=== PATIENT | female | born 1980 | race Caucasian/White ===

== ENCOUNTER 2017-12-22 09:53 | Inpatient (IN) ==
[2017-12-22] MEDS ORDERED: *HR* OxyCODONE/APAP 10/325 TABLET PO ONE (10:20)
--- NOTE | 2017-12-22 10:21 | Emergency Department Note ---
Disposition Clinical Impression: Flexor tenosynovitis of finger Osteomyelitis Qualifiers: Osteomyelitis type: other acute Osteomyelitis location: foot Laterality: right Qualified Code(s): M86.171 - Other acute osteomyelitis, right ankle and foot Disposition: Admitted As Inpatient Condition: Fair Time of Disposition: 11:58 General Adult HPI - General Chief complaint: ED Wound/Laceration Stated complaint: toe infection Time Seen by Provider: 12/22/17 09:59 Source: patient Limitations: no limitations Nursing Notes Reviewed: Yes Vital Signs Reviewed: Yes - History of Present Illness HPI Narrative: Patient to ED with right great toe infection. She went to wound care and was sent here for admission. States it has been infected for a couple of months. No fever. No vomiting. History of the same on the other foot with an amputation. Patient's second complaint is right middle finger pain. Red swollen and painful. States she went to another ER and it was not broken. Pain Scale: 8 - Related Data Home Medications Medication Instructions Recorded Confirmed Insulin Regular U-500 [HumuLIN R 15 unit SQ TID 10/22/15 12/22/17 U-500] Ascorbate Calcium [Vitamin C] 500 mg PO DAILY 03/30/16 12/22/17 Multivitamin/Iron/Folic Acid 1 tab PO DAILY #0 03/30/16 12/22/17 [Cerovite Advanced Form Tab] Trazodone HCl [TraZODone] 100 mg PO HS 03/30/16 12/22/17 Albuterol Sulfate [Albuterol 2 puff IH Q4H PRN 01/15/17 12/22/17 Inhaler] DiphenhydraMINE [Benadryl] 25 mg PO Q12H 01/15/17 12/22/17 Sennosides/Docusate Sodium 1 tab PO DAILY PRN 01/15/17 12/22/17 [Senna-S Tablet] Ondansetron HCl [Zofran] 8 mg PO DAILY PRN 01/19/17 12/22/17 Cinacalcet [Sensipar] 1 tab PO DAILY 12/22/17 12/22/17 DULoxetine [Cymbalta] 30 mg PO DAILY 12/22/17 12/22/17 DULoxetine [Cymbalta] 60 mg PO QAM 12/22/17 12/22/17 Ergocalciferol (VITAMIN D2) 50,000 unit PO QWEEK 12/22/17 12/22/17 [Vitamin D2] Insulin Glargine [Lantus] 30 units SQ BID 12/22/17 12/22/17 Labetalol HCl [Labetalol HCl] 300 mg PO BID 12/22/17 12/22/17 Lanthanum Carbonate [Lanthanum 1 tab PO 5XD 12/22/17 12/22/17 Carbonate] Omeprazole [PriLOSEC] 40 mg PO DAILY 12/22/17 12/22/17 Previous Rx's Medication Instructions Recorded Pregabalin [Lyrica] 100 mg PO TID 30 Days capsule 04/08/16 Allergies Allergy/AdvReac Type Severity Reaction Status Date / Time gabapentin [From Neurontin] AdvReac Fainting Verified 01/15/17 07:08 hydrocodone [From [place]] AdvReac Hypertensio Verified 01/19/17 08:38 n All systems ED: reviewed and negative except as stated. Constitutional: Denies: fever, chills Past Medical History - Past Medical History Medical history: Reports: asthma, diabetes, hyperlipidemia, hypertension, renal disease, SVT Surgical history: Reports: appendectomy, , hysterectomy, other Psychiatric history: Reports: anxiety, depression, panic disorder - Social History Smoking Status: Never smoker Smokeless Tobacco Status: No Alcohol use: Reports: none Drug use: Reports: none Physical Exam Erythema and warmth and swelling to the proximal left middle finger. Unable to flex or extend. Ulceration over the plantar aspect of the right great toe. - General Limitations: no limitations General appearance: alert, in no apparent distress - Head Head exam: atraumatic, normocephalic - Eye Eye exam: Present: normal appearance - ENT ENT exam: normal exam, normal oropharynx - Neck Neck exam: Present: normal inspection Course - Consultations Consultation #1: Dr Hernandez aware of hand consult. Will see on the floor. Time: 11:56 Consultation #2: Dr Aggarwal aware of toe infection. Requesting IV abx which are already ordered. Time: 11:56 Vital Signs Temperature 98.5 F 12/22/17 09:54 Pulse Rate 89 12/22/17 09:54 Respiratory Rate 18 12/22/17 09:54 Blood Pressure 157/83 12/22/17 09:54 O2 Sat by Pulse Oximetry 93 12/22/17 09:54 Temperature 98.5 F 12/22/17 09:54 Pulse Rate 89 12/22/17 09:54 Respiratory Rate 18 12/22/17 09:54 Blood Pressure 157/83 12/22/17 09:54 O2 Sat by Pulse Oximetry 93 12/22/17 09:54 Oxygen Delivery Oxygen Delivery Room Air Medical Decision Making - Medical Records Medical records reviewed: Yes I reviewed the patient's medical records. - Lab Data Lab results reviewed: Yes I reviewed the patient's lab results. Result diagrams: 12/22/17 10:39 12/22/17 10:39 Lab Results 12/22/17 12/22/17 12/22/17 Range/Units 10:39 10:39 10:39 WBC 8.9 (4.3-11.1) K/mcL RBC 2.95 L (3.82-4.97) M/mcL Hgb 9.0 L (11.5-15.4) g/dL Hct 27.9 L (35.3-44.9) % MCV 94.6 (83.0-100.0) fL MCH 30.5 (28.0-33.3) pg MCHC 32.3 (31.6-35.5) g/dL RDW 17.2 H (11.5-14.5) % Plt Count 157 (140-400) K/mcL MPV 10.3 (9.4-12.4) fL Immature Gran % 0.8 (0-4) % Seg Neutrophils % 80.9 % Lymphocytes % 6.6 % Monocytes % 9.1 % Eosinophils % 2.2 % Basophils % 0.4 % Neutrophils # 7.2 (1.6-8.9) K/mcL Lymphocytes # 0.6 (0.6-4.6) K/mcL Monocytes # 0.8 (0.0-1.3) K/mcL Eosinophils # 0.2 (0.0-0.6) K/mcL Basophils # 0.0 (0.0-0.2) K/mcL Sodium 131 L (136-145) mEq/L Potassium 4.1 (3.5-5.1) mEq/L Chloride 90 L (98-107) mEq/L Carbon Dioxide 29 (23-29) mEq/L BUN 26 H (6-20) mg/dL Creatinine 5.18 H (0.60-1.20) mg/dL Est GFR ( Amer) 11 L (> 60) Est GFR (Non-Af Amer) 9 L (> 60) BUN/Creatinine Ratio 5 L (6-26) Glucose 338 H (70-105) mg/dL Calculated Osmolality 290 (280-300) Lactic Acid 2.0 (0.5-2.2) mmol/L Calcium 8.0 L (8.6-10.3) mg/dL - Radiology Data Radiology results reviewed: Yes I reviewed the patient's radiology results. Finger X-Ray 12/22/17 10:18 IMPRESSION: No acute osseous abnormality. D/ / Alexander Muniz MD / Alexander Muniz MD Interpreting Provider: Alexander Muniz MD Toe X-Ray 12/22/17 10:18 IMPRESSION: Great toe soft tissue swelling with features of underlying bony destruction suspicious for osteomyelitis involving the base of the great toe distal phalanx. D/ / Chente Clement / Chente Clement Interpreting Provider: Chente Clement - EKG Data EKG #1 EKG attestation: Yes I reviewed and interpreted this EKG. EKG results narrative: Normal sinus rhythm and 89. Normal QRS. Normal ST segments. Normal intervals. Normal axis. Critical Care Time Critical Care Time: No
[2017-12-22 11:04] LABS: Basophils % 0.4 %; Eosinophils # 0.2 K/mcL (0.0-0.6); Eosinophils % 2.2 %; Hematocrit 27.9 % (35.3-44.9); Immature Granulocytes % 0.8 % (0-4); Lymphocytes # 0.6 K/mcL (0.6-4.6); Lymphocytes % 6.6 %; Mean Corpuscular HGB Conc 32.3 g/dL (31.6-35.5); Mean Corpuscular Hemoglobin 30.5 pg (28.0-33.3); Mean Corpuscular Volume 94.6 fL (83.0-100.0); Mean Platelet Volume 10.3 fL (9.4-12.4); Monocytes # 0.8 K/mcL (0.0-1.3); Monocytes % 9.1 %; Neutrophils # 7.2 K/mcL (1.6-8.9); Platelet Count 157 K/mcL (140-400); Red Blood Count 2.95 M/mcL (3.82-4.97); Red Cell Distribution Width 17.2 % (11.5-14.5); Segmented Neutrophils % 80.9 %
[2017-12-22 11:09] LABS: Potassium 4.1 mEq/L (3.5-5.1)
[2017-12-22] MEDS ORDERED: Vancomycin 1,000 MG in D5% in Water 250 ML IVPB ONE (11:21)
[2017-12-22] MEDS ORDERED: Piperacillin/Tazobactam 3.375 GM in Water for inj. (sterile) 20 ML IVP ONE (11:21)
[2017-12-22] MEDS ORDERED: Acetaminophen 325 MG TABLET PO PRN (12:45)
[2017-12-22] MEDS ORDERED: Naloxone 0.4 MG/ML INJ IVP PRN (12:45)
[2017-12-22] MEDS ORDERED: traMADol 50 MG TABLET PO PRN (12:51)
[2017-12-22] MEDS ORDERED: Vancomycin 1,500 MG in D5% in Water 250 ML IVPB SCH (13:00)
[2017-12-22] MEDS ORDERED: Ondansetron ODT 4 MG TAB.RAPDIS PO PRN (13:08)
[2017-12-22] MEDS ORDERED: Sennosides/Docusate Sodium TABLET PO PRN (13:08)
--- NOTE | 2017-12-22 13:15 | Internal Med History&Physical ---
<Raymond Sr - Last Filed: 12/22/17 13:59> Date of Encounter: 12/22/17 Time of Encounter: 12:30 Assessment and Plan (1) Osteomyelitis Current visit: Yes Status: Acute Acute osteomyelitis of right great toe. Patient states wound present for the past 2 months and she was seen at another hospital approximately 1 month ago and placed on by mouth azithromycin which did not help. Patient seen at [facility] wound care for the first time today and sent to ED. Patient states she had left great toe amputated for lesser infection compared to this one. Blood cultures 2 ordered. Wound culture ordered. IVPB vancomycin and Zosyn started in ED for infection coverage. ID consult ordered and discussed with Melissa Guevara with recommendation to hold current antibiotics for wound culture and possible bone culture by podiatry and I appreciate the consoult. Will continue IVPB as vancomycin with pharmacy dosing and Zosyn with renal dosing following cultures. Podiatry consult ordered in ED and I appreciate consult. Wound Care consult and daily wound care ordered. NPO for now d/t possible surgical intervention. Pt. discussed w/Dr. Guerrier who is in agreement with plan of care. Patient is high risk for further infection and/or sepsis as well as further morbidity based on current symptoms, degree of infection and right great toe, infected-appearing third digit of right hand, history, and risk factors of diabetes, ESRD, and previous need for amputation. Inpatient. Qualifiers: Osteomyelitis type: other acute Osteomyelitis location: foot Laterality: right Qualified Code(s): M86.171 - Other acute osteomyelitis, right ankle and foot (2) Flexor tenosynovitis of finger Current visit: Yes Status: Acute Acute tenosynovitis third digit of right hand. On exam, finger is red, swollen , painful and patient is unable to flex. Orthopedic consult placed in ED and I appreciate the consult. Stair-step pain medications for pain management. (3) Hyponatremia Current visit: Yes Status: Acute Acute hyponatremia with sodium of 131 and hypochloremia with chloride of 90 on admission. Patient receiving general 0.9 and S IV fluid resuscitation @ 60 mL/ HR. Monitor follow-up labs per sodium chloride status. (4) Hypocalcemia Current visit: Yes Status: Acute Acute hypocalcemia with calcium of 8.0 on admission. Calcium carbonate 1000 mg by mouth 3 times a day. Monitor f/u labs. (5) HLD (hyperlipidemia) Current visit: Yes Status: Chronic Hx of chronic HLD. Lipid panel in a.m. labs. Pt. is not currently taking statin. Will consider adding Lipitor to medication list based on lipid panel results. Qualifiers: Hyperlipidemia type: pure hypercholesterolemia Qualified Code(s): E78.00 - Pure hypercholesterolemia, unspecified; E78.0 - Pure hypercholesterolemia (6) HTN (hypertension) Current visit: Yes Status: Chronic Hx of chronic HTN. Monitor pt. and VS. Continue pts. Norvasc and Lopressor. Qualifiers: Hypertension type: essential hypertension Qualified Code(s): I10 - Essential (primary) hypertension (7) Anemia in chronic kidney disease Current visit: Yes Status: Chronic Hx of chronic anemia. Hgb 9.0 and Hct 27.9 on admission, down from 10.8 and 34.1 on 02/09/17. Pt. denies any unusual bleeding. H/H in a.m. labs. Qualifiers: Chronic kidney disease stage: on chronic dialysis Qualified Code(s): N18.6 - End stage renal disease; D63.1 - Anemia in chronic kidney disease; D63.1 - Anemia in chronic kidney disease; Z99.2 - Dependence on renal dialysis; Z99.2 - Dependence on renal dialysis; Z99.2 - Dependence on renal dialysis; Z99.2 - Dependence on renal dialysis (8) DM (diabetes mellitus) type II controlled with renal manifestation Current visit: Yes Status: Chronic Hx of chronic DM controlled with insulin complicated by ESRD. BG checks Q6 d/t NPO status. A1c in a.m. labs. Continue pts. Humalin and Lantus. Pt. currently NPO for possible surgical intervention. Continue ADA diet when appropriate. Qualifiers: Diabetes mellitus complication detail: with chronic kidney disease Diabetes mellitus group home insulin use: with rn long term care use Chronic kidney disease stage: stage 4 (severe) Qualified Code(s): E11.22 - Type 2 diabetes mellitus with diabetic chronic kidney disease (9) ESRD on dialysis Current visit: Yes Status: Chronic Chronic ESRD o dialysis. Pt. states she was dialyzed yesterday and scheduled / /. Consult ordered with Carla Cheng and discussed w/Dr. Ventura for inpatient dialysis tomorrow and I appreciate the consult. Patient receiving gentle 0.9 NS IV fluids for infection and current hyponatremia and hypochloremia. Monitor I&O and daily weight. (10) DVT prophylaxis Current visit: Yes Status: Acute Bilateral SCDs on pts. LEs for DVT prophylaxis d/t possible need for surgical intervention. Internal Medicine - H&P: HPI Chief complaint: Wound on right great toe/Infection of right Admitted From: Emergency Dept Plans for Post Hospital Care: Home History of present illness: Ms. Cochran is a 37 year old female with medical hx of asthma, diabetes controlled with insulin, hyperlipidemia, hypertension, end-stage renal disease on dialysis and SVTs resents from the ED with chief complaint of painful wound to the right great toe for the past 2 months which is worsened as well as pain and swelling in the third digit of the right hand for the past several days. Patient states she was at wound care for the first time today for her right great toe and was sent directly to the ED. She reports she was seen at another hospital approximately month ago and placed on by mouth azithromycin for her great toe which did not help. Patient states she was wrestling with her niece when she injured her third digit of her right hand several days ago which is now red, swollen, and painful. Patient denies recent illness, fever, chills, nausea, vomiting, headache, changes in vision, chest pain, shortness of breath, cough, palpitations, abdominal pain, diarrhea, constipation, dizziness, lightheadedness, pre-syncope, or syncope. Past Med Surg Social Fam HX - Past Medical History Source: patient, old records reviewed Medical history: asthma, diabetes (Controlled w/insulin), hyperlipidemia, hypertension, renal disease (ESRD on dialysis), SVT Psychiatric history: anxiety, depression, panic disorder - Past Surgical History Surgical History: appendectomy, , hysterectomy (Partial), other - Social History Smoking Status: Former smoker Packs per day: 1/2 PPD - Reports quitting 2 years ago Smokeless Tobacco Status: No Alcohol use: none Drug use: none Current living situation: Home Activity Level: Independent ambulation Recent Out of Country Travel Within the Last 8 Weeks: No Exposure or Possible Exposure to Illness During Travel: No - Family History Father Race: Family Member Ethnicity: Non- Living Status: Still Living Hx Family Cardiac Disorders: Yes (CAD, LA, HTN, HLD) Hx Family Respiratory Disorders: Yes (Sleep apnea) Hx Family Endocrine Disorder: Yes (DM) Hx Family Neuromuscular Disorders: Yes (father (stroke), mother (neuropathy)) Mother Race: Family Member Ethnicity: Non- Living Status: Still Living Hx Family Cardiac Disorders: Yes (LA, HTN, HLD) Hx Family Genitourinary Disorders: Yes (ESRD on dialysis) Hx Family Endocrine Disorder: Yes (DM) Brother Race: Family Member Ethnicity: Non- Living Status: Still Living Hx Family Medical Disorders: No Sister Race: Family Member Ethnicity: Non- Living Status: Still Living Hx Family Respiratory Disorders: Yes (Respiratory infections) Hx Family Endocrine Disorder: Yes (DM) Internal Medicine - H&P: Meds Insulin Regular U-500 [HumuLIN R U-500] 15 unit SQ TID 10/22/15 [History] Ascorbate Calcium [Vitamin C] 500 mg PO DAILY 03/30/16 [History] Multivitamin/Iron/Folic Acid [Cerovite Advanced Form Tab] 1 tab PO DAILY #0 08/07 [History] Trazodone HCl [TraZODone] 100 mg PO HS 03/30/16 [History] Pregabalin [Lyrica] 100 mg PO TID 30 Days capsule 04/08/16 [Rx] Albuterol Sulfate [Albuterol Inhaler] 2 puff IH Q4H PRN 01/15/17 [History] DiphenhydraMINE [Benadryl] 25 mg PO Q12H 01/15/17 [History] Sennosides/Docusate Sodium [Senna-S Tablet] 1 tab PO DAILY PRN 01/15/17 [History ] Ondansetron HCl [Zofran] 8 mg PO DAILY PRN 01/19/17 [History] Cinacalcet [Sensipar] 1 tab PO DAILY 12/22/17 [History] DULoxetine [Cymbalta] 30 mg PO HS 12/22/17 [History] DULoxetine [Cymbalta] 60 mg PO QAM 12/22/17 [History] Ergocalciferol (VITAMIN D2) [Vitamin D2] 50,000 unit PO QWEEK 12/22/17 [History] Insulin Glargine [Lantus] 30 units SQ BID 12/22/17 [History] Labetalol HCl [Labetalol HCl] 300 mg PO BID 12/22/17 [History] Lanthanum Carbonate [Lanthanum Carbonate] 1 tab PO 5XD 12/22/17 [History] Omeprazole [PriLOSEC] 40 mg PO DAILY 12/22/17 [History] 3 Allergy/AdvReac Type Severity Reaction Status Date / Time gabapentin [From Neurontin] AdvReac Fainting Verified 01/15/17 07:08 hydrocodone [From [place]] AdvReac Hypertensio Verified 01/19/17 08:38 n All Systems PM: A 10-system review of systems was performed and is negative for pertinent findings except as documented above in the HPI. - Constitutional Constitutional: no chills, no fever(s), no night sweats - EENT Eyes: no change in vision, no discharge, no pain, no photophobia Ears: no ear discharge, no ear pain, no tinnitus Nose, mouth and throat: no dysphagia, no nasal discharge, no neck pain, no sore throat - Breasts Breasts: as per HPI - Cardiovascular Cardiovascular ROS IM: no chest pain, no diaphoresis, no dyspnea, no lightheadedness, no palpitations, no syncope - Respiratory Respiratory: no cough, no dyspnea, no wheezing, no excessive phlegm production - Gastrointestinal Gastrointestinal: no abdominal pain, no diarrhea, no hematemesis, no hematochezia, no melena, no nausea, no vomiting - Genitourinary Genitourinary: no change in urinary stream, no dysuria, no flank pain, no hematuria Menstruation: as per HPI, post hysterectomy (Partial) - Musculoskeletal Musculoskeletal ROS IM: no numbness, no tingling - Integumentary Integumentary IM: as per HPI, erythema (Right great toe and third digit of right hand), skin ulcer (Right great toe), no rash, no unusual bruising - Neurological Neurological ROS: no confusion, no convulsions, no focal weakness, no numbness, no tingling, no tremor(s) - Psychiatric Psychiatric: as per HPI, anxiety, depression, panic attacks - Endocrine Endocrine IM: as per HPI - Hematologic/Lymphatic Hematologic/Lymphatic: no easy bruising - Allergic/Immunologic Allergic/Immunologic: as per HPI - Constitutional Vitals: Temp Pulse Resp BP Pulse Ox 98.5 F 89 18 157/83 93 12/22/17 09:54 12/22/17 09:54 12/22/17 09:54 12/22/17 09:54 12/22/17 09:54 General appearance: Present: cooperative, mild distress (Pain in right great toe and third digit of right hand), A&O X 3, morbidly obese, pleasant, answers questions appropriately - Head Head exam: Present: atraumatic, normocephalic - Eye Eye exam: Present: PERRL, conjuntiva pink, sclera anicteric Pupils: Present: PERRL - ENT ENT exam: Present: normal exam - Neck Neck exam general surgery: Present: supple, trachea midline. Absent: lymphadenopathy - Respiratory Respiratory exam: Present: CTAB. Absent: accessory muscle use, rales, rhonchi, wheezes - Cardiovascular Cardiovascular exam: Present: RRR, +S1, +S2. Absent: diastolic murmur, gallop, rubs, systolic murmur - GI/Abdominal GI/Abdominal exam: Present: normal bowel sounds, soft, no peritoneal signs. Absent: distended, tenderness - Rectal Rectal exam: Present: deferred - Additional comments: Gu exam deferred. - Extremities Exam Extremities exam: Present: joint swelling (Third digit of right hand), tenderness (Third digit of right hand), warm, radial pulses palpable and symmetrical - Expanded Upper Extremities Exam Hand wrist exam: Present: erythema (Third digit of right hand), swelling (Third digit of right hand), tenderness (Third digit of right hand) - Expanded Lower Extremities Exam Foot/Toe exam: Present: amputation (Left great toe), erythema (Right great toe) , swelling (Right great toe), tenderness (Right great toe) - Back Exam Back exam: Present: normal inspection - Neurological Exam Neurological exam: Present: CN II-XII intact, oriented X3, no focal deficits. Absent: pronater drift, facial droop, speech deficit - Psychiatric Psychiatric exam: Present: normal affect, normal mood - Skin Skin exam: Present: dry, intact Internal Med - H&P Results - Labs CBC & Chem 7: 12/22/17 10:39 12/22/17 10:39 Labs: Short CBC 12/22/17 Range/Units 10:39 WBC 8.9 (4.3-11.1) K/mcL Hgb 9.0 L (11.5-15.4) g/dL Hct 27.9 L (35.3-44.9) % Plt Count 157 (140-400) K/mcL Neutrophils # 7.2 (1.6-8.9) K/mcL BMP 12/22/17 10:39 Sodium 131 L Potassium 4.1 Chloride 90 L Carbon Dioxide 29 BUN 26 H Creatinine 5.18 H Glucose 338 H Calcium 8.0 L - Impressions ITS Impressions Finger X-Ray 12/22/17 10:18 IMPRESSION: No acute osseous abnormality. D/ / Alexander Muniz MD / Alexander Muniz MD Interpreting Provider: Alexander Muniz MD Toe X-Ray 12/22/17 10:18 IMPRESSION: Great toe soft tissue swelling with features of underlying bony destruction suspicious for osteomyelitis involving the base of the great toe distal phalanx. D/ / Chente Clement / Chente Clement Interpreting Provider: Chente Clement - Diagnostic Studies Other Images Additional comments: Impressions Finger X-Ray 12/22/17 10:18 IMPRESSION: No acute osseous abnormality. D/ / Alexander Muniz MD / Alexander Muniz MD Interpreting Provider: Alexander Muniz MD Toe X-Ray 12/22/17 10:18 IMPRESSION: Great toe soft tissue swelling with features of underlying bony destruction suspicious for osteomyelitis involving the base of the great toe distal phalanx. D/ / Chente Clement / Chente Clement Interpreting Provider: Chente Clement <Lila Guerrier - Last Filed: 12/23/17 07:06> Date of Encounter: 12/23/17 Internal Medicine - H&P: HPI History of present illness: Ms. Mourer is a 37 year old female All Systems PM: A 10-system review of systems was performed and is negative for pertinent findings except as documented above in the HPI. - Constitutional Vitals: Temp Pulse Resp BP Pulse Ox 98.2 F 85 20 97/63 96 12/23/17 04:52 12/23/17 04:52 12/23/17 04:52 12/23/17 04:52 12/23/17 04:52 Internal Med - H&P Results - Labs CBC & Chem 7: 12/23/17 04:03 12/23/17 04:03 Labs: Short CBC 12/23/17 Range/Units 04:03 WBC 9.5 (4.3-11.1) K/mcL Hgb 8.1 L (11.5-15.4) g/dL Hct 26.2 L (35.3-44.9) % Plt Count 189 (140-400) K/mcL Neutrophils # 6.6 (1.6-8.9) K/mcL BMP 12/23/17 04:03 Sodium 136 Potassium 3.6 Chloride 97 L Carbon Dioxide 25 BUN 31 H Creatinine 6.25 H Glucose 177 H Calcium 7.1 L Liver Function 12/23/17 Range/Units 04:03 Total Bilirubin 0.7 (0.3-1.0) mg/dL AST 25 (13-39) Units/L ALT 23 (7-52) Units/L Alkaline Phosphatase 98 (34-104) Units/L Albumin 3.3 L (3.5-5.7) g/dL - Attending Attestation I examined this patient and my medical decision-making was reviewed with the Resident Physician. I agree with the documented findings, disposition and treatment plan as described except to the extent set forth below.
--- NOTE | 2017-12-22 14:22 | Infectious Disease Consult ---
Date of Encounter: 12/22/17 Time of Encounter: 14:16 Assessment and Plan (1) Osteomyelitis Status: Acute Assessment and plan: Location: Right foot, great toe. Causative organism unclear. Secondary to non-healing diabetic foot ulcer. X-ray of the right foot shows osteomyelitis of the base of the right great toe. Podiatry consulted and following. Await recommendations. Per the patient, Podiatry is planning to take the patient to surgery and possibly amputate the toe. Check ESR and CRP. Blood cultures drawn 12/22/17 are pending x 2 sets. Wound culture obtained in the ED is pending. Clinically, the patient does not appear toxic. Her vitals and WBC are normal. For now, hold off on antibiotics until Podiatry is able to obtain good intra- operative cultures. If the patient spikes a fever or takes a turn to the worse, start get repeat blood cultures x 2 sets and start broad spectrum antibiotics (Vancomycin and Zosyn). Wound care and activity restrictions per the primary team. Qualifiers: Osteomyelitis type: other acute Osteomyelitis location: foot Laterality: right Qualified Code(s): M86.171 - Other acute osteomyelitis, right ankle and foot (2) Diabetic foot ulcer Status: Acute Assessment and plan: Location: Plantar medial aspect of the right great toe. Etiology unclear. Podiatry consulted and following. Wound care and activity restrictions per the podiatry team. Qualifiers: Diabetic foot ulcer location: toe Diabetes mellitus type: type 1 Laterality: right Non-pressure ulcer stage: with necrosis of bone Qualified Code(s): E10.621 - Type 1 diabetes mellitus with foot ulcer; L97.514 - Non- pressure chronic ulcer of other part of right foot with necrosis of bone; L97.514 - Non-pressure chronic ulcer of other part of right foot with necrosis of bone; L97.514 - Non-pressure chronic ulcer of other part of right foot with necrosis of bone; L97.514 - Non-pressure chronic ulcer of other part of right foot with necrosis of bone (3) Diabetes mellitus Status: Chronic Assessment and plan: Uncontrolled per patient report. FSBS 338 on admission labs. Check HgbA1C. Recommend aggressive glucose monitoring and control to promote wound healing and prevent re-infection. Management per the primary team. Qualifiers: Diabetes mellitus type: type 1 Diabetes mellitus complication status: with skin complications Diabetes mellitus complication detail: with foot ulcer Qualified Code(s): E10.621 - Type 1 diabetes mellitus with foot ulcer; L97.509 - Non-pressure chronic ulcer of other part of unspecified foot with unspecified severity; L97.509 - Non-pressure chronic ulcer of other part of unspecified foot with unspecified severity; L97.509 - Non-pressure chronic ulcer of other part of unspecified foot with unspecified severity; L97.509 - Non-pressure chronic ulcer of other part of unspecified foot with unspecified severity (4) ESRD on dialysis Status: Chronic Assessment and plan: Secondary to diabetic nephropathy. Follows with [facility]. HD T//Wed. Nephrology consulted and following. (5) Peripheral neuropathy Status: Chronic Qualifiers: Peripheral neuropathy type: polyneuropathy, other Qualified Code(s): G62.89 - Other specified polyneuropathies (6) Hypertension Status: Chronic Qualifiers: Hypertension type: essential hypertension Qualified Code(s): I10 - Essential (primary) hypertension (7) Morbid obesity with BMI of 40.0-44.9, adult Status: Chronic (8) Left hand pain Status: Acute Assessment and plan: Likely secondary to traumatic injury 2 weeks ago. Xray negative for fracture. Ortho consulted. Await recommendations. Clinically, does not appear infected, but may need to consider additional imaging to evaluate further. Infectious Disease HPI - Data of Consult Patient: new to practice Consult date: 12/22/17 Requesting Physician: Cesar Bose Primary Care Provider: Jacy Mcdonnell - Consult Narrative Reason for consult: Right great toe OM History of present illness: Ms. Cochran is a 37 year old female with a past medical history of asthma, diabetes type 1 diagnosed when the patient was 11 years old currently on sliding scale and long-acting insulin, hyperlipidemia, hypertension, end-stage renal disease on hemodialysis Wednesday, , and Wednesday, anxiety, and depression. The patient was admitted to the hospital December 22 for osteomyelitis the right great toe. We are consulted December 22 for antibiotic recommendations for osteomyelitis of the right great toe. Briefly, the patient is a 37-year-old female with past medical history as stated above. The patient states she had a diabetic ulcer noted to the plantar aspect of her right great toe for the past 2 months. She states that over the past with a course week the wound has worsened and now has a foul-smelling drainage. She denies any known injury or cause of the ulcer. She states she was seen once at another hospital and placed on a short course of clindamycin, but denied any change in the wound. She states she was referred to the wound clinic by her PCP who then subsequently told her to come to the ER for admission. Upon arrival to the ER, the patient is afebrile and hemodynamically stable. Her white blood cell count is normal. Her serum creatinine is consistent with her end-stage renal disease.She is also complaining of left middle finger pain and swelling and bruising secondary to a traumatic injury about 2 weeks ago. She states she had a previous x-ray that was negative, but she continues to have worsening pain and swelling. She did undergo an x-ray of the finger in the ER that was negative. She also had a right foot x-ray that showed ostial myelitis of the base of the right great toe. Blood cultures were obtained 2 sets and a wound culture was obtained as well. ESR and CRP are pending. She did receive a dose of IV vancomycin and IV Zosyn in the emergency department. Orthopedics has been consulted for her finger and podiatry as been consulted for the foot ulcer. We have been asked to evaluate and make further recommendations. During my exam today, the patient endorses a history as stated above. She reports an intermittent fevers and chills and rigors at home with her last fever being about 4 days ago. She states the fevers have been intermittent for a couple of weeks now. She reports generalized fatigue and dizziness. She denies any headache or neck pain. She denies any congestion, earache, or sore throat. She denies any chest pain, shortness of breath, or cough. She reports some nausea, but no vomiting or diarrhea or constipation. She denies any abdominal pain. She does report that she does still void, sometimes not even once a day. She states she's not had a very good appetite and her blood sugars been running very high at home. She denies oral thrush or additional skin lesions. The patient lives at home with her sister and nieces. She does not work outside the home. She denies tobacco, alcohol, or illicit drug use. She denies any infectious history. She denies any recent travel. She does have a dog at home, but denies any bites, scratches, or licks to the affected extremity. 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 She tells me she has been told that she has poor circulation. CC: Cesar Bose Past Med Surg Social Fam HX - Past Medical History Attestation: Yes The following information was validated with the patient. Source: patient, old records reviewed, nursing notes reviewed Medical history: asthma, diabetes (Type I, dx'd at 11 y/o, SSI/ARGUELLES), hyperlipidemia, hypertension, renal disease (ESRD on dialysis T// secondary to DM.), SVT Psychiatric history: anxiety, depression, panic disorder - Past Surgical History Surgical History: appendectomy, , hysterectomy (Partial), other (Left great toe amputation) - Social History Smoking Status: Former smoker Packs per day: 1/2 PPD - Reports quitting 2 years ago Smokeless Tobacco Status: No Alcohol use: none Drug use: none - Family History Mother Race: Family Member Ethnicity: Non- Living Status: Still Living Hx Family Cardiac Disorders: Yes (NV, HTN, HLD) Hx Family Genitourinary Disorders: Yes (ESRD on dialysis) Hx Family Endocrine Disorder: Yes (DM) Brother Race: Family Member Ethnicity: Non- Living Status: Still Living Hx Family Medical Disorders: No Sister Race: Family Member Ethnicity: Non- Living Status: Still Living Hx Family Respiratory Disorders: Yes (Respiratory infections) Hx Family Endocrine Disorder: Yes (DM) Father Race: Family Member Ethnicity: Non- Living Status: Still Living Hx Family Cardiac Disorders: Yes (CAD, NV, HTN, HLD) Hx Family Respiratory Disorders: Yes (Sleep apnea) Hx Family Endocrine Disorder: Yes (DM) Hx Family Neuromuscular Disorders: Yes (father (stroke), mother (neuropathy)) Infectious Disease-CN:Meds Insulin Regular U-500 [HumuLIN R U-500] 15 unit SQ TID 10/22/15 [History] Ascorbate Calcium [Vitamin C] 500 mg PO DAILY 03/30/16 [History] Multivitamin/Iron/Folic Acid [Cerovite Advanced Form Tab] 1 tab PO DAILY #0 08/07 [History] Trazodone HCl [TraZODone] 100 mg PO HS 05/09/16 [History] Pregabalin [Lyrica] 100 mg PO TID 30 Days capsule 04/08/16 [Rx] Albuterol Sulfate [Albuterol Inhaler] 2 puff IH Q4H PRN 01/15/17 [History] DiphenhydraMINE [Benadryl] 25 mg PO Q12H 01/15/17 [History] Sennosides/Docusate Sodium [Senna-S Tablet] 1 tab PO DAILY PRN 01/15/17 [History ] Ondansetron HCl [Zofran] 8 mg PO DAILY PRN 01/19/17 [History] Cinacalcet [Sensipar] 1 tab PO DAILY 12/22/17 [History] DULoxetine [Cymbalta] 30 mg PO HS 12/22/17 [History] DULoxetine [Cymbalta] 60 mg PO QAM 12/22/17 [History] Ergocalciferol (VITAMIN D2) [Vitamin D2] 50,000 unit PO QWEEK 12/22/17 [History] Insulin Glargine [Lantus] 30 units SQ BID 12/22/17 [History] Labetalol HCl [Labetalol HCl] 300 mg PO BID 12/22/17 [History] Lanthanum Carbonate [Lanthanum Carbonate] 1 tab PO 5XD 12/22/17 [History] Omeprazole [PriLOSEC] 40 mg PO DAILY 12/22/17 [History] 3 Allergy/AdvReac Type Severity Reaction Status Date / Time gabapentin [From Neurontin] AdvReac Fainting Verified 01/15/17 07:08 hydrocodone [From Holloway] AdvReac Hypertensio Verified 01/19/17 08:38 n All systems: reviewed and no additional remarkable complaints except as stated Exam - Constitutional Vitals: Temp Pulse Resp BP Pulse Ox 98.5 F 89 16 156/88 93 12/22/17 09:54 12/22/17 09:54 12/22/17 13:53 12/22/17 13:53 12/22/17 09:54 General appearance: cooperative, morbidly obese, no acute distress - Head Head exam: Present: atraumatic, normal inspection, normocephalic - Eye Eye exam: Present: EOMI, normal appearance, PERRL Pupils: Present: normal accommodation - ENT ENT exam: Present: mucous membranes moist - Neck Neck exam: Present: normal inspection - Respiratory Respiratory exam: Present: CTAB. Absent: rales, respiratory distress, rhonchi, wheezes - Cardiovascular Cardiovascular exam: Present: RRR, +S1, +S2 - GI/Abdominal GI/Abdominal exam: Present: distended (obese), normal bowel sounds, soft. Absent: tenderness - Extremities Exam Extremities exam: Present: joint swelling (Left hand middle finger PIP and MCP joint), tenderness (Right great toe, left hand). Absent: pedal edema Additional comments: Right great toe erythematous and edematous with Stage III ulcer noted to the plantar medial aspect. Foul-smelling drainage noted. Wound bed 50% eschar, 50% granulation tissue. Erythema and edema and tenderness noted to the left hand middle finger and dorsal aspect of the left fourth metacarpal. ROM of the finger limited. Wrist ROM intact. - Neurological Exam Neurological exam: Present: alert, oriented X3, no focal deficits - Psychiatric Psychiatric exam: Present: normal affect, normal mood - Skin Skin exam: Present: dry, intact, normal color, warm - Additional findings Additional findings: Perma-cath noted to the right upper chest. No redness, warmth, or drainage noted. Non-functioning AV fistula noted to the RUE. Infectious Disease CN: Results - Labs CBC & Chem 7: 12/22/17 10:39 12/22/17 10:39 Consult Discharge Plan - Plan Referrals: Jacy Mcdonnell [Primary Care Provider] - - Attending Attestation I examined this patient and my medical decision-making was reviewed with the Resident Physician. I agree with the documented findings, disposition and treatment plan as described except to the extent set forth below. This is an addendum to original report dictated by Melissa Guevara CNP. Please refer to [facility] for full details. Patient is a 37-year-old unfortunate female who is has diabetes mellitus type 1 with multiple complications including end-stage renal disease on hemodialysis, peripheral neuropathy, hypertension, morbid obesity and a history of diabetic ulcer noted on the plantar aspect of the right great toe for the past 2 months. Patient apparently had some drainage took antibiotics but didnt help and now has worsening drainage and foul smelling. Patient was seen by her PCP and sent to the emergency department for evaluation. Patient has not had sepsis like pictureors criteria. Patient had x-ray of the foot which revealed osteomyelitis. Patient was given a dose of vancomycin and Zosyn. Patient to be taken to the OR tomorrow by podiatry for surgical intervention. Currently patient sitting in bed appears comfortable and nontoxic on her cell phone pleasant answers questions. Commands. I agree with stopping all antibiotics since she is nontoxic and wait to see what Intra-Op cultures grow and do directly therapy at that time if still needed. We will have to talk to Dr. Reyez to see if he amputated proximal to the infected toe or if he has any concern for residual osteomyelitis after the surgery. In the meantime she will probably need 6 weeks worth of IV antibiotics. Patient does live in [place]. She has had IV antibiotics administered in the past. She also has her hemodialysis in [place].
--- NOTE | 2017-12-22 16:06 | Nephrology Consult Note ---
<Russel Reed - Last Filed: 12/22/17 15:50> Date of Encounter: 12/22/17 Time of Encounter: 15:50 Assessment and Plan (1) ESRD on dialysis Current Visit: Yes Status: Chronic Patient with ESRD secondary to diabetic nephropathy, on HD every , , Sa Right upper chest tunnelled HD catheter in place for the past 2 years, blood cultures pending Continue HD as scheduled every , , Sa Avoid nephrotoxins Continue to monitor (2) Anemia in chronic kidney disease Current Visit: Yes Status: Chronic Continue to monitor Qualifiers: Chronic kidney disease stage: on chronic dialysis Qualified Code(s): N18.6 - End stage renal disease; D63.1 - Anemia in chronic kidney disease; D63.1 - Anemia in chronic kidney disease; Z99.2 - Dependence on renal dialysis; Z99.2 - Dependence on renal dialysis; Z99.2 - Dependence on renal dialysis; Z99.2 - Dependence on renal dialysis (3) Hyponatremia Current Visit: Yes Status: Acute Continue IVF Continue to monitor (4) HTN (hypertension) Current Visit: No Status: Chronic Continue home meds Management per primary team Qualifiers: Hypertension type: essential hypertension Qualified Code(s): I10 - Essential (primary) hypertension (5) Osteomyelitis Current Visit: Yes Status: Acute Avoid nephrotoxins Management per ID Qualifiers: Osteomyelitis type: other acute Osteomyelitis location: foot Laterality: right Qualified Code(s): M86.171 - Other acute osteomyelitis, right ankle and foot (7) Diabetes mellitus Current Visit: Yes Status: Chronic Management per primary team Qualifiers: Diabetes mellitus type: type 1 Diabetes mellitus complication status: with skin complications Diabetes mellitus complication detail: with foot ulcer Qualified Code(s): E10.621 - Type 1 diabetes mellitus with foot ulcer; L97.509 - Non-pressure chronic ulcer of other part of unspecified foot with unspecified severity; L97.509 - Non-pressure chronic ulcer of other part of unspecified foot with unspecified severity; L97.509 - Non-pressure chronic ulcer of other part of unspecified foot with unspecified severity; L97.509 - Non-pressure chronic ulcer of other part of unspecified foot with unspecified severity (8) Vitamin D deficiency Current Visit: Yes Status: Chronic Continue Vit D supplementation Outpatient monitoring (9) Morbid obesity with BMI of 40.0-44.9, adult Current Visit: Yes Status: Chronic Management per primary team History of Present Illness - Reason for Consult Consult date: 12/22/17 end stage renal disease Requesting physician: Raymond Sr - Chief Complaint Toe infection - History of Present Illness Ms. Cochran is a 37 yo female with a PMH of diabetic nephropathy, ESRD on HD every , and previous left great toe amputation who presented c/o fever , chills, right great toe infection, and left hand infection that has been worsening for the past 4 days. She reports recent travel to [place] four months ago and denies animal bites or scratches to the affected extremities. Of note, she was recently treated with Clindamycin without relief of current symptoms. Patient received IV Vancomycin and IV Zosyn in the emergency department for osteomyelitis of the right great toe. Nephrology was consulted for HD management. Patient has a right upper chest tunnelled HD catheter in place for the past 2 years and non-working fistulas in bilateral upper extremities. 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 Patient reports last HD was yesterday Past Med Surg Social Fam HX - Past Medical History Medical history: asthma, diabetes (Type I, dx'd at 11 y/o, SSI/ARGUELLES), hyperlipidemia, hypertension, renal disease (ESRD on dialysis // secondary to DM.), SVT, other (legally blind) Psychiatric history: anxiety, depression, panic disorder - Past Surgical History Surgical History: appendectomy, , hysterectomy (Partial), other (Left great toe amputation) - Social History Smoking Status: Former smoker Packs per day: 1/2 PPD - Reports quitting 2 years ago Smokeless Tobacco Status: No Alcohol use: none Drug use: none - Family History Mother Race: Family Member Ethnicity: Non- Living Status: Still Living Hx Family Cardiac Disorders: Yes (MS, HTN, HLD) Hx Family Genitourinary Disorders: Yes (ESRD on dialysis) Hx Family Endocrine Disorder: Yes (DM) Brother Race: Family Member Ethnicity: Non- Living Status: Still Living Hx Family Medical Disorders: No Sister Race: Family Member Ethnicity: Non- Living Status: Still Living Hx Family Cardiac Disorders: Yes Hx Family Respiratory Disorders: Yes (Respiratory infections) Hx Family Endocrine Disorder: Yes (DM) Father Race: Family Member Ethnicity: Non- Living Status: Still Living Hx Family Cardiac Disorders: Yes (CAD, MS, HTN, HLD) Hx Family Respiratory Disorders: Yes (Sleep apnea) Hx Family Endocrine Disorder: Yes (DM) Hx Family Neuromuscular Disorders: Yes (father (stroke), mother (neuropathy)) Medications and Allergies Insulin Regular U-500 [HumuLIN R U-500] 15 unit SQ TID 10/22/15 [History] Ascorbate Calcium [Vitamin C] 500 mg PO DAILY 03/30/16 [History] Multivitamin/Iron/Folic Acid [Cerovite Advanced Form Tab] 1 tab PO DAILY #0 08/07 [History] Trazodone HCl [TraZODone] 100 mg PO HS 03/30/16 [History] Pregabalin [Lyrica] 100 mg PO TID 30 Days capsule 04/08/16 [Rx] Albuterol Sulfate [Albuterol Inhaler] 2 puff IH Q4H PRN 01/15/17 [History] DiphenhydraMINE [Benadryl] 25 mg PO Q12H 01/15/17 [History] Sennosides/Docusate Sodium [Senna-S Tablet] 1 tab PO DAILY PRN 01/15/17 [History ] Ondansetron HCl [Zofran] 8 mg PO DAILY PRN 01/19/17 [History] Cinacalcet [Sensipar] 1 tab PO DAILY 12/22/17 [History] DULoxetine [Cymbalta] 30 mg PO HS 12/22/17 [History] DULoxetine [Cymbalta] 60 mg PO QAM 12/22/17 [History] Ergocalciferol (VITAMIN D2) [Vitamin D2] 50,000 unit PO QWEEK 12/22/17 [History] Insulin Glargine [Lantus] 30 units SQ BID 12/22/17 [History] Labetalol HCl [Labetalol HCl] 300 mg PO BID 12/22/17 [History] Lanthanum Carbonate [Lanthanum Carbonate] 1 tab PO 5XD 12/22/17 [History] Omeprazole [PriLOSEC] 40 mg PO DAILY 12/22/17 [History] 3 Allergy/AdvReac Type Severity Reaction Status Date / Time gabapentin [From Neurontin] AdvReac Fainting Verified 01/15/17 07:08 hydrocodone [From [place]] AdvReac Hypertensio Verified 01/19/17 08:38 n Review of Systems Constitutional: chills, fever(s) Eyes: bilateral: blurred vision (chronic) Nose, mouth and throat: no nasal congestion, no sore throat Cardiovascular: chest pain, pedal edema, no radiating pain Respiratory: no dyspnea, no chest congestion Gastrointestinal: no abdominal pain, no diarrhea, no nausea, no vomiting Genitourinary Female: no dysuria, no urinary frequency, no urinary urgency Musculoskeletal: abnormal gait (walks with walker), joint swelling, limited range of motion, numbness, radiating pain into limb, tingling, no back pain Musculoskeletal: right: foot swelling Integumentary: changing lesions, lesions, non-healing lesions, skin ulcer, swelling Neurological: abnormal gait, numbness, tingling Psychiatric: no anxiety, no depression Exam - Vital Signs Vital signs: Initial Vital Signs Temp Pulse Resp BP Pulse Ox 98.5 F 89 18 157/83 93 12/22/17 09:54 12/22/17 09:54 12/22/17 09:54 12/22/17 09:54 12/22/17 09:54 Vital Signs - Last 8 Hours Temp Pulse Resp BP Pulse Ox 12/22/17 14:30 99.1 F 88 16 123/71 93 12/22/17 13:53 16 156/88 Intake and Output 12/21/17 12/22/17 12/22/17 23:59 07:59 15:59 Intake Total 0 / 0 Balance 0 / 0 Intake: Oral 0 / 0 - General Appearance General appearance: well-developed, well-nourished, obese EENT: ATNC, PERRL, mucous membranes moist Neck: supple Cardiology: edema, regular rate, regular rhythm Additional Comments: 12/28 TRISTIN - Dialysis Access Dialysis Vascular Access: Venous Catheter (tunnelled HD cath right upper chest) Gastrointestinal: normoactive bowel sounds, no tenderness, no guarding, no organomegaly Integumentary: warm and dry, ulcer, erythema (Erythemaous right great toe with black escar on plantar aspect, left 3rd digit with erythema over MCP joint, edema) Neurologic: no focal deficit, alert and oriented x3 Musculoskeletal: deformities (Left great toe amputation), erythema (Erythemaous right great toe with black escar on plantar aspect, left 3rd digit with erythema over MCP joint, edema), decreased ROM Psychiatric: mood/affect appropriate, cooperative Results - Lab Results 12/22/17 10:39 12/22/17 10:39 Most recent lab results Calcium 8.0 mg/dL (8.6-10.3) L 12/22/17 10:39 Consult Discharge Plan - Plan Referrals: Jacy Mcdonnell [Primary Care Provider] - ( web request sent on 12/29/17 ) <Maria Luz Gaston - Last Filed: 12/29/17 13:48> Date of Encounter: 12/22/17 Exam - Vital Signs Vital signs: Initial Vital Signs Temp Pulse Resp BP Pulse Ox 98.5 F 89 18 157/83 93 12/22/17 09:54 12/22/17 09:54 12/22/17 09:54 12/22/17 09:54 12/22/17 09:54 Vital Signs - Last 8 Hours Temp Pulse Resp BP Pulse Ox 12/29/17 11:54 98.1 F 102 16 126/76 12/29/17 11:40 98.8 F 94 16 137/71 96 12/29/17 11:00 98.8 F 94 16 137/71 96 Intake and Output 12/28/17 12/29/17 12/29/17 23:59 07:59 15:59 Intake Total 120 / 120 0 / 0 Balance 120 / 120 0 / 0 Intake: Oral 120 / 120 0 / 0 Blood Product 0 / 0 Rbcs Leuko Poor As-1 Unit 0 / 0 [id number] Other: Meal npo # Voids 1 Weight 68.8 kg Blood Glucose* 241 298 269 Patient Weight 12/29/17 23:59 Weight 68.8 kg Results - Lab Results 12/29/17 04:52 12/29/17 04:52 Most recent lab results ABG pH 7.33 pH Units (7.32-7.45) 12/28/17 23:49 ABG pCO2 57 mmHg (35-45) H 12/28/17 23:49 ABG pO2 116 mmHg (85-104) H 12/28/17 23:49 ABG HCO3 30 mEq/L (21-27) H 12/28/17 23:49 ABG O2 Saturation 98 % (95-98) 12/28/17 23:49 Calcium 8.3 mg/dL (8.6-10.3) L 12/29/17 04:52 Phosphorus 4.8 mg/dL (2.7-4.5) H 12/23/17 04:03 Magnesium 2.4 mg/dL (1.6-2.6) 12/29/17 04:52 - Attending Attestation I examined this patient and my medical decision-making was reviewed with the Resident Physician/HANGERSMITH. I agree with the documented findings, disposition and treatment plan as described except to the extent set forth below. Pt seen and examined well known to me from outpatient management of her ESRD on HD TTS at [facility] HD unit and also with PMH of DM, HTN admitted for likely osteomyelitis in her toe requiring possible amputation. renal consulted for management of her ESRD while hospitalized. will continue her regimen of HD on T- T-S. Resume her home med including her phos binders. Will monitor hgb as well.
[2017-12-22] MEDS: Cholecalciferol (D-3) 1,000 UNIT TABLET PO SCH (16:17)
[2017-12-22] MEDS: Pregabalin 50 MG CAPSULE PO SCH ×2 (16:22→21:19)
[2017-12-22] MEDS: 0.9 % Sodium Chloride 1,000 ML IVC SCH (16:22)
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
[2017-12-22] MEDS: *HR* OxyCODONE Immed Rel 5 MG TABLET PO PRN (17:48)
[2017-12-22] MEDS ORDERED: D5% in Water 1,000 ML IVC PRN (17:51)
[2017-12-22] MEDS ORDERED: *HR* Dextrose 50 % in Water (Syg) 50 ML SYRINGE IVP PRN (17:51)
[2017-12-22] MEDS ORDERED: Dextrose Gel 15 GM/37.5 ML TUBE PO PRN ×2 (17:51)
[2017-12-22] MEDS: Insulin LISPRO 300 UNITS/3 ML VIAL SQ SCH ×2 (18:25→21:18)
[2017-12-22 18:38] LABS: Hepatitis B Surface Antigen Nonreactive (Nonreactive)
[2017-12-22 19:37] LABS: Hepatitis B Surface Antibody 39.07 mIU/mL
--- NOTE | 2017-12-22 21:14 | Anesthesia Evaluation PreOp ---
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, neurotin related) Other Medical History: Renal (ESRD - last dialysis 12/23/2017), Diabetes Type II, Other (Gastroporesis, diabetic retinopathy,) Anesthesia History: No Prior Anesthetic Complications, Past Anesthesia (AV fisula x 2, Appy, Left fot toe amp., Left arm orif, partial Hyst) : No (LAUREL) Alcohol Use: none Drug use: none Medications and Allergies Insulin Regular U-500 [HumuLIN R U-500] 15 unit SQ TID 10/22/15 [History] Ascorbate Calcium [Vitamin C] 500 mg PO DAILY 03/30/16 [History] Multivitamin/Iron/Folic Acid [Cerovite Advanced Form Tab] 1 tab PO DAILY #0 08/07 [History] Trazodone HCl [TraZODone] 100 mg PO HS 03/30/16 [History] Pregabalin [Lyrica] 100 mg PO TID 30 Days capsule 04/08/16 [Rx] Albuterol Sulfate [Albuterol Inhaler] 2 puff IH Q4H PRN 01/15/17 [History] DiphenhydraMINE [Benadryl] 25 mg PO Q12H 01/15/17 [History] Sennosides/Docusate Sodium [Senna-S Tablet] 1 tab PO DAILY PRN 01/15/17 [History ] Ondansetron HCl [Zofran] 8 mg PO DAILY PRN 01/19/17 [History] Cinacalcet [Sensipar] 1 tab PO DAILY 12/22/17 [History] DULoxetine [Cymbalta] 30 mg PO HS 12/22/17 [History] DULoxetine [Cymbalta] 60 mg PO QAM 12/22/17 [History] Ergocalciferol (VITAMIN D2) [Vitamin D2] 50,000 unit PO QWEEK 12/22/17 [History] Insulin Glargine [Lantus] 30 units SQ BID 12/22/17 [History] Labetalol HCl [Labetalol HCl] 300 mg PO BID 12/22/17 [History] Lanthanum Carbonate [Lanthanum Carbonate] 1 tab PO 5XD 12/22/17 [History] Omeprazole [PriLOSEC] 40 mg PO DAILY 12/22/17 [History] 3 Allergy/AdvReac Type Severity Reaction Status Date / Time gabapentin [From Neurontin] AdvReac Fainting Verified 01/15/17 07:08 hydrocodone [From [place]] AdvReac Hypertensio Verified 01/19/17 08:38 n - Meds/Allergy Pre-op Review Medications Reviewed: Yes Allergies Reviewed: Yes Beta Blockers on Current Med List: Yes If Beta Blockers taken, Date/Time (Last Dose taken): 21:19 12/22/2017 Anesthesia Results - Labs 12/23/17 04:03 12/23/17 04:03 - Imaging EKG: report reviewed (SINUS RHYTHM LEFT VENTRICULAR HYPERTROPHY AND ST-T CHANGE) Anesthesia Exam Vital Signs/O2 Sat, Most Current Temp Pulse Resp BP Pulse Ox 99.8 F H 93 20 107/62 98 12/22/17 18:58 12/22/17 18:58 12/22/17 18:58 12/22/17 18:58 12/22/17 18:58 - HEENT Pupil (Motor): Pupils equal, EOMI Mallampati: III Teeth: Normal Oral Opening: Less than or equal to 3 - SPRAY MACHINE OPERATOR LOC: Oriented SPRAY MACHINE OPERATOR Motor: Normal RUE, Normal LUE, Normal RLE, Normal LLE, Normal Face SPRAY MACHINE OPERATOR Sensory: Normal: RUE, LUE, RLE, LLE, Face - Cardiac Rhythm: Regular Murmur: None JVD: No Carotid Bruit: No - Pulmonary Breath Sounds: bilateral Clear Respiratory Effort: Symmetrical Anesthesia Assess/Plan ASA Score: 4 Modified Edvin Scale for Level of Consciousness: Cooperative, oriented, and tranquil Anesthetic Plan: General Autologous Blood: Yes Monitoring Plan: Standard Monitors Recovery Plan: PACU
[2017-12-22] MEDS: Insulin DETEMIR 100 UNIT/ML X5UNITS SQ SCH (21:19)
[2017-12-22] MEDS: traZODone 50 MG TABLET PO SCH (21:19)
[2017-12-23 04:46] LABS: Basophils # 0.1 K/mcL (0.0-0.2); Basophils % 0.7 %; Eosinophils # 0.3 K/mcL (0.0-0.6); Eosinophils % 3.1 %; Hematocrit 26.2 % (35.3-44.9); Hemoglobin 8.1 g/dL (11.5-15.4); Immature Granulocytes % 0.8 % (0-4); Lymphocytes # 1.4 K/mcL (0.6-4.6); Lymphocytes % 15.1 %; Mean Corpuscular HGB Conc 30.9 g/dL (31.6-35.5); Mean Platelet Volume 10.6 fL (9.4-12.4); Monocytes % 10.9 %; Neutrophils # 6.6 K/mcL (1.6-8.9); Platelet Count 189 K/mcL (140-400); Red Cell Distribution Width 17.5 % (11.5-14.5); Segmented Neutrophils % 69.4 %
[2017-12-23 04:53] LABS: Hemoglobin A1C 7.4 %
[2017-12-23 05:17] LABS: Albumin 3.3 g/dL (3.5-5.7); Bilirubin,Total 0.7 mg/dL (0.3-1.0); Calcium 7.1 mg/dL (8.6-10.3); Chol/HDL Ratio 7.5 (0-4.9); Globulin 3.4 g/dL (2.4-3.5); Magnesium 1.9 mg/dL (1.6-2.6); Phosphorous 4.8 mg/dL (2.7-4.5); Potassium 3.6 mEq/L (3.5-5.1); Total Protein 6.7 g/dL (6.4-8.9)
--- NOTE | 2017-12-23 07:22 | Nephrology Progress Note ---
<Russel Reed - Last Filed: 12/23/17 18:25> Date of Encounter: 12/23/17 Time of Encounter: 07:22 - Assessment and Plan (1) ESRD on dialysis Status: Chronic Patient with ESRD secondary to diabetic nephropathy, on HD every Right upper chest tunnelled HD catheter in place for the past 2 years, blood cultures pending Continue HD as scheduled every Avoid nephrotoxins Continue to monitor (2) Anemia in chronic kidney disease Status: Chronic Continue to monitor Qualifiers: Chronic kidney disease stage: on chronic dialysis Qualified Code(s): N18.6 - End stage renal disease; D63.1 - Anemia in chronic kidney disease; D63.1 - Anemia in chronic kidney disease; Z99.2 - Dependence on renal dialysis; Z99.2 - Dependence on renal dialysis; Z99.2 - Dependence on renal dialysis; Z99.2 - Dependence on renal dialysis (3) Hyponatremia Status: Acute Resolved Discontinue IVF Continue to monitor (4) HTN (hypertension) Status: Chronic Hold home meds due to hypotension Will consider decreasing Labetalol frequency from BID to daily dosing once BP has improved Management per primary team Qualifiers: Hypertension type: essential hypertension Qualified Code(s): I10 - Essential (primary) hypertension (5) Osteomyelitis Status: Acute Proteus mirabilis positive wound cultures Management per ID Avoid nephrotoxins Anticipate right great toe amputation tomorrow per podiatry Qualifiers: Osteomyelitis type: other acute Osteomyelitis location: foot Laterality: right Qualified Code(s): M86.171 - Other acute osteomyelitis, right ankle and foot (6) Contusion of finger of left hand Status: Acute Management per ortho and ID Qualifiers: Encounter type: initial encounter Finger: middle finger Damage to nail status: without damage Qualified Code(s): S60.032A - Contusion of left middle finger without damage to nail, initial encounter (7) Diabetes mellitus Status: Chronic Management per primary team Qualifiers: Diabetes mellitus type: type 1 Diabetes mellitus complication status: with skin complications Diabetes mellitus complication detail: with foot ulcer Qualified Code(s): E10.621 - Type 1 diabetes mellitus with foot ulcer; L97.509 - Non-pressure chronic ulcer of other part of unspecified foot with unspecified severity; L97.509 - Non-pressure chronic ulcer of other part of unspecified foot with unspecified severity; L97.509 - Non-pressure chronic ulcer of other part of unspecified foot with unspecified severity; L97.509 - Non-pressure chronic ulcer of other part of unspecified foot with unspecified severity (8) Vitamin D deficiency Status: Chronic Continue Vit D supplementation Outpatient monitoring (11) Morbid obesity with BMI of 40.0-44.9, adult Status: Chronic Management per primary team Subjective Principal diagnosis: Osteomyelitis Interval history: Patient seen and examined resting comfortably in bedside chair. Patient reports she does not usually take her blood pressure medication at night. She was given Labetalol 300mg PO last night and her BP was too low to proceed with HD this AM. 500cc IVF bolus administered this AM. Will anticipate HD later this afternoon once her BP improves. Objective - Vital Signs Vital signs: Vital Signs Temp Pulse Resp BP Pulse Ox 12/23/17 04:52 98.2 F 85 20 97/63 96 12/22/17 22:49 99.0 F 89 18 100/62 98 12/22/17 18:58 99.8 F H 93 20 107/62 98 12/22/17 14:30 99.1 F 88 16 123/71 93 12/22/17 13:53 16 156/88 Intake and Output 12/22/17 12/22/17 12/23/17 15:59 23:59 07:59 Intake Total 0 / 0 120 / 120 0 / 0 Output Total 0 / 0 0 / 0 Balance 0 / 0 120 / 120 0 / 0 Intake: Oral 0 / 0 120 / 120 0 / 0 Output: Urine 0 / 0 0 / 0 Other: Meal Dinner Percent of Meal Consumed 95% Blood Glucose* 316 198 - General Appearance General appearance: Present: well-developed, well-nourished, obese EENT: Present: ATNC, PERRL, mucous membranes moist Neck: Present: supple Cardiology: Present: no rub, no gallops, no edema, regular rate, regular rhythm , normal S1 (2/6 TRISTIN), normal S2 Dialysis Vascular Access: Venous Catheter (tunnelled HD cath right upper chest) Gastrointestinal: Present: normoactive bowel sounds, no tenderness, no guarding , no organomegaly Integumentary: Present: warm and dry, erythema (Erythemaous right great toe with black escar on plantar aspect, left 3rd digit with erythema over MCP joint , edema) Neurologic: Present: no focal deficit, alert and oriented x3 Musculoskeletal: Present: deformities (left great toe amputation), erythema ( Erythemaous right great toe with black escar on plantar aspect, left 3rd digit with erythema over MCP joint, edema) Psychiatric: Present: mood/affect appropriate, cooperative - Lab 12/23/17 04:03 12/23/17 04:03 Most recent lab results Calcium 7.1 mg/dL (8.6-10.3) L 12/23/17 04:03 Phosphorus 4.8 mg/dL (2.7-4.5) H 12/23/17 04:03 Magnesium 1.9 mg/dL (1.6-2.6) 12/23/17 04:03 - VTE Documentation of Mechanical Device: Intermittent pneumatic compression device Consult Discharge Plan - Plan Additional Instructions: F/up with PCP in 1-2 weeks F/up for HD 3 times/week- TTS F/up with ID in 2 weeks Referrals: Clinic,Wound care [Other] (Office will call [facility] will an appointment date and time. If you do not hear from them please call and schedule as appointment ) Jacy Mcdonnell [Primary Care Provider] - (Patient is going to F ) Melissa Guevara, TRANSIT WORKER [Advanced Practice Nurse] - 01/17/18 9:20 am Prescriptions: HYDROcodone/Acet 5/325 mg [[place] 5-325 mg] 1 tab PO Q6HR PRN 5 Days #15 tablet PRN Reason: pain 7-10 hydrOXYzine pamoate [HydrOXYzine Pamoate] 25 mg PO TID PRN #10 capsule PRN Reason: Anxiety Pregabalin [Lyrica] 75 mg PO DAILY@1900 10 Days #10 capsule Tramadol HCl [Ultram] 50 mg PO Q6H PRN 5 Days #15 tab PRN Reason: PAIN<6 <Maria Luz Gaston - Last Filed: 01/19/18 00:22> Date of Encounter: 12/23/17 Objective - Lab 01/03/18 10:55 01/03/18 10:55 Most recent lab results ABG pH 7.33 pH Units (7.32-7.45) 12/28/17 23:49 ABG pCO2 57 mmHg (35-45) H 12/28/17 23:49 ABG pO2 116 mmHg (85-104) H 12/28/17 23:49 ABG HCO3 30 mEq/L (21-27) H 12/28/17 23:49 ABG O2 Saturation 98 % (95-98) 12/28/17 23:49 Calcium 8.5 mg/dL (8.6-10.3) L 01/03/18 10:55 Phosphorus 5.0 mg/dL (2.7-4.5) H 12/30/17 04:15 Magnesium 2.6 mg/dL (1.6-2.6) 12/30/17 04:15 - Attending Attestation I examined this patient and my medical decision-making was reviewed with the Resident Physician. I agree with the documented findings, disposition and treatment plan as described except to the extent set forth below. Pt seen and examined, episode of hypotension overnight noted after labetalol given requiring NS bolus. HD held this am till BP improves. Will plan for HD later today for her regular schedule of . Hgb noted low at 8.1, will monitor. Osteomyelitis care per ID and podiatry.
--- NOTE | 2017-12-23 07:30 | Orthopedics Progress Note ---
Date of Encounter: 12/23/17 Time of Encounter: 07:28 - Assessment and Plan (1) Contusion of finger of left hand Current Visit: Yes Status: Acute Qualifiers: Qualified Code(s): S60.00XA - Contusion of unspecified finger without damage to nail, initial encounter Subjective Interval history: S: Expected pain to the left long finger O: Afebrile and vital signs are stable Ecchymosis dorsally and mild to moderate swelling to the left long finger I do not appreciate any cellulitis. I can gently passively range the digit through the mid range without significant pain. She could grossly flex and extend the digits through a small arc without significant pain. The fingertips are all grossly sensate and well-perfused, and the radial artery pulse is 2+. A: Contusion to the left long finger P: Motion exercises as tolerated and splinting when needed for comfort. Ice and elevation. We will provide an ulnar gutter splint to include the small, ring, and long fingers today. I will continue to observe all she is in the hospital. Objective Vital signs: Vital Signs Temp Pulse Resp BP Pulse Ox 12/23/17 07:20 97.7 F 85 18 84/48 97 12/23/17 04:52 98.2 F 85 20 97/63 96 12/22/17 22:49 99.0 F 89 18 100/62 98 12/22/17 18:58 99.8 F H 93 20 107/62 98 12/22/17 14:30 99.1 F 88 16 123/71 93 12/22/17 13:53 16 156/88 Intake and Output 12/22/17 12/22/17 12/23/17 15:59 23:59 07:59 Intake Total 0 / 0 120 / 120 0 / 0 Output Total 0 / 0 0 / 0 Balance 0 / 0 120 / 120 0 / 0 Intake: Oral 0 / 0 120 / 120 0 / 0 Output: Urine 0 / 0 0 / 0 Other: Meal Dinner NPO Percent of Meal Consumed 95% Blood Glucose* 316 198 - Labs CBC & BMP: 12/23/17 04:03 12/23/17 04:03 Labs: Abnormal lab results RBC 2.70 M/mcL (3.82-4.97) L 12/23/17 04:03 Hgb 8.1 g/dL (11.5-15.4) L 12/23/17 04:03 Hct 26.2 % (35.3-44.9) L 12/23/17 04:03 MCHC 30.9 g/dL (31.6-35.5) L 12/23/17 04:03 RDW 17.5 % (11.5-14.5) H 12/23/17 04:03 ESR 112 mm/hr (0-15) H 12/22/17 13:54 Chloride 97 mEq/L (98-107) L 12/23/17 04:03 BUN 31 mg/dL (6-20) H 12/23/17 04:03 Creatinine 6.25 mg/dL (0.60-1.20) H 12/23/17 04:03 Est GFR ( Amer) 9 (> 60) L 12/23/17 04:03 Est GFR (Non-Af Amer) 7 (> 60) L 12/23/17 04:03 BUN/Creatinine Ratio 5 (6-26) L 12/23/17 04:03 Glucose 177 mg/dL (70-105) H 12/23/17 04:03 POC Glucose 316 (58-89) H 12/22/17 20:45 Hemoglobin A1c 7.4 % (-5.6) H 12/23/17 04:03 Calcium 7.1 mg/dL (8.6-10.3) L 12/23/17 04:03 Phosphorus 4.8 mg/dL (2.7-4.5) H 12/23/17 04:03 C-Reactive Protein 208 mg/L (Less than 10) H 12/22/17 13:54 Albumin 3.3 g/dL (3.5-5.7) L 12/23/17 04:03 Albumin/Globulin Ratio 1.0 (1.1-2.2) L 12/23/17 04:03 Triglycerides 220 mg/dL (< 150) H 12/23/17 04:03 VLDL Cholesterol, Calc 44 mg/dL (< 31) H 12/23/17 04:03 HDL Cholesterol 17 mg/dL (40-59) L 12/23/17 04:03 Cholesterol/HDL Ratio 7.5 (0-4.9) H 12/23/17 04:03 - VTE Documentation of Mechanical Device: Intermittent pneumatic compression device Consult Discharge Plan - Plan Referrals: Jacy Mcdonnell [Primary Care Provider] -
[2017-12-23] MEDS ORDERED: 0.9 % Sodium Chloride 250 ML IVC PRN (07:47)
[2017-12-23] MEDS ORDERED: *HR* Heparin 10,000 UNIT/10 ML VIAL IV PRN (07:47)
[2017-12-23] MEDS: Pregabalin 50 MG CAPSULE PO SCH ×3 (07:52→20:33)
[2017-12-23] MEDS: Ascorbic Acid 500 MG TABLET PO SCH (07:52)
[2017-12-23] MEDS: Multivit/Ca/Min/Fe/FA 1 TAB TABLET PO SCH (07:52)
[2017-12-23] MEDS: Cholecalciferol (D-3) 1,000 UNIT TABLET PO SCH (07:53)
[2017-12-23] MEDS: Insulin LISPRO 300 UNITS/3 ML VIAL SQ SCH ×7 (07:54→23:07)
[2017-12-23] MEDS: 0.9 % Sodium Chloride 1,000 ML IVC SCH (07:54)
[2017-12-23] MEDS ORDERED: 0.9 % Sodium Chloride 1,000 ML PRIME SCH (08:00)
--- NOTE | 2017-12-23 08:22 | Podiatry Progress Note ---
Date of Encounter: 12/23/17 Time of Encounter: 07:30 - Assessment and Plan (1) Diabetic foot ulcer Current Visit: Yes Status: Acute I had a thorough review with patient regarding her conditions, my findings, and her treatment options. We discussed the x-ray and changes on x-ray concerning for bone infection and we discussed the diabetic foot infection. Discussed treatment options and patient wants to proceed with amputation of the right hallux. It was explained to her that this would be a staged procedure that she would require more surgery and would have an open wound that would need to heal. Patient is high risk for partial foot/limb loss and this was explained to her. Nature of procedure risks versus benefits of potential complications and consequences of surgery discussed with the patient at length. No guarantees made as to the outcome. All questions were answered and the informed consent was signed. NPO, certified addiction counselor to OR. antibiotics per infectious disease Qualifiers: Diabetic foot ulcer location: toe Diabetes mellitus type: type 1 Laterality: right Non-pressure ulcer stage: with necrosis of bone Qualified Code(s): E10.621 - Type 1 diabetes mellitus with foot ulcer; L97.514 - Non- pressure chronic ulcer of other part of right foot with necrosis of bone; L97.514 - Non-pressure chronic ulcer of other part of right foot with necrosis of bone; L97.514 - Non-pressure chronic ulcer of other part of right foot with necrosis of bone; L97.514 - Non-pressure chronic ulcer of other part of right foot with necrosis of bone Subjective Interval history: 37 year old female with diabetes and end stage renal disease on HD with probable osteomyelitis of the distal phalanx and diabetic foot infection. Previously on clindamycin at [facility] by [facility]. Says she does not feel well. She says she knows the right big toe is going to be amputated like the other side. Says she feels nauseous and like she has a fever. Objective - Vital Signs Vital Signs: Vital Signs Temp Pulse Resp BP Pulse Ox 12/23/17 08:10 85/45 12/23/17 08:03 97 12/23/17 07:20 97.7 F 85 18 84/48 97 12/23/17 04:52 98.2 F 85 20 97/63 96 12/22/17 22:49 99.0 F 89 18 100/62 98 12/22/17 18:58 99.8 F H 93 20 107/62 98 12/22/17 14:30 99.1 F 88 16 123/71 93 12/22/17 13:53 16 156/88 Intake and Output 12/22/17 12/23/17 12/23/17 23:59 07:59 15:59 Intake Total 120 / 120 1000 / 1000 Output Total 0 / 0 0 / 0 Balance 120 / 120 1000 / 1000 Intake: IV Fluids 1000 / 1000 0.9 % Sodium Chloride 1,000 ML 1000 / 1000 @ 60 mls/hr IVC .[id number] VAL Rx #:[id number] Oral 120 / 120 0 / 0 Output: Urine 0 / 0 0 / 0 Other: Meal Dinner NPO Percent of Meal Consumed 95% Blood Glucose* 316 198 - Exam Exam: right foot is warm to touch. moderate edema of the right hallux. ulceration plantar medial hallux encompassing the majority of the plantar surface of the hallux 3cmx2.5cm. the base has an eschar with serosanguinous drainage coming through the eschar. cellulitis extends almost to the MTP joint. ROM of the 1st MTP joint is non-painful. no calf pain with squeeze. absent sensation to touch. - Radiology X-Rays: image reviewed (concerning for osteomyelitis of the distal phalanx. ) - Lab Result Diagrams: 12/23/17 04:03 12/23/17 04:03 Labs: Abnormal lab results RBC 2.70 M/mcL (3.82-4.97) L 12/23/17 04:03 Hgb 8.1 g/dL (11.5-15.4) L 12/23/17 04:03 Hct 26.2 % (35.3-44.9) L 12/23/17 04:03 MCHC 30.9 g/dL (31.6-35.5) L 12/23/17 04:03 RDW 17.5 % (11.5-14.5) H 12/23/17 04:03 ESR 112 mm/hr (0-15) H 12/22/17 13:54 Chloride 97 mEq/L (98-107) L 12/23/17 04:03 BUN 31 mg/dL (6-20) H 12/23/17 04:03 Creatinine 6.25 mg/dL (0.60-1.20) H 12/23/17 04:03 Est GFR ( Amer) 9 (> 60) L 12/23/17 04:03 Est GFR (Non-Af Amer) 7 (> 60) L 12/23/17 04:03 BUN/Creatinine Ratio 5 (6-26) L 12/23/17 04:03 Glucose 177 mg/dL (70-105) H 12/23/17 04:03 POC Glucose 316 (58-89) H 12/22/17 20:45 Hemoglobin A1c 7.4 % (-5.6) H 12/23/17 04:03 Calcium 7.1 mg/dL (8.6-10.3) L 12/23/17 04:03 Phosphorus 4.8 mg/dL (2.7-4.5) H 12/23/17 04:03 C-Reactive Protein 208 mg/L (Less than 10) H 12/22/17 13:54 Albumin 3.3 g/dL (3.5-5.7) L 12/23/17 04:03 Albumin/Globulin Ratio 1.0 (1.1-2.2) L 12/23/17 04:03 Triglycerides 220 mg/dL (< 150) H 12/23/17 04:03 VLDL Cholesterol, Calc 44 mg/dL (< 31) H 12/23/17 04:03 HDL Cholesterol 17 mg/dL (40-59) L 12/23/17 04:03 Cholesterol/HDL Ratio 7.5 (0-4.9) H 12/23/17 04:03 - VTE Documentation of Mechanical Device: Intermittent pneumatic compression device Consult Discharge Plan - Plan Referrals: Jacy Mcdonnell [Primary Care Provider] -
[2017-12-23] MEDS ORDERED: 0.9 % Sodium Chloride 500 ML IVC PRN (08:25)
[2017-12-23] MEDS: Insulin DETEMIR 100 UNIT/ML X5UNITS SQ SCH ×2 (08:29→23:06)
--- NOTE | 2017-12-23 09:05 | Internal Med Progress Note ---
Date of Encounter: 12/23/17 Time of Encounter: 09:03 - Assessment and plan (1) Osteomyelitis Current Visit: Yes Status: Acute Assessment and plan: Right foot greater toe osteomyelitis X-ray of the right foot shows osteomyelitis of the base of the right great toe. Continue vancomycin, discontinue Zosyn and start cefepime Patient will go to the OR later today after dialysis Followed by podiatry X-ray showed: Great toe soft tissue swelling with features of underlying bony destruction suspicious for osteomyelitis involving the base of the great toe distal phalanx. Qualifiers: Osteomyelitis type: other acute Osteomyelitis location: foot Laterality: right Qualified Code(s): M86.171 - Other acute osteomyelitis, right ankle and foot (2) Hyponatremia Current Visit: Yes Status: Acute Assessment and plan: Resolved (3) Left hand pain Current Visit: Yes Status: Acute Assessment and plan: Left lung finger contusion No evidence of fracture Evaluated by orthopedic surgery (4) Diabetes mellitus Current Visit: Yes Status: Chronic Assessment and plan: Continue insulin sliding scale Qualifiers: Diabetes mellitus type: type 1 Diabetes mellitus complication status: with skin complications Diabetes mellitus complication detail: with foot ulcer Qualified Code(s): E10.621 - Type 1 diabetes mellitus with foot ulcer; L97.509 - Non-pressure chronic ulcer of other part of unspecified foot with unspecified severity; L97.509 - Non-pressure chronic ulcer of other part of unspecified foot with unspecified severity; L97.509 - Non-pressure chronic ulcer of other part of unspecified foot with unspecified severity; L97.509 - Non-pressure chronic ulcer of other part of unspecified foot with unspecified severity (5) ESRD on dialysis Current Visit: Yes Status: Chronic Assessment and plan: Continue dialysis (6) Obesity (BMI 30-39.9) Current Visit: No Status: Acute (7) HTN (hypertension) Current Visit: No Status: Chronic Assessment and plan: Hold labetalol due to hypotension Qualifiers: Hypertension type: essential hypertension Qualified Code(s): I10 - Essential (primary) hypertension (8) Diabetic foot ulcer Current Visit: Yes Status: Acute Qualifiers: Diabetic foot ulcer location: toe Diabetes mellitus type: type 1 Laterality: right Non-pressure ulcer stage: with necrosis of bone Qualified Code(s): E10.621 - Type 1 diabetes mellitus with foot ulcer; L97.514 - Non- pressure chronic ulcer of other part of right foot with necrosis of bone; L97.514 - Non-pressure chronic ulcer of other part of right foot with necrosis of bone; L97.514 - Non-pressure chronic ulcer of other part of right foot with necrosis of bone; L97.514 - Non-pressure chronic ulcer of other part of right foot with necrosis of bone - Subjective Interval history: Complains of pain over her left hand and right foot, denies any shortness of breath, no abdominal pain. Feels extremely tired. No fevers overnight, no chest pain - Constitutional Vitals: Temp Pulse Resp BP Pulse Ox 97.7 F 85 18 85/45 97 12/23/17 07:20 12/23/17 07:20 12/23/17 07:20 12/23/17 08:10 12/23/17 08:03 General appearance: Present: cooperative, mild distress (Pain in right great toe and third digit of right hand), A&O X 3, morbidly obese, pleasant, answers questions appropriately - Head Head exam: Present: atraumatic, normocephalic - Eye Eye exam: Present: PERRL, conjuntiva pink, sclera anicteric Pupils: Present: PERRL - Neck Neck exam general surgery: Present: supple, trachea midline. Absent: lymphadenopathy - Respiratory Respiratory exam: Present: CTAB. Absent: accessory muscle use, rales, rhonchi, wheezes - Cardiovascular Cardiovascular exam: Present: RRR, +S1, +S2. Absent: diastolic murmur, gallop, rubs, systolic murmur - GI/Abdominal GI/Abdominal exam: Present: normal bowel sounds, soft, no peritoneal signs. Absent: distended, tenderness - Extremities Exam Extremities exam: Present: warm, radial pulses palpable and symmetrical. Absent : calf tenderness, cyanotic, pedal edema - Neurological Exam Neurological exam: Present: CN II-XII intact, oriented X3, no focal deficits. Absent: pronater drift, facial droop, speech deficit - Skin Skin exam: Present: dry, intact Additional comments: Right upper extremity AV fistula without thrill Right greater toe covered by dressing left long finger swelling Internal Medicine: Result - Labs CBC & Chem 7: 12/23/17 04:03 12/23/17 04:03 Labs: Short CBC 12/23/17 Range/Units 04:03 WBC 9.5 (4.3-11.1) K/mcL Hgb 8.1 L (11.5-15.4) g/dL Hct 26.2 L (35.3-44.9) % Plt Count 189 (140-400) K/mcL Neutrophils # 6.6 (1.6-8.9) K/mcL BMP 12/23/17 04:03 Sodium 136 Potassium 3.6 Chloride 97 L Carbon Dioxide 25 BUN 31 H Creatinine 6.25 H Glucose 177 H Calcium 7.1 L Liver Function 12/23/17 Range/Units 04:03 Total Bilirubin 0.7 (0.3-1.0) mg/dL AST 25 (13-39) Units/L ALT 23 (7-52) Units/L Alkaline Phosphatase 98 (34-104) Units/L Albumin 3.3 L (3.5-5.7) g/dL - VTE Documentation of Mechanical Device: Intermittent pneumatic compression device Consult Discharge Plan - Plan Referrals: Jacy Mcdonnell [Primary Care Provider] -
[2017-12-23] MEDS ORDERED: Vancomycin 1,500 MG in D5% in Water 250 ML IVPB ONE (09:15)
[2017-12-23] MEDS ORDERED: Vancomycin 1,500 MG in D5% in Water 250 ML IVPB SCH (10:00)
[2017-12-23] MEDS: Cefepime HCl 1,000 MG in Water for inj. (sterile) 20 ML 10 ML IVP SCH (11:34)
[2017-12-23] MEDS: *HR* OxyCODONE Immed Rel 5 MG TABLET PO PRN ×2 (11:34→19:41)
--- NOTE | 2017-12-23 13:54 | Infectious Disease Progress No ---
Date of Encounter: 12/23/17 Time of Encounter: 13:49 - Assessment and Plan (1) Osteomyelitis Current Visit: Yes Status: Acute Location: Right foot, great toe. Causative organism unclear. Secondary to non-healing diabetic foot ulcer. X-ray of the right foot shows osteomyelitis of the base of the right great toe. Podiatry consulted and following. Await recommendations. Per the patient, Podiatry is planning to take the patient to surgery and possibly amputate the toe. ESR 112, CRP 208. Blood cultures drawn 12/22/17 are pending x 2 sets. Wound culture obtained in the ED is pending. Clinically, the patient does not appear toxic. Her vitals and WBC are normal. For now, hold off on antibiotics until Podiatry is able to obtain good intra- operative cultures. If the patient spikes a fever or takes a turn to the worse, start get repeat blood cultures x 2 sets and start broad spectrum antibiotics (Vancomycin and Zosyn). Wound care and activity restrictions per the primary team. Qualifiers: Osteomyelitis type: other acute Osteomyelitis location: foot Laterality: right Qualified Code(s): M86.171 - Other acute osteomyelitis, right ankle and foot (2) Diabetic foot ulcer Current Visit: Yes Status: Acute Location: Plantar medial aspect of the right great toe. Etiology unclear. Podiatry consulted and following. Wound care and activity restrictions per the podiatry team. Qualifiers: Diabetic foot ulcer location: toe Diabetes mellitus type: type 1 Laterality: right Non-pressure ulcer stage: with necrosis of bone Qualified Code(s): E10.621 - Type 1 diabetes mellitus with foot ulcer; L97.514 - Non- pressure chronic ulcer of other part of right foot with necrosis of bone; L97.514 - Non-pressure chronic ulcer of other part of right foot with necrosis of bone; L97.514 - Non-pressure chronic ulcer of other part of right foot with necrosis of bone; L97.514 - Non-pressure chronic ulcer of other part of right foot with necrosis of bone (3) Diabetes mellitus Current Visit: Yes Status: Chronic Uncontrolled recently per patient report. FSBS 338 on admission labs. HgbA1C 7.2%. Recommend aggressive glucose monitoring and control to promote wound healing and prevent re-infection. Management per the primary team. Qualifiers: Diabetes mellitus type: type 1 Diabetes mellitus complication status: with skin complications Diabetes mellitus complication detail: with foot ulcer Qualified Code(s): E10.621 - Type 1 diabetes mellitus with foot ulcer; L97.509 - Non-pressure chronic ulcer of other part of unspecified foot with unspecified severity; L97.509 - Non-pressure chronic ulcer of other part of unspecified foot with unspecified severity; L97.509 - Non-pressure chronic ulcer of other part of unspecified foot with unspecified severity; L97.509 - Non-pressure chronic ulcer of other part of unspecified foot with unspecified severity (4) ESRD on dialysis Current Visit: Yes Status: Chronic Secondary to diabetic nephropathy. Follows with [facility]. HD T/Th/Sat. Nephrology consulted and following. (5) Peripheral neuropathy Current Visit: No Status: Chronic Qualifiers: Peripheral neuropathy type: polyneuropathy, other Qualified Code(s): G62.89 - Other specified polyneuropathies (6) Hypertension Current Visit: No Status: Chronic Qualifiers: Hypertension type: essential hypertension Qualified Code(s): I10 - Essential (primary) hypertension (7) Morbid obesity with BMI of 40.0-44.9, adult Current Visit: Yes Status: Chronic (8) Left hand pain Current Visit: Yes Status: Acute Likely secondary to traumatic injury 2 weeks ago. Xray negative for fracture. Ortho consulted, feel this is likely a contusion. Clinically, does not appear infected, but may need to consider additional imaging to evaluate further. We will monitor closely. - Subjective Interval history: Patient seen and examined. No acute events noted overnight. Patient surgery for today has been canceled per the patient due to her dialysis schedule. Patient reports some chills overnight, but denies any fevers or rigors. Denies any chest pain or shortness of breath or cough. Reports chronic nausea, but no vomiting or diarrhea. States she is hungry and is hoping the feet are soon since her surgery was canceled. States she's not had any urine output since she' s been here. Denies any oral thrush or new skin lesions. Denies any increased pain in the right foot. States she was evaluated by orthopedics and told she has a contusion to her left hand. Infect Dis PN-Objective Data - Labs CBC & Chem 7: 12/23/17 04:03 12/23/17 04:03 Labs: Laboratory Results - last 24 hr 12/22/17 12/22/17 12/22/17 13:54 13:54 16:01 WBC RBC Hgb Hct MCV MCH MCHC RDW Plt Count MPV Immature Gran % Seg Neutrophils % Lymphocytes % Monocytes % Eosinophils % Basophils % Neutrophils # Lymphocytes # Monocytes # Eosinophils # Basophils # ESR 112 H Sodium Potassium Chloride Carbon Dioxide BUN Creatinine Est GFR ( Amer) Est GFR (Non-Af Amer) BUN/Creatinine Ratio Glucose POC Glucose Est Mean Plasma Glucose Hemoglobin A1c Calculated Osmolality Calcium Phosphorus Magnesium Total Bilirubin AST ALT Alkaline Phosphatase C-Reactive Protein 208 H Serum Total Protein Albumin Globulin Albumin/Globulin Ratio Triglycerides Cholesterol LDL Cholesterol, Calc VLDL Cholesterol, Calc HDL Cholesterol Cholesterol/HDL Ratio Hep Bs Antigen Nonreactive Hep Bs Antibody 39.07 12/22/17 12/22/17 12/23/17 16:37 20:45 04:03 WBC 9.5 RBC 2.70 L Hgb 8.1 L Hct 26.2 L MCV 97.0 MCH 30.0 MCHC 30.9 L RDW 17.5 H Plt Count 189 MPV 10.6 Immature Gran % 0.8 Seg Neutrophils % 69.4 Lymphocytes % 15.1 Monocytes % 10.9 Eosinophils % 3.1 Basophils % 0.7 Neutrophils # 6.6 Lymphocytes # 1.4 Monocytes # 1.0 Eosinophils # 0.3 Basophils # 0.1 ESR Sodium Potassium Chloride Carbon Dioxide BUN Creatinine Est GFR ( Amer) Est GFR (Non-Af Amer) BUN/Creatinine Ratio Glucose POC Glucose 265 H 316 H Est Mean Plasma Glucose Hemoglobin A1c Calculated Osmolality Calcium Phosphorus Magnesium Total Bilirubin AST ALT Alkaline Phosphatase C-Reactive Protein Serum Total Protein Albumin Globulin Albumin/Globulin Ratio Triglycerides Cholesterol LDL Cholesterol, Calc VLDL Cholesterol, Calc HDL Cholesterol Cholesterol/HDL Ratio Hep Bs Antigen Hep Bs Antibody 12/23/17 12/23/17 04:03 04:03 WBC RBC Hgb Hct MCV MCH MCHC RDW Plt Count MPV Immature Gran % Seg Neutrophils % Lymphocytes % Monocytes % Eosinophils % Basophils % Neutrophils # Lymphocytes # Monocytes # Eosinophils # Basophils # ESR Sodium 136 Potassium 3.6 Chloride 97 L Carbon Dioxide 25 BUN 31 H Creatinine 6.25 H Est GFR ( Amer) 9 L Est GFR (Non-Af Amer) 7 L BUN/Creatinine Ratio 5 L Glucose 177 H POC Glucose Est Mean Plasma Glucose 166 Hemoglobin A1c 7.4 H Calculated Osmolality 293 Calcium 7.1 L Phosphorus 4.8 H Magnesium 1.9 Total Bilirubin 0.7 AST 25 ALT 23 Alkaline Phosphatase 98 C-Reactive Protein Serum Total Protein 6.7 Albumin 3.3 L Globulin 3.4 Albumin/Globulin Ratio 1.0 L Triglycerides 220 H Cholesterol 127 LDL Cholesterol, Calc 66 VLDL Cholesterol, Calc 44 H HDL Cholesterol 17 L Cholesterol/HDL Ratio 7.5 H Hep Bs Antigen Hep Bs Antibody Cultures: Serology 12/22/17 Range/Units 16:01 Hep Bs Antigen Nonreactive (Nonreactive) Hep Bs Antibody 39.07 mIU/mL Exam - Constitutional Vitals: Temp Pulse Resp BP Pulse Ox 97.6 F 84 18 123/62 95 12/23/17 12:10 12/23/17 12:10 12/23/17 12:10 12/23/17 12:10 12/23/17 12:10 General appearance: cooperative, morbidly obese, no acute distress - Head Head exam: Present: atraumatic, normal inspection, normocephalic - Eye Eye exam: Present: EOMI, normal appearance, PERRL Pupils: Present: normal accommodation - ENT ENT exam: Present: mucous membranes moist - Neck Neck exam: Present: normal inspection - Respiratory Respiratory exam: Present: CTAB. Absent: rales, respiratory distress, rhonchi, wheezes - Cardiovascular Cardiovascular exam: Present: RRR, +S1, +S2 - GI/Abdominal GI/Abdominal exam: Present: distended (obese), normal bowel sounds, soft. Absent: tenderness - Extremities Exam Additional comments: Right foot dressing C/D/I. - Neurological Exam Neurological exam: Present: alert, oriented X3, no focal deficits - Psychiatric Psychiatric exam: Present: normal affect, normal mood - Skin Skin exam: Present: dry, intact, normal color, warm - Additional findings Additional findings: Permacath noted to the right upper chest with transparent dressing C/D/I. - VTE Documentation of Mechanical Device: Intermittent pneumatic compression device Consult Discharge Plan - Plan Referrals: Jacy Mcdonnell [Primary Care Provider] - - Attending Attestation I examined this patient and my medical decision-making was reviewed with the Resident Physician. I agree with the documented findings, disposition and treatment plan as described except to the extent set forth below.
[2017-12-23] MEDS ORDERED: 0.9 % Sodium Chloride 1,000 ML ONE (13:59)
--- NOTE | 2017-12-23 17:12 | Electrocardiograph Report ---
[place] [id number] Test Date: 2017-12-22 Pat Name: Maria De Jesus Cochran Department: 103 Room: 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
[2017-12-23] MEDS: traZODone 50 MG TABLET PO SCH (20:33)
--- NOTE | 2017-12-23 21:31 | Podiatry Progress Note ---
Date of Encounter: 12/23/17 Time of Encounter: 17:20 - Assessment and Plan (1) Diabetic foot ulcer Current Visit: Yes Status: Acute Cellulitis to the right hallux secondary to diabetic foot ulcer. WBC: 9.5, a febrile ESR: 112, CRP: 208 Right hallux wound cultures prelim-german vaughn Infectious Disease consulted and following patient, recommend broad spectrum antibiotics if patient spikes a fever or takes a turn for the worse. Dr. Aggarwal to plan for an open amputation of right hallux tomorrow (12/24/17). This is a staged procedure. NPO after midnight. Qualifiers: Diabetic foot ulcer location: toe Diabetes mellitus type: type 1 Laterality: right Non-pressure ulcer stage: with necrosis of bone Qualified Code(s): E10.621 - Type 1 diabetes mellitus with foot ulcer; L97.514 - Non- pressure chronic ulcer of other part of right foot with necrosis of bone; L97.514 - Non-pressure chronic ulcer of other part of right foot with necrosis of bone; L97.514 - Non-pressure chronic ulcer of other part of right foot with necrosis of bone; L97.514 - Non-pressure chronic ulcer of other part of right foot with necrosis of bone (2) Diabetes mellitus Current Visit: Yes Status: Chronic Glucose control will aid in wound healing. Qualifiers: Diabetes mellitus type: type 1 Diabetes mellitus complication status: with skin complications Diabetes mellitus complication detail: with foot ulcer Qualified Code(s): E10.621 - Type 1 diabetes mellitus with foot ulcer; L97.509 - Non-pressure chronic ulcer of other part of unspecified foot with unspecified severity; L97.509 - Non-pressure chronic ulcer of other part of unspecified foot with unspecified severity; L97.509 - Non-pressure chronic ulcer of other part of unspecified foot with unspecified severity; L97.509 - Non-pressure chronic ulcer of other part of unspecified foot with unspecified severity (3) ESRD on dialysis Current Visit: Yes Status: Chronic On Hemodialysis every [id number]-Gnm. Currently in dialysis. Subjective Principal diagnosis: Osteomyelitis Interval history: Patient is lying in bed currently being dialyzed with a dressing intact to the right foot. Patient states she has felt some chills and her right foot just started hurting. Patient will be taken to surgery tomorrow for an open amputation of the right great toe by Dr. Aggarwal and patient states she is aware. Patient states she think her right great toe looks better today. Objective - Vital Signs Vital Signs: Vital Signs Temp Pulse Resp BP Pulse Ox 12/23/17 19:23 97.7 F 94 15 123/67 97 12/23/17 18:25 97.9 F 18 132/81 12/23/17 18:10 123/83 12/23/17 17:55 137/62 12/23/17 17:40 158/85 12/23/17 17:25 155/54 12/23/17 17:10 121/66 12/23/17 16:55 123/74 12/23/17 16:40 153/96 12/23/17 16:25 138/65 12/23/17 16:10 123/82 12/23/17 15:55 116/75 12/23/17 15:40 120/63 12/23/17 15:25 117/65 12/23/17 15:10 131/99 12/23/17 14:55 133/89 12/23/17 14:40 97.4 F L 18 115/63 12/23/17 12:10 97.6 F 84 18 123/62 95 12/23/17 10:14 111/63 12/23/17 08:10 85/45 12/23/17 08:03 97 12/23/17 07:20 97.7 F 85 18 84/48 97 12/23/17 04:52 98.2 F 85 20 97/63 96 12/22/17 22:49 99.0 F 89 18 100/62 98 Intake and Output 12/23/17 12/23/17 12/23/17 07:59 15:59 23:59 Intake Total 1000 / 1000 600 / 600 Output Total 0 / 0 1600 / 1600 Balance 1000 / 1000 600 / 600 -1600 / -1600 Intake: IV Fluids 1000 / 1000 0.9 % Sodium Chloride 1,000 ML 1000 / 1000 @ 60 mls/hr IVC .[id number] [facility] Rx #:[id number] Oral 0 / 0 0 / 0 Intake, Rinseback and Flushes 600 / 600 Output: Urine 0 / 0 0 / 0 Total Dialysis (HD) Output 1600 / 1600 Other: Meal NPO Blood Glucose* 198 236 192 Hemodialysis Net Fluid Removed 566 1000 (mL) - Exam Exam: General: A&O x3, calm and cooperative, no acute distress. Vascular: Right foot: pedal pulses palpable, no pallor or cyanosis. CFT is immediate to digits #1 through #5 right. Skin temperature is warm. No calf pain with manual compression. Neurological: Sensation intact with light touch to right foot. Integument: Ulceration to the plantar aspect of the right hallux with eschar, small amount of serous drainage observed to dressing, malodorous, right hallux is globally edematous with erythema to the dorsum of the right toe ascending to the 1st MTPJ, no streaking, no pus. - Lab Result Diagrams: 12/23/17 04:03 12/23/17 04:03 Labs: Abnormal lab results RBC 2.70 M/mcL (3.82-4.97) L 12/23/17 04:03 Hgb 8.1 g/dL (11.5-15.4) L 12/23/17 04:03 Hct 26.2 % (35.3-44.9) L 12/23/17 04:03 MCHC 30.9 g/dL (31.6-35.5) L 12/23/17 04:03 RDW 17.5 % (11.5-14.5) H 12/23/17 04:03 ESR 112 mm/hr (0-15) H 12/22/17 13:54 Chloride 97 mEq/L (98-107) L 12/23/17 04:03 BUN 31 mg/dL (6-20) H 12/23/17 04:03 Creatinine 6.25 mg/dL (0.60-1.20) H 12/23/17 04:03 Est GFR ( Amer) 9 (> 60) L 12/23/17 04:03 Est GFR (Non-Af Amer) 7 (> 60) L 12/23/17 04:03 BUN/Creatinine Ratio 5 (6-26) L 12/23/17 04:03 Glucose 177 mg/dL (70-105) H 12/23/17 04:03 POC Glucose 192 (58-89) H 12/23/17 19:29 Hemoglobin A1c 7.4 % (-5.6) H 12/23/17 04:03 Calcium 7.1 mg/dL (8.6-10.3) L 12/23/17 04:03 Phosphorus 4.8 mg/dL (2.7-4.5) H 12/23/17 04:03 C-Reactive Protein 208 mg/L (Less than 10) H 12/22/17 13:54 Albumin 3.3 g/dL (3.5-5.7) L 12/23/17 04:03 Albumin/Globulin Ratio 1.0 (1.1-2.2) L 12/23/17 04:03 Triglycerides 220 mg/dL (< 150) H 12/23/17 04:03 VLDL Cholesterol, Calc 44 mg/dL (< 31) H 12/23/17 04:03 HDL Cholesterol 17 mg/dL (40-59) L 12/23/17 04:03 Cholesterol/HDL Ratio 7.5 (0-4.9) H 12/23/17 04:03 - VTE Documentation of Mechanical Device: Intermittent pneumatic compression device Consult Discharge Plan - Plan Referrals: Jacy Mcdonnell [Primary Care Provider] -
[2017-12-24 07:31] LABS: Albumin 3.5 g/dL (3.5-5.7); Bilirubin,Total 0.6 mg/dL (0.3-1.0); Calcium 7.7 mg/dL (8.6-10.3); Globulin 3.6 g/dL (2.4-3.5); Potassium 4.1 mEq/L (3.5-5.1); Total Protein 7.1 g/dL (6.4-8.9)
[2017-12-24 07:45] LABS: Basophils % 0.6 %; Eosinophils # 0.3 K/mcL (0.0-0.6); Eosinophils % 3.8 %; Hematocrit 27.2 % (35.3-44.9); Hemoglobin 8.5 g/dL (11.5-15.4); Lymphocytes # 1.2 K/mcL (0.6-4.6); Lymphocytes % 17.2 %; Mean Corpuscular HGB Conc 31.3 g/dL (31.6-35.5); Mean Corpuscular Hemoglobin 30.4 pg (28.0-33.3); Mean Corpuscular Volume 97.1 fL (83.0-100.0); Monocytes % 14.2 %; Neutrophils # 4.5 K/mcL (1.6-8.9); Platelet Count 169 K/mcL (140-400); Red Cell Distribution Width 17.8 % (11.5-14.5); Segmented Neutrophils % 63.2 %
[2017-12-24 07:46] LABS: INR 1.2; Prothrombin Time 12.7 Seconds (9.4-12.1)
[2017-12-24] MEDS: Cholecalciferol (D-3) 1,000 UNIT TABLET PO SCH (08:01)
[2017-12-24] MEDS: *HR* OxyCODONE Immed Rel 5 MG TABLET PO PRN ×3 (08:01→19:04)
[2017-12-24] MEDS: Ascorbic Acid 500 MG TABLET PO SCH (08:01)
[2017-12-24] MEDS: Pregabalin 50 MG CAPSULE PO SCH ×2 (08:02→15:46)
[2017-12-24] MEDS: Multivit/Ca/Min/Fe/FA 1 TAB TABLET PO SCH (08:02)
--- NOTE | 2017-12-24 08:02 | Nephrology Progress Note ---
Date of Encounter: 12/24/17 Time of Encounter: 08:01 - Assessment and Plan (1) ESRD on dialysis Current Visit: Yes Status: Chronic Patient with ESRD secondary to diabetic nephropathy, on HD every Right upper chest tunnelled HD catheter in place for the past 2 years, blood cultures show no growth to date Continue HD as scheduled every Avoid nephrotoxins Continue to monitor (2) Anemia in chronic kidney disease Current Visit: Yes Status: Chronic Continue to monitor Qualifiers: Chronic kidney disease stage: on chronic dialysis Qualified Code(s): N18.6 - End stage renal disease; D63.1 - Anemia in chronic kidney disease; D63.1 - Anemia in chronic kidney disease; Z99.2 - Dependence on renal dialysis; Z99.2 - Dependence on renal dialysis; Z99.2 - Dependence on renal dialysis; Z99.2 - Dependence on renal dialysis (3) Hyponatremia Current Visit: Yes Status: Acute Resolved Discontinue IVF Continue to monitor (4) HTN (hypertension) Current Visit: No Status: Chronic Hold home meds due to hypotension Will consider decreasing Labetalol frequency from BID to daily dosing once BP has improved Management per primary team Qualifiers: Hypertension type: essential hypertension Qualified Code(s): I10 - Essential (primary) hypertension (5) Osteomyelitis Current Visit: Yes Status: Acute Proteus mirabilis positive wound cultures Management per ID Avoid nephrotoxins Anticipate right great toe amputation tomorrow per podiatry Qualifiers: Osteomyelitis type: other acute Osteomyelitis location: foot Laterality: right Qualified Code(s): M86.171 - Other acute osteomyelitis, right ankle and foot (6) Contusion of finger of left hand Current Visit: Yes Status: Acute Management per ortho and ID Qualifiers: Encounter type: initial encounter Finger: middle finger Damage to nail status: without damage Qualified Code(s): S60.032A - Contusion of left middle finger without damage to nail, initial encounter (7) Diabetes mellitus Current Visit: Yes Status: Chronic Management per primary team Qualifiers: Diabetes mellitus type: type 1 Diabetes mellitus complication status: with skin complications Diabetes mellitus complication detail: with foot ulcer Qualified Code(s): E10.621 - Type 1 diabetes mellitus with foot ulcer; L97.509 - Non-pressure chronic ulcer of other part of unspecified foot with unspecified severity; L97.509 - Non-pressure chronic ulcer of other part of unspecified foot with unspecified severity; L97.509 - Non-pressure chronic ulcer of other part of unspecified foot with unspecified severity; L97.509 - Non-pressure chronic ulcer of other part of unspecified foot with unspecified severity (8) Vitamin D deficiency Current Visit: Yes Status: Chronic Continue Vit D supplementation Outpatient monitoring (9) Morbid obesity with BMI of 40.0-44.9, adult Current Visit: Yes Status: Chronic Management per primary team Subjective Principal diagnosis: Osteomyelitis Interval history: Patient seen and examined resting comfortably in bed. Patient reports worsening redness, pain, and continued swelling in her left 3rd finger. Patient is currently NPO, anticipate right great toe amputation later this afternoon. Objective - Vital Signs Vital signs: Vital Signs Temp Pulse Resp BP Pulse Ox 12/24/17 07:41 97.7 F 86 16 132/78 97 12/23/17 23:36 99.9 F H 54 16 146/74 100 12/23/17 19:23 97.7 F 94 15 123/67 97 12/23/17 18:25 97.9 F 18 132/81 12/23/17 18:10 123/83 12/23/17 17:55 137/62 12/23/17 17:40 158/85 12/23/17 17:25 155/54 12/23/17 17:10 121/66 12/23/17 16:55 123/74 12/23/17 16:40 153/96 12/23/17 16:25 138/65 12/23/17 16:10 123/82 12/23/17 15:55 116/75 12/23/17 15:40 120/63 12/23/17 15:25 117/65 12/23/17 15:10 131/99 12/23/17 14:55 133/89 12/23/17 14:40 97.4 F L 18 115/63 12/23/17 12:10 97.6 F 84 18 123/62 95 12/23/17 10:14 111/63 12/23/17 08:10 85/45 12/23/17 08:03 97 Intake and Output 12/23/17 12/24/17 12/24/17 23:59 07:59 15:59 Output Total 1600 / 1600 Balance -1600 / -1600 Output: Urine 0 / 0 Total Dialysis (HD) Output 1600 / 1600 Other: Blood Glucose* 192 330 Hemodialysis Net Fluid Removed 1000 (mL) - General Appearance General appearance: Present: well-developed, well-nourished, obese EENT: Present: ATNC, PERRL, mucous membranes moist Neck: Present: supple Respiratory: Present: clear Cardiology: Present: no murmurs, no rub, no gallops, no edema, regular rate, regular rhythm, normal S1, normal S2 Dialysis Vascular Access: Venous Catheter (tunnelled HD cath right upper chest) Gastrointestinal: Present: normoactive bowel sounds, no tenderness, no guarding , no organomegaly Integumentary: Present: erythema (Erythemaous right great toe with black escar on plantar aspect, left 3rd digit with erythema over MCP joint, proximal sreaking edema) Neurologic: Present: no focal deficit, alert and oriented x3 Musculoskeletal: Present: deformities (left great toe amputation), erythema ( Erythemaous right great toe with black escar on plantar aspect, left 3rd digit with erythema over MCP joint, proximal streaking, edema) Psychiatric: Present: mood/affect appropriate, cooperative - Lab 12/24/17 06:52 12/24/17 06:52 Most recent lab results Calcium 7.7 mg/dL (8.6-10.3) L 12/24/17 06:52 Phosphorus 4.8 mg/dL (2.7-4.5) H 12/23/17 04:03 Magnesium 1.9 mg/dL (1.6-2.6) 12/23/17 04:03 - VTE Documentation of Mechanical Device: Intermittent pneumatic compression device Consult Discharge Plan - Plan Referrals: Jacy Mcdonnell [Primary Care Provider] -
[2017-12-24] MEDS: Insulin LISPRO 300 UNITS/3 ML VIAL SQ SCH ×6 (08:07→17:44)
--- NOTE | 2017-12-24 10:33 | Infectious Disease Progress No ---
Date of Encounter: 12/24/17 Time of Encounter: 10:31 - Assessment and Plan (1) Osteomyelitis Current Visit: Yes Status: Acute Location: Right foot, great toe. Causative organism unclear. Secondary to non-healing diabetic foot ulcer. X-ray of the right foot shows osteomyelitis of the base of the right great toe. Podiatry consulted and following. Surgery scheduled for later today. ESR 112, CRP 208. Blood cultures drawn 12/22/17 are NGTD x 2 sets. Wound culture obtained in the ED grew P. mirabilis, sensitivities are pending. Clinically, the patient does not appear toxic. Her vitals and WBC are normal. She did have some hypotension yesterday morning, but this resolved with small fluid bolus. Antibiotics were started per the primary team yesterday morning. Recommend holding further antibiotics until after surgery, then re-start Zosyn and Vanc post-op. Qualifiers: Osteomyelitis type: other acute Osteomyelitis location: foot Laterality: right Qualified Code(s): M86.171 - Other acute osteomyelitis, right ankle and foot (2) Diabetic foot ulcer Current Visit: Yes Status: Acute Location: Plantar medial aspect of the right great toe. Etiology unclear. Podiatry consulted and following. Wound care and activity restrictions per the podiatry team. Qualifiers: Diabetic foot ulcer location: toe Diabetes mellitus type: type 1 Laterality: right Non-pressure ulcer stage: with necrosis of bone Qualified Code(s): E10.621 - Type 1 diabetes mellitus with foot ulcer; L97.514 - Non- pressure chronic ulcer of other part of right foot with necrosis of bone; L97.514 - Non-pressure chronic ulcer of other part of right foot with necrosis of bone; L97.514 - Non-pressure chronic ulcer of other part of right foot with necrosis of bone; L97.514 - Non-pressure chronic ulcer of other part of right foot with necrosis of bone (3) Diabetes mellitus Current Visit: Yes Status: Chronic Uncontrolled recently per patient report. FSBS 338 on admission labs. Her blood sugars continue to run high. HgbA1C 7.2%. Recommend aggressive glucose monitoring and control to promote wound healing and prevent re-infection. Management per the primary team. Qualifiers: Diabetes mellitus type: type 1 Diabetes mellitus complication status: with skin complications Diabetes mellitus complication detail: with foot ulcer Qualified Code(s): E10.621 - Type 1 diabetes mellitus with foot ulcer; L97.509 - Non-pressure chronic ulcer of other part of unspecified foot with unspecified severity; L97.509 - Non-pressure chronic ulcer of other part of unspecified foot with unspecified severity; L97.509 - Non-pressure chronic ulcer of other part of unspecified foot with unspecified severity; L97.509 - Non-pressure chronic ulcer of other part of unspecified foot with unspecified severity (4) ESRD on dialysis Current Visit: Yes Status: Chronic Secondary to diabetic nephropathy. Follows with [facility]. HD T//Sat. Nephrology consulted and following. (5) Peripheral neuropathy Current Visit: No Status: Chronic Qualifiers: Peripheral neuropathy type: polyneuropathy, other Qualified Code(s): G62.89 - Other specified polyneuropathies (6) Hypertension Current Visit: No Status: Chronic Qualifiers: Hypertension type: essential hypertension Qualified Code(s): I10 - Essential (primary) hypertension (7) Morbid obesity with BMI of 40.0-44.9, adult Current Visit: Yes Status: Chronic (8) Left hand pain Current Visit: Yes Status: Acute Likely secondary to traumatic injury 2 weeks ago. Xray negative for fracture. Ortho consulted, feel this is likely a contusion, but concern for worsening with new skin changes. Recommend requesting that ortho come re-evaluate. Clinically, does not appear infected, but may need to consider additional imaging to evaluate further. We will monitor closely. - Subjective Interval history: Patient seen and examined. No acute events noted overnight. Patient reports some chills overnight and reports a low-grade fever last night, but denies rigors. Denies any chest pain or shortness of breath or cough. Reports chronic nausea, but no vomiting or diarrhea. Sates she feels like she is getting constipated. States she is hungry, but she is NPO. States she's not had any urine output since she's been here. Denies any oral thrush or new skin lesions. Denies any increased pain in the right foot. Reports worsening pain and new tingling of the right middle finger. Infect Dis PN-Objective Data - Labs CBC & Chem 7: 12/24/17 06:52 12/24/17 06:52 Labs: Laboratory Results - last 24 hr 02/01/18 02/01/18 02/01/18 06:28 12:15 19:29 WBC RBC Hgb Hct MCV MCH MCHC RDW Plt Count MPV Immature Gran % Seg Neutrophils % Lymphocytes % Monocytes % Eosinophils % Basophils % Neutrophils # Lymphocytes # Monocytes # Eosinophils # Basophils # PT INR Sodium Potassium Chloride Carbon Dioxide BUN Creatinine Est GFR ( Amer) Est GFR (Non-Af Amer) BUN/Creatinine Ratio Glucose POC Glucose 198 H 236 H 192 H Calculated Osmolality Calcium Total Bilirubin AST ALT Alkaline Phosphatase Serum Total Protein Albumin Globulin Albumin/Globulin Ratio Random Vancomycin 12/24/17 12/24/17 12/24/17 06:05 06:52 06:52 WBC 7.2 RBC 2.80 L Hgb 8.5 L Hct 27.2 L MCV 97.1 MCH 30.4 MCHC 31.3 L RDW 17.8 H Plt Count 169 MPV 11.0 Immature Gran % 1.0 Seg Neutrophils % 63.2 Lymphocytes % 17.2 Monocytes % 14.2 Eosinophils % 3.8 Basophils % 0.6 Neutrophils # 4.5 Lymphocytes # 1.2 Monocytes # 1.0 Eosinophils # 0.3 Basophils # 0.0 PT INR Sodium 135 L Potassium 4.1 Chloride 96 L Carbon Dioxide 28 BUN 23 H Creatinine 4.52 H Est GFR ( Amer) 13 L Est GFR (Non-Af Amer) 11 L BUN/Creatinine Ratio 5 L Glucose 315 H POC Glucose 330 H Calculated Osmolality 296 Calcium 7.7 L Total Bilirubin 0.6 AST 35 ALT 29 Alkaline Phosphatase 119 H Serum Total Protein 7.1 Albumin 3.5 Globulin 3.6 H Albumin/Globulin Ratio 1.0 L Random Vancomycin 12/24/17 12/24/17 06:52 06:52 WBC RBC Hgb Hct MCV MCH MCHC RDW Plt Count MPV Immature Gran % Seg Neutrophils % Lymphocytes % Monocytes % Eosinophils % Basophils % Neutrophils # Lymphocytes # Monocytes # Eosinophils # Basophils # PT 12.7 H INR 1.2 Sodium Potassium Chloride Carbon Dioxide BUN Creatinine Est GFR ( Amer) Est GFR (Non-Af Amer) BUN/Creatinine Ratio Glucose POC Glucose Calculated Osmolality Calcium Total Bilirubin AST ALT Alkaline Phosphatase Serum Total Protein Albumin Globulin Albumin/Globulin Ratio Random Vancomycin 18.5 Cultures: Serology 12/22/17 Range/Units 16:01 Hep Bs Antigen Nonreactive (Nonreactive) Hep Bs Antibody 39.07 mIU/mL Exam - Constitutional Vitals: Temp Pulse Resp BP Pulse Ox 97.7 F 86 16 132/78 97 12/24/17 07:41 12/24/17 07:41 12/24/17 07:41 12/24/17 07:41 12/24/17 07:41 General appearance: cooperative, morbidly obese, no acute distress - Head Head exam: Present: atraumatic, normal inspection, normocephalic - Eye Eye exam: Present: EOMI, normal appearance, PERRL Pupils: Present: normal accommodation - ENT ENT exam: Present: mucous membranes moist - Neck Neck exam: Present: normal inspection - Respiratory Respiratory exam: Present: CTAB. Absent: rales, respiratory distress, rhonchi, wheezes - Cardiovascular Cardiovascular exam: Present: RRR, +S1, +S2 - GI/Abdominal GI/Abdominal exam: Present: distended (obese), normal bowel sounds, soft. Absent: tenderness - Extremities Exam Extremities exam: Absent: joint swelling, pedal edema, tenderness Additional comments: Right foot dressing C/D/I. Left hand middle finger with new color changes of the skin over lying the DIP. ROM severely limited due to pain and swelling. No obvious cellulitis, warmth, or fluctuance. - Neurological Exam Neurological exam: Present: alert, oriented X3, no focal deficits - Psychiatric Psychiatric exam: Present: normal affect, normal mood - Skin Skin exam: Present: dry, intact, normal color, warm - VTE Documentation of Mechanical Device: Intermittent pneumatic compression device Consult Discharge Plan - Plan Referrals: Jacy Mcdonnell [Primary Care Provider] - - Attending Attestation I examined this patient and my medical decision-making was reviewed with the Resident Physician. I agree with the documented findings, disposition and treatment plan as described except to the extent set forth below. unable to get MRI due to pain stimulator going for surgery for I&D of her hand. discussed with hand surgeon
[2017-12-24] MEDS ORDERED: Lidocaine/EPI 1:100k 1% 50 ML VIAL INFILT ONE ×2 (13:53→18:21)
[2017-12-24] MEDS ORDERED: Lidocaine/EPI 1:100k 1% 20 ML VIAL INFILT ONE ×2 (14:30→18:21)
--- NOTE | 2017-12-24 15:06 | Internal Med Progress Note ---
Date of Encounter: 12/24/17 Time of Encounter: 15:00 - Assessment and plan (1) Osteomyelitis Current Visit: Yes Status: Acute Assessment and plan: Right foot greater toe osteomyelitis X-ray of the right foot shows osteomyelitis of the base of the right great toe. Continue vancomycin day 3, discontinued Zosyn Continue cefepime day #2 Proteus growing on the culture Patient will go to the OR later today for an open amputation of the right hallux Followed by podiatry X-ray showed: Great toe soft tissue swelling with features of underlying bony destruction suspicious for osteomyelitis involving the base of the great toe distal phalanx. Qualifiers: Osteomyelitis type: other acute Osteomyelitis location: foot Laterality: right Qualified Code(s): M86.171 - Other acute osteomyelitis, right ankle and foot (2) Hyponatremia Current Visit: Yes Status: Acute Assessment and plan: Resolved (3) Left hand pain Current Visit: Yes Status: Acute Assessment and plan: Left long finger contusion, worrisome for infection Incision and drainage Cultures sent No evidence of fracture Followed by orthopedic surgery (4) Diabetes mellitus Current Visit: Yes Status: Chronic Assessment and plan: Continue insulin sliding scale We will adjust insulin after coming back from surgical procedure Qualifiers: Diabetes mellitus type: type 1 Diabetes mellitus complication status: with skin complications Diabetes mellitus complication detail: with foot ulcer Qualified Code(s): E10.621 - Type 1 diabetes mellitus with foot ulcer; L97.509 - Non-pressure chronic ulcer of other part of unspecified foot with unspecified severity; L97.509 - Non-pressure chronic ulcer of other part of unspecified foot with unspecified severity; L97.509 - Non-pressure chronic ulcer of other part of unspecified foot with unspecified severity; L97.509 - Non-pressure chronic ulcer of other part of unspecified foot with unspecified severity (5) ESRD on dialysis Current Visit: Yes Status: Chronic Assessment and plan: Continue dialysis (6) Obesity (BMI 30-39.9) Current Visit: No Status: Acute (7) HTN (hypertension) Current Visit: No Status: Chronic Assessment and plan: Hold labetalol due to hypotension Qualifiers: Hypertension type: essential hypertension Qualified Code(s): I10 - Essential (primary) hypertension (8) Diabetic foot ulcer Current Visit: Yes Status: Acute Qualifiers: Diabetic foot ulcer location: toe Diabetes mellitus type: type 1 Laterality: right Non-pressure ulcer stage: with necrosis of bone Qualified Code(s): E10.621 - Type 1 diabetes mellitus with foot ulcer; L97.514 - Non- pressure chronic ulcer of other part of right foot with necrosis of bone; L97.514 - Non-pressure chronic ulcer of other part of right foot with necrosis of bone; L97.514 - Non-pressure chronic ulcer of other part of right foot with necrosis of bone; L97.514 - Non-pressure chronic ulcer of other part of right foot with necrosis of bone - Subjective Interval history: Complaining of persistent pain over her left hand and right foot, denies any shortness of breath, no abdominal pain. Feels extremely tired. No fevers overnight, no chest pain - Constitutional Vitals: Temp Pulse Resp BP Pulse Ox 98.4 F 91 16 148/78 99 12/24/17 12:58 12/24/17 12:58 12/24/17 12:58 12/24/17 12:58 12/24/17 12:58 General appearance: Present: cooperative, mild distress (Pain in right great toe and third digit of right hand), A&O X 3, morbidly obese, pleasant, answers questions appropriately Exam: - Head Head exam: Present: atraumatic, normocephalic - Eye Eye exam: Present: PERRL, conjuntiva pink, sclera anicteric Pupils: Present: PERRL - Neck Neck exam general surgery: Present: supple, trachea midline. Absent: lymphadenopathy - Respiratory Respiratory exam: Present: CTAB. Absent: accessory muscle use, rales, rhonchi, wheezes - Cardiovascular Cardiovascular exam: Present: RRR, +S1, +S2. Absent: diastolic murmur, gallop, rubs, systolic murmur - GI/Abdominal GI/Abdominal exam: Present: normal bowel sounds, soft, no peritoneal signs. Absent: distended, tenderness - Extremities Exam Extremities exam: Present: warm, radial pulses palpable and symmetrical. Absent : calf tenderness, cyanotic, pedal edema - Neurological Exam Neurological exam: Present: CN II-XII intact, oriented X3, no focal deficits. Absent: pronater drift, facial droop, speech deficit - Skin Skin exam: Present: dry, intact Additional comments: Right upper extremity AV fistula without thrill Right greater toe covered by dressing left long finger swollen and erythematous, currently undergoing incision and drainage Internal Medicine: Result - Labs CBC & Chem 7: 12/24/17 06:52 12/24/17 06:52 Labs: Short CBC 12/24/17 Range/Units 06:52 WBC 7.2 (4.3-11.1) K/mcL Hgb 8.5 L (11.5-15.4) g/dL Hct 27.2 L (35.3-44.9) % Plt Count 169 (140-400) K/mcL Neutrophils # 4.5 (1.6-8.9) K/mcL BMP 12/24/17 06:52 Sodium 135 L Potassium 4.1 Chloride 96 L Carbon Dioxide 28 BUN 23 H Creatinine 4.52 H Glucose 315 H Calcium 7.7 L Liver Function 12/24/17 Range/Units 06:52 Total Bilirubin 0.6 (0.3-1.0) mg/dL AST 35 (13-39) Units/L ALT 29 (7-52) Units/L Alkaline Phosphatase 119 H (34-104) Units/L Albumin 3.5 (3.5-5.7) g/dL - ABG Interpretation ABG results: PT/INR, D-dimer PT 12.7 Seconds (9.4-12.1) H 12/24/17 06:52 - VTE Documentation of Mechanical Device: Intermittent pneumatic compression device Consult Discharge Plan - Plan Referrals: Jacy Mcdonnell [Primary Care Provider] -
--- NOTE | 2017-12-24 15:09 | Orthopedics Progress Note ---
Date of Encounter: 12/24/17 Time of Encounter: 15:06 - Assessment and Plan (1) Contusion of finger of left hand Current Visit: Yes Status: Acute Qualifiers: Qualified Code(s): S60.032A - Contusion of left middle finger without damage to nail, initial encounter Subjective Principal diagnosis: Finger infection Interval history: S: Worsening pain to the left long finger. O: Afebrile and vital signs are stable Ecchymosis dorsally and mild to moderate swelling to the left long finger Worsening swelling and now with erythema I can gently passively range the digit through the mid range without significant pain. She could grossly flex and extend the digits through a small arc without significant pain. The fingertips are all grossly sensate and well-perfused, and the radial artery pulse is 2+. A: Contusion to the left long finger with likely superinfection/abscess P: Given that her symptoms are worsening my recommendation is for incision, drainage, irrigation, debridement of the left long finger. After informed consent was obtained to identify the correct patient, correct procedure, the correct side I did anesthetize the finger under sterile technique with 10 mL of 1% lidocaine with epinephrine. I then made two 1-1/2 cm dorsal incisions one over the proximal phalanx and one over the middle phalanx. After spreading the subcutaneous tissue I did encounter grossly purulent material which was swabbed for culture. The wound was copiously irrigated. It was packed open. I made a small Clark incision over the proximal phalanx volarly and dissected down to the flexor tendon sheath taking care to protect the neurovascular bundles on either side. I then identified the flexor tendon sheath which was intact and without the appearance of any fluid. I opened a small window and there is no fluid in the sheath. After copious irrigation the wound was packed open. At this point my recommendation is broad-spectrum antibiotics, follow up on the cultures, and motion exercises to reduce the risk of stiffness. Objective Vital signs: Vital Signs Temp Pulse Resp BP Pulse Ox 12/24/17 12:58 98.4 F 91 16 148/78 99 12/24/17 07:41 97.7 F 86 16 132/78 97 12/23/17 23:36 99.9 F H 54 16 146/74 100 12/23/17 19:23 97.7 F 94 15 123/67 97 12/23/17 18:25 97.9 F 18 132/81 12/23/17 18:10 123/83 12/23/17 17:55 137/62 12/23/17 17:40 158/85 12/23/17 17:25 155/54 12/23/17 17:10 121/66 12/23/17 16:55 123/74 12/23/17 16:40 153/96 12/23/17 16:25 138/65 12/23/17 16:10 123/82 12/23/17 15:55 116/75 12/23/17 15:40 120/63 12/23/17 15:25 117/65 12/23/17 15:10 131/99 Intake and Output 12/23/17 12/24/17 12/24/17 23:59 07:59 15:59 Output Total 1600 / 1600 Balance -1600 / -1600 Output: Urine 0 / 0 Total Dialysis (HD) Output 1600 / 1600 Other: Blood Glucose* 192 330 229 Hemodialysis Net Fluid Removed 1000 (mL) - Labs CBC & BMP: 12/24/17 06:52 12/24/17 06:52 Labs: Abnormal lab results RBC 2.80 M/mcL (3.82-4.97) L 12/24/17 06:52 Hgb 8.5 g/dL (11.5-15.4) L 12/24/17 06:52 Hct 27.2 % (35.3-44.9) L 12/24/17 06:52 MCHC 31.3 g/dL (31.6-35.5) L 12/24/17 06:52 RDW 17.8 % (11.5-14.5) H 12/24/17 06:52 ESR 112 mm/hr (0-15) H 12/22/17 13:54 PT 12.7 Seconds (9.4-12.1) H 12/24/17 06:52 Sodium 135 mEq/L (136-145) L 12/24/17 06:52 Chloride 96 mEq/L (98-107) L 12/24/17 06:52 BUN 23 mg/dL (6-20) H 12/24/17 06:52 Creatinine 4.52 mg/dL (0.60-1.20) H 12/24/17 06:52 Est GFR ( Amer) 13 (> 60) L 12/24/17 06:52 Est GFR (Non-Af Amer) 11 (> 60) L 12/24/17 06:52 BUN/Creatinine Ratio 5 (6-26) L 12/24/17 06:52 Glucose 315 mg/dL (70-105) H 12/24/17 06:52 POC Glucose 330 (58-89) H 12/24/17 06:05 Hemoglobin A1c 7.4 % (-5.6) H 12/23/17 04:03 Calcium 7.7 mg/dL (8.6-10.3) L 12/24/17 06:52 Phosphorus 4.8 mg/dL (2.7-4.5) H 12/23/17 04:03 Alkaline Phosphatase 119 Units/L (34-104) H 12/24/17 06:52 C-Reactive Protein 208 mg/L (Less than 10) H 12/22/17 13:54 Globulin 3.6 g/dL (2.4-3.5) H 12/24/17 06:52 Albumin/Globulin Ratio 1.0 (1.1-2.2) L 12/24/17 06:52 Triglycerides 220 mg/dL (< 150) H 12/23/17 04:03 VLDL Cholesterol, Calc 44 mg/dL (< 31) H 12/23/17 04:03 HDL Cholesterol 17 mg/dL (40-59) L 12/23/17 04:03 Cholesterol/HDL Ratio 7.5 (0-4.9) H 12/23/17 04:03 - VTE Documentation of Mechanical Device: Intermittent pneumatic compression device Consult Discharge Plan - Plan Referrals: Jacy Mcdonnell [Primary Care Provider] -
[2017-12-24] MEDS: Insulin DETEMIR 100 UNIT/ML X5UNITS SQ SCH (15:35)
[2017-12-24] MEDS: Cefepime HCl 1,000 MG in Water for inj. (sterile) 20 ML 10 ML IVP SCH (15:49)
--- NOTE | 2017-12-24 16:14 | History & Physical Report ---
Date of Encounter: 12/24/17 Time of Encounter: 04:10 24 Hour HP Update - Instructions Instructions: If the History and Physical is less than 30 days old and was completed prior to A.M. admission and or procedure and has NOT been updated on calendar day of procedure please complete this update prior to performing procedure. - Update Patient reports changes in Medical Condition: No Changes in examination, assessment, or condition: No Changes in Medication: No Preop tests/diagnostics Reviewed: Yes Surgery Remains Indicated: Yes Consent for Planned Operative Procedure(s) Verified: Yes - Attending Attestation proceed as planned
[2017-12-24] MEDS ORDERED: Lidocaine -MPF 2% 2 ML VIAL ONE (16:15)
[2017-12-24] MEDS ORDERED: Dexamethasone 4 MG/ML VIAL ONE (16:16)
[2017-12-24] MEDS ORDERED: Ketorolac 30 MG/ML VIAL ONE (16:16)
[2017-12-24] MEDS ORDERED: Ondansetron 4 MG/2 ML VIAL ONE (16:17)
[2017-12-24] MEDS ORDERED: *HR* Propofol 200 MG/20 ML VIAL IVP ONE (16:18)
[2017-12-24] MEDS ORDERED: Lidocaine 1% 20 ML MDV ONE (16:38)
[2017-12-24] MEDS ORDERED: Propofol 500 MG/50 ML INFUS..BTL ONE (17:04)
[2017-12-24] MEDS ORDERED: Bacitracin 50,000 UNIT, Sodium Chloride IRRigation 1,000 ML IR ONE (17:30)
--- NOTE | 2017-12-24 18:03 | Anesthesia Evaluation Post Op ---
Date of Encounter: 12/24/17 Time of Encounter: 18:05 - Vital Signs Vital Signs: Vital Signs - Last 8 Hours Temp Pulse Resp BP Pulse Ox 12/24/17 12:58 98.4 F 91 16 148/78 99 Intake and Output 12/24/17 12/24/17 12/24/17 07:59 15:59 23:59 Intake Total Output Total Balance - Intake: IV Fluids Maxipime 1,000 MG In Water for inj. (sterile) 10 ML @ 200 mls/ hr IVP Q24H [facility] Rx#:[id number] Output: Estimated Blood Loss Other: Blood Glucose* 330 229 - Lungs Lungs: Clear Ascult./Percussion - Airway Airway: Non-obstructed - Cardiovascular Regular Rate, Baseline Rhythm - Mental Status Mental Status: Alert & Oriented, Answers Appropriately - Pain Pain Scale: 0 Pain Scale used: Numeric (1 - 10) - Nausea Vomiting Nausea Vomiting: Not Present - Hydration Hydration: Tolerates oral liquids - Discharge PostOp Status: Transfer Patient to floor
[2017-12-24 18:12] LABS: Amphetamines NEGATIVE ng/mL (Cutoff 30); Barbiturates NEGATIVE ng/mL (Cutoff 75); Benzodiazepines NEGATIVE ng/mL (Cutoff 75); Cocaine NEGATIVE ng/mL (Cutoff 30); Methadone NEGATIVE ng/mL (Cutoff 40); Methamphetamines NEGATIVE ng/mL (Cutoff 30); Opiates NEGATIVE ng/mL (Cutoff 30); Phencyclidine NEGATIVE ng/mL (Cutoff 15)
--- NOTE | 2017-12-24 18:12 | Operative Note ---
Date of procedure: 12/24/17 Pre-op diagnosis: right hallux osteomyelitis, diabetic foot infection Post-op diagnosis: same Procedure: Amputation of right great toe Implants: none Complications: none Anesthesia: MAC Local Anesthetics: 1% Lidocaine HCL SubQ (cc) Surgeon: Evan Aggarwal Was there an food and beverage assistant manager present: No Estimated blood loss (cc): 15 Specimen: micro-right great toe ulcer pathology-right hallux Condition: stable Disposition: PACU Procedure in Detail: Indications: 37-year-old female who is diabetic and has end-stage renal disease on hemodialysis has evidence of osteomyelitis on -xray and a chronic ulceration with malodor and drainage on the plantar aspect of the hallux. Cellulitis extended to the level of the MTP joint. Patient had CHAPARRO/PVR done prior to procedure and did not show significant disease.Treatment options discussed with patient. Patient electing to move forward with amputation of the right great toe after having the nature of the procedure risks versus benefits potential complications and consequences of the procedure discussed at length. She understood the due to the infection the wound would be left open and she would require future surgery and that she is high risk for partial foot/limb los s. All questions were answered. No guarantees made as to the outcome.Informed consent had been signed and the patient and was brought into the OR and placed on the operating 1% lidocaine plain was injected into the right foot. Amputation right hallux. Attention was directed to the medial aspect of the patient's right foot where the infected great toe and ulceration on the plantar medial surface extending to the sulcus of the right foot. An incision was made over the distal phalanx full thickness down to bone in the area of osteomyelitis and the bone in this area was felt to be soft. The ulceration excised and sent to microbiology. Devitalized tissue and purulent drainage was present and extending proximally. Next an incision was made at the level of the MTP joint and at that mouth type incision was made surrounding the hallux. Purulent drainage was present in the hallux and devitalzed tissue was present to the base of and the proximal phalanx. No purulence or devitalized tissue extended past the MTP joint. The hallux amputation was performed disarticulating the hallux at the MTP joint. The extensor and flexor tendons were traced proximal and excised. The site was flushed with a pulse lavage with 50,000 units of bacitracin. Upon reinspection no further purulence was present and remaining tissue appeared healthy and bleeding. Adequate hemostasis was present. Retention sutures put in dorsally and the wound was packed open with iodoform packing. Post-operative bandaging included 4x4 gauze, abd pad, kerlix and a loosley applied NAT wrap. The patient tolerated the anesthesia and the procedure well and was escorted to the recovery room with vascular status intact to the remaining digits of the right foot noted by instant capillary refill time. She will return to the floor where she will receive IV antibiotics.
[2017-12-24] MEDS ORDERED: Naloxone 0.4 MG/ML INJ IVP PRN (18:21)
[2017-12-24] MEDS ORDERED: *HR* Heparin 10,000 UNIT/10 ML VIAL IV PRN (18:21)
[2017-12-24] MEDS ORDERED: 0.9 % Sodium Chloride 1,000 ML PRIME SCH (18:21)
[2017-12-24] MEDS ORDERED: Dextrose Gel 15 GM/37.5 ML TUBE PO PRN ×2 (18:21)
[2017-12-24] MEDS ORDERED: *HR* Dextrose 50 % in Water (Syg) 50 ML SYRINGE IVP PRN (18:21)
[2017-12-24] MEDS ORDERED: 0.9 % Sodium Chloride 500 ML IVC PRN (18:21)
[2017-12-24] MEDS ORDERED: D5% in Water 1,000 ML IVC PRN (18:21)
[2017-12-25] MEDS: Insulin LISPRO 300 UNITS/3 ML VIAL SQ SCH ×8 (00:13→20:35)
[2017-12-25] MEDS: traZODone 50 MG TABLET PO SCH ×2 (00:14→20:27)
[2017-12-25] MEDS: Pregabalin 50 MG CAPSULE PO SCH ×4 (00:15→20:28)
[2017-12-25] MEDS: Acetaminophen 325 MG TABLET PO PRN (00:31)
[2017-12-25] MEDS: Ondansetron ODT 4 MG TAB.RAPDIS PO PRN (00:42)
[2017-12-25] MEDS: Insulin DETEMIR 100 UNIT/ML X5UNITS SQ SCH ×3 (01:01→20:28)
[2017-12-25 06:16] LABS: Hematocrit 24.5 % (35.3-44.9); Hemoglobin 7.8 g/dL (11.5-15.4); Immature Granulocytes % 0.6 % (0-4); Mean Corpuscular HGB Conc 31.8 g/dL (31.6-35.5); Mean Corpuscular Hemoglobin 30.6 pg (28.0-33.3); Mean Corpuscular Volume 96.1 fL (83.0-100.0); Mean Platelet Volume 10.4 fL (9.4-12.4); Platelet Count 195 K/mcL (140-400); Red Blood Count 2.55 M/mcL (3.82-4.97); Red Cell Distribution Width 17.5 % (11.5-14.5); Segmented Neutrophils % 70.1 %
[2017-12-25 06:17] LABS: Basophils # 0.1 K/mcL (0.0-0.2); Basophils % 0.5 %; Eosinophils # 0.3 K/mcL (0.0-0.6); Eosinophils % 2.8 %; Lymphocytes # 1.4 K/mcL (0.6-4.6); Monocytes # 1.2 K/mcL (0.0-1.3); Neutrophils # 6.8 K/mcL (1.6-8.9)
[2017-12-25 06:32] LABS: Albumin 3.3 g/dL (3.5-5.7); Albumin/Globulin Ratio 0.9 (1.1-2.2); Bilirubin,Total 0.7 mg/dL (0.3-1.0); Calcium 7.6 mg/dL (8.6-10.3); Globulin 3.5 g/dL (2.4-3.5); Potassium 4.3 mEq/L (3.5-5.1); Total Protein 6.8 g/dL (6.4-8.9)
[2017-12-25] MEDS ORDERED: Cefepime HCl 500 MG in Water for inj. (sterile) 10 ML IVP STA ×2 (07:06→08:08)
[2017-12-25] MEDS ORDERED: Water for inj. (sterile) 10 ML IV ONE (07:54)
[2017-12-25] MEDS ORDERED: *HR* Heparin 10,000 UNIT/10 ML VIAL IV PRN (07:56)
[2017-12-25] MEDS ORDERED: 0.9 % Sodium Chloride 250 ML IVC PRN (07:56)
[2017-12-25] MEDS ORDERED: 0.9 % Sodium Chloride 1,000 ML PRIME SCH (08:00)
[2017-12-25] MEDS: Ascorbic Acid 500 MG TABLET PO SCH (08:19)
[2017-12-25] MEDS: Multivit/Ca/Min/Fe/FA 1 TAB TABLET PO SCH (08:19)
[2017-12-25] MEDS: Cholecalciferol (D-3) 1,000 UNIT TABLET PO SCH (08:20)
[2017-12-25] MEDS ORDERED: 0.9 % Sodium Chloride 1,000 ML ONE (09:57)
[2017-12-25] MEDS ORDERED: Cefepime HCl 1,000 MG in Water for inj. (sterile) 20 ML 10 ML IVP SCH (10:00)
--- NOTE | 2017-12-25 10:15 | Nephrology Progress Note ---
Date of Encounter: 12/25/17 Time of Encounter: 10:14 - Assessment and Plan (1) Contusion of finger of left hand Current Visit: Yes Status: Acute Qualifiers: Encounter type: initial encounter Finger: middle finger Damage to nail status: without damage Qualified Code(s): S60.032A - Contusion of left middle finger without damage to nail, initial encounter (2) Diabetic foot ulcer Current Visit: Yes Status: Acute Per podiatry. Qualifiers: Diabetic foot ulcer location: toe Diabetes mellitus type: type 1 Laterality: right Non-pressure ulcer stage: with necrosis of bone Qualified Code(s): E10.621 - Type 1 diabetes mellitus with foot ulcer; L97.514 - Non- pressure chronic ulcer of other part of right foot with necrosis of bone; L97.514 - Non-pressure chronic ulcer of other part of right foot with necrosis of bone; L97.514 - Non-pressure chronic ulcer of other part of right foot with necrosis of bone; L97.514 - Non-pressure chronic ulcer of other part of right foot with necrosis of bone (3) ESRD on dialysis Current Visit: Yes Status: Chronic HD TRS Renal dose medications Renal diet. Additional dialysis as needed. Patient seen on dialysis today. (4) Morbid obesity with BMI of 40.0-44.9, adult Current Visit: Yes Status: Chronic Outpatient management. Patient needs weight loss. (5) Vitamin D deficiency Current Visit: Yes Status: Chronic Replace vitamin D with ergocalciferol. (6) DM (diabetes mellitus) type II controlled with renal manifestation Current Visit: No Status: Chronic per primary team. Qualifiers: Diabetes mellitus complication detail: with chronic kidney disease Diabetes mellitus snf insulin use: with termite renewal inspector use Chronic kidney disease stage: stage 4 (severe) Qualified Code(s): E11.22 - Type 2 diabetes mellitus with diabetic chronic kidney disease; N18.4 - Chronic kidney disease, stage 4 (severe); N18.4 - Chronic kidney disease, stage 4 (severe); N18.4 - Chronic kidney disease, stage 4 (severe); N18.4 - Chronic kidney disease, stage 4 (severe); Z79.4 - penitentiary (current) use of insulin; Z79.4 - penitentiary ( current) use of insulin; Z79.4 - penitentiary (current) use of insulin; Z79.4 - penitentiary (current) use of insulin (7) HTN (hypertension) Current Visit: No Status: Chronic Blood pressure controlled. Qualifiers: Hypertension type: essential hypertension Qualified Code(s): I10 - Essential (primary) hypertension Subjective Principal diagnosis: Finger infection Interval history: Patient is resting and seen on dialysis. Objective - Vital Signs Vital signs: Vital Signs Temp Pulse Resp BP Pulse Ox 12/25/17 09:55 105/62 12/25/17 09:40 104/59 12/25/17 09:25 107/60 12/25/17 09:10 98.3 F 18 116/74 12/25/17 07:17 98.5 F 98 16 124/60 96 12/25/17 05:08 123/77 12/25/17 04:03 100.9 F H 103 19 77/41 97 12/25/17 00:21 102.5 F H 111 18 141/78 100 12/24/17 19:43 97.9 F 99 17 136/69 100 12/24/17 19:12 97.5 F L 12/24/17 12:58 98.4 F 91 16 148/78 99 Intake and Output 12/24/17 12/25/17 12/25/17 23:59 07:59 15:59 Intake Total 600 / 600 Output Total 15 15 Balance -15 / -15 600 / 600 Intake: Oral 0 / 0 Intake, Rinseback and Flushes 600 / 600 Output: Estimated Blood Loss 15 Other: # Voids 1 Weight 102.512 kg Blood Glucose* 254 267 Hemodialysis Net Fluid Removed 769 (mL) Patient Weight 12/25/17 23:59 Weight 102.512 kg - General Appearance General appearance: Present: well-developed, well-nourished, obese EENT: Present: ATNC Neck: Present: supple Respiratory: Present: clear Cardiology: Present: edema, regular rate Integumentary: Present: warm and dry Neurologic: Present: alert and oriented x3 Psychiatric: Present: mood/affect appropriate - Lab 12/25/17 06:04 12/25/17 06:04 Most recent lab results Calcium 7.6 mg/dL (8.6-10.3) L 12/25/17 06:04 Phosphorus 4.8 mg/dL (2.7-4.5) H 12/23/17 04:03 Magnesium 1.9 mg/dL (1.6-2.6) 12/23/17 04:03 - VTE Documentation of Mechanical Device: Intermittent pneumatic compression device Consult Discharge Plan - Plan Referrals: Jacy Mcdonnell [Primary Care Provider] -
--- NOTE | 2017-12-25 11:11 | Podiatry Progress Note ---
Date of Encounter: 12/25/17 Time of Encounter: 10:40 - Assessment and Plan (1) Diabetic foot ulcer Current Visit: Yes Status: Acute no active bleeding from amputation site. bandage changed today-flushed and iodoform packing inserted. antibiotics per ID. f/u culture of soft tissue ulcer and bone path. discussed with patient staying off the foot this and wednesday may allow to heel weight bear in a diabetic boot with a walker. pending resolution of cellulitis and if the wound continues to look healthy may plan for closure next week. all questions answered. nursing to change bandage tomorrow. Qualifiers: Diabetic foot ulcer location: toe Diabetes mellitus type: type 1 Laterality: right Non-pressure ulcer stage: with necrosis of bone Qualified Code(s): E10.621 - Type 1 diabetes mellitus with foot ulcer; L97.514 - Non- pressure chronic ulcer of other part of right foot with necrosis of bone; L97.514 - Non-pressure chronic ulcer of other part of right foot with necrosis of bone; L97.514 - Non-pressure chronic ulcer of other part of right foot with necrosis of bone; L97.514 - Non-pressure chronic ulcer of other part of right foot with necrosis of bone Subjective Principal diagnosis: Finger infection Interval history: patient seen in dialysis. says she feels okay. denies any problems overnight. says her foot does not hurt. denies feeling like she had a f/c/n/v/sob/cp. Objective - Vital Signs Vital Signs: Vital Signs Temp Pulse Resp BP Pulse Ox 12/25/17 10:10 116/62 12/25/17 09:55 105/62 12/25/17 09:40 104/59 12/25/17 09:25 107/60 12/25/17 09:10 98.3 F 18 116/74 12/25/17 07:17 98.5 F 98 16 124/60 96 12/25/17 05:08 123/77 12/25/17 04:03 100.9 F H 103 19 77/41 97 12/25/17 00:21 102.5 F H 111 18 141/78 100 12/24/17 19:43 97.9 F 99 17 136/69 100 12/24/17 19:12 97.5 F L 12/24/17 12:58 98.4 F 91 16 148/78 99 Intake and Output 12/24/17 12/25/17 12/25/17 23:59 07:59 15:59 Intake Total 600 / 600 Output Total Balance -15 15 600 / 600 Intake: Oral 0 / 0 Intake, Rinseback and Flushes 600 / 600 Output: Estimated Blood Loss Other: # Voids 1 Weight 102.512 kg Blood Glucose* 254 267 Hemodialysis Net Fluid Removed 1332 (mL) Patient Weight 12/25/17 23:59 Weight 102.512 kg - Exam Exam: AO x 3, no acute distress some bloody strikethrough on bandage. there is no active bleeding upon removal of the bandage. mild edema of the foot. open amputation site of the hallux. some cellulitis remains of the surround skin. no purulence able to be expressed. tissue at the amputation stump has no necrosis and appears viable. no active bleeding from the open amputation site. - Lab Result Diagrams: 12/25/17 06:04 12/25/17 06:04 Labs: Abnormal lab results RBC 2.55 M/mcL (3.82-4.97) L 12/25/17 06:04 Hgb 7.8 g/dL (11.5-15.4) L 12/25/17 06:04 Hct 24.5 % (35.3-44.9) L 12/25/17 06:04 RDW 17.5 % (11.5-14.5) H 12/25/17 06:04 ESR 112 mm/hr (0-15) H 12/22/17 13:54 PT 12.7 Seconds (9.4-12.1) H 12/24/17 06:52 Sodium 133 mEq/L (136-145) L 12/25/17 06:04 Chloride 95 mEq/L (98-107) L 12/25/17 06:04 BUN 34 mg/dL (6-20) H 12/25/17 06:04 Creatinine 6.05 mg/dL (0.60-1.20) H 12/25/17 06:04 Est GFR ( Amer) 9 (> 60) L 12/25/17 06:04 Est GFR (Non-Af Amer) 8 (> 60) L 12/25/17 06:04 Glucose 268 mg/dL (70-105) H 12/25/17 06:04 POC Glucose 254 (58-89) H 12/24/17 21:25 Hemoglobin A1c 7.4 % (-5.6) H 12/23/17 04:03 Calcium 7.6 mg/dL (8.6-10.3) L 12/25/17 06:04 Phosphorus 4.8 mg/dL (2.7-4.5) H 12/23/17 04:03 Alkaline Phosphatase 109 Units/L (34-104) H 12/25/17 06:04 C-Reactive Protein 208 mg/L (Less than 10) H 12/22/17 13:54 Albumin 3.3 g/dL (3.5-5.7) L 12/25/17 06:04 Albumin/Globulin Ratio 0.9 (1.1-2.2) L 12/25/17 06:04 Triglycerides 220 mg/dL (< 150) H 12/23/17 04:03 VLDL Cholesterol, Calc 44 mg/dL (< 31) H 12/23/17 04:03 HDL Cholesterol 17 mg/dL (40-59) L 12/23/17 04:03 Cholesterol/HDL Ratio 7.5 (0-4.9) H 12/23/17 04:03 Microbiology, Last 48 Hours 12/24/17 18:07 Gram Stain - Preliminary Left Middle Finger - VTE Documentation of Mechanical Device: Intermittent pneumatic compression device Consult Discharge Plan - Plan Referrals: Jacy Mcdonnell [Primary Care Provider] -
--- NOTE | 2017-12-25 12:22 | Internal Med Progress Note ---
Date of Encounter: 12/25/17 Time of Encounter: 12:20 - Assessment and plan (1) Osteomyelitis Current Visit: Yes Status: Acute Assessment and plan: Right foot greater toe osteomyelitis X-ray of the right foot shows osteomyelitis of the base of the right great toe. Continue vancomycin day 4, discontinued Zosyn Continue cefepime day #3 Prieto owen the culture Underwent open amputation of the right hallux on December 24 2017 Followed by podiatry X-ray showed: Great toe soft tissue swelling with features of underlying bony destruction suspicious for osteomyelitis involving the base of the great toe distal phalanx. Qualifiers: Osteomyelitis type: other acute Osteomyelitis location: foot Laterality: right Qualified Code(s): M86.171 - Other acute osteomyelitis, right ankle and foot (2) Hyponatremia Current Visit: Yes Status: Acute Assessment and plan: Resolved (3) Left hand pain Current Visit: Yes Status: Acute Assessment and plan: Left long finger contusion, worrisome for infection status post Incision and drainage Cultures sent No evidence of fracture Followed by orthopedic surgery (4) Diabetes mellitus Current Visit: Yes Status: Chronic Assessment and plan: Continue insulin sliding scale We will adjust insulin after coming back from surgical procedure Qualifiers: Diabetes mellitus type: type 1 Diabetes mellitus complication status: with skin complications Diabetes mellitus complication detail: with foot ulcer Qualified Code(s): E10.621 - Type 1 diabetes mellitus with foot ulcer; L97.509 - Non-pressure chronic ulcer of other part of unspecified foot with unspecified severity; L97.509 - Non-pressure chronic ulcer of other part of unspecified foot with unspecified severity; L97.509 - Non-pressure chronic ulcer of other part of unspecified foot with unspecified severity; L97.509 - Non-pressure chronic ulcer of other part of unspecified foot with unspecified severity (5) ESRD on dialysis Current Visit: Yes Status: Chronic Assessment and plan: Continue dialysis (6) Obesity (BMI 30-39.9) Current Visit: No Status: Acute (7) HTN (hypertension) Current Visit: No Status: Chronic Assessment and plan: Hold labetalol due to hypotension earlier this morning Qualifiers: Hypertension type: essential hypertension Qualified Code(s): I10 - Essential (primary) hypertension (8) Diabetic foot ulcer Current Visit: Yes Status: Acute Qualifiers: Diabetic foot ulcer location: toe Diabetes mellitus type: type 1 Laterality: right Non-pressure ulcer stage: with necrosis of bone Qualified Code(s): E10.621 - Type 1 diabetes mellitus with foot ulcer; L97.514 - Non- pressure chronic ulcer of other part of right foot with necrosis of bone; L97.514 - Non-pressure chronic ulcer of other part of right foot with necrosis of bone; L97.514 - Non-pressure chronic ulcer of other part of right foot with necrosis of bone; L97.514 - Non-pressure chronic ulcer of other part of right foot with necrosis of bone - Subjective Interval history: Complaining of severe/persistent pain over her left hand and right foot, denies any shortness of breath, no abdominal pain. Feels extremely tired. No fevers overnight, no chest pain - Constitutional Vitals: Temp Pulse Resp BP Pulse Ox 98.3 F 98 18 105/81 96 12/25/17 09:10 12/25/17 07:17 12/25/17 09:10 12/25/17 11:40 12/25/17 07:17 General appearance: Present: cooperative, mild distress (Pain in right great toe and third digit of right hand), A&O X 3, morbidly obese, pleasant, answers questions appropriately Exam: - Head Head exam: Present: atraumatic, normocephalic - Eye Eye exam: Present: PERRL, conjuntiva pink, sclera anicteric Pupils: Present: PERRL - Neck Neck exam general surgery: Present: supple, trachea midline. Absent: lymphadenopathy - Respiratory Respiratory exam: Present: CTAB. Absent: accessory muscle use, rales, rhonchi, wheezes - Cardiovascular Cardiovascular exam: Present: RRR, +S1, +S2. Absent: diastolic murmur, gallop, rubs, systolic murmur - GI/Abdominal GI/Abdominal exam: Present: normal bowel sounds, soft, no peritoneal signs. Absent: distended, tenderness - Extremities Exam Extremities exam: Present: warm, radial pulses palpable and symmetrical. Absent : calf tenderness, cyanotic, pedal edema - Neurological Exam Neurological exam: Present: CN II-XII intact, oriented X3, no focal deficits. Absent: pronater drift, facial droop, speech deficit - Skin Skin exam: Present: dry, intact Additional comments: Right upper extremity AV fistula without thrill Right greater toe covered by dressing left long finger less swollen and erythematous covered by dressing Internal Medicine: Result - Labs CBC & Chem 7: 12/25/17 06:04 12/25/17 06:04 Labs: Short CBC 12/25/17 Range/Units 06:04 WBC 9.7 (4.3-11.1) K/mcL Hgb 7.8 L (11.5-15.4) g/dL Hct 24.5 L (35.3-44.9) % Plt Count 195 (140-400) K/mcL Neutrophils # 6.8 (1.6-8.9) K/mcL BMP 12/25/17 06:04 Sodium 133 L Potassium 4.3 Chloride 95 L Carbon Dioxide 29 BUN 34 H Creatinine 6.05 H Glucose 268 H Calcium 7.6 L Liver Function 12/25/17 Range/Units 06:04 Total Bilirubin 0.7 (0.3-1.0) mg/dL AST 25 (13-39) Units/L ALT 26 (7-52) Units/L Alkaline Phosphatase 109 H (34-104) Units/L Albumin 3.3 L (3.5-5.7) g/dL - ABG Interpretation ABG results: PT/INR, D-dimer PT 12.7 Seconds (9.4-12.1) H 12/24/17 06:52 - VTE Documentation of Mechanical Device: Intermittent pneumatic compression device Consult Discharge Plan - Plan Referrals: Jacy Mcdonnell [Primary Care Provider] -
[2017-12-25] MEDS: *HR* OxyCODONE Immed Rel 5 MG TABLET PO PRN ×2 (14:49→22:02)
[2017-12-25] MEDS: Cefepime HCl 1,000 MG in Water for inj. (sterile) 20 ML 10 ML IVP SCH (17:56)
[2017-12-25] MEDS ORDERED: Vancomycin 500 MG in 0.9 % Sodium Chloride Mini Bag 100 ML IVPB ONE (18:00)
[2017-12-25] MEDS: Sennosides/Docusate Sodium TABLET PO PRN (18:03)
[2017-12-26 04:30] LABS: Basophils # 0.1 K/mcL (0.0-0.2); Basophils % 0.6 %; Eosinophils # 0.3 K/mcL (0.0-0.6); Eosinophils % 3.9 %; Hematocrit 25.2 % (35.3-44.9); Hemoglobin 7.7 g/dL (11.5-15.4); Immature Granulocytes % 1.8 % (0-4); Lymphocytes # 1.4 K/mcL (0.6-4.6); Lymphocytes % 18.7 %; Mean Corpuscular HGB Conc 30.6 g/dL (31.6-35.5); Mean Corpuscular Hemoglobin 29.8 pg (28.0-33.3); Mean Corpuscular Volume 97.7 fL (83.0-100.0); Mean Platelet Volume 10.8 fL (9.4-12.4); Monocytes % 12.6 %; Neutrophils # 4.8 K/mcL (1.6-8.9); Platelet Count 188 K/mcL (140-400); Red Blood Count 2.58 M/mcL (3.82-4.97); Red Cell Distribution Width 17.2 % (11.5-14.5); Segmented Neutrophils % 62.4 %
[2017-12-26 04:42] LABS: Albumin 3.3 g/dL (3.5-5.7); Albumin/Globulin Ratio 0.9 (1.1-2.2); Bilirubin,Total 0.7 mg/dL (0.3-1.0); Calcium 7.9 mg/dL (8.6-10.3); Globulin 3.6 g/dL (2.4-3.5); Potassium 4.1 mEq/L (3.5-5.1); Total Protein 6.9 g/dL (6.4-8.9)
[2017-12-26] MEDS: Cholecalciferol (D-3) 1,000 UNIT TABLET PO SCH (08:02)
[2017-12-26] MEDS: Pregabalin 50 MG CAPSULE PO SCH ×3 (08:03→20:20)
[2017-12-26] MEDS: Insulin DETEMIR 100 UNIT/ML X5UNITS SQ SCH ×2 (08:03→20:27)
[2017-12-26] MEDS: Multivit/Ca/Min/Fe/FA 1 TAB TABLET PO SCH (08:03)
[2017-12-26] MEDS: Ascorbic Acid 500 MG TABLET PO SCH (08:03)
[2017-12-26] MEDS: Insulin LISPRO 300 UNITS/3 ML VIAL SQ SCH ×7 (08:04→20:27)
[2017-12-26] MEDS: *HR* OxyCODONE Immed Rel 5 MG TABLET PO PRN ×3 (08:10→20:55)
--- NOTE | 2017-12-26 11:10 | Nephrology Progress Note ---
Date of Encounter: 12/26/17 Time of Encounter: 11:09 - Assessment and Plan (1) ESRD on dialysis Current Visit: Yes Status: Chronic HD TRS Renal dose medications Renal diet. Additional dialysis as needed. (2) Vitamin D deficiency Current Visit: Yes Status: Chronic Replace vitamin D with ergocalciferol. (3) Diabetic foot ulcer Current Visit: Yes Status: Acute Per podiatry. Qualifiers: Diabetic foot ulcer location: toe Diabetes mellitus type: type 1 Laterality: right Non-pressure ulcer stage: with necrosis of bone Qualified Code(s): E10.621 - Type 1 diabetes mellitus with foot ulcer; L97.514 - Non- pressure chronic ulcer of other part of right foot with necrosis of bone; L97.514 - Non-pressure chronic ulcer of other part of right foot with necrosis of bone; L97.514 - Non-pressure chronic ulcer of other part of right foot with necrosis of bone; L97.514 - Non-pressure chronic ulcer of other part of right foot with necrosis of bone (4) Morbid obesity with BMI of 40.0-44.9, adult Current Visit: Yes Status: Chronic Outpatient management. Patient needs weight loss. (5) DM (diabetes mellitus) type II controlled with renal manifestation Current Visit: No Status: Chronic per primary team. Qualifiers: Diabetes mellitus complication detail: with chronic kidney disease Diabetes mellitus custodial insulin use: with termite control service representative use Chronic kidney disease stage: stage 4 (severe) Qualified Code(s): E11.22 - Type 2 diabetes mellitus with diabetic chronic kidney disease; N18.4 - Chronic kidney disease, stage 4 (severe); N18.4 - Chronic kidney disease, stage 4 (severe); N18.4 - Chronic kidney disease, stage 4 (severe); N18.4 - Chronic kidney disease, stage 4 (severe); Z79.4 - custodial (current) use of insulin; Z79.4 - tank terminal gauger ( current) use of insulin; Z79.4 - custodial (current) use of insulin; Z79.4 - custodial (current) use of insulin (6) HTN (hypertension) Current Visit: No Status: Chronic Blood pressure controlled. Qualifiers: Hypertension type: essential hypertension Qualified Code(s): I10 - Essential (primary) hypertension (7) Contusion of finger of left hand Current Visit: Yes Status: Acute Qualifiers: Encounter type: initial encounter Finger: middle finger Damage to nail status: without damage Qualified Code(s): S60.032A - Contusion of left middle finger without damage to nail, initial encounter Subjective Principal diagnosis: Finger infection Interval history: Patient without complaint. No new complaint. Objective - Vital Signs Vital signs: Vital Signs Temp Pulse Resp BP Pulse Ox 12/26/17 06:58 97.6 F 93 17 133/79 97 12/26/17 05:42 97.9 F 91 16 144/78 97 12/26/17 00:19 98.1 F 103 16 148/66 99 12/25/17 20:13 98.7 F 102 17 138/89 96 12/25/17 16:09 98.8 F 106 16 137/76 95 12/25/17 14:26 97.7 F 100 18 146/88 93 12/25/17 13:09 98.3 F 18 161/90 12/25/17 12:40 133/89 12/25/17 12:25 150/90 12/25/17 12:10 155/86 12/25/17 11:55 133/79 12/25/17 11:40 129/67 12/25/17 11:25 118/68 12/25/17 11:10 103/56 Intake and Output 12/25/17 12/26/17 12/26/17 23:59 07:59 15:59 Intake Total 110 / 110 Output Total 300 / 300 Balance 110 / 110 -300 / -300 Intake: IV Fluids 110 / 110 Maxipime 1,000 MG In Water for 10 10 inj. (sterile) 10 ML @ 200 mls/ hr IVP Q[facility] Rx#:[id number] Vancocin 500 MG In 0.9 % Sodium 100 / 100 Chloride (Mini-Bag +) 100 ML @ 100 mls/hr IVPB ONCE ONE Rx#: [id number] Output: Urine 300 / 300 Other: Meal Dinner Breakfast Percent of Meal Consumed 95% 100% Weight 111.8 kg Blood Glucose* 120 276 Patient Weight 12/26/17 23:59 Weight 111.8 kg - General Appearance General appearance: Present: well-developed, well-nourished, obese EENT: Present: ATNC Cardiology: Present: regular rate Neurologic: Present: alert and oriented x3 Psychiatric: Present: mood/affect appropriate - Lab 12/26/17 04:00 12/26/17 04:00 Most recent lab results Calcium 7.9 mg/dL (8.6-10.3) L 12/26/17 04:00 Phosphorus 4.8 mg/dL (2.7-4.5) H 12/23/17 04:03 Magnesium 1.9 mg/dL (1.6-2.6) 12/23/17 04:03 - VTE Documentation of Mechanical Device: Intermittent pneumatic compression device Consult Discharge Plan - Plan Referrals: Jacy Mcdonnell [Primary Care Provider] -
--- NOTE | 2017-12-26 11:58 | Internal Med Progress Note ---
Date of Encounter: 12/26/17 Time of Encounter: 11:56 - Assessment and plan (1) Osteomyelitis Current Visit: Yes Status: Acute Assessment and plan: Right foot greater toe osteomyelitis X-ray of the right foot shows osteomyelitis of the base of the right great toe. Continue vancomycin day 5, discontinued Zosyn Continue cefepime day #4 Proteus grew on the culture Underwent open amputation of the right hallux on December 24 2017 Followed by podiatry X-ray showed: Great toe soft tissue swelling with features of underlying bony destruction suspicious for osteomyelitis involving the base of the great toe distal phalanx. Qualifiers: Osteomyelitis type: other acute Osteomyelitis location: foot Laterality: right Qualified Code(s): M86.171 - Other acute osteomyelitis, right ankle and foot (2) Hyponatremia Current Visit: Yes Status: Acute Assessment and plan: Resolved (3) Left hand pain Current Visit: Yes Status: Acute Assessment and plan: Left long finger contusion, worrisome for infection status post Incision and drainage Cultures sent No evidence of fracture Followed by orthopedic surgery (4) Diabetes mellitus Current Visit: Yes Status: Chronic Assessment and plan: Lispro 15 units 3 times a day plus insulin sliding scale Levemir 30 units twice a day Qualifiers: Diabetes mellitus type: type 1 Diabetes mellitus complication status: with skin complications Diabetes mellitus complication detail: with foot ulcer Qualified Code(s): E10.621 - Type 1 diabetes mellitus with foot ulcer; L97.509 - Non-pressure chronic ulcer of other part of unspecified foot with unspecified severity; L97.509 - Non-pressure chronic ulcer of other part of unspecified foot with unspecified severity; L97.509 - Non-pressure chronic ulcer of other part of unspecified foot with unspecified severity; L97.509 - Non-pressure chronic ulcer of other part of unspecified foot with unspecified severity (5) ESRD on dialysis Current Visit: Yes Status: Chronic Assessment and plan: Continue dialysis (6) Obesity (BMI 30-39.9) Current Visit: No Status: Acute (7) HTN (hypertension) Current Visit: No Status: Chronic Assessment and plan: Hold labetalol due to hypotension earlier this morning Qualifiers: Hypertension type: essential hypertension Qualified Code(s): I10 - Essential (primary) hypertension (8) Diabetic foot ulcer Current Visit: Yes Status: Acute Qualifiers: Diabetic foot ulcer location: toe Diabetes mellitus type: type 1 Laterality: right Non-pressure ulcer stage: with necrosis of bone Qualified Code(s): E10.621 - Type 1 diabetes mellitus with foot ulcer; L97.514 - Non- pressure chronic ulcer of other part of right foot with necrosis of bone; L97.514 - Non-pressure chronic ulcer of other part of right foot with necrosis of bone; L97.514 - Non-pressure chronic ulcer of other part of right foot with necrosis of bone; L97.514 - Non-pressure chronic ulcer of other part of right foot with necrosis of bone (9) Anemia in chronic kidney disease Current Visit: Yes Status: Chronic Qualifiers: Chronic kidney disease stage: on chronic dialysis Qualified Code(s): N18.6 - End stage renal disease; D63.1 - Anemia in chronic kidney disease; D63.1 - Anemia in chronic kidney disease; Z99.2 - Dependence on renal dialysis; Z99.2 - Dependence on renal dialysis; Z99.2 - Dependence on renal dialysis; Z99.2 - Dependence on renal dialysis - Subjective Interval history: 2 complaints of severe/persistent pain over her left hand , and less pain on the right foot, denies any shortness of breath, no abdominal pain. Feels extremely tired. No fevers overnight, no chest pain - Constitutional Vitals: Temp Pulse Resp BP Pulse Ox 98.6 F 99 17 106/54 98 12/26/17 11:50 12/26/17 11:50 12/26/17 11:50 12/26/17 11:50 12/26/17 11:50 General appearance: Present: cooperative, mild distress (Pain in right great toe and third digit of right hand), A&O X 3, morbidly obese, pleasant, answers questions appropriately Exam: - Head Head exam: Present: atraumatic, normocephalic - Eye Eye exam: Present: PERRL, conjuntiva pink, sclera anicteric Pupils: Present: PERRL - Neck Neck exam general surgery: Present: supple, trachea midline. Absent: lymphadenopathy - Respiratory Respiratory exam: Present: CTAB. Absent: accessory muscle use, rales, rhonchi, wheezes - Cardiovascular Cardiovascular exam: Present: RRR, +S1, +S2. Absent: diastolic murmur, gallop, rubs, systolic murmur - GI/Abdominal GI/Abdominal exam: Present: normal bowel sounds, soft, no peritoneal signs. Absent: distended, tenderness - Extremities Exam Extremities exam: Present: warm, radial pulses palpable and symmetrical. Absent : calf tenderness, cyanotic, pedal edema - Neurological Exam Neurological exam: Present: CN II-XII intact, oriented X3, no focal deficits. Absent: pronater drift, facial droop, speech deficit - Skin Skin exam: Present: dry, intact Additional comments: Right upper extremity AV fistula without thrill Right greater toe covered by dressing left long finger less swollen and erythematous covered by dressing Internal Medicine: Result - Labs CBC & Chem 7: 12/26/17 04:00 12/26/17 04:00 Labs: Short CBC 12/26/17 Range/Units 04:00 WBC 7.7 (4.3-11.1) K/mcL Hgb 7.7 L (11.5-15.4) g/dL Hct 25.2 L (35.3-44.9) % Plt Count 188 (140-400) K/mcL Neutrophils # 4.8 (1.6-8.9) K/mcL BMP 12/26/17 04:00 Sodium 135 L Potassium 4.1 Chloride 95 L Carbon Dioxide 30 H BUN 25 H Creatinine 4.69 H Glucose 241 H Calcium 7.9 L Liver Function 12/26/17 Range/Units 04:00 Total Bilirubin 0.7 (0.3-1.0) mg/dL AST 24 (13-39) Units/L ALT 24 (7-52) Units/L Alkaline Phosphatase 109 H (34-104) Units/L Albumin 3.3 L (3.5-5.7) g/dL - ABG Interpretation ABG results: PT/INR, D-dimer PT 12.7 Seconds (9.4-12.1) H 12/24/17 06:52 - VTE Documentation of Mechanical Device: Intermittent pneumatic compression device Consult Discharge Plan - Plan Referrals: Jacy Mcdonnell [Primary Care Provider] -
[2017-12-26] MEDS: Acetaminophen 325 MG TABLET PO PRN (12:01)
--- NOTE | 2017-12-26 12:28 | Orthopedics Progress Note ---
Date of Encounter: 12/26/17 Time of Encounter: 12:25 Subjective Principal diagnosis: Finger infection Interval history: The patient was not seen yesterday and she is on dialysis, I discussed with the notices a dressing change and fingers were swollen. Patient states she is comfortable today all of the finger is having more than her foot with interpretation Dressings were taken down, left long finger is moderately swollen with erythema Packing was pulled from dorsal and full wounds No purulent drainage The finger is very stiff and painful to move The wounds were cleansed with Hibiclens and irrigated with normal saline A light dry dressing was applied Assessment: postoperative day #2, finger is still swollen but no purulent drainage Plan: Encouraged patient to start motion exercises to the digit Continue IV antibiotics Continue elevation Continue local wound care, 3 times a day Objective Vital signs: Vital Signs Temp Pulse Resp BP Pulse Ox 12/26/17 11:50 98.6 F 99 17 106/54 98 12/26/17 06:58 97.6 F 93 17 133/79 97 12/26/17 05:42 97.9 F 91 16 144/78 97 12/26/17 00:19 98.1 F 103 16 148/66 99 12/25/17 20:13 98.7 F 102 17 138/89 96 12/25/17 16:09 98.8 F 106 16 137/76 95 12/25/17 14:26 97.7 F 100 18 146/88 93 12/25/17 13:09 98.3 F 18 161/90 12/25/17 12:40 133/89 Intake and Output 12/25/17 12/26/17 12/26/17 23:59 07:59 15:59 Intake Total 110 / 110 Output Total 300 / 300 Balance 110 / 110 -300 / -300 Intake: IV Fluids 110 / 110 Maxipime 1,000 MG In Water for inj. (sterile) 10 ML @ 200 mls/ hr IVP Q24H [facility] Rx#:[id number] Vancocin 500 MG In 0.9 % Sodium 100 / 100 Chloride (Mini-Bag +) 100 ML @ 100 mls/hr IVPB ONCE ONE Rx#: [id number] Output: Urine 300 / 300 Other: Meal Dinner Breakfast Percent of Meal Consumed 95% 100% Weight 111.8 kg Blood Glucose* 120 276 269 Patient Weight 12/26/17 23:59 Weight 111.8 kg - Labs CBC & BMP: 12/26/17 04:00 12/26/17 04:00 Labs: Abnormal lab results RBC 2.58 M/mcL (3.82-4.97) L 12/26/17 04:00 Hgb 7.7 g/dL (11.5-15.4) L 12/26/17 04:00 Hct 25.2 % (35.3-44.9) L 12/26/17 04:00 MCHC 30.6 g/dL (31.6-35.5) L 12/26/17 04:00 RDW 17.2 % (11.5-14.5) H 12/26/17 04:00 ESR 112 mm/hr (0-15) H 12/22/17 13:54 PT 12.7 Seconds (9.4-12.1) H 12/24/17 06:52 Sodium 135 mEq/L (136-145) L 12/26/17 04:00 Chloride 95 mEq/L (98-107) L 12/26/17 04:00 Carbon Dioxide 30 mEq/L (23-29) H 12/26/17 04:00 BUN 25 mg/dL (6-20) H 12/26/17 04:00 Creatinine 4.69 mg/dL (0.60-1.20) H 12/26/17 04:00 Est GFR ( Amer) 13 (> 60) L 12/26/17 04:00 Est GFR (Non-Af Amer) 10 (> 60) L 12/26/17 04:00 BUN/Creatinine Ratio 5 (6-26) L 12/26/17 04:00 Glucose 241 mg/dL (70-105) H 12/26/17 04:00 POC Glucose 120 (58-89) H 12/25/17 19:46 Hemoglobin A1c 7.4 % (-5.6) H 12/23/17 04:03 Calcium 7.9 mg/dL (8.6-10.3) L 12/26/17 04:00 Phosphorus 4.8 mg/dL (2.7-4.5) H 12/23/17 04:03 Alkaline Phosphatase 109 Units/L (34-104) H 12/26/17 04:00 C-Reactive Protein 208 mg/L (Less than 10) H 12/22/17 13:54 Albumin 3.3 g/dL (3.5-5.7) L 12/26/17 04:00 Globulin 3.6 g/dL (2.4-3.5) H 12/26/17 04:00 Albumin/Globulin Ratio 0.9 (1.1-2.2) L 12/26/17 04:00 Triglycerides 220 mg/dL (< 150) H 12/23/17 04:03 VLDL Cholesterol, Calc 44 mg/dL (< 31) H 12/23/17 04:03 HDL Cholesterol 17 mg/dL (40-59) L 12/23/17 04:03 Cholesterol/HDL Ratio 7.5 (0-4.9) H 12/23/17 04:03 - VTE Documentation of Mechanical Device: Intermittent pneumatic compression device Consult Discharge Plan - Plan Referrals: Jacy Mcdonnell [Primary Care Provider] -
[2017-12-26] MEDS: Sennosides/Docusate Sodium TABLET PO PRN (16:58)
[2017-12-26] MEDS: Cefepime HCl 1,000 MG in Water for inj. (sterile) 20 ML 10 ML IVP SCH (18:06)
[2017-12-26] MEDS: traZODone 50 MG TABLET PO SCH (20:20)
[2017-12-26] MEDS: traMADol 50 MG TABLET PO PRN (22:53)
[2017-12-27 05:23] LABS: Basophils # 0.1 K/mcL (0.0-0.2); Basophils % 0.7 %; Eosinophils # 0.4 K/mcL (0.0-0.6); Eosinophils % 4.7 %; Hematocrit 25.7 % (35.3-44.9); Hemoglobin 7.9 g/dL (11.5-15.4); Immature Granulocytes % 2.1 % (0-4); Lymphocytes # 1.3 K/mcL (0.6-4.6); Lymphocytes % 15.5 %; Mean Corpuscular HGB Conc 30.7 g/dL (31.6-35.5); Mean Corpuscular Volume 97.7 fL (83.0-100.0); Mean Platelet Volume 10.8 fL (9.4-12.4); Monocytes # 0.9 K/mcL (0.0-1.3); Monocytes % 11.2 %; Neutrophils # 5.4 K/mcL (1.6-8.9); Nucleated Red Blood Cells 0.4 /100 WBC (0); Platelet Count 210 K/mcL (140-400); Red Blood Count 2.63 M/mcL (3.82-4.97); Red Cell Distribution Width 17.3 % (11.5-14.5); Segmented Neutrophils % 65.8 %
[2017-12-27 06:25] LABS: Albumin 3.5 g/dL (3.5-5.7); Albumin/Globulin Ratio 0.9 (1.1-2.2); Bilirubin,Total 0.6 mg/dL (0.3-1.0); Calcium 7.9 mg/dL (8.6-10.3); Globulin 3.8 g/dL (2.4-3.5); Total Protein 7.3 g/dL (6.4-8.9)
--- NOTE | 2017-12-27 07:49 | Orthopedics Progress Note ---
Date of Encounter: 12/27/17 Time of Encounter: 07:46 - Assessment and Plan (1) Contusion of finger of left hand Current Visit: Yes Status: Acute Qualifiers: Encounter type: initial encounter Finger: middle finger Damage to nail status: without damage Qualified Code(s): S60.032A - Contusion of left middle finger without damage to nail, initial encounter Subjective Principal diagnosis: Finger infection Interval history: S: Patient says pain in the left long finger has improved since the I&D, but only slightly. O: Afebrile and vital signs are stable Persistent cellulitis and moderate swelling of the long finger I and D sites are clean without significant drainage. I can gently passively range the digit through the mid range without significant pain. She could grossly flex and extend the digits through a small arc without significant pain. The fingertips are all grossly sensate and well-perfused, and the radial artery pulse is 2+. Cultures are showing staphylococcus A: Left long finger infection with persistent swelling and erythema after I&D at the bedside P: At this point my recommendation is observation for another 24 hours with the IV antibiotics. If no significant improvement then I will plan on formal operative I&D of the left long finger tomorrow. In the meantime continue daily dressing changes, peroxide soaks, and motion exercises. Objective Vital signs: Vital Signs Temp Pulse Resp BP Pulse Ox 12/27/17 00:10 97.3 F L 100 20 124/78 93 12/26/17 20:30 98.4 F 100 16 108/52 97 12/26/17 11:50 98.6 F 99 17 106/54 98 Intake and Output 12/26/17 12/26/17 12/27/17 15:59 23:59 07:59 Intake Total Balance Intake: IV Fluids Maxipime 1,000 MG In Water for inj. (sterile) 10 ML @ 200 mls/ hr IVP Q24H [facility] Rx#:[id number] Other: Meal Breakfast Percent of Meal Consumed 100% Blood Glucose* 269 286 - Labs CBC & BMP: 12/27/17 04:25 12/27/17 04:25 Labs: Abnormal lab results RBC 2.63 M/mcL (3.82-4.97) L 12/27/17 04:25 Hgb 7.9 g/dL (11.5-15.4) L 12/27/17 04:25 Hct 25.7 % (35.3-44.9) L 12/27/17 04:25 MCHC 30.7 g/dL (31.6-35.5) L 12/27/17 04:25 RDW 17.3 % (11.5-14.5) H 12/27/17 04:25 Nucleated RBCs/100 WBC 0.4 /100 WBC (0) H 12/27/17 04:25 ESR 112 mm/hr (0-15) H 12/22/17 13:54 PT 12.7 Seconds (9.4-12.1) H 12/24/17 06:52 Sodium 133 mEq/L (136-145) L 12/27/17 04:25 Chloride 95 mEq/L (98-107) L 12/27/17 04:25 BUN 44 mg/dL (6-20) H 12/27/17 04:25 Creatinine 6.59 mg/dL (0.60-1.20) H 12/27/17 04:25 Est GFR ( Amer) 8 (> 60) L 12/27/17 04:25 Est GFR (Non-Af Amer) 7 (> 60) L 12/27/17 04:25 Glucose 343 mg/dL (70-105) H 12/27/17 04:25 POC Glucose 247 (58-89) H 12/26/17 20:26 Hemoglobin A1c 7.4 % (-5.6) H 12/23/17 04:03 Calculated Osmolality 301 (280-300) H 12/27/17 04:25 Calcium 7.9 mg/dL (8.6-10.3) L 12/27/17 04:25 Phosphorus 4.8 mg/dL (2.7-4.5) H 12/23/17 04:03 Alkaline Phosphatase 128 Units/L (34-104) H 12/27/17 04:25 C-Reactive Protein 208 mg/L (Less than 10) H 12/22/17 13:54 Globulin 3.8 g/dL (2.4-3.5) H 12/27/17 04:25 Albumin/Globulin Ratio 0.9 (1.1-2.2) L 12/27/17 04:25 Triglycerides 220 mg/dL (< 150) H 12/23/17 04:03 VLDL Cholesterol, Calc 44 mg/dL (< 31) H 12/23/17 04:03 HDL Cholesterol 17 mg/dL (40-59) L 12/23/17 04:03 Cholesterol/HDL Ratio 7.5 (0-4.9) H 12/23/17 04:03 - VTE Documentation of Mechanical Device: Intermittent pneumatic compression device Consult Discharge Plan - Plan Referrals: Jacy Mcdonnell [Primary Care Provider] -
[2017-12-27] MEDS: Insulin LISPRO 300 UNITS/3 ML VIAL SQ SCH ×7 (08:08→20:26)
[2017-12-27] MEDS: Insulin DETEMIR 100 UNIT/ML X5UNITS SQ SCH ×2 (08:08→20:04)
[2017-12-27] MEDS: Ascorbic Acid 500 MG TABLET PO SCH (08:11)
[2017-12-27] MEDS: Multivit/Ca/Min/Fe/FA 1 TAB TABLET PO SCH (08:11)
[2017-12-27] MEDS: Cholecalciferol (D-3) 1,000 UNIT TABLET PO SCH (08:12)
[2017-12-27] MEDS: *HR* OxyCODONE Immed Rel 5 MG TABLET PO PRN (08:16)
--- NOTE | 2017-12-27 08:18 | Nephrology Progress Note ---
Date of Encounter: 12/27/17 Time of Encounter: 08:17 - Assessment and Plan (1) ESRD on dialysis Current Visit: Yes Status: Chronic Patient with ESRD secondary to diabetic nephropathy, on HD every Right upper chest tunnelled HD catheter in place for the past 2 years, blood cultures show no growth to date Continue HD as scheduled every Avoid nephrotoxins Continue to monitor (2) Anemia in chronic kidney disease Current Visit: Yes Status: Chronic Anemia work-up: Iron studies, Vit B12, Folate Continue to monitor Qualifiers: Chronic kidney disease stage: on chronic dialysis Qualified Code(s): N18.6 - End stage renal disease; D63.1 - Anemia in chronic kidney disease; D63.1 - Anemia in chronic kidney disease; Z99.2 - Dependence on renal dialysis; Z99.2 - Dependence on renal dialysis; Z99.2 - Dependence on renal dialysis; Z99.2 - Dependence on renal dialysis (3) Hyponatremia Current Visit: Yes Status: Acute Continue to monitor (4) HTN (hypertension) Current Visit: No Status: Chronic BP controlled off meds Management per primary team Qualifiers: Hypertension type: essential hypertension Qualified Code(s): I10 - Essential (primary) hypertension (5) Osteomyelitis Current Visit: Yes Status: Acute Proteus mirabilis positive wound cultures Management per ID Avoid nephrotoxins Qualifiers: Osteomyelitis type: other acute Osteomyelitis location: foot Laterality: right Qualified Code(s): M86.171 - Other acute osteomyelitis, right ankle and foot (6) Contusion of finger of left hand Current Visit: Yes Status: Acute Management per ortho and ID Qualifiers: Encounter type: initial encounter Finger: middle finger Damage to nail status: without damage Qualified Code(s): S60.032A - Contusion of left middle finger without damage to nail, initial encounter (7) Diabetes mellitus Current Visit: Yes Status: Chronic Management per primary team Qualifiers: Diabetes mellitus type: type 1 Diabetes mellitus complication status: with skin complications Diabetes mellitus complication detail: with foot ulcer Qualified Code(s): E10.621 - Type 1 diabetes mellitus with foot ulcer; L97.509 - Non-pressure chronic ulcer of other part of unspecified foot with unspecified severity; L97.509 - Non-pressure chronic ulcer of other part of unspecified foot with unspecified severity; L97.509 - Non-pressure chronic ulcer of other part of unspecified foot with unspecified severity; L97.509 - Non-pressure chronic ulcer of other part of unspecified foot with unspecified severity (8) Vitamin D deficiency Current Visit: Yes Status: Chronic Vit D level pending Continue Vit D supplementation Outpatient monitoring (9) Morbid obesity with BMI of 40.0-44.9, adult Current Visit: Yes Status: Chronic Management per primary team Subjective Principal diagnosis: Finger infection Interval history: Patient seen and examined resting comfortably in bed. Patient reports pain and continued swelling in her left 3rd finger. Patient denies any other c/o. Anticipate HD tomorrow. Objective - Vital Signs Vital signs: Vital Signs Temp Pulse Resp BP Pulse Ox 12/27/17 00:10 97.3 F L 100 20 124/78 93 12/26/17 20:30 98.4 F 100 16 108/52 97 12/26/17 11:50 98.6 F 99 17 106/54 98 Intake and Output 12/26/17 12/27/17 12/27/17 23:59 07:59 15:59 Intake Total Balance Intake: IV Fluids Maxipime 1,000 MG In Water for inj. (sterile) 10 ML @ 200 mls/ hr IVP Q24H [facility] Rx#:[id number] Other: Blood Glucose* 286 335 - General Appearance General appearance: Present: well-developed, well-nourished, obese EENT: Present: ATNC, PERRL, mucous membranes moist Neck: Present: supple Respiratory: Present: clear Cardiology: Present: no murmurs, no rub, no gallops, no edema, regular rate, regular rhythm Dialysis Vascular Access: Venous Catheter (tunnelled HD cath right upper chest) Integumentary: Present: erythema (dressings in place SILVIA SUAREZ) Neurologic: Present: no focal deficit, alert and oriented x3 Musculoskeletal: Present: deformities (bilateral great toe amputations), erythema Psychiatric: Present: mood/affect appropriate, cooperative - Lab 12/27/17 04:25 12/27/17 04:25 Most recent lab results Calcium 7.9 mg/dL (8.6-10.3) L 12/27/17 04:25 Phosphorus 4.8 mg/dL (2.7-4.5) H 12/23/17 04:03 Magnesium 1.9 mg/dL (1.6-2.6) 12/23/17 04:03 - VTE Documentation of Mechanical Device: Intermittent pneumatic compression device Consult Discharge Plan - Plan Referrals: Jacy Mcdonnell [Primary Care Provider] -
--- NOTE | 2017-12-27 09:35 | Internal Med Progress Note ---
Date of Encounter: 12/27/17 Time of Encounter: 09:32 - Assessment and plan (1) Osteomyelitis Current Visit: Yes Status: Acute Assessment and plan: Right foot greater toe osteomyelitis X-ray of the right foot shows osteomyelitis of the base of the right great toe. Continue vancomycin day 6, discontinued Zosyn Diiscontinue cefepime day #5 Start Ancef IV ( Staph aureus growing on left long finger culture, sensitivity pending) Ancef will cover Proteus growing on the right toe culture and MSSA, may discontinue vancomycin if not positive for MRSA Underwent open amputation of the right hallux on December 24 2017 Followed by podiatry X-ray showed: Great toe soft tissue swelling with features of underlying bony destruction suspicious for osteomyelitis involving the base of the great toe distal phalanx. Qualifiers: Osteomyelitis type: other acute Osteomyelitis location: foot Laterality: right Qualified Code(s): M86.171 - Other acute osteomyelitis, right ankle and foot (2) Hyponatremia Current Visit: Yes Status: Acute Assessment and plan: stable (3) Left hand pain Current Visit: Yes Status: Acute Assessment and plan: Left long finger contusion, worrisome for infection status post Incision and drainage Culture growing Staph No evidence of fracture Followed by orthopedic surgery (4) Diabetes mellitus Current Visit: Yes Status: Chronic Assessment and plan: Increase Lispro to 20 units 3 times a day plus insulin sliding scale increase Levemir to 35 units twice a day Qualifiers: Diabetes mellitus type: type 1 Diabetes mellitus complication status: with skin complications Diabetes mellitus complication detail: with foot ulcer Qualified Code(s): E10.621 - Type 1 diabetes mellitus with foot ulcer; L97.509 - Non-pressure chronic ulcer of other part of unspecified foot with unspecified severity; L97.509 - Non-pressure chronic ulcer of other part of unspecified foot with unspecified severity; L97.509 - Non-pressure chronic ulcer of other part of unspecified foot with unspecified severity; L97.509 - Non-pressure chronic ulcer of other part of unspecified foot with unspecified severity (5) ESRD on dialysis Current Visit: Yes Status: Chronic Assessment and plan: Continue dialysis (6) Obesity (BMI 30-39.9) Current Visit: No Status: Acute (7) HTN (hypertension) Current Visit: No Status: Chronic Assessment and plan: Hold labetalol for now Qualifiers: Hypertension type: essential hypertension Qualified Code(s): I10 - Essential (primary) hypertension (8) Diabetic foot ulcer Current Visit: Yes Status: Acute Qualifiers: Diabetic foot ulcer location: toe Diabetes mellitus type: type 1 Laterality: right Non-pressure ulcer stage: with necrosis of bone Qualified Code(s): E10.621 - Type 1 diabetes mellitus with foot ulcer; L97.514 - Non- pressure chronic ulcer of other part of right foot with necrosis of bone; L97.514 - Non-pressure chronic ulcer of other part of right foot with necrosis of bone; L97.514 - Non-pressure chronic ulcer of other part of right foot with necrosis of bone; L97.514 - Non-pressure chronic ulcer of other part of right foot with necrosis of bone (9) Anemia in chronic kidney disease Current Visit: Yes Status: Chronic Qualifiers: Chronic kidney disease stage: on chronic dialysis Qualified Code(s): N18.6 - End stage renal disease; D63.1 - Anemia in chronic kidney disease; D63.1 - Anemia in chronic kidney disease; Z99.2 - Dependence on renal dialysis; Z99.2 - Dependence on renal dialysis; Z99.2 - Dependence on renal dialysis; Z99.2 - Dependence on renal dialysis (10) Skin nodule Current Visit: Yes Status: Acute Assessment and plan: Left facial nodule needs to be followed as an outpatient - Subjective Interval history: Complaining of less pain over her left hand , and less pain on the right foot, denies any shortness of breath, no abdominal pain. Feels extremely tired. No fevers overnight, no chest pain - Constitutional Vitals: Temp Pulse Resp BP Pulse Ox 97.3 F L 100 20 124/78 93 12/27/17 00:10 12/27/17 00:10 12/27/17 00:10 12/27/17 00:10 12/27/17 00:10 General appearance: Present: cooperative, mild distress (Pain in right great toe and third digit of right hand), A&O X 3, morbidly obese, pleasant, answers questions appropriately Exam: - Head Head exam: Present: atraumatic, normocephalic - Eye Eye exam: Present: PERRL, conjuntiva pink, sclera anicteric Pupils: Present: PERRL - Neck Neck exam general surgery: Present: supple, trachea midline. Absent: lymphadenopathy - Respiratory Respiratory exam: Present: CTAB. Absent: accessory muscle use, rales, rhonchi, wheezes - Cardiovascular Cardiovascular exam: Present: RRR, +S1, +S2. Absent: diastolic murmur, gallop, rubs, systolic murmur - GI/Abdominal GI/Abdominal exam: Present: normal bowel sounds, soft, no peritoneal signs. Absent: distended, tenderness - Extremities Exam Extremities exam: Present: warm, radial pulses palpable and symmetrical. Absent : calf tenderness, cyanotic, pedal edema - Neurological Exam Neurological exam: Present: CN II-XII intact, oriented X3, no focal deficits. Absent: pronater drift, facial droop, speech deficit - Skin Skin exam: Present: dry, intact Additional comments: Right upper extremity AV fistula without thrill Right greater toe covered by dressing left long finger less swollen and erythematous covered by dressing Internal Medicine: Result - Labs CBC & Chem 7: 12/27/17 04:25 12/27/17 04:25 Labs: Short CBC 12/27/17 Range/Units 04:25 WBC 8.1 (4.3-11.1) K/mcL Hgb 7.9 L (11.5-15.4) g/dL Hct 25.7 L (35.3-44.9) % Plt Count 210 (140-400) K/mcL Neutrophils # 5.4 (1.6-8.9) K/mcL BMP 12/27/17 04:25 Sodium 133 L Potassium 5.0 Chloride 95 L Carbon Dioxide 26 BUN 44 H Creatinine 6.59 H Glucose 343 H Calcium 7.9 L Liver Function 12/27/17 Range/Units 04:25 Total Bilirubin 0.6 (0.3-1.0) mg/dL AST 32 (13-39) Units/L ALT 30 (7-52) Units/L Alkaline Phosphatase 128 H (34-104) Units/L Albumin 3.5 (3.5-5.7) g/dL - ABG Interpretation ABG results: PT/INR, D-dimer PT 12.7 Seconds (9.4-12.1) H 12/24/17 06:52 - Impressions Impressions Foot X-Ray 12/26/17 14:37 IMPRESSION: Status post right 1st toe amputation without complication identified. D/ / Terrence Kemp MD / Terrence Kemp MD Interpreting Provider: Terrence Kemp MD - VTE Documentation of Mechanical Device: Intermittent pneumatic compression device Consult Discharge Plan - Plan Referrals: Jacy Mcdonnell [Primary Care Provider] -
[2017-12-27] MEDS ORDERED: ceFAZolin 500 MG in Water for inj. (sterile) 20 ML 10 ML IVPB SCH (10:00)
[2017-12-27] MEDS: Pregabalin 50 MG CAPSULE PO SCH ×3 (10:59→20:27)
--- NOTE | 2017-12-27 11:38 | Infectious Disease Progress No ---
Date of Encounter: 12/27/17 Time of Encounter: 11:35 - Assessment and Plan (1) Fever Current Visit: Yes Status: Acute Post-op fever with Tmax 102.5. Afebrile x 48 hours. Qualifiers: Fever type: unspecified Qualified Code(s): R50.9 - Fever, unspecified (2) Osteomyelitis Current Visit: Yes Status: Acute Location: Right foot, great toe. Causative organism unclear. Secondary to non-healing diabetic foot ulcer. X-ray of the right foot shows osteomyelitis of the base of the right great toe. ESR 112, CRP 208. Blood cultures drawn 12/22/17 are NGTD x 2 sets. Wound culture obtained in the ED grew P. mirabilis, sensitivities are pending. Podiatry consulted and following. Status post amputation of the right great toe. Operative note reviewed. Intra-op cultures pending. I called and spoke with micro who states culture was not set up until this morning because specimen was sent to histology rather than pathology, but we should have preliminary in the morning. Wound care and activity restrictions per the podiatry team. Continue Vancomycin IV. Pharmacy to dose. Goal trough ~15. Continue Cefepime 1 gram IV Q24H until cultures finalize. Duration of treatment depends on the clinical picture, but likely 6 weeks. Monitor for drug toxicity and dose-adjust antibiotics. Qualifiers: Osteomyelitis type: other acute Osteomyelitis location: foot Laterality: right Qualified Code(s): M86.171 - Other acute osteomyelitis, right ankle and foot (3) Infection of left hand Current Visit: Yes Status: Acute Causative organism MSSA. Likely secondary to traumatic injury. X-ray negative for bony abnormality. Ortho consulted. Status post bedside I & D by Dr. Hernandez. Procedure note revealed. Gross purulence noted. Wound care and activity restrictions per the ortho team. Continue antibiotics as above. (4) Diabetic foot ulcer Current Visit: Yes Status: Acute Location: Plantar medial aspect of the right great toe. Etiology unclear. Podiatry consulted and following. Status post amputation of the right great toe. Surgical wound care and activity restrictions per the podiatry team. Qualifiers: Diabetic foot ulcer location: toe Diabetes mellitus type: type 1 Laterality: right Non-pressure ulcer stage: with necrosis of bone Qualified Code(s): E10.621 - Type 1 diabetes mellitus with foot ulcer; L97.514 - Non- pressure chronic ulcer of other part of right foot with necrosis of bone; L97.514 - Non-pressure chronic ulcer of other part of right foot with necrosis of bone; L97.514 - Non-pressure chronic ulcer of other part of right foot with necrosis of bone; L97.514 - Non-pressure chronic ulcer of other part of right foot with necrosis of bone (5) Diabetes mellitus Current Visit: Yes Status: Chronic Uncontrolled recently per patient report. FSBS 338 on admission labs. Her blood sugars continue to run high. HgbA1C 7.2%. Recommend aggressive glucose monitoring and control to promote wound healing and prevent re-infection. Management per the primary team. Qualifiers: Diabetes mellitus type: type 1 Diabetes mellitus complication status: with skin complications Diabetes mellitus complication detail: with foot ulcer Qualified Code(s): E10.621 - Type 1 diabetes mellitus with foot ulcer; L97.509 - Non-pressure chronic ulcer of other part of unspecified foot with unspecified severity; L97.509 - Non-pressure chronic ulcer of other part of unspecified foot with unspecified severity; L97.509 - Non-pressure chronic ulcer of other part of unspecified foot with unspecified severity; L97.509 - Non-pressure chronic ulcer of other part of unspecified foot with unspecified severity (6) ESRD on dialysis Current Visit: Yes Status: Chronic Secondary to diabetic nephropathy. Follows with [facility]. HD //Wed. Nephrology consulted and following. (7) Peripheral neuropathy Current Visit: No Status: Chronic Qualifiers: Peripheral neuropathy type: polyneuropathy, other Qualified Code(s): G62.89 - Other specified polyneuropathies (8) Hypertension Current Visit: No Status: Chronic Qualifiers: Hypertension type: essential hypertension Qualified Code(s): I10 - Essential (primary) hypertension (9) Morbid obesity with BMI of 40.0-44.9, adult Current Visit: Yes Status: Chronic (10) Left hand pain Current Visit: Yes Status: Acute Likely secondary to traumatic injury with superimposed infection. Xray negative for fracture. Ortho consulted and following. Pain management per the primary and ortho teams. - Subjective Interval history: Patient seen and examined. No acute events noted overnight. Status post bedside I & D of the left middle finger on Wednesday. Cultures grew MSSA. Status post right great toe amputation on Wednesday as well. Cultures not available at this time due to them not being run as they were sent to Histology rather than Micro. Patient reports some chills, but denies fevers. Denies any chest pain or shortness of breath or cough. Denies nausea, vomiting, or diarrhea. Sates she feels like she is constipated, but she states she feels like she might have a BM later today. States her appetite is good. She is anuric. Denies any oral thrush or new skin lesions. Denies pain in the right foot, but states she is having a significant amount of pain in the left hand at this time due to her dressing being changed and the wound packed a little earlier this morning. Infect Dis PN-Objective Data - Labs CBC & Chem 7: 12/27/17 04:25 12/27/17 04:25 Labs: Laboratory Results - last 24 hr 12/22/17 12/26/17 12/26/17 16:01 07:03 11:54 WBC RBC Hgb Hct MCV MCH MCHC RDW Plt Count MPV Immature Gran % Seg Neutrophils % Lymphocytes % Monocytes % Eosinophils % Basophils % Neutrophils # Lymphocytes # Monocytes # Eosinophils # Basophils # Nucleated RBCs/100 WBC Sodium Potassium Chloride Carbon Dioxide BUN Creatinine Est GFR ( Amer) Est GFR (Non-Af Amer) BUN/Creatinine Ratio Glucose POC Glucose 276 H 269 H Calculated Osmolality Calcium Total Bilirubin AST ALT Alkaline Phosphatase Serum Total Protein Albumin Globulin Albumin/Globulin Ratio Blood Opiate Screen NEGATIVE Buprenorphine & Metab NEGATIVE Blood Oxycodone Screen POSITIVE Blood Methadone Screen NEGATIVE Bld Barbiturates Scrn NEGATIVE Bld Phencyclidine Scrn NEGATIVE Bld Amphetamines Scrn NEGATIVE Bl Methamphetamines Sn NEGATIVE Bl Benzodiazepine Scrn NEGATIVE Bld Cocaine/Metab Scrn NEGATIVE Bld Cannabinoid Screen NEGATIVE Bld Drug Screen Commnt SEE NOTE 12/26/17 12/26/17 12/27/17 16:43 20:26 04:25 WBC 8.1 RBC 2.63 L Hgb 7.9 L Hct 25.7 L MCV 97.7 MCH 30.0 MCHC 30.7 L RDW 17.3 H Plt Count 210 MPV 10.8 Immature Gran % 2.1 Seg Neutrophils % 65.8 Lymphocytes % 15.5 Monocytes % 11.2 Eosinophils % 4.7 Basophils % 0.7 Neutrophils # 5.4 Lymphocytes # 1.3 Monocytes # 0.9 Eosinophils # 0.4 Basophils # 0.1 Nucleated RBCs/100 WBC 0.4 H Sodium Potassium Chloride Carbon Dioxide BUN Creatinine Est GFR ( Amer) Est GFR (Non-Af Amer) BUN/Creatinine Ratio Glucose POC Glucose 286 H 247 H Calculated Osmolality Calcium Total Bilirubin AST ALT Alkaline Phosphatase Serum Total Protein Albumin Globulin Albumin/Globulin Ratio Blood Opiate Screen Buprenorphine & Metab Blood Oxycodone Screen Blood Methadone Screen Bld Barbiturates Scrn Bld Phencyclidine Scrn Bld Amphetamines Scrn Bl Methamphetamines Sn Bl Benzodiazepine Scrn Bld Cocaine/Metab Scrn Bld Cannabinoid Screen Bld Drug Screen Commnt 12/27/17 12/27/17 04:25 08:07 WBC RBC Hgb Hct MCV MCH MCHC RDW Plt Count MPV Immature Gran % Seg Neutrophils % Lymphocytes % Monocytes % Eosinophils % Basophils % Neutrophils # Lymphocytes # Monocytes # Eosinophils # Basophils # Nucleated RBCs/100 WBC Sodium 133 L Potassium 5.0 Chloride 95 L Carbon Dioxide 26 BUN 44 H Creatinine 6.59 H Est GFR ( Amer) 8 L Est GFR (Non-Af Amer) 7 L BUN/Creatinine Ratio 7 Glucose 343 H POC Glucose 335 H Calculated Osmolality 301 H Calcium 7.9 L Total Bilirubin 0.6 AST 32 ALT 30 Alkaline Phosphatase 128 H Serum Total Protein 7.3 Albumin 3.5 Globulin 3.8 H Albumin/Globulin Ratio 0.9 L Blood Opiate Screen Buprenorphine & Metab Blood Oxycodone Screen Blood Methadone Screen Bld Barbiturates Scrn Bld Phencyclidine Scrn Bld Amphetamines Scrn Bl Methamphetamines Sn Bl Benzodiazepine Scrn Bld Cocaine/Metab Scrn Bld Cannabinoid Screen Bld Drug Screen Commnt Cultures: Cultures 12/24/17 14:50 Anaerobic Culture - Preliminary Left Middle Finger At this time, no anaerobic growth is present. The culture will be finalized after 5 days of incubation. 12/24/17 14:50 Wound Culture - Preliminary Left Middle Finger Staphylococcus aureus 12/24/17 18:07 Gram Stain - Final Left Middle Finger Serology 12/24/17 12/22/17 Range/Units 16:43 16:01 Urine Test Negative (Negative) Hep Bs Antigen Nonreactive (Nonreactive) Hep Bs Antibody 39.07 mIU/mL - Impressions Impressions Foot X-Ray 12/26/17 14:37 IMPRESSION: Status post right 1st toe amputation without complication identified. D/ / Terrence Kemp MD / Terrence Kemp MD Interpreting Provider: Terrence Kemp MD Exam - Constitutional Vitals: Temp Pulse Resp BP Pulse Ox 97.3 F L 100 20 124/78 93 12/27/17 00:10 12/27/17 00:10 12/27/17 00:10 12/27/17 00:10 12/27/17 00:10 General appearance: cooperative, morbidly obese, no acute distress - Head Head exam: Present: atraumatic, normal inspection, normocephalic - Eye Eye exam: Present: EOMI, normal appearance, PERRL Pupils: Present: normal accommodation - ENT ENT exam: Present: mucous membranes moist - Neck Neck exam: Present: normal inspection - Respiratory Respiratory exam: Present: CTAB. Absent: rales, respiratory distress, rhonchi, wheezes - Cardiovascular Cardiovascular exam: Present: RRR, +S1, +S2 - GI/Abdominal GI/Abdominal exam: Present: normal bowel sounds, soft. Absent: distended, tenderness - Extremities Exam Extremities exam: Present: tenderness (Left hand). Absent: pedal edema Additional comments: Right foot dressing C/D/I. No erythema, warmth, or tenderness noted to the lower portion of the RLE. Left hand dressing C/D/I. +M/S to the distal fingers. - Neurological Exam Neurological exam: Present: alert, oriented X3, no focal deficits - Psychiatric Psychiatric exam: Present: normal affect, normal mood - Skin Skin exam: Present: dry, intact, normal color, warm - VTE Documentation of Mechanical Device: Intermittent pneumatic compression device Consult Discharge Plan - Plan Referrals: Jacy Mcdonnell [Primary Care Provider] - - Attending Attestation I examined this patient and my medical decision-making was reviewed with the Resident Physician. I agree with the documented findings, disposition and treatment plan as described except to the extent set forth below.
[2017-12-27] MEDS: Cefepime HCl 2,000 MG in Water for inj. (sterile) 20 ML 20 ML IVP SCH (13:00)
--- NOTE | 2017-12-27 15:28 | Podiatry Progress Note ---
Date of Encounter: 12/28/17 Time of Encounter: 12:35 - Assessment and Plan (1) Diabetic foot ulcer Current Visit: Yes Status: Acute S/p right hallux open amputation by Dr. Aggarwal on 12/24/17. WBC: 8.1, a febrile ESR: 112, CRP: 208 Right hallux wound cultures isolated proteus mirabalis. Intra op cultures pending. Receiving IV Vancomcin and Cefepime. Infectious Disease following. Will continue to monitor incision site and plan for closure once erythema has decreased. Weight bearing status: heel touch only on right foot with post op shoe. Qualifiers: Diabetic foot ulcer location: toe Diabetes mellitus type: type 1 Laterality: right Non-pressure ulcer stage: with necrosis of bone Qualified Code(s): E10.621 - Type 1 diabetes mellitus with foot ulcer; L97.514 - Non- pressure chronic ulcer of other part of right foot with necrosis of bone; L97.514 - Non-pressure chronic ulcer of other part of right foot with necrosis of bone; L97.514 - Non-pressure chronic ulcer of other part of right foot with necrosis of bone; L97.514 - Non-pressure chronic ulcer of other part of right foot with necrosis of bone (2) Diabetes mellitus Current Visit: Yes Status: Chronic Glucose control will aid in wound healing. Qualifiers: Diabetes mellitus type: type 1 Diabetes mellitus complication status: with skin complications Diabetes mellitus complication detail: with foot ulcer Qualified Code(s): E10.621 - Type 1 diabetes mellitus with foot ulcer; L97.509 - Non-pressure chronic ulcer of other part of unspecified foot with unspecified severity; L97.509 - Non-pressure chronic ulcer of other part of unspecified foot with unspecified severity; L97.509 - Non-pressure chronic ulcer of other part of unspecified foot with unspecified severity; L97.509 - Non-pressure chronic ulcer of other part of unspecified foot with unspecified severity (3) ESRD on dialysis Current Visit: Yes Status: Chronic On Hemodialysis every [facility]. Currently in dialysis. Subjective Principal diagnosis: Finger infection Interval history: Patient is sitting up in bed with dressing dry and intact to the right foot. Patient is s/p right hallux open amputation for osteomyelitis by Dr. Aggarwal on . Patient denies any pain to the right foot, states her left hand hurts. Patient recently had an I&D of the third finger, left hand by Dr. Callahan. Patient denies any fever, chills, or calf pain. Objective - Vital Signs Vital Signs: Vital Signs Temp Pulse Resp BP Pulse Ox 12/27/17 12:10 98.2 F 101 16 132/51 97 12/27/17 00:10 97.3 F L 100 20 124/78 93 12/26/17 20:30 98.4 F 100 16 108/52 97 Intake and Output 12/26/17 12/27/17 12/27/17 23:59 07:59 15:59 Intake Total Balance Intake: IV Fluids Maxipime 1,000 MG In Water for inj. (sterile) 10 ML @ 200 mls/ hr IVP Q24H VAL Rx#:[id number] Maxipime 2,000 MG In Water for inj. (sterile) 20 ML @ 300 mls/ hr IVP TuThSa@1800 VAL Rx#: [id number] Other: Blood Glucose* 286 205 - Exam Exam: General appearance: alert awake oriented X 3. Calm and pleasant, no acute distress.. Vascular: Right: Pedal pulses +1/4 DP/PT , No evidence of cyanosis, pallor or rubor, Edema graded at 1+/4, Skin Tempature warm, No calf pain with manual compression. capillary refill time is immediate to digits. Neurologic: Sensation intact with light touch to foot. . Postop Exam: S/P Sutures intact to incision line, Open amputation of right hallux, light perwound erythema, moderate amount of serous drainage observed dressing. No streaking, no pus, no odor, base of wound with red granulation tissue. Minimal edema. - Lab Result Diagrams: 12/28/17 05:58 12/28/17 05:58 Labs: Abnormal lab results RBC 2.63 M/mcL (3.82-4.97) L 12/27/17 04:25 Hgb 7.9 g/dL (11.5-15.4) L 12/27/17 04:25 Hct 25.7 % (35.3-44.9) L 12/27/17 04:25 MCHC 30.7 g/dL (31.6-35.5) L 12/27/17 04:25 RDW 17.3 % (11.5-14.5) H 12/27/17 04:25 Nucleated RBCs/100 WBC 0.4 /100 WBC (0) H 12/27/17 04:25 ESR 112 mm/hr (0-15) H 12/22/17 13:54 PT 12.7 Seconds (9.4-12.1) H 12/24/17 06:52 Sodium 133 mEq/L (136-145) L 12/27/17 04:25 Chloride 95 mEq/L (98-107) L 12/27/17 04:25 BUN 44 mg/dL (6-20) H 12/27/17 04:25 Creatinine 6.59 mg/dL (0.60-1.20) H 12/27/17 04:25 Est GFR ( Amer) 8 (> 60) L 12/27/17 04:25 Est GFR (Non-Af Amer) 7 (> 60) L 12/27/17 04:25 Glucose 343 mg/dL (70-105) H 12/27/17 04:25 POC Glucose 205 (58-89) H 12/27/17 12:12 Hemoglobin A1c 7.4 % (-5.6) H 12/23/17 04:03 Calculated Osmolality 301 (280-300) H 12/27/17 04:25 Calcium 7.9 mg/dL (8.6-10.3) L 12/27/17 04:25 Phosphorus 4.8 mg/dL (2.7-4.5) H 12/23/17 04:03 Alkaline Phosphatase 128 Units/L (34-104) H 12/27/17 04:25 C-Reactive Protein 208 mg/L (Less than 10) H 12/22/17 13:54 Globulin 3.8 g/dL (2.4-3.5) H 12/27/17 04:25 Albumin/Globulin Ratio 0.9 (1.1-2.2) L 12/27/17 04:25 Triglycerides 220 mg/dL (< 150) H 12/23/17 04:03 VLDL Cholesterol, Calc 44 mg/dL (< 31) H 12/23/17 04:03 HDL Cholesterol 17 mg/dL (40-59) L 12/23/17 04:03 Cholesterol/HDL Ratio 7.5 (0-4.9) H 12/23/17 04:03 Microbiology, Last 48 Hours 12/24/17 14:50 Anaerobic Culture - Preliminary Left Middle Finger At this time, no anaerobic growth is present. The culture will be finalized after 5 days of incubation. 12/24/17 14:50 Wound Culture - Preliminary Left Middle Finger Staphylococcus aureus 12/24/17 18:07 Gram Stain - Final Left Middle Finger - VTE Documentation of Mechanical Device: Intermittent pneumatic compression device Consult Discharge Plan - Plan Referrals: Jacy Mcdonnell [Primary Care Provider] -
[2017-12-27] MEDS: Ondansetron ODT 4 MG TAB.RAPDIS PO PRN (20:02)
[2017-12-27] MEDS: traZODone 50 MG TABLET PO SCH (20:29)
[2017-12-28 01:41] LABS: Hydrocodone Confirmation <2 ng/mL
[2017-12-28 06:21] LABS: Hemoglobin 7.5 g/dL (11.5-15.4); Mean Corpuscular HGB Conc 31.3 g/dL (31.6-35.5); Mean Corpuscular Hemoglobin 30.1 pg (28.0-33.3); Mean Corpuscular Volume 96.4 fL (83.0-100.0); Mean Platelet Volume 10.5 fL (9.4-12.4); Platelet Count 224 K/mcL (140-400); Red Blood Count 2.49 M/mcL (3.82-4.97); Red Cell Distribution Width 17.7 % (11.5-14.5)
[2017-12-28 06:50] LABS: Calcium 8.1 mg/dL (8.6-10.3); Potassium 5.4 mEq/L (3.5-5.1)
--- NOTE | 2017-12-28 07:15 | Orthopedics Progress Note ---
Date of Encounter: 12/28/17 Time of Encounter: 07:13 - Assessment and Plan (1) Contusion of finger of left hand Current Visit: Yes Status: Acute Qualifiers: Encounter type: initial encounter Finger: middle finger Damage to nail status: without damage Qualified Code(s): S60.032A - Contusion of left middle finger without damage to nail, initial encounter Subjective Principal diagnosis: Finger infection Interval history: S: Pain developed left long finger diffusely, similar to yesterday. No improvement overnight. O: Afebrile and vital signs are stable Persistent cellulitis and moderate swelling of the long finger I and D sites are clean with minimal drainage I can gently passively range the digit through the mid range without significant pain. She could grossly flex and extend the digits through a small arc without significant pain. The fingertips are all grossly sensate and well-perfused, and the radial artery pulse is 2+. Cultures are showing staphylococcus A: Left long finger infection with persistent swelling and erythema after I&D at the bedside P: No significant improvement since the bedside I&D. Persistent cellulitis. My recommendation is to proceed with operative I&D of the left long finger. We will plan on this for today. I will obtain a repeat x-ray of the left hand prior to surgery. Objective Vital signs: Vital Signs Temp Pulse Resp BP Pulse Ox 12/28/17 03:55 98.3 F 106 19 131/81 98 12/27/17 23:55 98.5 F 104 18 135/85 98 12/27/17 20:03 98.7 F 101 18 139/84 98 12/27/17 16:23 98.2 F 100 17 115/81 97 12/27/17 12:10 98.2 F 101 16 132/51 97 Intake and Output 12/27/17 12/27/17 12/28/17 15:59 23:59 07:59 Intake Total 20 1000 / 1000 Output Total 600 / 600 Balance 400 / 400 Intake: IV Fluids 20 / 20 Maxipime 2,000 MG In Water for 20 20 inj. (sterile) 20 ML @ 300 mls/ hr IVP TuThSa@1800 VAL Rx#: [id number] Oral 1000 / 1000 Output: Urine 600 / 600 Other: Blood Glucose* 205 205 - Labs CBC & BMP: 12/28/17 05:58 12/28/17 05:58 Labs: Abnormal lab results RBC 2.49 M/mcL (3.82-4.97) L 12/28/17 05:58 Hgb 7.5 g/dL (11.5-15.4) L 12/28/17 05:58 Hct 24.0 % (35.3-44.9) L 12/28/17 05:58 MCHC 31.3 g/dL (31.6-35.5) L 12/28/17 05:58 RDW 17.7 % (11.5-14.5) H 12/28/17 05:58 Nucleated RBCs/100 WBC 0.4 /100 WBC (0) H 12/27/17 04:25 ESR 112 mm/hr (0-15) H 12/22/17 13:54 PT 12.7 Seconds (9.4-12.1) H 12/24/17 06:52 Sodium 133 mEq/L (136-145) L 12/28/17 05:58 Potassium 5.4 mEq/L (3.5-5.1) H 12/28/17 05:58 Chloride 96 mEq/L (98-107) L 12/28/17 05:58 BUN 59 mg/dL (6-20) H 12/28/17 05:58 Creatinine 7.90 mg/dL (0.60-1.20) H 12/28/17 05:58 Est GFR ( Amer) 7 (> 60) L 12/28/17 05:58 Est GFR (Non-Af Amer) 6 (> 60) L 12/28/17 05:58 Glucose 235 mg/dL (70-105) H 12/28/17 05:58 POC Glucose 205 (58-89) H 12/27/17 20:11 Hemoglobin A1c 7.4 % (-5.6) H 12/23/17 04:03 Calcium 8.1 mg/dL (8.6-10.3) L 12/28/17 05:58 Phosphorus 4.8 mg/dL (2.7-4.5) H 12/23/17 04:03 Transferrin 138 mg/dL (203-362) L 12/28/17 05:58 Alkaline Phosphatase 128 Units/L (34-104) H 12/27/17 04:25 C-Reactive Protein 208 mg/L (Less than 10) H 12/22/17 13:54 Globulin 3.8 g/dL (2.4-3.5) H 12/27/17 04:25 Albumin/Globulin Ratio 0.9 (1.1-2.2) L 12/27/17 04:25 Triglycerides 220 mg/dL (< 150) H 12/23/17 04:03 VLDL Cholesterol, Calc 44 mg/dL (< 31) H 12/23/17 04:03 HDL Cholesterol 17 mg/dL (40-59) L 12/23/17 04:03 Cholesterol/HDL Ratio 7.5 (0-4.9) H 12/23/17 04:03 - VTE Documentation of Mechanical Device: Intermittent pneumatic compression device Consult Discharge Plan - Plan Referrals: Jacy Mcdonnell [Primary Care Provider] -
--- NOTE | 2017-12-28 07:23 | Nephrology Progress Note ---
Date of Encounter: 12/28/17 Time of Encounter: 07:23 - Assessment and Plan (1) ESRD on dialysis Current Visit: Yes Status: Chronic Patient with ESRD secondary to diabetic nephropathy, on HD every Right upper chest tunnelled HD catheter in place for the past 2 years, blood cultures show no growth to date Continue HD as scheduled every Avoid nephrotoxins Continue to monitor (2) Anemia in chronic kidney disease Current Visit: Yes Status: Chronic Anemia work-up: Iron 50, % iron 26%, transferrin 138, Vit B12 level 1047 Continue to monitor Qualifiers: Chronic kidney disease stage: on chronic dialysis Qualified Code(s): N18.6 - End stage renal disease; D63.1 - Anemia in chronic kidney disease; D63.1 - Anemia in chronic kidney disease; Z99.2 - Dependence on renal dialysis; Z99.2 - Dependence on renal dialysis; Z99.2 - Dependence on renal dialysis; Z99.2 - Dependence on renal dialysis (3) Hyponatremia Current Visit: Yes Status: Acute Continue to monitor (4) HTN (hypertension) Current Visit: No Status: Chronic BP controlled off meds Management per primary team Qualifiers: Hypertension type: essential hypertension Qualified Code(s): I10 - Essential (primary) hypertension (5) Osteomyelitis Current Visit: Yes Status: Acute Proteus mirabilis positive wound cultures Management per ID Avoid nephrotoxins Qualifiers: Osteomyelitis type: other acute Osteomyelitis location: foot Laterality: right Qualified Code(s): M86.171 - Other acute osteomyelitis, right ankle and foot (6) Contusion of finger of left hand Current Visit: Yes Status: Acute Management per ortho and ID Qualifiers: Encounter type: initial encounter Finger: middle finger Damage to nail status: without damage Qualified Code(s): S60.032A - Contusion of left middle finger without damage to nail, initial encounter (7) Diabetes mellitus Current Visit: Yes Status: Chronic Management per primary team Qualifiers: Diabetes mellitus type: type 1 Diabetes mellitus complication status: with skin complications Diabetes mellitus complication detail: with foot ulcer Qualified Code(s): E10.621 - Type 1 diabetes mellitus with foot ulcer; L97.509 - Non-pressure chronic ulcer of other part of unspecified foot with unspecified severity; L97.509 - Non-pressure chronic ulcer of other part of unspecified foot with unspecified severity; L97.509 - Non-pressure chronic ulcer of other part of unspecified foot with unspecified severity; L97.509 - Non-pressure chronic ulcer of other part of unspecified foot with unspecified severity (8) Vitamin D deficiency Current Visit: Yes Status: Chronic Vit D level pending Continue Vit D supplementation Outpatient monitoring (9) Tremor of both hands Current Visit: Yes Status: Acute Patient complaining of tremors. Review of medications reveals high dose of Lyrica. Will adjust for renal function. (10) Morbid obesity with BMI of 40.0-44.9, adult Current Visit: Yes Status: Chronic Management per primary team Subjective Principal diagnosis: Finger infection Interval history: Patient seen and examined during dialysis. Patient reports worsening tremors and pain / swelling in her left 3rd finger. Anticipate surgery this afternoon. Patient denies any other c/o. Objective - Vital Signs Vital signs: Vital Signs Temp Pulse Resp BP Pulse Ox 12/28/17 03:55 98.3 F 106 19 131/81 98 12/27/17 23:55 98.5 F 104 18 135/85 98 12/27/17 20:03 98.7 F 101 18 139/84 98 12/27/17 16:23 98.2 F 100 17 115/81 97 12/27/17 12:10 98.2 F 101 16 132/51 97 Intake and Output 12/27/17 12/27/17 12/28/17 15:59 23:59 07:59 Intake Total 1000 / 1000 Output Total 600 / 600 Balance 400 / 400 Intake: IV Fluids / 20 Maxipime 2,000 MG In Water for inj. (sterile) 20 ML @ 300 mls/ hr IVP TuThSa@1800 [facility] Rx#: [id number] Oral 1000 / 1000 Output: Urine 600 / 600 Other: Blood Glucose* 205 205 - General Appearance General appearance: Present: well-developed, well-nourished, obese EENT: Present: ATNC, PERRL, mucous membranes dry Neck: Present: supple Respiratory: Present: clear Cardiology: Present: no murmurs, no rub, no gallops, edema (1+ pitting edema), regular rate, regular rhythm Dialysis Vascular Access: Venous Catheter (tunnelled HD cath right upper chest) Gastrointestinal: Present: normoactive bowel sounds, no tenderness, no guarding Integumentary: Present: erythema (dressings in place LUE, RLE) Neurologic: Present: alert and oriented x3 Additional Comments: resting tremors of bilateral hands Musculoskeletal: Present: deformities (bilateral great toe amputations), erythema Psychiatric: Present: mood/affect appropriate, cooperative - Lab 12/28/17 05:58 12/28/17 05:58 Most recent lab results Calcium 8.1 mg/dL (8.6-10.3) L 12/28/17 05:58 Phosphorus 4.8 mg/dL (2.7-4.5) H 12/23/17 04:03 Magnesium 1.9 mg/dL (1.6-2.6) 12/23/17 04:03 - VTE Documentation of Mechanical Device: Intermittent pneumatic compression device Consult Discharge Plan - Plan Referrals: Jacy Mcdonnell [Primary Care Provider] -
[2017-12-28] MEDS ORDERED: 0.9 % Sodium Chloride 2,000 ML ONE (07:25)
[2017-12-28 07:32] LABS: 6_Acetylmorphine Confirmation <2 ng/mL
[2017-12-28 07:33] LABS: Oxymorphone Confirmation <2 ng/mL
[2017-12-28] MEDS ORDERED: 0.9 % Sodium Chloride 250 ML IVC PRN (07:36)
[2017-12-28] MEDS ORDERED: *HR* Heparin 10,000 UNIT/10 ML VIAL IV PRN (07:36)
[2017-12-28] MEDS: Insulin LISPRO 300 UNITS/3 ML VIAL SQ SCH ×7 (08:04→22:27)
[2017-12-28] MEDS: Pregabalin 75 MG CAPSULE PO SCH (08:04)
[2017-12-28] MEDS: Ascorbic Acid 500 MG TABLET PO SCH (08:13)
[2017-12-28] MEDS: Multivit/Ca/Min/Fe/FA 1 TAB TABLET PO SCH (08:13)
[2017-12-28] MEDS: Cholecalciferol (D-3) 1,000 UNIT TABLET PO SCH (08:13)
[2017-12-28] MEDS ORDERED: *HR* LORazepam Oral Conc 2 MG/ML PO ONE (10:34)
[2017-12-28] MEDS: Insulin DETEMIR 100 UNIT/ML X5UNITS SQ SCH ×2 (11:16→23:30)
--- NOTE | 2017-12-28 11:48 | Infectious Disease Progress No ---
Date of Encounter: 12/28/17 Time of Encounter: 11:45 - Assessment and Plan (1) Fever Current Visit: Yes Status: Acute Post-op fever with Tmax 102.5. Afebrile x 72 hours. Qualifiers: Fever type: unspecified Qualified Code(s): R50.9 - Fever, unspecified (2) Osteomyelitis Current Visit: Yes Status: Acute Location: Right foot, great toe. Causative organism unclear. Secondary to non-healing diabetic foot ulcer. X-ray of the right foot shows osteomyelitis of the base of the right great toe. ESR 112, CRP 208. Blood cultures drawn 12/22/17 are NGTD x 2 sets. Wound culture obtained in the ED grew P. mirabilis, resistant to fluoroquinolones, Bactrim, and gentamicin. Podiatry consulted and following. Status post amputation of the right great toe. Operative note reviewed. Intra-op cultures pending. Wound care and activity restrictions per the podiatry team. Continue Vancomycin IV. Pharmacy to dose. Goal trough ~15. Continue Cefepime 1 gram IV Q24H until cultures finalize. Duration of treatment depends on the clinical picture, but likely 6 weeks. Monitor for drug toxicity and dose-adjust antibiotics. Qualifiers: Osteomyelitis type: other acute Osteomyelitis location: foot Laterality: right Qualified Code(s): M86.171 - Other acute osteomyelitis, right ankle and foot (3) Infection of left hand Current Visit: Yes Status: Acute Causative organism MRSA. Likely secondary to traumatic injury. X-ray negative for bony abnormality. Ortho consulted. Status post bedside I & D by Dr. Hernandez. Procedure note revealed. Gross purulence noted. Minimal improvement per the ortho team. Planning for operative I & D later today. Wound care and activity restrictions per the ortho team. Continue antibiotics as above. Continue contact precautions. (4) Diabetic foot ulcer Current Visit: Yes Status: Acute Location: Plantar medial aspect of the right great toe. Etiology unclear. Podiatry consulted and following. Status post amputation of the right great toe. Surgical wound care and activity restrictions per the podiatry team. Qualifiers: Diabetic foot ulcer location: toe Diabetes mellitus type: type 1 Laterality: right Non-pressure ulcer stage: with necrosis of bone Qualified Code(s): E10.621 - Type 1 diabetes mellitus with foot ulcer; L97.514 - Non- pressure chronic ulcer of other part of right foot with necrosis of bone; L97.514 - Non-pressure chronic ulcer of other part of right foot with necrosis of bone; L97.514 - Non-pressure chronic ulcer of other part of right foot with necrosis of bone; L97.514 - Non-pressure chronic ulcer of other part of right foot with necrosis of bone (5) Diabetes mellitus Current Visit: Yes Status: Chronic Uncontrolled recently per patient report. FSBS 338 on admission labs. Her blood sugars continue to run high. HgbA1C 7.2%. Recommend aggressive glucose monitoring and control to promote wound healing and prevent re-infection. Management per the primary team. Qualifiers: Diabetes mellitus type: type 1 Diabetes mellitus complication status: with skin complications Diabetes mellitus complication detail: with foot ulcer Qualified Code(s): E10.621 - Type 1 diabetes mellitus with foot ulcer; L97.509 - Non-pressure chronic ulcer of other part of unspecified foot with unspecified severity; L97.509 - Non-pressure chronic ulcer of other part of unspecified foot with unspecified severity; L97.509 - Non-pressure chronic ulcer of other part of unspecified foot with unspecified severity; L97.509 - Non-pressure chronic ulcer of other part of unspecified foot with unspecified severity (6) ESRD on dialysis Current Visit: Yes Status: Chronic Secondary to diabetic nephropathy. Follows with [facility]. HD //Wed. Nephrology consulted and following. (7) Peripheral neuropathy Current Visit: Yes Status: Chronic Qualifiers: Peripheral neuropathy type: polyneuropathy, other Qualified Code(s): G62.89 - Other specified polyneuropathies (8) Hypertension Current Visit: No Status: Chronic Qualifiers: Hypertension type: essential hypertension Qualified Code(s): I10 - Essential (primary) hypertension (9) Morbid obesity with BMI of 40.0-44.9, adult Current Visit: Yes Status: Chronic (10) Left hand pain Current Visit: Yes Status: Acute Likely secondary to traumatic injury with superimposed infection. Xray negative for fracture. Ortho consulted and following. Pain management per the primary and ortho teams. - Subjective Interval history: Patient seen and examined in the HD unit. No acute events noted overnight. Status post bedside I & D of the left middle finger on Wednesday. Cultures grew MSSA. Minimally improved per ortho, so planning to take the patient to the OR today. Status post right great toe amputation on Wednesday as well. Cultures not available at this time due to them not being run as they were sent to Histology rather than Micro. Patient denies fevers, chills, or rigors. Denies any chest pain or shortness of breath or cough. Reports nausea last night after dinner, but none this morning. Denies vomiting or diarrhea, but states she did have a BM yesterday. States her appetite is good, but she is NPO this morning. She is anuric. Denies any oral thrush or new skin lesions. Denies pain in the right foot, but states she is having a significant amount of pain in the left hand at this time. Infect Dis PN-Objective Data - Labs CBC & Chem 7: 12/29/17 04:52 12/29/17 04:52 Labs: Laboratory Results - last 24 hr 12/22/17 12/27/17 12/27/17 16:01 12:12 16:22 WBC RBC Hgb Hct MCV MCH MCHC RDW Plt Count MPV Sodium Potassium Chloride Carbon Dioxide BUN Creatinine Est GFR ( Amer) Est GFR (Non-Af Amer) BUN/Creatinine Ratio Glucose POC Glucose 205 H 172 H Calculated Osmolality Calcium Iron % Saturation Transferrin Vitamin B12 25-OH Vitamin D Total PTH Intact Random Vancomycin Codeine Confirmation <2 Morphine Confirm <2 6-Acetylmorphine Conf <2 Hydrocodone Confirm <2 Oxycodone Confirm 17 Oxymorphone Confirm <2 Hydromorphone Confirm <2 12/27/17 12/28/17 12/28/17 20:11 05:58 05:58 WBC RBC Hgb Hct MCV MCH MCHC RDW Plt Count MPV Sodium Potassium Chloride Carbon Dioxide BUN Creatinine Est GFR ( Amer) Est GFR (Non-Af Amer) BUN/Creatinine Ratio Glucose POC Glucose 205 H Calculated Osmolality Calcium Iron % Saturation Transferrin Vitamin B12 25-OH Vitamin D Total 24 L PTH Intact 51.2 Random Vancomycin Codeine Confirmation Morphine Confirm 6-Acetylmorphine Conf Hydrocodone Confirm Oxycodone Confirm Oxymorphone Confirm Hydromorphone Confirm 12/28/17 12/28/17 12/28/17 05:58 05:58 05:58 WBC 10.2 RBC 2.49 L Hgb 7.5 L Hct 24.0 L MCV 96.4 MCH 30.1 MCHC 31.3 L RDW 17.7 H Plt Count 224 MPV 10.5 Sodium 133 L Potassium 5.4 H Chloride 96 L Carbon Dioxide 26 BUN 59 H Creatinine 7.90 H Est GFR ( Amer) 7 L Est GFR (Non-Af Amer) 6 L BUN/Creatinine Ratio 7 Glucose 235 H POC Glucose Calculated Osmolality 300 Calcium 8.1 L Iron 50 % Saturation 26 Transferrin 138 L Vitamin B12 1047 25-OH Vitamin D Total PTH Intact Random Vancomycin Codeine Confirmation Morphine Confirm 6-Acetylmorphine Conf Hydrocodone Confirm Oxycodone Confirm Oxymorphone Confirm Hydromorphone Confirm 12/28/17 12/28/17 05:58 07:54 WBC RBC Hgb Hct MCV MCH MCHC RDW Plt Count MPV Sodium Potassium Chloride Carbon Dioxide BUN Creatinine Est GFR ( Amer) Est GFR (Non-Af Amer) BUN/Creatinine Ratio Glucose POC Glucose 244 H Calculated Osmolality Calcium Iron % Saturation Transferrin Vitamin B12 25-OH Vitamin D Total PTH Intact Random Vancomycin 14.1 Codeine Confirmation Morphine Confirm 6-Acetylmorphine Conf Hydrocodone Confirm Oxycodone Confirm Oxymorphone Confirm Hydromorphone Confirm Cultures: Cultures 12/24/17 14:50 Wound Culture - Final Left Middle Finger Methicillin Resistant S.aureus 12/24/17 09:01 Surgical Biopsy Culture - Preliminary Right Great Toe 12/24/17 14:50 Anaerobic Culture - Preliminary Left Middle Finger At this time, no anaerobic growth is present. The culture will be finalized after 5 days of incubation. 12/24/17 18:07 Gram Stain - Final Left Middle Finger Serology 12/24/17 12/22/17 Range/Units 16:43 16:01 Urine Test Negative (Negative) Hep Bs Antigen Nonreactive (Nonreactive) Hep Bs Antibody 39.07 mIU/mL - Impressions Impressions Hand X-Ray 12/28/17 07:15 IMPRESSION: Soft tissue swelling of the 3rd digit. No underlying osseous abnormality. D/ / Rachel Haider MD / Rachel Haider MD Interpreting Provider: Rachel Haider MD Exam - Constitutional Vitals: Temp Pulse Resp BP Pulse Ox 97.3 F L 103 15 108/88 99 12/28/17 08:25 12/28/17 08:21 12/28/17 08:25 12/28/17 09:10 12/28/17 08:21 General appearance: cooperative, morbidly obese, no acute distress - Head Head exam: Present: atraumatic, normal inspection, normocephalic - Eye Eye exam: Present: EOMI, normal appearance, PERRL Pupils: Present: normal accommodation - ENT ENT exam: Present: mucous membranes moist - Neck Neck exam: Present: normal inspection - Respiratory Respiratory exam: Present: CTAB. Absent: rales, respiratory distress, rhonchi, wheezes - Cardiovascular Cardiovascular exam: Present: RRR, +S1, +S2 - GI/Abdominal GI/Abdominal exam: Present: distended (obese), normal bowel sounds, soft. Absent: tenderness - Extremities Exam Extremities exam: Present: tenderness (left hand). Absent: joint swelling, pedal edema Additional comments: Left hand dressing C/D/I. Right foot dressing C/D/I. - Neurological Exam Neurological exam: Present: alert, oriented X3, no focal deficits - Psychiatric Psychiatric exam: Present: normal affect, normal mood - Skin Skin exam: Present: dry, intact, normal color, warm - Additional findings Additional findings: Permacath noted to the right upper chest, currently accessed for HD. Transparent dressing C/D/I. - VTE Documentation of Mechanical Device: Intermittent pneumatic compression device Consult Discharge Plan - Plan Referrals: Jacy Mcdonnell [Primary Care Provider] - ( web request sent on 12/29/17 ) - Attending Attestation I examined this patient and my medical decision-making was reviewed with the Resident Physician. I agree with the documented findings, disposition and treatment plan as described except to the extent set forth below.
--- NOTE | 2017-12-28 13:15 | Podiatry Progress Note ---
Date of Encounter: 12/28/17 Time of Encounter: 12:40 - Assessment and Plan (1) Diabetic foot ulcer Current Visit: Yes Status: Acute S/p right hallux open amputation by Dr. Aggarwal on 12/24/17. WBC: 10.2, a febrile ESR: 112, CRP: 208 Right hallux wound cultures isolated proteus mirabalis. Intra op cultures pending. Receiving IV Vancomycin and Cefepime. Infectious Disease following. Decreased erythema noted today, Dr. Aggarwal to plan for an excisional debridement and primary closure of the right hallux tomorrow (12/29/17) NPO after midnight. Weight bearing status: heel touch only on right foot with post op shoe. Qualifiers: Diabetic foot ulcer location: toe Diabetes mellitus type: type 1 Laterality: right Non-pressure ulcer stage: with necrosis of bone Qualified Code(s): E10.621 - Type 1 diabetes mellitus with foot ulcer; L97.514 - Non- pressure chronic ulcer of other part of right foot with necrosis of bone; L97.514 - Non-pressure chronic ulcer of other part of right foot with necrosis of bone; L97.514 - Non-pressure chronic ulcer of other part of right foot with necrosis of bone; L97.514 - Non-pressure chronic ulcer of other part of right foot with necrosis of bone (2) Diabetes mellitus Current Visit: Yes Status: Chronic Glucose control will aid in wound healing. Qualifiers: Diabetes mellitus type: type 1 Diabetes mellitus complication status: with skin complications Diabetes mellitus complication detail: with foot ulcer Qualified Code(s): E10.621 - Type 1 diabetes mellitus with foot ulcer; L97.509 - Non-pressure chronic ulcer of other part of unspecified foot with unspecified severity; L97.509 - Non-pressure chronic ulcer of other part of unspecified foot with unspecified severity; L97.509 - Non-pressure chronic ulcer of other part of unspecified foot with unspecified severity; L97.509 - Non-pressure chronic ulcer of other part of unspecified foot with unspecified severity (3) ESRD on dialysis Current Visit: Yes Status: Chronic On Hemodialysis every [id number]. Currently in dialysis. Subjective Principal diagnosis: Finger infection Interval history: Patient is sitting up in bed with dressing dry and intact to the right foot. Patient is s/p right hallux open amputation for osteomyelitis by Dr. Aggarwal on . Patient denies any pain to the right foot. Patient just completed dialysis. Patient recently had an I&D of the third finger, left hand by Dr. Callahan and is scheduled to go back for an I&D of the third finger today. Patient denies any fever, chills, or calf pain. Objective - Vital Signs Vital Signs: Vital Signs Temp Pulse Resp BP Pulse Ox 12/28/17 12:50 97.9 F 14 125/100 12/28/17 12:25 114/99 12/28/17 12:10 139/101 12/28/17 11:55 122/91 12/28/17 11:40 113/77 12/28/17 11:25 134/70 12/28/17 11:10 122/85 12/28/17 10:55 113/82 12/28/17 10:40 105/64 12/28/17 10:25 142/93 12/28/17 10:10 139/100 12/28/17 09:55 117/84 12/28/17 09:40 113/91 12/28/17 09:25 129/90 12/28/17 09:10 108/88 12/28/17 08:55 133/108 12/28/17 08:40 133/84 12/28/17 08:25 97.3 F L 15 121/99 12/28/17 08:21 98.7 F 103 15 99 12/28/17 08:15 98 12/28/17 07:51 98.7 F 103 15 136/74 98 12/28/17 03:55 98.3 F 106 19 131/81 98 12/27/17 23:55 98.5 F 104 18 135/85 98 12/27/17 20:03 98.7 F 101 18 139/84 98 12/27/17 16:23 98.2 F 100 17 115/81 97 Intake and Output 12/27/17 12/28/17 12/28/17 23:59 07:59 15:59 Intake Total 1000 / 1000 600 / 600 Output Total 600 / 600 3600 / 3600 Balance 400 / 400 -3000 / -3000 Intake: Oral 1000 / 1000 0 / 0 Intake, Rinseback and Flushes 600 / 600 Output: Urine 600 / 600 0 / 0 Total Dialysis (HD) Output 3600 / 3600 Other: Blood Glucose* 205 244 163 Hemodialysis Net Fluid Removed 3000 (mL) - Exam Exam: General appearance: alert awake oriented X 3. Calm and pleasant, no acute distress.. Vascular: Right: Pedal pulses +1/4 DP/PT , No evidence of cyanosis, pallor or rubor, Edema graded at 1+/4, Skin Tempature warm, No calf pain with manual compression. capillary refill time is immediate to digits. Neurologic: Sensation intact with light touch to foot. . Postop Exam: S/P Sutures intact to incision line, Open amputation of right hallux, light perwound erythema, moderate amount of serous drainage observed dressing. No streaking, no pus, no odor, base of wound with red granulation tissue. Minimal edema. - Lab Result Diagrams: 12/28/17 05:58 12/28/17 05:58 Labs: Abnormal lab results RBC 2.49 M/mcL (3.82-4.97) L 12/28/17 05:58 Hgb 7.5 g/dL (11.5-15.4) L 12/28/17 05:58 Hct 24.0 % (35.3-44.9) L 12/28/17 05:58 MCHC 31.3 g/dL (31.6-35.5) L 12/28/17 05:58 RDW 17.7 % (11.5-14.5) H 12/28/17 05:58 Nucleated RBCs/100 WBC 0.4 /100 WBC (0) H 12/27/17 04:25 ESR 112 mm/hr (0-15) H 12/22/17 13:54 PT 12.7 Seconds (9.4-12.1) H 12/24/17 06:52 Sodium 133 mEq/L (136-145) L 12/28/17 05:58 Potassium 5.4 mEq/L (3.5-5.1) H 12/28/17 05:58 Chloride 96 mEq/L (98-107) L 12/28/17 05:58 BUN 59 mg/dL (6-20) H 12/28/17 05:58 Creatinine 7.90 mg/dL (0.60-1.20) H 12/28/17 05:58 Est GFR ( Amer) 7 (> 60) L 12/28/17 05:58 Est GFR (Non-Af Amer) 6 (> 60) L 12/28/17 05:58 Glucose 235 mg/dL (70-105) H 12/28/17 05:58 POC Glucose 244 (58-89) H 12/28/17 07:54 Hemoglobin A1c 7.4 % (-5.6) H 12/23/17 04:03 Calcium 8.1 mg/dL (8.6-10.3) L 12/28/17 05:58 Phosphorus 4.8 mg/dL (2.7-4.5) H 12/23/17 04:03 Transferrin 138 mg/dL (203-362) L 12/28/17 05:58 Alkaline Phosphatase 128 Units/L (34-104) H 12/27/17 04:25 C-Reactive Protein 208 mg/L (Less than 10) H 12/22/17 13:54 Globulin 3.8 g/dL (2.4-3.5) H 12/27/17 04:25 Albumin/Globulin Ratio 0.9 (1.1-2.2) L 12/27/17 04:25 Triglycerides 220 mg/dL (< 150) H 12/23/17 04:03 VLDL Cholesterol, Calc 44 mg/dL (< 31) H 12/23/17 04:03 HDL Cholesterol 17 mg/dL (40-59) L 12/23/17 04:03 Cholesterol/HDL Ratio 7.5 (0-4.9) H 12/23/17 04:03 25-OH Vitamin D Total 24 ng/mL (30-80) L 12/28/17 05:58 Microbiology, Last 48 Hours 12/24/17 14:50 Wound Culture - Final Left Middle Finger Methicillin Resistant S.aureus 12/24/17 09:01 Surgical Biopsy Culture - Preliminary Right Great Toe 12/24/17 14:50 Anaerobic Culture - Preliminary Left Middle Finger At this time, no anaerobic growth is present. The culture will be finalized after 5 days of incubation. 12/24/17 18:07 Gram Stain - Final Left Middle Finger - VTE Documentation of Mechanical Device: Intermittent pneumatic compression device Consult Discharge Plan - Plan Referrals: Jacy Mcdonnell [Primary Care Provider] -
[2017-12-28] MEDS ORDERED: Lidocaine 1% 20 ML MDV ONE (14:18)
[2017-12-28] MEDS ORDERED: Bupivacaine/EPI 1:200k 0.5%PF 30 ML VIAL ONE (14:20)
[2017-12-28] MEDS ORDERED: *HR* Midazolam HCl 2 MG/2 ML VIAL ONE (14:37)
[2017-12-28] MEDS ORDERED: *HR* Propofol 200 MG/20 ML VIAL IVP ONE (14:37)
[2017-12-28] MEDS ORDERED: *HR* FentaNYL (PF) 100 MCG/2 ML VIAL ONE (14:37)
--- NOTE | 2017-12-28 14:53 | Anesthesia Evaluation PreOp ---
Date of Encounter: 12/28/17 Time of Encounter: 14:51 - Past History Planned Operation: I&D left long finger Cardiac History: HTN, Hyperlipidemia Pulmonary History: Former smoker [employer]PER[employer] History: Seizures Other Medical History: Renal (ESRD - dialysis today) Anesthesia History: No Prior Anesthetic Complications : No ([facility]) Alcohol Use: none Drug use: none Medications and Allergies Insulin Regular U-500 [HumuLIN R U-500] 15 unit SQ TID 10/22/15 [History] Ascorbate Calcium [Vitamin C] 500 mg PO DAILY 03/30/16 [History] Multivitamin/Iron/Folic Acid [Cerovite Advanced Form Tab] 1 tab PO DAILY #0 08/07 [History] Trazodone HCl [TraZODone] 100 mg PO HS 03/30/16 [History] Pregabalin [Lyrica] 100 mg PO TID 30 Days capsule 04/08/16 [Rx] Albuterol Sulfate [Albuterol Inhaler] 2 puff IH Q4H PRN 01/15/17 [History] DiphenhydraMINE [Benadryl] 25 mg PO Q12H 01/15/17 [History] Sennosides/Docusate Sodium [Senna-S Tablet] 1 tab PO DAILY PRN 01/15/17 [History ] Ondansetron HCl [Zofran] 8 mg PO DAILY PRN 01/19/17 [History] Cinacalcet [Sensipar] 1 tab PO DAILY 12/22/17 [History] DULoxetine [Cymbalta] 30 mg PO HS 12/22/17 [History] DULoxetine [Cymbalta] 60 mg PO QAM 12/22/17 [History] Ergocalciferol (VITAMIN D2) [Vitamin D2] 50,000 unit PO QWEEK 12/22/17 [History] Insulin Glargine [Lantus] 30 units SQ BID 12/22/17 [History] Labetalol HCl [Labetalol HCl] 300 mg PO BID 12/22/17 [History] Lanthanum Carbonate [Lanthanum Carbonate] 1 tab PO 5XD 12/22/17 [History] Omeprazole [PriLOSEC] 40 mg PO DAILY 12/22/17 [History] 3 Allergy/AdvReac Type Severity Reaction Status Date / Time gabapentin [From Neurontin] AdvReac Fainting Verified 01/15/17 07:08 hydrocodone [From [place]] AdvReac Hypertensio Verified 01/19/17 08:38 n - Meds/Allergy Pre-op Review Medications Reviewed: Yes Allergies Reviewed: Yes Beta Blockers on Current Med List: No Anesthesia Results - Labs 12/28/17 05:58 12/28/17 05:58 - Imaging EKG: report reviewed, image reviewed (SR) Anesthesia Exam Last Vital Signs Temp 99.4 F 12/28/17 13:49 Pulse 121 12/28/17 14:01 Resp 14 12/28/17 12:50 BP 127/83 12/28/17 13:49 Pulse Ox 96 12/28/17 13:49 Weight: 112 kg NPO (# of Hours): > 8 hrs - HEENT Pupil (Motor): Pupils equal, EOMI Mallampati: III Teeth: Poor dentition Oral Opening: Greater than 3 - [employer]GGER [employer] 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 LOC: Disoriented (Patient was given ativan around 11 am prior to dialysis due to twitching; due to emergent nature of surgery, will not delay for this change in mental status - however, patient is not consentable at this time and this is considered to possibly be sepsis-related due to the nature of her infection) - Cardiac Rhythm: Regular - Pulmonary Breath Sounds: bilateral Clear Anesthesia Assess/Plan ASA Score: 4, E Modified Dellrose Scale for Level of Consciousness: Cooperative, oriented, and tranquil Anesthetic Plan: General, Precautions (Patient with mental status changes after ativan administration around 11 am; still with twitching which started to prior to ativan and dialysis; due to emergent nature of surgery (patient may be becoming septic) - will proceed with caution; however, patient is not consentable.) Monitoring Plan: Standard Monitors Recovery Plan: PACU
--- NOTE | 2017-12-28 15:20 | Anesthesia Evaluation PreOp ---
Date of Encounter: 12/28/17 - Past History Alcohol Use: none Drug use: none Medications and Allergies Insulin Regular U-500 [HumuLIN R U-500] 15 unit SQ TID 10/22/15 [History] Ascorbate Calcium [Vitamin C] 500 mg PO DAILY 03/30/16 [History] Multivitamin/Iron/Folic Acid [Cerovite Advanced Form Tab] 1 tab PO DAILY #0 08/07 [History] Trazodone HCl [TraZODone] 100 mg PO HS 03/30/16 [History] Pregabalin [Lyrica] 100 mg PO TID 30 Days capsule 04/08/16 [Rx] Albuterol Sulfate [Albuterol Inhaler] 2 puff IH Q4H PRN 01/15/17 [History] DiphenhydraMINE [Benadryl] 25 mg PO Q12H 01/15/17 [History] Sennosides/Docusate Sodium [Senna-S Tablet] 1 tab PO DAILY PRN 01/15/17 [History ] Ondansetron HCl [Zofran] 8 mg PO DAILY PRN 01/19/17 [History] Cinacalcet [Sensipar] 1 tab PO DAILY 12/22/17 [History] DULoxetine [Cymbalta] 30 mg PO HS 12/22/17 [History] DULoxetine [Cymbalta] 60 mg PO QAM 12/22/17 [History] Ergocalciferol (VITAMIN D2) [Vitamin D2] 50,000 unit PO QWEEK 12/22/17 [History] Insulin Glargine [Lantus] 30 units SQ BID 12/22/17 [History] Labetalol HCl [Labetalol HCl] 300 mg PO BID 12/22/17 [History] Lanthanum Carbonate [Lanthanum Carbonate] 1 tab PO 5XD 12/22/17 [History] Omeprazole [PriLOSEC] 40 mg PO DAILY 12/22/17 [History] 3 Allergy/AdvReac Type Severity Reaction Status Date / Time gabapentin [From Neurontin] AdvReac Fainting Verified 01/15/17 07:08 hydrocodone [From [place]] AdvReac Hypertensio Verified 01/19/17 08:38 n Anesthesia Results - Labs 12/28/17 05:58 12/28/17 05:58
[2017-12-28] MEDS ORDERED: *HR* EPINEPHrine 1 MG/ML AMPUL ONE (15:49)
[2017-12-28] MEDS ORDERED: Ondansetron 4 MG/2 ML VIAL ONE (16:03)
[2017-12-28] MEDS ORDERED: Dexamethasone 4 MG/ML VIAL ONE (16:03)
[2017-12-28] MEDS ORDERED: *HR* Etomidate 40 MG/20 ML VIAL IVP ONE (16:06)
[2017-12-28] MEDS ORDERED: *HR* Succinylcholine 200 MG/10 ML VIAL IVP ONE (16:07)
--- NOTE | 2017-12-28 16:24 | Orthopedic Operative Note ---
Date of procedure: 12/28/17 Procedure: OPERATIVE REPORT DATE OF PROCEDURE: 12/28/2017 SURGEON: Saleem Hernandez MD SUPERVISOR GENERAL(S): There were no assistants PREOPERATIVE DIAGNOSIS: Left long finger infection POSTOPERATIVE DIAGNOSIS: Same PROCEDURE: Left long finger incision, drainage, irrigation, and debridement ANESTHESIA: General anesthesia PREOPERATIVE ANTIBIOTICS: Patient had already been receiving cefepime and vancomycin on the floor ESTIMATED BLOOD LOSS: 1 milliliters LOCAL INJECTION: 0.5% bupivacaine with 1:200,000 epinephrine; 10 mL used in total PREOPERATIVE NOTE AND INDICATIONS: This patient is a 37-year-old female who is admitted for a left long finger infection as well as a right great toe ulcer. She has end-stage renal disease from diabetes and is on dialysis. Podiatry is managing the right great toe. Patient had a bedside I&D of the left long finger however she had only minimal improvement and persistent erythema and swelling. Therefore my recommendation was for formal operative incision, drainage, irrigation, and debridement. The surgical plan was discussed with the patient. The risks, benefits, alternatives, and potential complications of this procedure were discussed with the patient including injury to veins, arteries, nerves, tendons, ligaments, and bone. Also discussed were the risks of infection, bleeding, pain, blood clots, the possible need for a blood transfusion, the possible need for further procedures, heart attack, stroke, and . Additional risks include persistence of infection with any tape to tape the finger in the future. All of this was explained in simple terms, and the patient verbalized understanding and wished to proceed. Consent was given to proceed with surgery. PROCEDURE: The patient was seen in the preoperative holding area where the identify and the consent were confirmed. The left long finger was marked. Final questions were answered. The patient was brought back to the operating room and placed supine on the operating room table. A huddle was performed with the patient and all vital surgical team members confirming patient identity, the correct procedure, and the correct operative site. General anesthesia was administered. The left upper extremity was prepped and draped in the usual sterile fashion. A surgical time out was performed immediately preceding the incision with all personnel in the operating room to confirm patient identity, the correct operative site and extremity, correct radiographic studies, availability of appropriate surgical equipment, and agreement on the planned procedure. The procedure began dorsally. The 2 bedside I&D sites were connected with a longitudinal incision through the skin and subcutaneous tissue. The area was spread open down to the extensor mechanism which was intact. There is no significant purulent material. The wound was copiously irrigated and 2 simple stitches were placed in the center to loosely approximate the wound and this was closed over a Juan Carlos drain. Attention was then directed volarly and the small Clark incision over the proximal phalangeal region was extended distally across the proximal interphalangeal joint crease and Clark fashion and dissection proceeded through the subcutaneous tissue taking care to protect the neurovascular bundles. A full-thickness flap was elevated and the flexor tendon sheath was identified. There is no purulence in the sheath and no flexor tenosynovitis. The wound was copiously irrigated and 2 simple stitches were placed and the flap in the center to loosely approximate it and this was closed over a Juan Carlos drain. A sterile dressing was applied. No tourniquet was used. The instrument, sponge, and needle counts were correct after wound closure. POST OPERATIVE PLAN: Weight Bearing: Nonweightbearing to the left upper extremity. DVT Prophylaxis: Per the hospitalist Activity: Avoid aggressive activities with the left upper extremity. Wound Care: Daily dressing changes and peroxide soaks Pain Control: Per the hospitalist Perioperative antibiotic prophylaxis: Continue cefepime and vancomycin for now Was there an family and divorce legal assistant present: No Estimated blood loss (cc): 1
--- NOTE | 2017-12-28 17:06 | Anesthesia Evaluation Post Op ---
Date of Encounter: 12/28/17 Time of Encounter: 17:04 - Vital Signs Vital Signs: Vital Signs - Last 8 Hours Temp Pulse Resp BP Pulse Ox 12/28/17 16:51 98.8 F 106 19 113/39 93 12/28/17 16:41 98.8 F 108 18 96/47 94 12/28/17 16:31 106 17 89/50 94 12/28/17 16:21 108 17 116/100 94 12/28/17 16:20 21 97 12/28/17 16:11 97.0 F L 114 14 118/99 94 12/28/17 14:01 121 12/28/17 13:49 99.4 F 112 127/83 96 12/28/17 12:50 97.9 F 14 125/100 12/28/17 12:25 114/99 12/28/17 12:10 139/101 12/28/17 11:55 122/91 12/28/17 11:40 113/77 12/28/17 11:25 134/70 12/28/17 11:10 122/85 12/28/17 10:55 113/82 12/28/17 10:40 105/64 12/28/17 10:25 142/93 12/28/17 10:10 139/100 12/28/17 09:55 117/84 12/28/17 09:40 113/91 12/28/17 09:25 129/90 12/28/17 09:10 108/88 Intake and Output 12/28/17 12/28/17 12/28/17 07:59 15:59 23:59 Intake Total 600 / 600 Output Total 3603 / 3603 Balance -3003 / -3003 Intake: Oral 0 / 0 Intake, Rinseback and Flushes 600 / 600 Output: Urine 0 / 0 Total Dialysis (HD) Output 3600 / 3600 Estimated Blood Loss 3 / 3 Other: Blood Glucose* 244 163 216 Hemodialysis Net Fluid Removed 3000 (mL) - Lungs Lungs: Clear Ascult./Percussion - Airway Airway: Non-obstructed - Cardiovascular Regular Rate, Baseline Rhythm - Mental Status Mental Status: Asleep with brisk response to light stimulation, Baseline Status , Sedated - Pain Pain Scale: 0 Pain Scale used: Numeric (1 - 10) - Nausea Vomiting Nausea Vomiting: Unable to assess - Hydration Hydration: NPO - Discharge PostOp Status: Transfer Patient to floor (patient is wearing bipap, vss, patient is twitching but it is her baseline prior to surgery.)
--- NOTE | 2017-12-28 17:39 | Internal Med Progress Note ---
Date of Encounter: 12/28/17 Time of Encounter: 17:39 - Assessment and plan (1) Myoclonia Current Visit: Yes Status: Acute Assessment and plan: could be related to ESRD and use of Benadryl? Will hold Benadryl for now; patient is noted to be delirious and lethargic throughout the day after receiving a small dose of PO Ativan 0.5mg; hence will hold sedatives/hypnotics at this time; will consult Neurology in am; continue to monitor closely; supportive care; (2) Acute respiratory failure with hypoxia Current Visit: Yes Status: Acute Assessment and plan: likely secondary to anesthesia; patient came back from OR on BiPAP; will transfer to for closer monitoring; continue supplemental o2 and NIPPV as needed; will check chest XRay and ABG; Telemetry monitoring; hold sedatives; (3) Acute encephalopathy Current Visit: Yes Status: Acute Assessment and plan: likely due to use of Benadryl, Lyrica, Ativan in the setting of ESRD; she did receive her HD this am; hold sedatives and monitor closely; supportive care; (4) Osteomyelitis Current Visit: Yes Status: Acute Assessment and plan: right great toe diabetic foot ulcer and osteomyelitis; Podiatry on board, s/p amputation of great toe on 12/24/17; external wound culture grows Proteus mirabilis, intraoperative cultures pending; ID om board- continue IV Cefepime and Vancomycin until final cultures; local wound care per Podiatry; Qualifiers: Osteomyelitis type: other acute Osteomyelitis location: foot Laterality: right Qualified Code(s): M86.171 - Other acute osteomyelitis, right ankle and foot (5) Diabetic foot ulcer Current Visit: Yes Status: Acute Qualifiers: Diabetic foot ulcer location: toe Diabetes mellitus type: type 1 Laterality: right Non-pressure ulcer stage: with necrosis of bone Qualified Code(s): E10.621 - Type 1 diabetes mellitus with foot ulcer; L97.514 - Non- pressure chronic ulcer of other part of right foot with necrosis of bone; L97.514 - Non-pressure chronic ulcer of other part of right foot with necrosis of bone; L97.514 - Non-pressure chronic ulcer of other part of right foot with necrosis of bone; L97.514 - Non-pressure chronic ulcer of other part of right foot with necrosis of bone (6) Infection of left hand Current Visit: Yes Status: Acute Assessment and plan: Orthopedic surgery on board; underwent bedside I&D, wound culture growing MRSA; continue IV Vancomycin for now; underwent repeat operative I&D today, pending cultures; (7) Anemia in chronic kidney disease Current Visit: Yes Status: Chronic Assessment and plan: acute on chronic anemia, likely from surgical procedures; will transfuse 1unit PRBC and continue to monitor; d/w Nephrology; Qualifiers: Chronic kidney disease stage: on chronic dialysis Qualified Code(s): N18.6 - End stage renal disease; D63.1 - Anemia in chronic kidney disease; D63.1 - Anemia in chronic kidney disease; Z99.2 - Dependence on renal dialysis; Z99.2 - Dependence on renal dialysis; Z99.2 - Dependence on renal dialysis; Z99.2 - Dependence on renal dialysis (8) Diabetes mellitus Current Visit: Yes Status: Chronic Assessment and plan: continue Accucheck blood glucose monitoring with basal bolus insulin regimen; blood sugars slightly elevated, will continue to monitor in light of encephalopathy, will not increase insulin; diabetic diet as tolerated; Qualifiers: Diabetes mellitus type: type 1 Diabetes mellitus complication status: with skin complications Diabetes mellitus complication detail: with foot ulcer Qualified Code(s): E10.621 - Type 1 diabetes mellitus with foot ulcer; L97.509 - Non-pressure chronic ulcer of other part of unspecified foot with unspecified severity; L97.509 - Non-pressure chronic ulcer of other part of unspecified foot with unspecified severity; L97.509 - Non-pressure chronic ulcer of other part of unspecified foot with unspecified severity; L97.509 - Non-pressure chronic ulcer of other part of unspecified foot with unspecified severity (9) ESRD on dialysis Current Visit: Yes Status: Chronic Assessment and plan: Nephrology on board, patient is receiving regular HD sessions; (10) Morbid obesity with BMI of 40.0-44.9, adult Current Visit: Yes Status: Chronic (11) HLD (hyperlipidemia) Current Visit: Yes Status: Chronic Qualifiers: Hyperlipidemia type: unspecified Qualified Code(s): E78.5 - Hyperlipidemia , unspecified (12) HTN (hypertension) Current Visit: Yes Status: Chronic Assessment and plan: BP well-controlled; continue current regimen; Qualifiers: Hypertension type: essential hypertension Qualified Code(s): I10 - Essential (primary) hypertension (13) Peripheral neuropathy Current Visit: Yes Status: Chronic Assessment and plan: on Lyrica; Qualifiers: Peripheral neuropathy type: polyneuropathy, other Qualified Code(s): G62.89 - Other specified polyneuropathies - Subjective Interval history: Patient seen this morning- was delirious, able to answer few simple questions; had jerks in both her hands, came back from dialysis; Seen now, came back from OR after having I&D done on left hand; noted to be lethargic, unable to provide history, continues to have jerking movements in both upper extremities and body; on BiPAP at this time; to be transferred to ; - Constitutional Vitals: Temp Pulse Resp BP Pulse Ox 99.9 F H 101 16 145/69 95 12/28/17 17:28 12/28/17 17:28 12/28/17 17:28 12/28/17 17:28 12/28/17 17:01 General appearance: Present: A&O X 0, morbidly obese. Absent: answers questions appropriately - Respiratory Respiratory exam: Present: CTAB. Absent: accessory muscle use, rales, rhonchi, wheezes - Cardiovascular Cardiovascular exam: Present: RRR, +S1, +S2, tachycardia. Absent: diastolic murmur, gallop, rubs, systolic murmur - GI/Abdominal GI/Abdominal exam: Present: normal bowel sounds, soft (obese), no peritoneal signs. Absent: distended, tenderness - Extremities Exam Extremities exam: Present: pedal edema (right foot in surgical dressing), warm, radial pulses palpable and symmetrical. Absent: calf tenderness, cyanotic Additional comments: left hand in surgical dressing - Neurological Exam Neurological exam: Present: altered, no focal deficits (further exam cannot be completed). Absent: pronater drift, facial droop, speech deficit Additional comments: myoclonic jerks B/L UE Internal Medicine: Result - Labs CBC & Chem 7: 12/28/17 05:58 12/28/17 05:58 Labs: Short CBC 12/28/17 Range/Units 05:58 WBC 10.2 (4.3-11.1) K/mcL Hgb 7.5 L (11.5-15.4) g/dL Hct 24.0 L (35.3-44.9) % Plt Count 224 (140-400) K/mcL [facility] 12/28/17 05:58 Sodium 133 L Potassium 5.4 H Chloride 96 L Carbon Dioxide 26 BUN 59 H Creatinine 7.90 H Glucose 235 H Calcium 8.1 L - ABG Interpretation ABG results: PT/INR, D-dimer PT 12.7 Seconds (9.4-12.1) H 12/24/17 06:52 - Impressions Impressions Hand X-Ray 12/28/17 07:15 IMPRESSION: Soft tissue swelling of the 3rd digit. No underlying osseous abnormality. D/ / Rachel Haider MD / Rachel Haider MD Interpreting Provider: Rachel Haider MD - VTE Documentation of Mechanical Device: Intermittent pneumatic compression device Consult Discharge Plan - Plan Referrals: Jacy Mcdonnell [Primary Care Provider] -
[2017-12-28] MEDS ORDERED: Vancomycin 750 MG in D5% in Water 250 ML IVPB ONE (18:00)
[2017-12-28] MEDS: Cefepime HCl 2,000 MG in Water for inj. (sterile) 20 ML 20 ML IVP SCH (18:12)
[2017-12-28] MEDS: traZODone 50 MG TABLET PO SCH (22:23)
[2017-12-28 23:53] LABS: ABG Base Excess 4 mEq/L (-2 to 3); ABG HCO3 30 mEq/L (21-27); ABG Oxygen Saturation 98 % (95-98); ABG PCO2 57 mmHg (35-45); ABG PH 7.33 pH Units (7.32-7.45); ABG PO2 116 mmHg (85-104); ABG TCO2 32 mEq/L (20-26); Blood Gas Modality BiPAP
[2017-12-29 05:14] LABS: Basophils % 0.3 %; Eosinophils % 0.1 %; Hematocrit 24.7 % (35.3-44.9); Hemoglobin 7.6 g/dL (11.5-15.4); Immature Granulocytes % 3.2 % (0-4); Lymphocytes # 0.7 K/mcL (0.6-4.6); Lymphocytes % 6.7 %; Mean Corpuscular HGB Conc 30.8 g/dL (31.6-35.5); Mean Corpuscular Hemoglobin 29.7 pg (28.0-33.3); Mean Corpuscular Volume 96.5 fL (83.0-100.0); Mean Platelet Volume 10.6 fL (9.4-12.4); Monocytes # 0.3 K/mcL (0.0-1.3); Monocytes % 2.7 %; Neutrophils # 9.1 K/mcL (1.6-8.9); Platelet Count 211 K/mcL (140-400); Red Blood Count 2.56 M/mcL (3.82-4.97); Red Cell Distribution Width 17.1 % (11.5-14.5)
[2017-12-29 05:41] LABS: Calcium 8.3 mg/dL (8.6-10.3); Magnesium 2.4 mg/dL (1.6-2.6); Potassium 5.4 mEq/L (3.5-5.1)
[2017-12-29] MEDS ORDERED: Vancomycin 1,000 MG, Sodium Chloride IRRigation 1,000 ML IR ONE (06:00)
--- NOTE | 2017-12-29 08:00 | Nephrology Progress Note ---
Date of Encounter: 12/29/17 Time of Encounter: 08:00 - Assessment and Plan (1) ESRD on dialysis Current Visit: Yes Status: Chronic Patient with ESRD secondary to diabetic nephropathy, on HD every Right upper chest tunnelled HD catheter in place for the past 2 years, blood cultures show no growth to date Repeat blood cultures pending Continue HD as scheduled every Avoid nephrotoxins Continue to monitor (2) Anemia in chronic kidney disease Current Visit: Yes Status: Chronic Anemia work-up: Iron 50, % iron 26%, transferrin 138, Vit B12 level 1047 Continue Aranesp weekly Continue to monitor Qualifiers: Chronic kidney disease stage: on chronic dialysis Qualified Code(s): N18.6 - End stage renal disease; D63.1 - Anemia in chronic kidney disease; D63.1 - Anemia in chronic kidney disease; Z99.2 - Dependence on renal dialysis; Z99.2 - Dependence on renal dialysis; Z99.2 - Dependence on renal dialysis; Z99.2 - Dependence on renal dialysis (3) Hyponatremia Current Visit: Yes Status: Acute Variable SrNa Continue to monitor (4) HTN (hypertension) Current Visit: Yes Status: Chronic BP controlled off meds Management per primary team Qualifiers: Hypertension type: essential hypertension Qualified Code(s): I10 - Essential (primary) hypertension (5) Osteomyelitis Current Visit: Yes Status: Acute Proteus mirabilis positive wound cultures Management per ID Avoid nephrotoxins Qualifiers: Osteomyelitis type: other acute Osteomyelitis location: foot Laterality: right Qualified Code(s): M86.171 - Other acute osteomyelitis, right ankle and foot (6) Contusion of finger of left hand Current Visit: Yes Status: Acute MRSA positive wound cultures Management per ortho and ID Qualifiers: Encounter type: initial encounter Finger: middle finger Damage to nail status: without damage Qualified Code(s): S60.032A - Contusion of left middle finger without damage to nail, initial encounter (7) Diabetes mellitus Current Visit: Yes Status: Chronic Management per primary team Qualifiers: Diabetes mellitus type: type 1 Diabetes mellitus complication status: with skin complications Diabetes mellitus complication detail: with foot ulcer Qualified Code(s): E10.621 - Type 1 diabetes mellitus with foot ulcer; L97.509 - Non-pressure chronic ulcer of other part of unspecified foot with unspecified severity; L97.509 - Non-pressure chronic ulcer of other part of unspecified foot with unspecified severity; L97.509 - Non-pressure chronic ulcer of other part of unspecified foot with unspecified severity; L97.509 - Non-pressure chronic ulcer of other part of unspecified foot with unspecified severity (8) Vitamin D deficiency Current Visit: Yes Status: Chronic Vit D level 24 Continue Vit D supplementation Outpatient monitoring (9) Acute encephalopathy Current Visit: Yes Status: Acute Patient with acute encephalopathy, likely drug induced/ metabolic Management per primary team (10) Myoclonia Current Visit: Yes Status: Acute Patient with bilateral hand clonus. Review of medications reveals high dose of Lyrica and Cymbalta use. Will discontinue and await further neurology recommendations. (11) Morbid obesity with BMI of 40.0-44.9, adult Current Visit: Yes Status: Chronic Management per primary team Subjective Principal diagnosis: Finger infection Interval history: Patient seen and examined resting in bed. Patient is A&Ox1 today and has tremors in bilateral hands. Patient does not report any new c/o other than "it' s different today". Her wound debridement was postponed today due to acute change in her mental status Objective - Vital Signs Vital signs: Vital Signs Temp Pulse Resp BP Pulse Ox 12/29/17 05:00 98.6 F 86 17 145/82 98 12/29/17 00:00 98.4 F 87 16 147/82 100 12/28/17 21:08 99 12/28/17 20:36 98 F 100 14 117/64 99 12/28/17 19:10 99.2 F 95 15 138/82 98 12/28/17 17:45 99.5 F 92 15 135/74 97 12/28/17 17:28 99.9 F H 101 16 145/69 12/28/17 17:01 98.8 F 104 18 101/33 95 12/28/17 16:51 98.8 F 106 19 113/39 93 12/28/17 16:41 98.8 F 108 18 96/47 94 12/28/17 16:31 106 17 89/50 94 12/28/17 16:21 108 17 116/100 94 12/28/17 16:20 21 97 12/28/17 16:11 97.0 F L 114 14 118/99 94 12/28/17 14:01 121 12/28/17 13:49 99.4 F 112 127/83 96 12/28/17 12:50 97.9 F 14 125/100 12/28/17 12:25 114/99 12/28/17 12:10 139/101 12/28/17 11:55 122/91 12/28/17 11:40 113/77 12/28/17 11:25 134/70 12/28/17 11:10 122/85 12/28/17 10:55 113/82 12/28/17 10:40 105/64 12/28/17 10:25 142/93 12/28/17 10:10 139/100 12/28/17 09:55 117/84 12/28/17 09:40 113/91 12/28/17 09:25 129/90 12/28/17 09:10 108/88 12/28/17 08:55 133/108 12/28/17 08:40 133/84 12/28/17 08:25 97.3 F L 15 121/99 12/28/17 08:21 98.7 F 103 15 99 12/28/17 08:15 98 Intake and Output 12/28/17 12/29/17 12/29/17 23:59 07:59 15:59 Intake Total 120 / 120 Balance 120 / 120 Intake: Oral 120 / 120 Other: # Voids 1 Weight 68.8 kg Blood Glucose* 241 298 Patient Weight 12/29/17 23:59 Weight 68.8 kg - General Appearance General appearance: Present: well-developed, well-nourished, obese EENT: Present: ATNC, mucous membranes dry Neck: Present: supple Additional Comments: no nuchal rigidity Respiratory: Present: clear Cardiology: Present: no murmurs, no rub, no gallops, edema (1+ pitting edema), regular rate, regular rhythm Dialysis Vascular Access: Venous Catheter (tunnelled HD cath right upper chest) Gastrointestinal: Present: normoactive bowel sounds, no tenderness, no guarding , obese Integumentary: Present: erythema (dressing in place LUE, RLE) Neurologic: Present: confused (A&Ox1) Additional Comments: bilateral hand clonus Musculoskeletal: Present: erythema Additional Comments: bilateral hand clonus Additional Comments: change in mental status - Lab 12/29/17 04:52 12/29/17 04:52 Most recent lab results ABG pH 7.33 pH Units (7.32-7.45) 12/28/17 23:49 ABG pCO2 57 mmHg (35-45) H 12/28/17 23:49 ABG pO2 116 mmHg (85-104) H 12/28/17 23:49 ABG HCO3 30 mEq/L (21-27) H 12/28/17 23:49 ABG O2 Saturation 98 % (95-98) 12/28/17 23:49 Calcium 8.3 mg/dL (8.6-10.3) L 12/29/17 04:52 Phosphorus 4.8 mg/dL (2.7-4.5) H 12/23/17 04:03 Magnesium 2.4 mg/dL (1.6-2.6) 12/29/17 04:52 - VTE Documentation of Mechanical Device: Intermittent pneumatic compression device Consult Discharge Plan - Plan Referrals: Jacy Mcdonnell [Primary Care Provider] - ( web request sent on 12/29/17 )
--- NOTE | 2017-12-29 09:18 | Orthopedics Progress Note ---
Date of Encounter: 12/29/17 Time of Encounter: 09:16 - Assessment and Plan (1) Contusion of finger of left hand Current Visit: Yes Status: Acute Qualifiers: Encounter type: initial encounter Finger: middle finger Damage to nail status: without damage Qualified Code(s): S60.032A - Contusion of left middle finger without damage to nail, initial encounter Subjective Principal diagnosis: Finger infection Interval history: S: The patient does demonstrate confusion but does answer questions appropriately O: Afebrile and vital signs are stable Persistent cellulitis and moderate swelling of the long finger I and D sites are clean with minimal drainage Juan Carlos drains are in place I can gently passively range the digit through the mid range without significant pain. She could grossly flex and extend the digits through a small arc without significant pain. The fingertips are all grossly sensate and well-perfused, and the radial artery pulse is 2+. Cultures are showing MRSA A: Left long finger infection postoperative I&D P: I will keep the Juan Carlos drains in place for now. I will do local wound care daily with dressing changes and peroxide soaks. Elevation and motion exercises to reduce the risk of stiffness. Continue vancomycin for now due to MRSA. Objective Vital signs: Vital Signs Temp Pulse Resp BP Pulse Ox 12/29/17 05:00 98.6 F 86 17 145/82 98 12/29/17 00:00 98.4 F 87 16 147/82 100 12/28/17 21:08 99 12/28/17 20:36 98 F 100 14 117/64 99 12/28/17 19:10 99.2 F 95 15 138/82 98 12/28/17 17:45 99.5 F 92 15 135/74 97 12/28/17 17:28 99.9 F H 101 16 145/69 12/28/17 17:01 98.8 F 104 18 101/33 95 12/28/17 16:51 98.8 F 106 19 113/39 93 12/28/17 16:41 98.8 F 108 18 96/47 94 12/28/17 16:31 106 17 89/50 94 12/28/17 16:21 108 17 116/100 94 12/28/17 16:20 21 97 12/28/17 16:11 97.0 F L 114 14 118/99 94 12/28/17 14:01 121 12/28/17 13:49 99.4 F 112 127/83 96 12/28/17 12:50 97.9 F 14 125/100 12/28/17 12:25 114/99 12/28/17 12:10 139/101 12/28/17 11:55 122/91 12/28/17 11:40 113/77 12/28/17 11:25 134/70 12/28/17 11:10 122/85 12/28/17 10:55 113/82 12/28/17 10:40 105/64 12/28/17 10:25 142/93 12/28/17 10:10 139/100 12/28/17 09:55 117/84 12/28/17 09:40 113/91 12/28/17 09:25 129/90 Intake and Output 12/28/17 12/29/17 12/29/17 23:59 07:59 15:59 Intake Total 120 / 120 Balance 120 / 120 Intake: Oral 120 / 120 Other: # Voids 1 Weight 68.8 kg Blood Glucose* 241 298 Patient Weight 12/29/17 23:59 Weight 68.8 kg - Labs CBC & BMP: 12/29/17 04:52 12/29/17 04:52 Labs: Abnormal lab results RBC 2.56 M/mcL (3.82-4.97) L 12/29/17 04:52 Hgb 7.6 g/dL (11.5-15.4) L 12/29/17 04:52 Hct 24.7 % (35.3-44.9) L 12/29/17 04:52 MCHC 30.8 g/dL (31.6-35.5) L 12/29/17 04:52 RDW 17.1 % (11.5-14.5) H 12/29/17 04:52 Neutrophils # 9.1 K/mcL (1.6-8.9) H 12/29/17 04:52 Nucleated RBCs/100 WBC 0.4 /100 WBC (0) H 12/27/17 04:25 ESR 112 mm/hr (0-15) H 12/22/17 13:54 PT 12.7 Seconds (9.4-12.1) H 12/24/17 06:52 ABG pCO2 57 mmHg (35-45) H 12/28/17 23:49 ABG pO2 116 mmHg (85-104) H 12/28/17 23:49 ABG HCO3 30 mEq/L (21-27) H 12/28/17 23:49 ABG Total CO2 32 mEq/L (20-26) H 12/28/17 23:49 ABG Base Excess 4 mEq/L (-2 to 3) H 12/28/17 23:49 Sodium 130 mEq/L (136-145) L 12/29/17 04:52 Potassium 5.4 mEq/L (3.5-5.1) H 12/29/17 04:52 Chloride 92 mEq/L (98-107) L 12/29/17 04:52 BUN 35 mg/dL (6-20) H 12/29/17 04:52 Creatinine 4.49 mg/dL (0.60-1.20) H 12/29/17 04:52 Est GFR ( Amer) 13 (> 60) L 12/29/17 04:52 Est GFR (Non-Af Amer) 11 (> 60) L 12/29/17 04:52 Glucose 329 mg/dL (70-105) H 12/29/17 04:52 POC Glucose 241 (58-89) H 12/28/17 20:51 Hemoglobin A1c 7.4 % (-5.6) H 12/23/17 04:03 Calcium 8.3 mg/dL (8.6-10.3) L 12/29/17 04:52 Phosphorus 4.8 mg/dL (2.7-4.5) H 12/23/17 04:03 Transferrin 138 mg/dL (203-362) L 12/28/17 05:58 Alkaline Phosphatase 128 Units/L (34-104) H 12/27/17 04:25 C-Reactive Protein 208 mg/L (Less than 10) H 12/22/17 13:54 Globulin 3.8 g/dL (2.4-3.5) H 12/27/17 04:25 Albumin/Globulin Ratio 0.9 (1.1-2.2) L 12/27/17 04:25 Triglycerides 220 mg/dL (< 150) H 12/23/17 04:03 VLDL Cholesterol, Calc 44 mg/dL (< 31) H 12/23/17 04:03 HDL Cholesterol 17 mg/dL (40-59) L 12/23/17 04:03 Cholesterol/HDL Ratio 7.5 (0-4.9) H 12/23/17 04:03 25-OH Vitamin D Total 24 ng/mL (30-80) L 12/28/17 05:58 - VTE Documentation of Mechanical Device: Intermittent pneumatic compression device Consult Discharge Plan - Plan Referrals: Jacy Mcdonnell [Primary Care Provider] -
[2017-12-29] MEDS: Insulin LISPRO 300 UNITS/3 ML VIAL SQ SCH ×7 (09:31→22:47)
--- NOTE | 2017-12-29 09:54 | Podiatry Progress Note ---
Date of Encounter: 12/29/17 Time of Encounter: 09:40 - Assessment and Plan (1) Diabetic foot ulcer Current Visit: Yes Status: Acute reviewed condition, no purulence present. discussed surgical procedure and patient consented for excisional debridement of open amputation site wound, possible delayed primary closure with flap. nature of procedure discussed, risks vs benefits, potential complications and consequences of the procedure. understood she could need further surgery in the future. no guarantees made. Qualifiers: Diabetic foot ulcer location: toe Diabetes mellitus type: type 1 Laterality: right Non-pressure ulcer stage: with necrosis of bone Qualified Code(s): E10.621 - Type 1 diabetes mellitus with foot ulcer; L97.514 - Non- pressure chronic ulcer of other part of right foot with necrosis of bone; L97.514 - Non-pressure chronic ulcer of other part of right foot with necrosis of bone; L97.514 - Non-pressure chronic ulcer of other part of right foot with necrosis of bone; L97.514 - Non-pressure chronic ulcer of other part of right foot with necrosis of bone Subjective Principal diagnosis: Finger infection Interval history: says she feels okay. denies any problems overnight. denies feeling like she had a f/c/n/v/sob/cp. Objective - Vital Signs Vital Signs: Vital Signs Temp Pulse Resp BP Pulse Ox 12/29/17 05:00 98.6 F 86 17 145/82 98 12/29/17 00:00 98.4 F 87 16 147/82 100 12/28/17 21:08 99 12/28/17 20:36 98 F 100 14 117/64 99 12/28/17 19:10 99.2 F 95 15 138/82 98 12/28/17 17:45 99.5 F 92 15 135/74 97 12/28/17 17:28 99.9 F H 101 16 145/69 12/28/17 17:01 98.8 F 104 18 101/33 95 12/28/17 16:51 98.8 F 106 19 113/39 93 12/28/17 16:41 98.8 F 108 18 96/47 94 12/28/17 16:31 106 17 89/50 94 12/28/17 16:21 108 17 116/100 94 12/28/17 16:20 21 97 12/28/17 16:11 97.0 F L 114 14 118/99 94 12/28/17 14:01 121 12/28/17 13:49 99.4 F 112 127/83 96 12/28/17 12:50 97.9 F 14 125/100 12/28/17 12:25 114/99 12/28/17 12:10 139/101 12/28/17 11:55 122/91 12/28/17 11:40 113/77 12/28/17 11:25 134/70 12/28/17 11:10 122/85 12/28/17 10:55 113/82 12/28/17 10:40 105/64 12/28/17 10:25 142/93 12/28/17 10:10 139/100 12/28/17 09:55 117/84 Intake and Output 12/28/17 12/29/17 12/29/17 23:59 07:59 15:59 Intake Total 120 / 120 Balance 120 / 120 Intake: Oral 120 / 120 Other: # Voids 1 Weight 68.8 kg Blood Glucose* 241 298 Patient Weight 12/29/17 23:59 Weight 68.8 kg - Exam Exam: open amp site right hallux. no purulence. resolved erythema. no fluctuance. foot is warm to touch. - Lab Result Diagrams: 12/29/17 04:52 12/29/17 04:52 Labs: Abnormal lab results RBC 2.56 M/mcL (3.82-4.97) L 12/29/17 04:52 Hgb 7.6 g/dL (11.5-15.4) L 12/29/17 04:52 Hct 24.7 % (35.3-44.9) L 12/29/17 04:52 MCHC 30.8 g/dL (31.6-35.5) L 12/29/17 04:52 RDW 17.1 % (11.5-14.5) H 12/29/17 04:52 Neutrophils # 9.1 K/mcL (1.6-8.9) H 12/29/17 04:52 Nucleated RBCs/100 WBC 0.4 /100 WBC (0) H 12/27/17 04:25 ESR 112 mm/hr (0-15) H 12/22/17 13:54 PT 12.7 Seconds (9.4-12.1) H 12/24/17 06:52 ABG pCO2 57 mmHg (35-45) H 12/28/17 23:49 ABG pO2 116 mmHg (85-104) H 12/28/17 23:49 ABG HCO3 30 mEq/L (21-27) H 12/28/17 23:49 ABG Total CO2 32 mEq/L (20-26) H 12/28/17 23:49 ABG Base Excess 4 mEq/L (-2 to 3) H 12/28/17 23:49 Sodium 130 mEq/L (136-145) L 12/29/17 04:52 Potassium 5.4 mEq/L (3.5-5.1) H 12/29/17 04:52 Chloride 92 mEq/L (98-107) L 12/29/17 04:52 BUN 35 mg/dL (6-20) H 12/29/17 04:52 Creatinine 4.49 mg/dL (0.60-1.20) H 12/29/17 04:52 Est GFR ( Amer) 13 (> 60) L 12/29/17 04:52 Est GFR (Non-Af Amer) 11 (> 60) L 12/29/17 04:52 Glucose 329 mg/dL (70-105) H 12/29/17 04:52 POC Glucose 241 (58-89) H 12/28/17 20:51 Hemoglobin A1c 7.4 % (-5.6) H 12/23/17 04:03 Calcium 8.3 mg/dL (8.6-10.3) L 12/29/17 04:52 Phosphorus 4.8 mg/dL (2.7-4.5) H 12/23/17 04:03 Transferrin 138 mg/dL (203-362) L 12/28/17 05:58 Alkaline Phosphatase 128 Units/L (34-104) H 12/27/17 04:25 C-Reactive Protein 208 mg/L (Less than 10) H 12/22/17 13:54 Globulin 3.8 g/dL (2.4-3.5) H 12/27/17 04:25 Albumin/Globulin Ratio 0.9 (1.1-2.2) L 12/27/17 04:25 Triglycerides 220 mg/dL (< 150) H 12/23/17 04:03 VLDL Cholesterol, Calc 44 mg/dL (< 31) H 12/23/17 04:03 HDL Cholesterol 17 mg/dL (40-59) L 12/23/17 04:03 Cholesterol/HDL Ratio 7.5 (0-4.9) H 12/23/17 04:03 25-OH Vitamin D Total 24 ng/mL (30-80) L 12/28/17 05:58 Microbiology, Last 48 Hours 12/24/17 09:01 Surgical Biopsy Culture - Preliminary Right Great Toe Proteus mirabilis Enterococcus species 12/24/17 14:50 Wound Culture - Final Left Middle Finger Methicillin Resistant S.aureus 12/24/17 14:50 Anaerobic Culture - Preliminary Left Middle Finger At this time, no anaerobic growth is present. The culture will be finalized after 5 days of incubation. - VTE Documentation of Mechanical Device: Intermittent pneumatic compression device Consult Discharge Plan - Plan Referrals: Jacy Mcdonnell [Primary Care Provider] - ( web request sent on 12/29/17 )
[2017-12-29] MEDS ORDERED: Lidocaine 1% 20 ML MDV ONE (09:56)
--- NOTE | 2017-12-29 10:16 | Event Note ---
Date of Encounter: 12/29/17 Time of Encounter: 10:00 Spoke with hospitalist about patient current condition. Does seem to have altered mental status. Will post-pone surgery on the foot for now until optimized for surgery.
[2017-12-29] MEDS ORDERED: 0.9 % Sodium Chloride 250 ML ONE (11:04)
[2017-12-29] MEDS: Ascorbic Acid 500 MG TABLET PO SCH (11:44)
[2017-12-29] MEDS: Multivit/Ca/Min/Fe/FA 1 TAB TABLET PO SCH (11:44)
[2017-12-29] MEDS: Cholecalciferol (D-3) 1,000 UNIT TABLET PO SCH (11:45)
[2017-12-29] MEDS: Insulin DETEMIR 100 UNIT/ML X5UNITS SQ SCH ×2 (11:45→22:47)
--- NOTE | 2017-12-29 11:45 | Infectious Disease Progress No ---
Date of Encounter: 12/29/17 Time of Encounter: 11:43 - Assessment and Plan (1) Fever Current Visit: Yes Status: Acute Post-op fever with Tmax 102.5. Resolved. Qualifiers: Fever type: unspecified Qualified Code(s): R50.9 - Fever, unspecified (2) Osteomyelitis Current Visit: Yes Status: Acute Location: Right foot, great toe. Causative organism P. mirabilis, resistant to fluoroquinolones, and Enterococcus species. Secondary to non-healing diabetic foot ulcer. X-ray of the right foot shows osteomyelitis of the base of the right great toe. ESR 112, CRP 208. Blood cultures drawn 12/22/17 are NGTD x 2 sets. Wound culture obtained in the ED grew P. mirabilis, resistant to fluoroquinolones, Bactrim, and gentamicin. Podiatry consulted and following. Status post amputation of the right great toe. Operative note reviewed. Intra-op cultures as above. Planning for wound closure when the patient's status improves. Wound care and activity restrictions per the podiatry team. Continue Vancomycin IV. Pharmacy to dose. Goal trough ~15. Continue Cefepime 1 gram IV Q24H until cultures finalize. Duration of treatment depends on the clinical picture, but likely 6 weeks. Monitor for drug toxicity and dose-adjust antibiotics. Qualifiers: Osteomyelitis type: other acute Osteomyelitis location: foot Laterality: right Qualified Code(s): M86.171 - Other acute osteomyelitis, right ankle and foot (3) Infection of left hand Current Visit: Yes Status: Acute Causative organism MRSA. Likely secondary to traumatic injury. X-ray negative for bony abnormality. Ortho consulted. Status post bedside I & D by Dr. Hernandez. Procedure note revealed. Gross purulence noted. Minimal improvement per the ortho team. Status post operative I & D 12/28/[address] Hernandez. Will discuss findings with Dr. Hernandez. Wound care and activity restrictions per the ortho team. Continue antibiotics as above. Continue contact precautions. (4) Diabetic foot ulcer Current Visit: Yes Status: Acute Location: Plantar medial aspect of the right great toe. Etiology unclear. Podiatry consulted and following. Status post amputation of the right great toe. Surgical wound care and activity restrictions per the podiatry team. Qualifiers: Diabetic foot ulcer location: toe Diabetes mellitus type: type 1 Laterality: right Non-pressure ulcer stage: with necrosis of bone Qualified Code(s): E10.621 - Type 1 diabetes mellitus with foot ulcer; L97.514 - Non- pressure chronic ulcer of other part of right foot with necrosis of bone; L97.514 - Non-pressure chronic ulcer of other part of right foot with necrosis of bone; L97.514 - Non-pressure chronic ulcer of other part of right foot with necrosis of bone; L97.514 - Non-pressure chronic ulcer of other part of right foot with necrosis of bone (5) Diabetes mellitus Current Visit: Yes Status: Chronic Uncontrolled recently per patient report. FSBS 338 on admission labs. Her blood sugars continue to run high. HgbA1C 7.2%. Recommend aggressive glucose monitoring and control to promote wound healing and prevent re-infection. Management per the primary team. Qualifiers: Diabetes mellitus type: type 1 Diabetes mellitus complication status: with skin complications Diabetes mellitus complication detail: with foot ulcer Qualified Code(s): E10.621 - Type 1 diabetes mellitus with foot ulcer; L97.509 - Non-pressure chronic ulcer of other part of unspecified foot with unspecified severity; L97.509 - Non-pressure chronic ulcer of other part of unspecified foot with unspecified severity; L97.509 - Non-pressure chronic ulcer of other part of unspecified foot with unspecified severity; L97.509 - Non-pressure chronic ulcer of other part of unspecified foot with unspecified severity (6) ESRD on dialysis Current Visit: Yes Status: Chronic Secondary to diabetic nephropathy. Follows with [facility]. HD T//Sat. Nephrology consulted and following. (7) Peripheral neuropathy Current Visit: Yes Status: Chronic Qualifiers: Peripheral neuropathy type: polyneuropathy, other Qualified Code(s): G62.89 - Other specified polyneuropathies (8) Hypertension Current Visit: No Status: Chronic Qualifiers: Hypertension type: essential hypertension Qualified Code(s): I10 - Essential (primary) hypertension (9) Morbid obesity with BMI of 40.0-44.9, adult Current Visit: Yes Status: Chronic (10) Left hand pain Current Visit: Yes Status: Acute Likely secondary to traumatic injury with superimposed infection. Xray negative for fracture. Ortho consulted and following. Pain management per the primary and ortho teams. (11) Myoclonia Current Visit: Yes Status: Acute Etiology unclear: medications vs. other. Consider neurology consult. (12) Acute encephalopathy Current Visit: Yes Status: Acute Etiology unclear: anesthesia vs. medications vs. hypercarbia vs. other. No SIRS criteria. Patient does have a new myoclonic jerking. Consider checking ABG as the patient could be retaining CO2. Consider neurology consult. (13) Acute respiratory failure with hypoxia Current Visit: Yes Status: Acute Likely secondary to pulmonary edema. Required BIPAP post-op. On O2 via NC at this time. CXR showed pulmonary edema. Improved. (14) Anemia in chronic kidney disease Current Visit: Yes Status: Chronic Hemoglobin 7.5 today. Management per the primary and nephrology teams. Qualifiers: Chronic kidney disease stage: on chronic dialysis Qualified Code(s): N18.6 - End stage renal disease; D63.1 - Anemia in chronic kidney disease; D63.1 - Anemia in chronic kidney disease; Z99.2 - Dependence on renal dialysis; Z99.2 - Dependence on renal dialysis; Z99.2 - Dependence on renal dialysis; Z99.2 - Dependence on renal dialysis - Subjective Interval history: Patient seen and examined. No acute events noted overnight. Status post operative I & D of the left middle finger 12/28/17. Post-op, the patient was noted to myoclonic jerking and hypoxia and AMS. She was on BIPAP post-op, but is currently on NC O2. This morning, the patient's mental status appears altered. She awakens easily, but is slow to respond to questions and does not answer most questions. She tells me she is having pain, but cannot localize. Does not answer any additional questions. Infect Dis PN-Objective Data - Labs CBC & Chem 7: 12/30/17 04:15 12/30/17 04:15 Labs: Laboratory Results - last 24 hr 12/28/17 12/28/17 12/29/17 20:51 23:49 04:52 WBC 10.5 RBC 2.56 L Hgb 7.6 L Hct 24.7 L MCV 96.5 MCH 29.7 MCHC 30.8 L RDW 17.1 H Plt Count 211 MPV 10.6 Immature Gran % 3.2 Seg Neutrophils % 87.0 Lymphocytes % 6.7 Monocytes % 2.7 Eosinophils % 0.1 Basophils % 0.3 Neutrophils # 9.1 H Lymphocytes # 0.7 Monocytes # 0.3 Eosinophils # 0.0 Basophils # 0.0 ABG pH 7.33 ABG pCO2 57 H ABG pO2 116 H ABG HCO3 30 H ABG Total CO2 32 H ABG O2 Saturation 98 ABG Base Excess 4 H Blood Gas Modality BiPAP Inspired O2 35.0 Sodium Potassium Chloride Carbon Dioxide BUN Creatinine Est GFR ( Amer) Est GFR (Non-Af Amer) BUN/Creatinine Ratio Glucose POC Glucose 241 H Calculated Osmolality Calcium Magnesium Blood Type Antibody Screen Crossmatch 12/29/17 12/29/17 04:52 06:30 WBC RBC Hgb Hct MCV MCH MCHC RDW Plt Count MPV Immature Gran % Seg Neutrophils % Lymphocytes % Monocytes % Eosinophils % Basophils % Neutrophils # Lymphocytes # Monocytes # Eosinophils # Basophils # ABG pH ABG pCO2 ABG pO2 ABG HCO3 ABG Total CO2 ABG O2 Saturation ABG Base Excess Blood Gas Modality Inspired O2 Sodium 130 L Potassium 5.4 H Chloride 92 L Carbon Dioxide 27 BUN 35 H Creatinine 4.49 H Est GFR ( Amer) 13 L Est GFR (Non-Af Amer) 11 L BUN/Creatinine Ratio 8 Glucose 329 H POC Glucose Calculated Osmolality 291 Calcium 8.3 L Magnesium 2.4 Blood Type A POSITIVE Antibody Screen NEGATIVE Crossmatch See Detail Cultures: Cultures 12/24/17 09:01 Surgical Biopsy Culture - Preliminary Right Great Toe Proteus mirabilis Enterococcus species 12/24/17 14:50 Wound Culture - Final Left Middle Finger Methicillin Resistant S.aureus 12/24/17 14:50 Anaerobic Culture - Preliminary Left Middle Finger At this time, no anaerobic growth is present. The culture will be finalized after 5 days of incubation. 12/24/17 18:07 Gram Stain - Final Left Middle Finger Serology 12/24/17 12/22/17 Range/Units 16:43 16:01 Urine Test Negative (Negative) Hep Bs Antigen Nonreactive (Nonreactive) Hep Bs Antibody 39.07 mIU/mL - Impressions Impressions Chest X-Ray 12/28/17 18:09 IMPRESSION: Findings are suggestive of pulmonary edema. Correlation with volume status is recommended D/ / Arcadio Lopez MD / Arcadio Lopez MD Interpreting Provider: Arcadio Lopez MD Head CT 12/29/17 10:15 IMPRESSION: No acute intracranial abnormality. D/ / Jeremy Hernandez MD / Jeremy Hernandez MD Interpreting Provider: Jeremy Hernandez MD Exam - Constitutional Vitals: Temp Pulse Resp BP Pulse Ox 98.8 F 94 16 137/71 96 12/29/17 11:40 12/29/17 11:40 12/29/17 11:40 12/29/17 11:40 12/29/17 11:40 General appearance: cooperative, morbidly obese, no acute distress - Head Head exam: Present: atraumatic, normal inspection, normocephalic - Eye Eye exam: Present: EOMI, normal appearance, PERRL Pupils: Present: normal accommodation - ENT ENT exam: Present: mucous membranes moist - Neck Neck exam: Present: normal inspection. Absent: meningismus - Respiratory Respiratory exam: Present: CTAB. Absent: rales, respiratory distress, rhonchi, wheezes - Cardiovascular Cardiovascular exam: Present: RRR, +S1, +S2 - GI/Abdominal GI/Abdominal exam: Present: distended (obese), normal bowel sounds, soft. Absent: tenderness - Extremities Exam Extremities exam: Present: tenderness (Left hand) Additional comments: Left hand dressing C/D/I. Right foot C/D/I. - Neurological Exam Neurological exam: Present: altered, no focal deficits. Absent: oriented X3 ( Oriented to person only.), facial droop Additional comments: Myoclonic jerking of the BUE noted when the patient is awake. - Skin Skin exam: Present: dry, intact, normal color, warm - VTE Documentation of Mechanical Device: Intermittent pneumatic compression device Consult Discharge Plan - Plan Referrals: Jacy Mcdonnell [Primary Care Provider] - ( web request sent on 12/29/17 ) - Attending Attestation I examined this patient and my medical decision-making was reviewed with the Resident Physician. I agree with the documented findings, disposition and treatment plan as described except to the extent set forth below. Patient is still lethargic with altered mental status. Could be likely due to the Cymbalta and Lyrica versus anesthesia. Discussed with pharmacy staff they will call nephrology to see if they decrease or stop the medications.
[2017-12-29] MEDS: Pregabalin 75 MG CAPSULE PO SCH (12:21)
--- NOTE | 2017-12-29 16:28 | Neurology Progress Note ---
Date of Encounter: 12/29/17 Time of Encounter: 16:21 Assessment and Plan (1) Acute encephalopathy Current Visit: Yes Status: Acute Symptoms are signs are consistent with significant diffuse encephalopathy secondary to her ESRD and/or medication side effects. She has intermittent jerking movements that can be commonly seen in patients with worsening renal function with baseline ESRD on hemodialysis. These can certainly be aggravated by superimposed infections, and medication side effects. i saw no evidence of primary [employer] pathology at this time. Discussed with medical team and would recommend continuing medical and supportive care. Subjective Principal diagnosis: jerking movement, encephalopathy Interval history: 32 year old woman with PMH significant for Dm, decuitus ulcer, finger infection , blind left eye, ESRD, HTN, BALTAZAR who is consulted regarding altered mental status and jerking movements. Patient was admitted to the hospital due to osteomyelitis involving the left finger and right toe She had surgery done. She was initially admitted one week ago. Today she was observed to have jerking movements involving her limbs, both upper and lower extremities on both sides. The jerking movements occur intermittently and resembles those amplified asterixis. Patient denies headaches, and no fever and no nuchal rigidity. She is alert and awake and answers questions somewhat slow but she is not in any acute distress. CT of head was reported no acute intracranial abnormality. Objective - Constitutional Vitals: Temp Pulse Resp BP Pulse Ox 98 F 97 18 131/76 100 12/29/17 15:34 12/29/17 15:34 12/29/17 15:34 12/29/17 15:34 12/29/17 15:34 - Neurological Exam Sensorimotor examination: Present: other (Grossly intact. Patient has left hand and right foot wrapped. ) Motor Examination: Present: grossly full strength in all extremities (Grossly intact, moves all extremities. Asterixis noted on both arms when stretched. jerking movement occasioanlly involve the legs as well. ) Motor examination - right side: 4/5: deltoids, biceps, triceps, wrist flexion, wrist extension, k 12 principal, hip flexors, tibialis Anterior, quadriceps, toe extension (EHL), plantarflexion Motor examination - left side: 4/5: deltoids, biceps, triceps, wrist flexion, wrist extension, hip flexors, k 12 principal, quadriceps, tibialis Anterior, toe extension (EHL), plantarflexion Posture: Present: other (Asterixis seen bilaterally) Reflexes: Biceps: 2+, Triceps: 2+, Brachioradialis: 0, Patella: 0, Achilles: 0 Mental Status Examination: Present: awake, alert, oriented to person, oriented to place, follows commands appropriately, opens eyes to voice, makes eye contact , follows simple commands Cranial nerve examination: Present: PERRL, EOMI, visual casas intact, corneal reflexes brisk symmetrically, sensory to face intact, mastication intact, no facial asymmetry is present, no dysarthria, hearing is intact symmetrically, soft palate elevates bilaterally upon phonation, gag reflex intact, flexes SCM and trapezius muscles symmetrically with full power, tongue protrudes midline ( Patient speech is intact, she repeats same answers at times to different questions. ) - VTE Documentation of Mechanical Device: Intermittent pneumatic compression device Results - Laboratory Findings CBC and BMP: 12/29/17 04:52 12/29/17 04:52 Abnormal lab findings: Abnormal lab results RBC 2.56 M/mcL (3.82-4.97) L 12/29/17 04:52 Hgb 7.6 g/dL (11.5-15.4) L 12/29/17 04:52 Hct 24.7 % (35.3-44.9) L 12/29/17 04:52 MCHC 30.8 g/dL (31.6-35.5) L 12/29/17 04:52 RDW 17.1 % (11.5-14.5) H 12/29/17 04:52 Neutrophils # 9.1 K/mcL (1.6-8.9) H 12/29/17 04:52 Nucleated RBCs/100 WBC 0.4 /100 WBC (0) H 12/27/17 04:25 ESR 112 mm/hr (0-15) H 12/22/17 13:54 PT 12.7 Seconds (9.4-12.1) H 12/24/17 06:52 ABG pCO2 57 mmHg (35-45) H 12/28/17 23:49 ABG pO2 116 mmHg (85-104) H 12/28/17 23:49 ABG HCO3 30 mEq/L (21-27) H 12/28/17 23:49 ABG Total CO2 32 mEq/L (20-26) H 12/28/17 23:49 ABG Base Excess 4 mEq/L (-2 to 3) H 12/28/17 23:49 Sodium 130 mEq/L (136-145) L 12/29/17 04:52 Potassium 5.4 mEq/L (3.5-5.1) H 12/29/17 04:52 Chloride 92 mEq/L (98-107) L 12/29/17 04:52 BUN 35 mg/dL (6-20) H 12/29/17 04:52 Creatinine 4.49 mg/dL (0.60-1.20) H 12/29/17 04:52 Est GFR ( Amer) 13 (> 60) L 12/29/17 04:52 Est GFR (Non-Af Amer) 11 (> 60) L 12/29/17 04:52 Glucose 329 mg/dL (70-105) H 12/29/17 04:52 POC Glucose 298 (58-89) H 12/29/17 07:11 Hemoglobin A1c 7.4 % (-5.6) H 12/23/17 04:03 Calcium 8.3 mg/dL (8.6-10.3) L 12/29/17 04:52 Phosphorus 4.8 mg/dL (2.7-4.5) H 12/23/17 04:03 Transferrin 138 mg/dL (203-362) L 12/28/17 05:58 Alkaline Phosphatase 128 Units/L (34-104) H 12/27/17 04:25 C-Reactive Protein 208 mg/L (Less than 10) H 12/22/17 13:54 Globulin 3.8 g/dL (2.4-3.5) H 12/27/17 04:25 Albumin/Globulin Ratio 0.9 (1.1-2.2) L 12/27/17 04:25 Triglycerides 220 mg/dL (< 150) H 12/23/17 04:03 VLDL Cholesterol, Calc 44 mg/dL (< 31) H 12/23/17 04:03 HDL Cholesterol 17 mg/dL (40-59) L 12/23/17 04:03 Cholesterol/HDL Ratio 7.5 (0-4.9) H 12/23/17 04:03 25-OH Vitamin D Total 24 ng/mL (30-80) L 12/28/17 05:58 Consult Discharge Plan - Plan Referrals: Jacy Mcdonnell [Primary Care Provider] - ( web request sent on 12/29/17 )
[2017-12-29] MEDS ORDERED: *HR* Metoprolol 5 MG/5 ML VIAL IVP ONE (17:03)
--- NOTE | 2017-12-29 17:38 | Internal Med Progress Note ---
Date of Encounter: 12/29/17 Time of Encounter: 09:45 - Assessment and plan (1) Myoclonia Current Visit: Yes Status: Acute Assessment and plan: could be related to ESRD and use of Benadryl, narcotic pain medications, Lyrica , Cymbalta. Held all his medications for now. Case discussed with neurology, encephalopathy and myoclonia appear to be related to ongoing medical issues with underlying ESRD and hemodialysis. CT head shows no acute bleed or infarct. Continue supportive care. (2) Acute respiratory failure with hypoxia Current Visit: Yes Status: Acute Assessment and plan: likely secondary to anesthesia; improved today. Not BiPAP dependent. Continue supplemental oxygen via nasal cannula, wean down FiO2 as tolerated. (3) Acute encephalopathy Current Visit: Yes Status: Acute Assessment and plan: likely due to use of Benadryl, Lyrica, Ativan in the setting of ESRD and multiple infections; case discussed with neurology, plan on supportive care and treatment of underlying conditions. No evidence of acute stroke on CT head. Check EEG. (4) Osteomyelitis Current Visit: Yes Status: Acute Assessment and plan: right great toe diabetic foot ulcer and osteomyelitis; Podiatry on board, s/p amputation of great toe on 12/24/17; external wound culture grows Proteus mirabilis, intraoperative preliminary cultures grow Proteus and enterococcus, pending sensitivities. ID on board- continue IV Cefepime and Vancomycin until final cultures; requires long-term IV antibiotics. local wound care per Podiatry; Qualifiers: Osteomyelitis type: other acute Osteomyelitis location: foot Laterality: right Qualified Code(s): M86.171 - Other acute osteomyelitis, right ankle and foot (5) Diabetic foot ulcer Current Visit: Yes Status: Acute Qualifiers: Diabetic foot ulcer location: toe Diabetes mellitus type: type 1 Laterality: right Non-pressure ulcer stage: with necrosis of bone Qualified Code(s): E10.621 - Type 1 diabetes mellitus with foot ulcer; L97.514 - Non- pressure chronic ulcer of other part of right foot with necrosis of bone; L97.514 - Non-pressure chronic ulcer of other part of right foot with necrosis of bone; L97.514 - Non-pressure chronic ulcer of other part of right foot with necrosis of bone; L97.514 - Non-pressure chronic ulcer of other part of right foot with necrosis of bone (6) Infection of left hand Current Visit: Yes Status: Acute Assessment and plan: Orthopedic surgery on board; underwent bedside I&D, wound culture growing MRSA; continue IV Vancomycin for now; underwent repeat operative I&D on 12/28; local wound care per Orthopedics; (7) Anemia in chronic kidney disease Current Visit: Yes Status: Chronic Assessment and plan: acute on chronic anemia, likely from surgical procedures; did not receive blood transfusion yesterday, will transfuse 1unit PRBC and continue to monitor; d/w Nephrology; Qualifiers: Chronic kidney disease stage: on chronic dialysis Qualified Code(s): N18.6 - End stage renal disease; D63.1 - Anemia in chronic kidney disease; D63.1 - Anemia in chronic kidney disease; Z99.2 - Dependence on renal dialysis; Z99.2 - Dependence on renal dialysis; Z99.2 - Dependence on renal dialysis; Z99.2 - Dependence on renal dialysis (8) Diabetes mellitus Current Visit: Yes Status: Chronic Assessment and plan: continue Accucheck blood glucose monitoring with basal bolus insulin regimen; blood sugars slightly elevated, will continue to monitor in light of encephalopathy, will not increase insulin; diabetic diet as tolerated; Qualifiers: Diabetes mellitus type: type 1 Diabetes mellitus complication status: with skin complications Diabetes mellitus complication detail: with foot ulcer Qualified Code(s): E10.621 - Type 1 diabetes mellitus with foot ulcer; L97.509 - Non-pressure chronic ulcer of other part of unspecified foot with unspecified severity; L97.509 - Non-pressure chronic ulcer of other part of unspecified foot with unspecified severity; L97.509 - Non-pressure chronic ulcer of other part of unspecified foot with unspecified severity; L97.509 - Non-pressure chronic ulcer of other part of unspecified foot with unspecified severity (9) ESRD on dialysis Current Visit: Yes Status: Chronic Assessment and plan: Nephrology on board, patient is receiving regular HD sessions; (10) Morbid obesity with BMI of 40.0-44.9, adult Current Visit: Yes Status: Chronic (11) HLD (hyperlipidemia) Current Visit: Yes Status: Chronic Qualifiers: Hyperlipidemia type: unspecified Qualified Code(s): E78.5 - Hyperlipidemia , unspecified (12) HTN (hypertension) Current Visit: Yes Status: Chronic Assessment and plan: BP well-controlled; continue current regimen; Qualifiers: Hypertension type: essential hypertension Qualified Code(s): I10 - Essential (primary) hypertension (13) Peripheral neuropathy Current Visit: Yes Status: Chronic Qualifiers: Peripheral neuropathy type: polyneuropathy, other Qualified Code(s): G62.89 - Other specified polyneuropathies - Subjective Interval history: Patient continues to have myoclonic jerks in both her arms and hands. Unable to provide history, noted to be confused and disoriented. - Constitutional Vitals: Temp Pulse Resp BP Pulse Ox 98 F 97 18 131/76 100 12/29/17 15:34 12/29/17 15:34 12/29/17 15:34 12/29/17 15:34 12/29/17 15:34 General appearance: Present: A&O X 0, morbidly obese. Absent: answers questions appropriately - Respiratory Respiratory exam: Present: CTAB. Absent: accessory muscle use, rales, rhonchi, wheezes - Cardiovascular Cardiovascular exam: Present: RRR, +S1, +S2. Absent: diastolic murmur, gallop, rubs, systolic murmur - GI/Abdominal GI/Abdominal exam: Present: normal bowel sounds, soft (Obese), no peritoneal signs. Absent: distended, tenderness - Extremities Exam Extremities exam: Present: warm, radial pulses palpable and symmetrical. Absent : calf tenderness, cyanotic, pedal edema Additional comments: Left third finger tip with surgical incision, with dried blood; Right foot in surgical dressing; - Neurological Exam Neurological exam: Present: altered, no focal deficits (Intermittent myoclonic jerks in bilateral upper extremities. Able to follow a few commands, no decrease in motor power in upper and lower extremities.). Absent: pronater drift, facial droop, speech deficit Internal Medicine: Result - Labs CBC & Chem 7: 12/30/17 04:15 12/30/17 04:15 Labs: Short CBC 12/29/17 Range/Units 04:52 WBC 10.5 (4.3-11.1) K/mcL Hgb 7.6 L (11.5-15.4) g/dL Hct 24.7 L (35.3-44.9) % Plt Count 211 (140-400) K/mcL Neutrophils # 9.1 H (1.6-8.9) K/mcL BMP 12/29/17 04:52 Sodium 130 L Potassium 5.4 H Chloride 92 L Carbon Dioxide 27 BUN 35 H Creatinine 4.49 H Glucose 329 H Calcium 8.3 L - ABG Interpretation ABG results: ABG ABG pH 7.33 pH Units (7.32-7.45) 12/28/17 23:49 ABG pCO2 57 mmHg (35-45) H 12/28/17 23:49 ABG pO2 116 mmHg (85-104) H 12/28/17 23:49 ABG O2 Saturation 98 % (95-98) 12/28/17 23:49 PT/INR, D-dimer PT 12.7 Seconds (9.4-12.1) H 12/24/17 06:52 - Impressions Impressions Chest X-Ray 12/28/17 18:09 IMPRESSION: Findings are suggestive of pulmonary edema. Correlation with volume status is recommended D/ / Arcadio Lopez MD / Arcadio Lopez MD Interpreting Provider: Arcadio Lopez MD Head CT 12/29/17 10:15 IMPRESSION: No acute intracranial abnormality. D/ / Jeremy Hernandez MD / Jeremy Hernandez MD Interpreting Provider: Jeremy Hernandez MD - VTE Documentation of Mechanical Device: Intermittent pneumatic compression device Consult Discharge Plan - Plan Referrals: Jacy Mcdonnell [Primary Care Provider] - ( web request sent on 12/29/17 )
[2017-12-29] MEDS: traZODone 50 MG TABLET PO SCH (22:46)
[2017-12-30 05:12] LABS: Basophils # 0.1 K/mcL (0.0-0.2); Basophils % 0.6 %; Eosinophils # 0.2 K/mcL (0.0-0.6); Eosinophils % 2.3 %; Hematocrit 26.6 % (35.3-44.9); Hemoglobin 8.3 g/dL (11.5-15.4); Immature Granulocytes % 2.3 % (0-4); Lymphocytes # 1.4 K/mcL (0.6-4.6); Lymphocytes % 13.5 %; Mean Corpuscular HGB Conc 31.2 g/dL (31.6-35.5); Mean Corpuscular Hemoglobin 29.9 pg (28.0-33.3); Mean Corpuscular Volume 95.7 fL (83.0-100.0); Mean Platelet Volume 10.6 fL (9.4-12.4); Monocytes # 1.2 K/mcL (0.0-1.3); Monocytes % 10.8 %; Neutrophils # 7.5 K/mcL (1.6-8.9); Platelet Count 249 K/mcL (140-400); Red Blood Count 2.78 M/mcL (3.82-4.97); Red Cell Distribution Width 17.1 % (11.5-14.5); Segmented Neutrophils % 70.5 %
[2017-12-30 05:23] LABS: Calcium 8.2 mg/dL (8.6-10.3); Magnesium 2.6 mg/dL (1.6-2.6); Potassium 4.6 mEq/L (3.5-5.1)
--- NOTE | 2017-12-30 07:00 | Nephrology Progress Note ---
Date of Encounter: 12/30/17 Time of Encounter: 07:00 - Assessment and Plan (1) ESRD on dialysis Current Visit: Yes Status: Chronic Patient with ESRD secondary to diabetic nephropathy, on HD every Right upper chest tunnelled HD catheter in place for the past 2 years, blood cultures show no growth to date Repeat blood cultures pending Continue HD as scheduled every Avoid nephrotoxins Continue to monitor (2) Anemia in chronic kidney disease Current Visit: Yes Status: Chronic Anemia work-up: Iron 50, % iron 26%, transferrin 138, Vit B12 level 1047 Continue Aranesp weekly Continue to monitor Qualifiers: Chronic kidney disease stage: on chronic dialysis Qualified Code(s): N18.6 - End stage renal disease; D63.1 - Anemia in chronic kidney disease; D63.1 - Anemia in chronic kidney disease; Z99.2 - Dependence on renal dialysis; Z99.2 - Dependence on renal dialysis; Z99.2 - Dependence on renal dialysis; Z99.2 - Dependence on renal dialysis (3) Hyponatremia Current Visit: Yes Status: Acute Variable SrNa Continue to monitor (4) HTN (hypertension) Current Visit: Yes Status: Chronic BP controlled off meds Management per primary team Qualifiers: Hypertension type: essential hypertension Qualified Code(s): I10 - Essential (primary) hypertension (5) Osteomyelitis Current Visit: Yes Status: Acute Proteus mirabilis positive wound cultures Management per ID Avoid nephrotoxins Qualifiers: Osteomyelitis type: other acute Osteomyelitis location: foot Laterality: right Qualified Code(s): M86.171 - Other acute osteomyelitis, right ankle and foot (6) Contusion of finger of left hand Current Visit: Yes Status: Acute MRSA positive wound cultures Management per ortho and ID Qualifiers: Encounter type: initial encounter Finger: middle finger Damage to nail status: without damage Qualified Code(s): S60.032A - Contusion of left middle finger without damage to nail, initial encounter (7) Diabetes mellitus Current Visit: Yes Status: Chronic Management per primary team Qualifiers: Diabetes mellitus type: type 1 Diabetes mellitus complication status: with skin complications Diabetes mellitus complication detail: with foot ulcer Qualified Code(s): E10.621 - Type 1 diabetes mellitus with foot ulcer; L97.509 - Non-pressure chronic ulcer of other part of unspecified foot with unspecified severity; L97.509 - Non-pressure chronic ulcer of other part of unspecified foot with unspecified severity; L97.509 - Non-pressure chronic ulcer of other part of unspecified foot with unspecified severity; L97.509 - Non-pressure chronic ulcer of other part of unspecified foot with unspecified severity (8) Vitamin D deficiency Current Visit: Yes Status: Chronic Vit D level 24 Continue Vit D supplementation Outpatient monitoring (9) Acute encephalopathy Current Visit: Yes Status: Acute Patient with acute metabolic encephalopathy Resolving since stopping Lyrica and Cymbalta Management per primary team (10) Myoclonia Current Visit: Yes Status: Acute Patient with bilateral hand clonus. Neurology following (11) Morbid obesity with BMI of 40.0-44.9, adult Current Visit: Yes Status: Chronic Management per primary team Subjective Principal diagnosis: jerking movement, encephalopathy Interval history: Patient seen and examined sitting up in bed. Patient is A&Ox2 today and has tremors in bilateral hands. Patient does not report any new c/o and reports feeling improved. Her wound debridement was postponed due to acute change in her mental status Objective - Vital Signs Vital signs: Vital Signs Temp Pulse Resp BP Pulse Ox 12/30/17 06:29 98.2 F 95 18 159/78 100 12/30/17 04:04 97.8 F 93 16 118/60 98 12/29/17 23:27 98 F 100 16 156/87 90 12/29/17 20:15 97.9 F 87 16 112/58 96 12/29/17 15:34 98 F 97 18 131/76 100 12/29/17 11:54 98.1 F 102 16 126/76 12/29/17 11:40 98.8 F 94 16 137/71 96 12/29/17 11:00 98.8 F 94 16 137/71 96 Intake and Output 12/29/17 12/29/17 12/30/17 15:59 23:59 07:59 Intake Total 0 / 0 590 / 590 Balance 0 / 0 590 / 590 Intake: Oral 0 / 0 240 / 240 Blood Product 0 / 0 350 / 350 Rbcs Leuko Poor As-1 Unit 0 / 0 350 / 350 [id number] Other: Meal npo Lunch Percent of Meal Consumed 75% # Voids 1 Weight 102.3 kg Blood Glucose* 269 255 332 Patient Weight 12/30/17 23:59 Weight 102.3 kg - General Appearance General appearance: Present: well-developed, well-nourished, obese EENT: Present: ATNC, mucous membranes moist Neck: Present: supple Respiratory: Present: clear Cardiology: Present: no murmurs, no rub, no gallops, edema (1+ pedal edema), regular rate, regular rhythm Dialysis Vascular Access: Venous Catheter (tunnelled HD cath right upper chest) Gastrointestinal: Present: normoactive bowel sounds, no tenderness, no guarding Integumentary: Present: erythema (dressing in place LUE, RLE) Neurologic: Present: asterixis (BUE), confused Musculoskeletal: Present: deformities (bilateral great toe amputations) Psychiatric: Present: mood/affect appropriate, cooperative - Lab 12/30/17 04:15 12/30/17 04:15 Most recent lab results ABG pH 7.33 pH Units (7.32-7.45) 12/28/17 23:49 ABG pCO2 57 mmHg (35-45) H 12/28/17 23:49 ABG pO2 116 mmHg (85-104) H 12/28/17 23:49 ABG HCO3 30 mEq/L (21-27) H 12/28/17 23:49 ABG O2 Saturation 98 % (95-98) 12/28/17 23:49 Calcium 8.2 mg/dL (8.6-10.3) L 12/30/17 04:15 Phosphorus 5.0 mg/dL (2.7-4.5) H 12/30/17 04:15 Magnesium 2.6 mg/dL (1.6-2.6) 12/30/17 04:15 - VTE Documentation of Mechanical Device: Intermittent pneumatic compression device Consult Discharge Plan - Plan Referrals: Jacy Mcdonnell [Primary Care Provider] - ( web request sent on 12/29/17 )
[2017-12-30] MEDS ORDERED: *HR* Heparin 10,000 UNIT/10 ML VIAL IV PRN (07:26)
[2017-12-30] MEDS ORDERED: 0.9 % Sodium Chloride 250 ML IVC PRN (07:26)
[2017-12-30] MEDS ORDERED: 0.9 % Sodium Chloride 1,000 ML PRIME SCH (07:30)
[2017-12-30] MEDS: Multivit/Ca/Min/Fe/FA 1 TAB TABLET PO SCH (08:39)
[2017-12-30] MEDS: Cholecalciferol (D-3) 1,000 UNIT TABLET PO SCH (08:39)
[2017-12-30] MEDS: Ascorbic Acid 500 MG TABLET PO SCH (08:40)
[2017-12-30] MEDS: Insulin DETEMIR 100 UNIT/ML X5UNITS SQ SCH ×2 (08:40→20:36)
[2017-12-30] MEDS: Insulin LISPRO 300 UNITS/3 ML VIAL SQ SCH ×7 (08:41→20:36)
--- NOTE | 2017-12-30 09:23 | Neurology Progress Note ---
Date of Encounter: 12/30/17 Time of Encounter: 09:22 Assessment and Plan (1) Acute encephalopathy Current Visit: Yes Status: Acute Patient remains encephalopathic but per the patient and other providers that have seen her over the last several days she does appear slightly improved. Likely secondary to her underlying ESRD, medication side effects as well as osteomyelitis that is currently being treated. Intermittent jerking movements can commonly be seen in patients with ESRD which would be aggravated by superimposed infections and medication side effects. No evidence of central FASHION MODEL pathology. Recommend continuing medical and supportive care. No indication for further neurologic testing at this time. Subjective Principal diagnosis: jerking movement, encephalopathy Interval history: Patient seen and examined at bedside. Patient was sitting up on the side of the bed and in no acute distress. She had some difficulty answering questions but had clear speech and eventually answered appropriately. She states that she does not feel like she is thinking like she normally does but does state that she feels better from yesterday. Objective - Constitutional Vitals: Temp Pulse Resp BP Pulse Ox 98.2 F 95 18 159/78 100 12/30/17 06:29 12/30/17 06:29 12/30/17 06:29 12/30/17 06:29 12/30/17 06:29 - Neurological Exam Sensorimotor examination: Present: other (Grossly intact. Patient has left hand and right foot wrapped. ) Motor Examination: Present: grossly full strength in all extremities (Grossly intact, moves all extremities. Asterixis noted on both arms when stretched. jerking movement occasioanlly involve the legs as well. ) Motor examination - left side: 4/5: deltoids, biceps, triceps, wrist flexion, wrist extension, hip flexors, fish bailer, quadriceps, tibialis Anterior, toe extension (EHL), plantarflexion Posture: Present: other (Asterixis seen bilaterally) Mental Status Examination: Present: awake, alert, oriented to person, oriented to place, follows commands appropriately, opens eyes to voice, makes eye contact , follows simple commands Cranial nerve examination: Present: PERRL, EOMI, visual casas intact, corneal reflexes brisk symmetrically, sensory to face intact, mastication intact, no facial asymmetry is present, no dysarthria, hearing is intact symmetrically, soft palate elevates bilaterally upon phonation, gag reflex intact, flexes SCM and trapezius muscles symmetrically with full power, tongue protrudes midline ( Patient speech is intact, she repeats same answers at times to different questions. ) - VTE Documentation of Mechanical Device: Intermittent pneumatic compression device Results - Laboratory Findings CBC and BMP: 12/30/17 04:15 12/30/17 04:15 Abnormal lab findings: Abnormal lab results RBC 2.78 M/mcL (3.82-4.97) L 12/30/17 04:15 Hgb 8.3 g/dL (11.5-15.4) L 12/30/17 04:15 Hct 26.6 % (35.3-44.9) L 12/30/17 04:15 MCHC 31.2 g/dL (31.6-35.5) L 12/30/17 04:15 RDW 17.1 % (11.5-14.5) H 12/30/17 04:15 Nucleated RBCs/100 WBC 0.4 /100 WBC (0) H 12/27/17 04:25 ESR 112 mm/hr (0-15) H 12/22/17 13:54 PT 12.7 Seconds (9.4-12.1) H 12/24/17 06:52 ABG pCO2 57 mmHg (35-45) H 12/28/17 23:49 ABG pO2 116 mmHg (85-104) H 12/28/17 23:49 ABG HCO3 30 mEq/L (21-27) H 12/28/17 23:49 ABG Total CO2 32 mEq/L (20-26) H 12/28/17 23:49 ABG Base Excess 4 mEq/L (-2 to 3) H 12/28/17 23:49 Sodium 135 mEq/L (136-145) L 12/30/17 04:15 Chloride 95 mEq/L (98-107) L 12/30/17 04:15 BUN 50 mg/dL (6-20) H 12/30/17 04:15 Creatinine 6.47 mg/dL (0.60-1.20) H 12/30/17 04:15 Est GFR ( Amer) 9 (> 60) L 12/30/17 04:15 Est GFR (Non-Af Amer) 7 (> 60) L 12/30/17 04:15 Glucose 311 mg/dL (70-105) H 12/30/17 04:15 POC Glucose 332 (58-89) H 12/30/17 05:41 Hemoglobin A1c 7.4 % (-5.6) H 12/23/17 04:03 Calculated Osmolality 305 (280-300) H 12/30/17 04:15 Calcium 8.2 mg/dL (8.6-10.3) L 12/30/17 04:15 Phosphorus 5.0 mg/dL (2.7-4.5) H 12/30/17 04:15 Transferrin 138 mg/dL (203-362) L 12/28/17 05:58 Alkaline Phosphatase 128 Units/L (34-104) H 12/27/17 04:25 C-Reactive Protein 208 mg/L (Less than 10) H 12/22/17 13:54 Globulin 3.8 g/dL (2.4-3.5) H 12/27/17 04:25 Albumin/Globulin Ratio 0.9 (1.1-2.2) L 12/27/17 04:25 Triglycerides 220 mg/dL (< 150) H 12/23/17 04:03 VLDL Cholesterol, Calc 44 mg/dL (< 31) H 12/23/17 04:03 HDL Cholesterol 17 mg/dL (40-59) L 12/23/17 04:03 Cholesterol/HDL Ratio 7.5 (0-4.9) H 12/23/17 04:03 25-OH Vitamin D Total 24 ng/mL (30-80) L 12/28/17 05:58 Consult Discharge Plan - Plan Referrals: Jacy Mcdonnell [Primary Care Provider] - ( web request sent on 12/29/17 )
--- NOTE | 2017-12-30 10:08 | Infectious Disease Progress No ---
Date of Encounter: 12/30/17 Time of Encounter: 10:06 - Assessment and Plan (1) Fever Current Visit: Yes Status: Acute Post-op fever with Tmax 102.5. Afebrile since 12/25/17 Resolved. Qualifiers: Fever type: unspecified Qualified Code(s): R50.9 - Fever, unspecified (2) Osteomyelitis Current Visit: Yes Status: Acute Location: Right foot, great toe. Causative organism P. mirabilis, resistant to fluoroquinolones, and Enterococcus faecalis (ampicillin and Vanc sensitive). Secondary to non-healing diabetic foot ulcer. X-ray of the right foot showed osteomyelitis of the base of the right great toe. ESR 112, CRP 208. Blood cultures drawn 12/22/17 are NGTD x 2 sets. Wound culture obtained in the ED grew P. mirabilis, resistant to fluoroquinolones, Bactrim, and gentamicin. Podiatry consulted and following. Status post amputation of the right great toe. Operative note reviewed. Intra-op cultures as above. Planning for wound closure when the patient's status improves. Wound care and activity restrictions per the podiatry team. Continue Vancomycin IV. Pharmacy to dose. Goal trough ~15. Discontinue Cefepime. Start Rocephin 2 grams IV daily. Duration of treatment depends on the clinical picture, but likely 6 weeks from the date of surgery. Monitor for drug toxicity and dose-adjust antibiotics. Qualifiers: Osteomyelitis type: other acute Osteomyelitis location: foot Laterality: right Qualified Code(s): M86.171 - Other acute osteomyelitis, right ankle and foot (3) Infection of left hand Current Visit: Yes Status: Acute Causative organism MRSA. Likely secondary to traumatic injury. X-ray negative for bony abnormality. Ortho consulted. Status post bedside I & D by Dr. Hernandez. Procedure note revealed. Gross purulence noted. Minimal improvement per the ortho team. Status post operative I & D 12/28/[address] Hernandez. Operative note reviewed. No evidence of additional infection intra-op. Wound care and activity restrictions per the ortho team. Continue antibiotics as above. Continue contact precautions. (4) Diabetic foot ulcer Current Visit: Yes Status: Acute Location: Plantar medial aspect of the right great toe. Etiology unclear. Podiatry consulted and following. Status post amputation of the right great toe. Planning for wound closure when the patient's mental status improves. Surgical wound care and activity restrictions per the podiatry team. Qualifiers: Diabetic foot ulcer location: toe Diabetes mellitus type: type 1 Laterality: right Non-pressure ulcer stage: with necrosis of bone Qualified Code(s): E10.621 - Type 1 diabetes mellitus with foot ulcer; L97.514 - Non- pressure chronic ulcer of other part of right foot with necrosis of bone; L97.514 - Non-pressure chronic ulcer of other part of right foot with necrosis of bone; L97.514 - Non-pressure chronic ulcer of other part of right foot with necrosis of bone; L97.514 - Non-pressure chronic ulcer of other part of right foot with necrosis of bone (5) Diabetes mellitus Current Visit: Yes Status: Chronic Uncontrolled recently per patient report. FSBS 338 on admission labs. Her blood sugars continue to run high. HgbA1C 7.2%. Recommend aggressive glucose monitoring and control to promote wound healing and prevent re-infection. Management per the primary team. Qualifiers: Diabetes mellitus type: type 1 Diabetes mellitus complication status: with skin complications Diabetes mellitus complication detail: with foot ulcer Qualified Code(s): E10.621 - Type 1 diabetes mellitus with foot ulcer; L97.509 - Non-pressure chronic ulcer of other part of unspecified foot with unspecified severity; L97.509 - Non-pressure chronic ulcer of other part of unspecified foot with unspecified severity; L97.509 - Non-pressure chronic ulcer of other part of unspecified foot with unspecified severity; L97.509 - Non-pressure chronic ulcer of other part of unspecified foot with unspecified severity (6) ESRD on dialysis Current Visit: Yes Status: Chronic Secondary to diabetic nephropathy. Follows with [facility]. HD T//Sat. Nephrology consulted and following. (7) Peripheral neuropathy Current Visit: Yes Status: Chronic Qualifiers: Peripheral neuropathy type: polyneuropathy, other Qualified Code(s): G62.89 - Other specified polyneuropathies (8) Hypertension Current Visit: No Status: Chronic Qualifiers: Hypertension type: essential hypertension Qualified Code(s): I10 - Essential (primary) hypertension (9) Morbid obesity with BMI of 40.0-44.9, adult Current Visit: Yes Status: Chronic (10) Left hand pain Current Visit: Yes Status: Acute Likely secondary to traumatic injury with superimposed infection. Xray negative for fracture. Ortho consulted and following. Pain management per the primary and ortho teams. (11) Myoclonia Current Visit: Yes Status: Acute Etiology unclear: medications vs. other. Neurology consulted and following. (12) Acute encephalopathy Current Visit: Yes Status: Acute Etiology unclear: anesthesia vs. medications vs. hypercarbia vs. other. No SIRS criteria. Patient does have a new myoclonic jerking. CT head negative. Neurology consulted and following. Patient's mental status improved today, but not back to baseline. Continue to monitor closely. (13) Acute respiratory failure with hypoxia Current Visit: Yes Status: Acute Likely secondary to pulmonary edema. Required BIPAP post-op. On O2 via NC at this time. CXR showed pulmonary edema. Improved. (14) Anemia in chronic kidney disease Current Visit: Yes Status: Chronic Hemoglobin 8.6 after 1 unit PRBC yesterday. Management per the primary and nephrology teams. Qualifiers: Chronic kidney disease stage: on chronic dialysis Qualified Code(s): N18.6 - End stage renal disease; D63.1 - Anemia in chronic kidney disease; D63.1 - Anemia in chronic kidney disease; Z99.2 - Dependence on renal dialysis; Z99.2 - Dependence on renal dialysis; Z99.2 - Dependence on renal dialysis; Z99.2 - Dependence on renal dialysis - Subjective Interval history: Patient seen and examined. No acute events noted overnight. Status post operative I & D of the left middle finger 12/28/17. Post-op, the patient was noted to myoclonic jerking and hypoxia and AMS. She had AMS yesterday and neurology was consulted. CT head negative. This morning, she appears more alert and is sitting up on the side of the bed. She is slow to answer questions, but is able to answer them appropriately. She denies fevers, chills, or rigors. Denies chest pain, shortness of breath, or cough. Denies nausea, vomiting, or diarrhea. Denies abdominal pain, but states she did not eat breakfast this morning because she was not hungry. Denies oral thrush or new skin lesions. Currently denies pain at her surgical sites. Infect Dis PN-Objective Data - Labs CBC & Chem 7: 12/30/17 04:15 12/30/17 04:15 Labs: Laboratory Results - last 24 hr 0212/28/17 12/29/17 11:15 18:10 06:30 WBC RBC Hgb Hct MCV MCH MCHC RDW Plt Count MPV Immature Gran % Seg Neutrophils % Lymphocytes % Monocytes % Eosinophils % Basophils % Neutrophils # Lymphocytes # Monocytes # Eosinophils # Basophils # Sodium Potassium Chloride Carbon Dioxide BUN Creatinine Est GFR ( Amer) Est GFR (Non-Af Amer) BUN/Creatinine Ratio Glucose POC Glucose 163 H 249 H Calculated Osmolality Calcium Phosphorus Magnesium Random Vancomycin Blood Type A POSITIVE Antibody Screen NEGATIVE Crossmatch See Detail 12/29/17 12/29/17 12/29/17 07:11 10:56 17:15 WBC RBC Hgb Hct MCV MCH MCHC RDW Plt Count MPV Immature Gran % Seg Neutrophils % Lymphocytes % Monocytes % Eosinophils % Basophils % Neutrophils # Lymphocytes # Monocytes # Eosinophils # Basophils # Sodium Potassium Chloride Carbon Dioxide BUN Creatinine Est GFR ( Amer) Est GFR (Non-Af Amer) BUN/Creatinine Ratio Glucose POC Glucose 298 H 269 H 262 H Calculated Osmolality Calcium Phosphorus Magnesium Random Vancomycin Blood Type Antibody Screen Crossmatch 12/29/17 12/30/17 12/30/17 20:13 04:15 04:15 WBC 10.6 RBC 2.78 L Hgb 8.3 L Hct 26.6 L MCV 95.7 MCH 29.9 MCHC 31.2 L RDW 17.1 H Plt Count 249 MPV 10.6 Immature Gran % 2.3 Seg Neutrophils % 70.5 Lymphocytes % 13.5 Monocytes % 10.8 Eosinophils % 2.3 Basophils % 0.6 Neutrophils # 7.5 Lymphocytes # 1.4 Monocytes # 1.2 Eosinophils # 0.2 Basophils # 0.1 Sodium Potassium Chloride Carbon Dioxide BUN Creatinine Est GFR ( Amer) Est GFR (Non-Af Amer) BUN/Creatinine Ratio Glucose POC Glucose 255 H Calculated Osmolality Calcium Phosphorus Magnesium Random Vancomycin 20.6 Blood Type Antibody Screen Crossmatch 12/30/17 12/30/17 04:15 05:41 WBC RBC Hgb Hct MCV MCH MCHC RDW Plt Count MPV Immature Gran % Seg Neutrophils % Lymphocytes % Monocytes % Eosinophils % Basophils % Neutrophils # Lymphocytes # Monocytes # Eosinophils # Basophils # Sodium 135 L Potassium 4.6 Chloride 95 L Carbon Dioxide 28 BUN 50 H Creatinine 6.47 H Est GFR ( Amer) 9 L Est GFR (Non-Af Amer) 7 L BUN/Creatinine Ratio 8 Glucose 311 H POC Glucose 332 H Calculated Osmolality 305 H Calcium 8.2 L Phosphorus 5.0 H Magnesium 2.6 Random Vancomycin Blood Type Antibody Screen Crossmatch Cultures: Cultures 12/24/17 09:01 Surgical Biopsy Culture - Final Right Great Toe Proteus mirabilis Enterococcus faecalis 12/24/17 14:50 Anaerobic Culture - Final Left Middle Finger No anaerobes were recovered. 12/24/17 14:50 Wound Culture - Final Left Middle Finger Methicillin Resistant S.aureus 12/24/17 18:07 Gram Stain - Final Left Middle Finger Serology 12/24/17 12/22/17 Range/Units 16:43 16:01 Urine Test Negative (Negative) Hep Bs Antigen Nonreactive (Nonreactive) Hep Bs Antibody 39.07 mIU/mL - Impressions Impressions Head CT 12/29/17 10:15 IMPRESSION: No acute intracranial abnormality. D/ / Jeremy Hernandez MD / Jeremy Hernandez MD Interpreting Provider: Jeremy Hernandez MD Echocardiogram 12/30/17 10:54 Impressions: Technically sub-optimal due to poor echocardiographic windows. LVEF 60-65%. Normal LV chamber size, wall thickness and function. Indeterminate diastolic function. Grossly, the right ventricle appears mildly dilated with normal function. Aortic valve not well visualized. Mild aortic stenosis suggested by Doppler. Mean gradient 16 mmHg. Mild tricuspid regurgitation. Moderate-severe pulmonary hypertension. Estimated RVSP is 55 mmHg. Left Ventricular Wall Motion: Rest Echo Findings All wall segments showed normal motion. Findings: Study Quality * Technically sub-optimal due to poor echocardiographic windows. ECG Findings * Normal sinus rhythm. Left Ventricle * LVEF 60-65%. * Normal LV chamber size, wall thickness and function. * Indeterminate diastolic function. Right Ventricle * Grossly, the right ventricle appears mildly dilated with normal function. Left Atrium * Mild to moderately dilated left atrium. Right Atrium * Mildly dilated right atrium. Interatrial Septum * Interatrial septum not well evaluated. Aortic Valve * Aortic valve not well visualized. * No aortic regurgitation. * Mild aortic stenosis suggested by Doppler. Mean gradient 16 mmHg. Mitral Valve * Normal mitral valve structure and function. * No mitral regurgitation. * No mitral stenosis. Tricuspid Valve * Normal tricuspid valve structure. * Mild tricuspid regurgitation. * Moderate-severe pulmonary hypertension. * Estimated RVSP is 55 mmHg. * Estimated RA pressure is 5 mmHg. Pulmonic Valve * Normal pulmonic valve structure and function. * No pulmonic regurgitation. Aorta * Normally sized aortic root. Pericardium * The pericardium appears normal. IVC * Normal IVC dimensions and inspiratory collapse. Pulmonary Artery * Normal visualized portions of the main pulmonary artery. Exam - Constitutional Vitals: Temp Pulse Resp BP Pulse Ox 98.2 F 95 18 159/78 100 12/30/17 06:29 12/30/17 06:29 12/30/17 06:29 12/30/17 06:29 12/30/17 06:29 General appearance: cooperative, morbidly obese, no acute distress - Head Head exam: Present: atraumatic, normal inspection, normocephalic - Eye Eye exam: Present: EOMI, normal appearance, PERRL Pupils: Present: normal accommodation - ENT ENT exam: Present: mucous membranes moist - Neck Neck exam: Present: normal inspection. Absent: meningismus - Respiratory Respiratory exam: Present: CTAB. Absent: rales, respiratory distress, rhonchi, wheezes - Cardiovascular Cardiovascular exam: Present: +S1, +S2, tachycardia. Absent: irregular rhythm - GI/Abdominal GI/Abdominal exam: Present: distended (obese), normal bowel sounds, soft. Absent: tenderness - Extremities Exam Extremities exam: Absent: joint swelling, pedal edema, tenderness Additional comments: Right foot dressing C/D/I. Left hand dressing C/D/I. - Neurological Exam Neurological exam: Present: alert, no focal deficits. Absent: oriented X3 ( Oriented to person only.) Additional comments: Myoclonic jerking to the BUE and upper body noted on exam. - Psychiatric Psychiatric exam: Present: normal affect, normal mood - Skin Skin exam: Present: dry, intact, normal color, warm - VTE Documentation of Mechanical Device: Intermittent pneumatic compression device Consult Discharge Plan - Plan Referrals: Jacy Mcdonnell [Primary Care Provider] - ( web request sent on 12/29/17 ) - Attending Attestation I examined this patient and my medical decision-making was reviewed with the Resident Physician. I agree with the documented findings, disposition and treatment plan as described except to the extent set forth below.
[2017-12-30] MEDS ORDERED: 0.9 % Sodium Chloride 1,000 ML ONE (14:08)
--- NOTE | 2017-12-30 16:09 | Internal Med Progress Note ---
Date of Encounter: 12/30/17 Time of Encounter: 16:07 - Assessment and plan (1) Myoclonia Current Visit: Yes Status: Acute Assessment and plan: could be related to ESRD and use of Benadryl, narcotic pain medications, Lyrica , Cymbalta. Held all his medications for now. Improved today. Continue supportive care. (2) Acute respiratory failure with hypoxia Current Visit: Yes Status: Resolved Assessment and plan: likely secondary to anesthesia; improved today. Continue supplemental oxygen via nasal cannula, wean down FiO2 as tolerated. Echocardiogram done, shows preserved ejection fraction, indeterminate diastolic function, mild aortic stenosis and tricuspid regurgitation, moderate to severe pulmonary hypertension. (3) Acute encephalopathy Current Visit: Yes Status: Acute Assessment and plan: Somewhat improved today, oriented to self and place but unable to answer questions regarding her medical diagnoses. likely due to use of Benadryl, Lyrica, Ativan in the setting of ESRD and multiple infections; case discussed with neurology, plan on supportive care and treatment of underlying conditions. No evidence of acute stroke on CT head. Pending EEG. (4) Osteomyelitis Current Visit: Yes Status: Acute Assessment and plan: right great toe diabetic foot ulcer and osteomyelitis; Podiatry on board, s/p amputation of great toe on 12/24/17; external wound culture grows Proteus mirabilis, intraoperative cultures grow Proteus mirabilis and ampicillin sensitive Enterococcus faecalis. ID on board- recommendations are to continue IV Rocephin (cefepime is changed to Rocephin today) and Vancomycin, for at least 6 weeks from the date of surgery. 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 Qualifiers: Osteomyelitis type: other acute Osteomyelitis location: foot Laterality: right Qualified Code(s): M86.171 - Other acute osteomyelitis, right ankle and foot (5) Diabetic foot ulcer Current Visit: Yes Status: Acute Qualifiers: Diabetic foot ulcer location: toe Diabetes mellitus type: type 1 Laterality: right Non-pressure ulcer stage: with necrosis of bone Qualified Code(s): E10.621 - Type 1 diabetes mellitus with foot ulcer; L97.514 - Non- pressure chronic ulcer of other part of right foot with necrosis of bone; L97.514 - Non-pressure chronic ulcer of other part of right foot with necrosis of bone; L97.514 - Non-pressure chronic ulcer of other part of right foot with necrosis of bone; L97.514 - Non-pressure chronic ulcer of other part of right foot with necrosis of bone (6) Infection of left hand Current Visit: Yes Status: Acute Assessment and plan: Orthopedic surgery on board; underwent bedside I&D, wound culture growing MRSA; continue IV Vancomycin as above; underwent repeat operative I&D on 12/28; local wound care per Orthopedics; (7) Anemia in chronic kidney disease Current Visit: Yes Status: Chronic Assessment and plan: Hemoglobin improved status post 1 unit PRBC transfusion. Continue Aranesp during hemodialysis and monitor closely. Qualifiers: Chronic kidney disease stage: on chronic dialysis Qualified Code(s): N18.6 - End stage renal disease; D63.1 - Anemia in chronic kidney disease; D63.1 - Anemia in chronic kidney disease; Z99.2 - Dependence on renal dialysis; Z99.2 - Dependence on renal dialysis; Z99.2 - Dependence on renal dialysis; Z99.2 - Dependence on renal dialysis (8) Diabetes mellitus Current Visit: Yes Status: Chronic Assessment and plan: continue Accucheck blood glucose monitoring with basal bolus insulin regimen; blood sugars continue to be elevated, will increase Levemir and continue nutritional and sliding scale insulin. diabetic diet as tolerated; Qualifiers: Diabetes mellitus type: type 1 Diabetes mellitus complication status: with skin complications Diabetes mellitus complication detail: with foot ulcer Qualified Code(s): E10.621 - Type 1 diabetes mellitus with foot ulcer; L97.509 - Non-pressure chronic ulcer of other part of unspecified foot with unspecified severity; L97.509 - Non-pressure chronic ulcer of other part of unspecified foot with unspecified severity; L97.509 - Non-pressure chronic ulcer of other part of unspecified foot with unspecified severity; L97.509 - Non-pressure chronic ulcer of other part of unspecified foot with unspecified severity (9) ESRD on dialysis Current Visit: Yes Status: Chronic Assessment and plan: Nephrology on board, patient is receiving regular HD sessions; (10) Morbid obesity with BMI of 40.0-44.9, adult Current Visit: Yes Status: Chronic (11) HLD (hyperlipidemia) Current Visit: Yes Status: Chronic Qualifiers: Hyperlipidemia type: unspecified Qualified Code(s): E78.5 - Hyperlipidemia , unspecified (12) HTN (hypertension) Current Visit: Yes Status: Chronic Qualifiers: Hypertension type: essential hypertension Qualified Code(s): I10 - Essential (primary) hypertension (13) Peripheral neuropathy Current Visit: Yes Status: Chronic Qualifiers: Peripheral neuropathy type: polyneuropathy, other Qualified Code(s): G62.89 - Other specified polyneuropathies - Subjective Interval history: Reports feeling better. Improved myoclonic jerks today. Underwent hemodialysis. Able to answer 1 or 2 simple questions, does not remember why she is in the hospital. Reports left hand pain. - Constitutional Vitals: Temp Pulse Resp BP Pulse Ox 97.7 F 95 18 136/72 100 12/30/17 14:00 12/30/17 06:29 12/30/17 14:00 12/30/17 14:00 12/30/17 06:29 General appearance: Present: A&O X 2, morbidly obese. Absent: answers questions appropriately - Respiratory Respiratory exam: Present: CTAB. Absent: accessory muscle use, rales, rhonchi, wheezes - Cardiovascular Cardiovascular exam: Present: RRR, +S1, +S2. Absent: diastolic murmur, gallop, rubs, systolic murmur - GI/Abdominal GI/Abdominal exam: Present: normal bowel sounds, soft, no peritoneal signs. Absent: distended, tenderness - Extremities Exam Extremities exam: Present: pedal edema (Trace dependent pedal edema bilaterally) , warm, radial pulses palpable and symmetrical. Absent: calf tenderness, cyanotic Additional comments: Right foot with surgical dressing intact Left hand third digit with dry surgical incision - Neurological Exam Neurological exam: Present: altered, CN II-XII intact, no focal deficits. Absent: pronater drift, facial droop, speech deficit Additional comments: Improved myoclonic jerks Internal Medicine: Result - Labs CBC & Chem 7: 12/30/17 04:15 12/30/17 04:15 Labs: Short CBC 12/30/17 Range/Units 04:15 WBC 10.6 (4.3-11.1) K/mcL Hgb 8.3 L (11.5-15.4) g/dL Hct 26.6 L (35.3-44.9) % Plt Count 249 (140-400) K/mcL Neutrophils # 7.5 (1.6-8.9) K/mcL BMP 12/30/17 04:15 Sodium 135 L Potassium 4.6 Chloride 95 L Carbon Dioxide 28 BUN 50 H Creatinine 6.47 H Glucose 311 H Calcium 8.2 L - ABG Interpretation ABG results: ABG ABG pH 7.33 pH Units (7.32-7.45) 12/28/17 23:49 ABG pCO2 57 mmHg (35-45) H 12/28/17 23:49 ABG pO2 116 mmHg (85-104) H 12/28/17 23:49 ABG O2 Saturation 98 % (95-98) 12/28/17 23:49 PT/INR, D-dimer PT 12.7 Seconds (9.4-12.1) H 12/24/17 06:52 - Impressions Impressions Echocardiogram 12/30/17 10:54 Impressions: Technically sub-optimal due to poor echocardiographic windows. LVEF 60-65%. Normal LV chamber size, wall thickness and function. Indeterminate diastolic function. Grossly, the right ventricle appears mildly dilated with normal function. Aortic valve not well visualized. Mild aortic stenosis suggested by Doppler. Mean gradient 16 mmHg. Mild tricuspid regurgitation. Moderate-severe pulmonary hypertension. Estimated RVSP is 55 mmHg. Left Ventricular Wall Motion: Rest Echo Findings All wall segments showed normal motion. Findings: Study Quality * Technically sub-optimal due to poor echocardiographic windows. ECG Findings * Normal sinus rhythm. Left Ventricle * LVEF 60-65%. * Normal LV chamber size, wall thickness and function. * Indeterminate diastolic function. Right Ventricle * Grossly, the right ventricle appears mildly dilated with normal function. Left Atrium * Mild to moderately dilated left atrium. Right Atrium * Mildly dilated right atrium. Interatrial Septum * Interatrial septum not well evaluated. Aortic Valve * Aortic valve not well visualized. * No aortic regurgitation. * Mild aortic stenosis suggested by Doppler. Mean gradient 16 mmHg. Mitral Valve * Normal mitral valve structure and function. * No mitral regurgitation. * No mitral stenosis. Tricuspid Valve * Normal tricuspid valve structure. * Mild tricuspid regurgitation. * Moderate-severe pulmonary hypertension. * Estimated RVSP is 55 mmHg. * Estimated RA pressure is 5 mmHg. Pulmonic Valve * Normal pulmonic valve structure and function. * No pulmonic regurgitation. Aorta * Normally sized aortic root. Pericardium * The pericardium appears normal. IVC * Normal IVC dimensions and inspiratory collapse. Pulmonary Artery * Normal visualized portions of the main pulmonary artery. - VTE Documentation of Mechanical Device: Intermittent pneumatic compression device Consult Discharge Plan - Plan Referrals: Jacy Mcdonnell [Primary Care Provider] - ( web request sent on 12/29/17 )
--- NOTE | 2017-12-30 16:42 | EEG/EMG/Oth Biometrics Report ---
EEG Procedure Report Date of procedure: 12/30/17 EEG Procedure: Routine EEG Procedure Note: This EEG was acquired with a standard international 10-20 electrode placement system. The background EEG activity was replaced by diffuse slowing with a mixture of delta, theta, and slow alpha activity with a fluctuating amplitude. The background EEG activity was reactive to movements and eye openings. Typical sleep stages were not identified however, periods of diffuse delta slowing was noted during this study. There are no electrographic seizures identified during this tracing. No epileptiform discharges or focal slowing noted during this recording. Photic stimulation produces no abnormalities. Hyperventilation procedure was not performed. EKG tracing show no significant cardiac dysrhythmias arrhythmia Impression: This is an abnormal EEG due to diffuse moderate background slowing. Clinical correlation: This EEG is consistent with diffuse cerebral dysfunction that can be seen in patients with diffuse encephalopathy, toxic metabolic, electrolyte imbalance, medication side effects. Clinical correlation is advised.
--- NOTE | 2017-12-30 16:59 | Podiatry Progress Note ---
Date of Encounter: 12/30/17 Time of Encounter: 16:30 - Assessment and Plan (1) Diabetic foot ulcer Current Visit: Yes Status: Acute S/p right hallux open amputation by Dr. Aggarwal on 12/24/17. WBC: 10.6, a febrile ESR: 112, CRP: 208 Right hallux wound cultures isolated proteus mirabalis. Intra op cultures - proteus mirabalis and enterococcus faecalis. Infectious Disease following. Currently on IV Vancomycin and Rocephin, will most likely need 6 weeks of IV antibiotic therapy. Primary closure of right foot is on hold due to patients mental status. Patients mental status is not back to her baseline. There is no abscess, pus or odor to the surgical wound, decreased erythema noted with granulation tissue, we will continue local wound care with calcium alginate daily. Weight bearing status: heel touch only on right foot with post op shoe. Will continue to follow patient closely. Qualifiers: Diabetic foot ulcer location: toe Diabetes mellitus type: type 1 Laterality: right Non-pressure ulcer stage: with necrosis of bone Qualified Code(s): E10.621 - Type 1 diabetes mellitus with foot ulcer; L97.514 - Non- pressure chronic ulcer of other part of right foot with necrosis of bone; L97.514 - Non-pressure chronic ulcer of other part of right foot with necrosis of bone; L97.514 - Non-pressure chronic ulcer of other part of right foot with necrosis of bone; L97.514 - Non-pressure chronic ulcer of other part of right foot with necrosis of bone (2) Diabetes mellitus Current Visit: Yes Status: Chronic Glucose control will aid in wound healing. Qualifiers: Diabetes mellitus type: type 1 Diabetes mellitus complication status: with skin complications Diabetes mellitus complication detail: with foot ulcer Qualified Code(s): E10.621 - Type 1 diabetes mellitus with foot ulcer; L97.509 - Non-pressure chronic ulcer of other part of unspecified foot with unspecified severity; L97.509 - Non-pressure chronic ulcer of other part of unspecified foot with unspecified severity; L97.509 - Non-pressure chronic ulcer of other part of unspecified foot with unspecified severity; L97.509 - Non-pressure chronic ulcer of other part of unspecified foot with unspecified severity (3) ESRD on dialysis Current Visit: Yes Status: Chronic On Hemodialysis every [id number]. Subjective Principal diagnosis: jerking movement, encephalopathy Interval history: Patient is sitting up in bed with dressing intact to the right foot. Patient is s/p right hallux open amputation for osteomyelitis by Dr. Aggarwal on 12/24/17. Patient denies any pain to the right foot. Status post bedside I & D by Dr. Hernandez. Status post operative I & D 12/28/[address] Hernandez. Patient denies any fever, chills, or calf pain. Patient is alert to her self and place. Patient is slow to respond to questions in regards to what surgery she had on her right foot and is unable to state her full date of . Patient had CT of the brain and was negative for a stroke. Patient had an EEG today. Objective - Vital Signs Vital Signs: Vital Signs Temp Pulse Resp BP Pulse Ox 12/30/17 14:00 97.7 F 18 136/72 12/30/17 13:30 104/70 12/30/17 13:15 126/70 12/30/17 13:00 113/76 12/30/17 12:45 114/86 12/30/17 12:30 129/62 12/30/17 12:15 136/67 12/30/17 12:00 137/69 12/30/17 11:45 126/78 12/30/17 11:30 115/66 12/30/17 11:15 131/86 12/30/17 11:00 121/79 12/30/17 10:45 147/79 12/30/17 10:30 147/69 12/30/17 10:15 182/69 12/30/17 10:00 171/76 12/30/17 09:45 179/95 12/30/17 09:30 97.4 F L 18 120/92 12/30/17 06:29 98.2 F 95 18 159/78 100 12/30/17 04:04 97.8 F 93 16 118/60 98 12/29/17 23:27 98 F 100 16 156/87 90 12/29/17 20:15 97.9 F 87 16 112/58 96 Intake and Output 12/30/17 12/30/17 12/30/17 07:59 15:59 23:59 Intake Total 600 / 600 Output Total 4600 / 4600 Balance -4000 / -4000 Intake: Oral 0 / 0 Intake, Rinseback and Flushes 600 / 600 Output: Urine 0 / 0 Total Dialysis (HD) Output 4600 / 4600 Other: # Voids 1 Weight 102.3 kg Blood Glucose* 332 176 Hemodialysis Net Fluid Removed 4000 (mL) Patient Weight 12/30/17 23:59 Weight 102.3 kg - Exam Exam: General appearance: alert awake oriented, slow to respond to questions. Calm and pleasant, no acute distress.. Vascular: Right: Pedal pulses +1/4 DP/PT , No evidence of cyanosis, pallor or rubor, Edema graded at 1+/4, Skin Temperature warm, No calf pain with manual compression. capillary refill time is immediate to digits. Neurologic: Sensation intact with light touch to foot. . Postop Exam: S/P Sutures intact to incision line, Open amputation of right hallux, light perwound erythema, moderate amount of serous drainage observed dressing. No streaking, no pus, no odor, base of wound with red granulation tissue. Minimal edema. - Lab Result Diagrams: 12/30/17 04:15 12/30/17 04:15 Labs: Abnormal lab results RBC 2.78 M/mcL (3.82-4.97) L 12/30/17 04:15 Hgb 8.3 g/dL (11.5-15.4) L 12/30/17 04:15 Hct 26.6 % (35.3-44.9) L 12/30/17 04:15 MCHC 31.2 g/dL (31.6-35.5) L 12/30/17 04:15 RDW 17.1 % (11.5-14.5) H 12/30/17 04:15 Nucleated RBCs/100 WBC 0.4 /100 WBC (0) H 12/27/17 04:25 ESR 112 mm/hr (0-15) H 12/22/17 13:54 PT 12.7 Seconds (9.4-12.1) H 12/24/17 06:52 ABG pCO2 57 mmHg (35-45) H 12/28/17 23:49 ABG pO2 116 mmHg (85-104) H 12/28/17 23:49 ABG HCO3 30 mEq/L (21-27) H 12/28/17 23:49 ABG Total CO2 32 mEq/L (20-26) H 12/28/17 23:49 ABG Base Excess 4 mEq/L (-2 to 3) H 12/28/17 23:49 Sodium 135 mEq/L (136-145) L 12/30/17 04:15 Chloride 95 mEq/L (98-107) L 12/30/17 04:15 BUN 50 mg/dL (6-20) H 12/30/17 04:15 Creatinine 6.47 mg/dL (0.60-1.20) H 12/30/17 04:15 Est GFR ( Amer) 9 (> 60) L 12/30/17 04:15 Est GFR (Non-Af Amer) 7 (> 60) L 12/30/17 04:15 Glucose 311 mg/dL (70-105) H 12/30/17 04:15 POC Glucose 176 (58-89) H 12/30/17 11:22 Hemoglobin A1c 7.4 % (-5.6) H 12/23/17 04:03 Calculated Osmolality 305 (280-300) H 12/30/17 04:15 Calcium 8.2 mg/dL (8.6-10.3) L 12/30/17 04:15 Phosphorus 5.0 mg/dL (2.7-4.5) H 12/30/17 04:15 Transferrin 138 mg/dL (203-362) L 12/28/17 05:58 Alkaline Phosphatase 128 Units/L (34-104) H 12/27/17 04:25 C-Reactive Protein 208 mg/L (Less than 10) H 12/22/17 13:54 Globulin 3.8 g/dL (2.4-3.5) H 12/27/17 04:25 Albumin/Globulin Ratio 0.9 (1.1-2.2) L 12/27/17 04:25 Triglycerides 220 mg/dL (< 150) H 12/23/17 04:03 VLDL Cholesterol, Calc 44 mg/dL (< 31) H 12/23/17 04:03 HDL Cholesterol 17 mg/dL (40-59) L 12/23/17 04:03 Cholesterol/HDL Ratio 7.5 (0-4.9) H 12/23/17 04:03 25-OH Vitamin D Total 24 ng/mL (30-80) L 12/28/17 05:58 Microbiology, Last 48 Hours 12/24/17 09:01 Surgical Biopsy Culture - Final Right Great Toe Proteus mirabilis Enterococcus faecalis 12/24/17 14:50 Anaerobic Culture - Final Left Middle Finger No anaerobes were recovered. - VTE Documentation of Mechanical Device: Intermittent pneumatic compression device Consult Discharge Plan - Plan Referrals: Jacy Mcdonnell [Primary Care Provider] - ( web request sent on 12/29/17 )
--- NOTE | 2017-12-30 17:06 | Orthopedics Progress Note ---
Date of Encounter: 12/30/17 Time of Encounter: 17:02 - Assessment and Plan (1) Contusion of finger of left hand Current Visit: Yes Status: Acute Qualifiers: Qualified Code(s): S60.032A - Contusion of left middle finger without damage to nail, initial encounter Subjective Principal diagnosis: jerking movement, encephalopathy Interval history: S: Confusion much improved. Expected postoperative pain to the left logn finger. O: Afebrile and vital signs are stable Cellulitis improved I and D sites are clean with minimal drainage Juan Carlos drains pulled I can gently passively range the digit through the mid range without significant pain. She could grossly flex and extend the digits through a small arc without significant pain. The fingertips are all grossly sensate and well-perfused, and the radial artery pulse is 2+. Cultures are showing MRSA A: Left long finger infection post operative I&D P: Now improving. Continue IV abx for now. Elevate. Motion exercises. Will continue to follow. Objective Vital signs: Vital Signs Temp Pulse Resp BP Pulse Ox 12/30/17 14:00 97.7 F 18 136/72 12/30/17 13:30 104/70 12/30/17 13:15 126/70 12/30/17 13:00 113/76 12/30/17 12:45 114/86 12/30/17 12:30 129/62 12/30/17 12:15 136/67 12/30/17 12:00 137/69 12/30/17 11:45 126/78 12/30/17 11:30 115/66 12/30/17 11:15 131/86 12/30/17 11:00 121/79 12/30/17 10:45 147/79 12/30/17 10:30 147/69 12/30/17 10:15 182/69 12/30/17 10:00 171/76 12/30/17 09:45 179/95 12/30/17 09:30 97.4 F L 18 120/92 12/30/17 06:29 98.2 F 95 18 159/78 100 12/30/17 04:04 97.8 F 93 16 118/60 98 12/29/17 23:27 98 F 100 16 156/87 90 12/29/17 20:15 97.9 F 87 16 112/58 96 Intake and Output 12/30/17 12/30/17 12/30/17 07:59 15:59 23:59 Intake Total 600 / 600 Output Total 4600 / 4600 Balance -4000 / -4000 Intake: Oral 0 / 0 Intake, Rinseback and Flushes 600 / 600 Output: Urine 0 / 0 Total Dialysis (HD) Output 4600 / 4600 Other: # Voids 1 Weight 102.3 kg Blood Glucose* 332 176 Hemodialysis Net Fluid Removed 4000 (mL) Patient Weight 12/30/17 23:59 Weight 102.3 kg - Labs CBC & BMP: 12/30/17 04:15 12/30/17 04:15 Labs: Abnormal lab results RBC 2.78 M/mcL (3.82-4.97) L 12/30/17 04:15 Hgb 8.3 g/dL (11.5-15.4) L 12/30/17 04:15 Hct 26.6 % (35.3-44.9) L 12/30/17 04:15 MCHC 31.2 g/dL (31.6-35.5) L 12/30/17 04:15 RDW 17.1 % (11.5-14.5) H 12/30/17 04:15 Nucleated RBCs/100 WBC 0.4 /100 WBC (0) H 12/27/17 04:25 ESR 112 mm/hr (0-15) H 12/22/17 13:54 PT 12.7 Seconds (9.4-12.1) H 12/24/17 06:52 ABG pCO2 57 mmHg (35-45) H 12/28/17 23:49 ABG pO2 116 mmHg (85-104) H 12/28/17 23:49 ABG HCO3 30 mEq/L (21-27) H 12/28/17 23:49 ABG Total CO2 32 mEq/L (20-26) H 12/28/17 23:49 ABG Base Excess 4 mEq/L (-2 to 3) H 12/28/17 23:49 Sodium 135 mEq/L (136-145) L 12/30/17 04:15 Chloride 95 mEq/L (98-107) L 12/30/17 04:15 BUN 50 mg/dL (6-20) H 12/30/17 04:15 Creatinine 6.47 mg/dL (0.60-1.20) H 12/30/17 04:15 Est GFR ( Amer) 9 (> 60) L 12/30/17 04:15 Est GFR (Non-Af Amer) 7 (> 60) L 12/30/17 04:15 Glucose 311 mg/dL (70-105) H 12/30/17 04:15 POC Glucose 176 (58-89) H 12/30/17 11:22 Hemoglobin A1c 7.4 % (-5.6) H 12/23/17 04:03 Calculated Osmolality 305 (280-300) H 12/30/17 04:15 Calcium 8.2 mg/dL (8.6-10.3) L 12/30/17 04:15 Phosphorus 5.0 mg/dL (2.7-4.5) H 12/30/17 04:15 Transferrin 138 mg/dL (203-362) L 12/28/17 05:58 Alkaline Phosphatase 128 Units/L (34-104) H 12/27/17 04:25 C-Reactive Protein 208 mg/L (Less than 10) H 12/22/17 13:54 Globulin 3.8 g/dL (2.4-3.5) H 12/27/17 04:25 Albumin/Globulin Ratio 0.9 (1.1-2.2) L 12/27/17 04:25 Triglycerides 220 mg/dL (< 150) H 12/23/17 04:03 VLDL Cholesterol, Calc 44 mg/dL (< 31) H 12/23/17 04:03 HDL Cholesterol 17 mg/dL (40-59) L 12/23/17 04:03 Cholesterol/HDL Ratio 7.5 (0-4.9) H 12/23/17 04:03 25-OH Vitamin D Total 24 ng/mL (30-80) L 12/28/17 05:58 - VTE Documentation of Mechanical Device: Intermittent pneumatic compression device Consult Discharge Plan - Plan Referrals: Jacy Mcdonnell [Primary Care Provider] - ( web request sent on 12/29/17 )
[2017-12-30] MEDS: Cefepime HCl 2,000 MG in Water for inj. (sterile) 20 ML 20 ML IVP SCH (17:24)
--- NOTE | 2017-12-30 17:41 | Neurology Progress Note ---
Date of Encounter: 12/30/17 Time of Encounter: 17:38 Assessment and Plan (1) Acute encephalopathy Current Visit: Yes Status: Acute Likely secondary to ongoing medical conditions, ESRD and osteomyelitis but generally speaking her symptoms improved. EEG showed diffuse moderate background slowing consistent with diffuse encephalopathy. No evidence of new PATENT ATTORNEY pathology. No further testing will be recommend from neurology perspective Will sign off now please call if any questions Subjective Principal diagnosis: jerking movement, encephalopathy Interval history: Patient seen and examined. She is dong better and feels better. Is in sitting position and trying to eat. Jerking movements no longer observed. Objective - Constitutional Vitals: Temp Pulse Resp BP Pulse Ox 98.2 F 101 18 170/106 93 12/30/17 17:03 12/30/17 17:03 12/30/17 17:03 12/30/17 17:03 12/30/17 17:03 - Neurological Exam Sensorimotor examination: Present: other (Grossly intact. Patient has left hand and right foot wrapped. ) Motor Examination: Present: grossly full strength in all extremities (No longer having jerkings. no focal weakness noted) Motor examination - right side: 5/5: deltoids, biceps, triceps, wrist flexion, wrist extension, field service engineer, hip flexors, tibialis Anterior, quadriceps, toe extension (EHL), plantarflexion Motor examination - left side: 5/5: deltoids, biceps, triceps, wrist flexion, wrist extension, hip flexors, field service engineer, quadriceps, tibialis Anterior, toe extension (EHL), plantarflexion Reflexes: Biceps: 2+, Triceps: 2+, Brachioradialis: 2+, Patella: 2+, Achilles: 2 + Mental Status Examination: Present: awake, alert, oriented to person, oriented to place, follows commands appropriately, answers questions appropriately, opens eyes to voice, makes eye contact Cranial nerve examination: Present: PERRL, EOMI, visual casas intact, corneal reflexes brisk symmetrically, sensory to face intact, mastication intact, no facial asymmetry is present, no dysarthria, hearing is intact symmetrically, soft palate elevates bilaterally upon phonation, gag reflex intact, flexes SCM and trapezius muscles symmetrically with full power, tongue protrudes midline ( Patient speech is intact, she repeats same answers at times to different questions. ) - VTE Documentation of Mechanical Device: Intermittent pneumatic compression device Results - Laboratory Findings CBC and BMP: 12/30/17 04:15 12/30/17 04:15 Abnormal lab findings: Abnormal lab results RBC 2.78 M/mcL (3.82-4.97) L 12/30/17 04:15 Hgb 8.3 g/dL (11.5-15.4) L 12/30/17 04:15 Hct 26.6 % (35.3-44.9) L 12/30/17 04:15 MCHC 31.2 g/dL (31.6-35.5) L 12/30/17 04:15 RDW 17.1 % (11.5-14.5) H 12/30/17 04:15 Nucleated RBCs/100 WBC 0.4 /100 WBC (0) H 12/27/17 04:25 ESR 112 mm/hr (0-15) H 12/22/17 13:54 PT 12.7 Seconds (9.4-12.1) H 12/24/17 06:52 ABG pCO2 57 mmHg (35-45) H 12/28/17 23:49 ABG pO2 116 mmHg (85-104) H 12/28/17 23:49 ABG HCO3 30 mEq/L (21-27) H 12/28/17 23:49 ABG Total CO2 32 mEq/L (20-26) H 12/28/17 23:49 ABG Base Excess 4 mEq/L (-2 to 3) H 12/28/17 23:49 Sodium 135 mEq/L (136-145) L 12/30/17 04:15 Chloride 95 mEq/L (98-107) L 12/30/17 04:15 BUN 50 mg/dL (6-20) H 12/30/17 04:15 Creatinine 6.47 mg/dL (0.60-1.20) H 12/30/17 04:15 Est GFR ( Amer) 9 (> 60) L 12/30/17 04:15 Est GFR (Non-Af Amer) 7 (> 60) L 12/30/17 04:15 Glucose 311 mg/dL (70-105) H 12/30/17 04:15 POC Glucose 176 (58-89) H 12/30/17 11:22 Hemoglobin A1c 7.4 % (-5.6) H 12/23/17 04:03 Calculated Osmolality 305 (280-300) H 12/30/17 04:15 Calcium 8.2 mg/dL (8.6-10.3) L 12/30/17 04:15 Phosphorus 5.0 mg/dL (2.7-4.5) H 12/30/17 04:15 Transferrin 138 mg/dL (203-362) L 12/28/17 05:58 Alkaline Phosphatase 128 Units/L (34-104) H 12/27/17 04:25 C-Reactive Protein 208 mg/L (Less than 10) H 12/22/17 13:54 Globulin 3.8 g/dL (2.4-3.5) H 12/27/17 04:25 Albumin/Globulin Ratio 0.9 (1.1-2.2) L 12/27/17 04:25 Triglycerides 220 mg/dL (< 150) H 12/23/17 04:03 VLDL Cholesterol, Calc 44 mg/dL (< 31) H 12/23/17 04:03 HDL Cholesterol 17 mg/dL (40-59) L 12/23/17 04:03 Cholesterol/HDL Ratio 7.5 (0-4.9) H 12/23/17 04:03 25-OH Vitamin D Total 24 ng/mL (30-80) L 12/28/17 05:58 Consult Discharge Plan - Plan Referrals: Jacy Mcdonnell [Primary Care Provider] - ( web request sent on 12/29/17 )
[2017-12-30] MEDS ORDERED: Vancomycin 500 MG in D5% in Water (Mini-Bag+) 100 ML IVPB ONE (18:00)
[2017-12-30] MEDS: traZODone 50 MG TABLET PO SCH (20:36)
[2017-12-31 05:02] LABS: Hematocrit 28.9 % (35.3-44.9); Mean Corpuscular HGB Conc 31.1 g/dL (31.6-35.5); Mean Corpuscular Hemoglobin 30.2 pg (28.0-33.3); Mean Platelet Volume 10.2 fL (9.4-12.4); Nucleated Red Blood Cells 0.2 /100 WBC (0); Platelet Count 227 K/mcL (140-400); Red Blood Count 2.98 M/mcL (3.82-4.97); Red Cell Distribution Width 17.2 % (11.5-14.5)
[2017-12-31 05:56] LABS: Anisocytosis 1+ (Not Present); Eosinophils # 0.4 K/mcL (0.0-0.6); Lymphocytes # 2.2 K/mcL (0.6-4.6); Monocytes # 0.2 K/mcL (0.0-1.3); Neutrophils # 6.9 K/mcL (1.6-8.9); Platelet Estimate Normal (Normal)
--- NOTE | 2017-12-31 05:56 | Nephrology Progress Note ---
Date of Encounter: 12/31/17 Time of Encounter: 05:55 - Assessment and Plan (1) ESRD on dialysis Current Visit: Yes Status: Chronic Patient with ESRD secondary to diabetic nephropathy, on HD every Right upper chest tunnelled HD catheter in place for the past 2 years, blood cultures show no growth to date Repeat blood cultures show no growth to date Continue HD as scheduled every Avoid nephrotoxins Continue to monitor (2) Anemia in chronic kidney disease Current Visit: Yes Status: Chronic Anemia work-up: Iron 50, % iron 26%, transferrin 138, Vit B12 level 1047 Continue Aranesp weekly Continue to monitor Qualifiers: Chronic kidney disease stage: on chronic dialysis Qualified Code(s): N18.6 - End stage renal disease; D63.1 - Anemia in chronic kidney disease; D63.1 - Anemia in chronic kidney disease; Z99.2 - Dependence on renal dialysis; Z99.2 - Dependence on renal dialysis; Z99.2 - Dependence on renal dialysis; Z99.2 - Dependence on renal dialysis (3) Hyponatremia Current Visit: Yes Status: Acute Resolved Continue to monitor (4) HTN (hypertension) Current Visit: Yes Status: Chronic BP controlled off meds Management per primary team Qualifiers: Hypertension type: essential hypertension Qualified Code(s): I10 - Essential (primary) hypertension (5) Osteomyelitis Current Visit: Yes Status: Acute Proteus mirabilis positive wound cultures Management per ID Avoid nephrotoxins Qualifiers: Osteomyelitis type: other acute Osteomyelitis location: foot Laterality: right Qualified Code(s): M86.171 - Other acute osteomyelitis, right ankle and foot (6) Contusion of finger of left hand Current Visit: Yes Status: Acute MRSA positive wound cultures Management per ortho and ID Qualifiers: Encounter type: initial encounter Finger: middle finger Damage to nail status: without damage Qualified Code(s): S60.032A - Contusion of left middle finger without damage to nail, initial encounter (7) Diabetes mellitus Current Visit: Yes Status: Chronic Management per primary team Qualifiers: Diabetes mellitus type: type 1 Diabetes mellitus complication status: with skin complications Diabetes mellitus complication detail: with foot ulcer Qualified Code(s): E10.621 - Type 1 diabetes mellitus with foot ulcer; L97.509 - Non-pressure chronic ulcer of other part of unspecified foot with unspecified severity; L97.509 - Non-pressure chronic ulcer of other part of unspecified foot with unspecified severity; L97.509 - Non-pressure chronic ulcer of other part of unspecified foot with unspecified severity; L97.509 - Non-pressure chronic ulcer of other part of unspecified foot with unspecified severity (8) Vitamin D deficiency Current Visit: Yes Status: Chronic Vit D level 24 Continue Vit D supplementation Outpatient monitoring (9) Acute encephalopathy Current Visit: Yes Status: Acute Patient with acute metabolic encephalopathy Resolved since stopping Lyrica and Cymbalta Of note, max dose of Lyrica is 75mg daily in ESRD patients Management per primary team (10) Myoclonia Current Visit: Yes Status: Resolved Patient with bilateral hand clonus. Neurology following (11) Morbid obesity with BMI of 40.0-44.9, adult Current Visit: Yes Status: Chronic Management per primary team Subjective Principal diagnosis: jerking movement, encephalopathy Interval history: Patient seen and examined sitting up in bed. Patient is A&Ox3 today and denies further tremors in hands. Patient does not report any new c/o and reports feeling back to baseline. Objective - Vital Signs Vital signs: Vital Signs Temp Pulse Resp BP Pulse Ox 12/31/17 03:47 97.7 F 98 16 165/76 99 12/30/17 23:51 98.3 F 93 16 104/62 90 12/30/17 20:47 99 12/30/17 19:34 97.7 F 103 16 129/60 99 12/30/17 17:03 98.2 F 101 18 170/106 93 12/30/17 14:00 97.7 F 18 136/72 12/30/17 13:30 104/70 12/30/17 13:15 126/70 12/30/17 13:00 113/76 12/30/17 12:45 114/86 12/30/17 12:30 129/62 12/30/17 12:15 136/67 12/30/17 12:00 137/69 12/30/17 11:45 126/78 12/30/17 11:30 115/66 12/30/17 11:15 131/86 12/30/17 11:00 121/79 12/30/17 10:45 147/79 12/30/17 10:30 147/69 12/30/17 10:15 182/69 12/30/17 10:00 171/76 12/30/17 09:45 179/95 12/30/17 09:30 97.4 F L 18 120/92 12/30/17 06:29 98.2 F 95 18 159/78 100 Intake and Output 12/30/17 12/30/17 12/31/17 15:59 23:59 07:59 Intake Total 600 / 600 Output Total 4600 / 4600 Balance -4000 / -4000 Intake: Oral 0 / 0 Intake, Rinseback and Flushes 600 / 600 Output: Urine 0 / 0 Total Dialysis (HD) Output 4600 / 4600 Other: # Voids 1 Weight 102.3 kg Blood Glucose* 176 208 Hemodialysis Net Fluid Removed 4000 (mL) Patient Weight 12/31/17 23:59 Weight 102.3 kg - General Appearance General appearance: Present: well-developed, well-nourished, obese EENT: Present: ATNC, mucous membranes moist Neck: Present: no carotid bruit, supple Respiratory: Present: no kyphosis, clear Cardiology: Present: no murmurs, no rub, no gallops, edema (1+ pedal edema), regular rate, regular rhythm Dialysis Vascular Access: Venous Catheter (tunnelled HD cath right upper chest) Gastrointestinal: Present: normoactive bowel sounds, no tenderness, no guarding , obese Integumentary: Present: erythema (dressing in place LUE, RLE) Neurologic: Present: no focal deficit, no asterixis, alert and oriented x3 Musculoskeletal: Present: deformities (bilateral great toe amputations) Psychiatric: Present: mood/affect appropriate, cooperative - Lab 12/31/17 04:57 12/31/17 04:57 Most recent lab results ABG pH 7.33 pH Units (7.32-7.45) 12/28/17 23:49 ABG pCO2 57 mmHg (35-45) H 12/28/17 23:49 ABG pO2 116 mmHg (85-104) H 12/28/17 23:49 ABG HCO3 30 mEq/L (21-27) H 12/28/17 23:49 ABG O2 Saturation 98 % (95-98) 12/28/17 23:49 Calcium 8.0 mg/dL (8.6-10.3) L 12/31/17 04:57 Phosphorus 5.0 mg/dL (2.7-4.5) H 12/30/17 04:15 Magnesium 2.6 mg/dL (1.6-2.6) 12/30/17 04:15 - VTE Documentation of Mechanical Device: Intermittent pneumatic compression device Consult Discharge Plan - Plan Referrals: Jacy Mcdonnell [Primary Care Provider] - ( web request sent on 12/29/17 Patient is going to [facility] )
[2017-12-31] MEDS: Multivit/Ca/Min/Fe/FA 1 TAB TABLET PO SCH (08:03)
[2017-12-31] MEDS: Ascorbic Acid 500 MG TABLET PO SCH (08:03)
[2017-12-31] MEDS: Insulin LISPRO 300 UNITS/3 ML VIAL SQ SCH ×7 (08:03→21:02)
[2017-12-31] MEDS: *HR* OxyCODONE Immed Rel 5 MG TABLET PO PRN (08:03)
[2017-12-31] MEDS: Cholecalciferol (D-3) 1,000 UNIT TABLET PO SCH (08:03)
[2017-12-31] MEDS: Insulin DETEMIR 100 UNIT/ML X5UNITS SQ SCH ×2 (08:04→20:59)
[2017-12-31] MEDS: cefTRIAXone 2,000 MG in Water for inj. (sterile) 20 ML 20 ML IVPB SCH (10:02)
[2017-12-31] MEDS: Ondansetron ODT 4 MG TAB.RAPDIS PO PRN (11:49)
--- NOTE | 2017-12-31 11:50 | Podiatry Progress Note ---
Date of Encounter: 12/31/17 Time of Encounter: 10:30 - Assessment and Plan (1) Diabetic foot ulcer Current Visit: Yes Status: Acute S/p right hallux open amputation by Dr. Aggarwal on 12/24/17 following non healing diabetic ulceration of the plantar aspect of the right great toe. WBC: 9.8, temp 97.9 ESR: 112, CRP: 208 Right hallux wound cultures isolated proteus mirabalis. Intra op cultures - proteus mirabalis and enterococcus faecalis. Infectious Disease following. Currently on IV Vancomycin and Rocephin, will most likely need 6 weeks of IV antibiotic therapy. Patient will be discharged to [facility] for IV antibiotics and now wound vac. Due to patients continued AMS made decision to place wound vac to surgical wound /amputation site today to assist in healing. Educated patient on need for wound vac and course of recovery- will likely need 4-6 weeks of vac therapy- Will need changes every MWF per [facility] Prior dressing removed, wound cleansed with sterile saline and pat dry Skin prep applied to surrounding skin Tegarderm placed to dorsal foot for protection, small black simplace sponge used and cut to place in wound and track to top of foot. [id number] wound depth. Sponge sealed and vac placed, no leak noted. Covered with kerlex for protection. Patient instructed she is to ambulate per heel touch only. Orders for wound vac will be as follows: Small black simplace sponge, 125mmHg cont suction, change MWF Weight bearing status: heel touch only on right foot with post op shoe. Will continue to follow patient closely. Patient will need to follow up in podiatry 1 week after discharge. Qualifiers: Diabetic foot ulcer location: toe Diabetes mellitus type: type 1 Laterality: right Non-pressure ulcer stage: with necrosis of bone Qualified Code(s): E10.621 - Type 1 diabetes mellitus with foot ulcer; L97.514 - Non- pressure chronic ulcer of other part of right foot with necrosis of bone; L97.514 - Non-pressure chronic ulcer of other part of right foot with necrosis of bone; L97.514 - Non-pressure chronic ulcer of other part of right foot with necrosis of bone; L97.514 - Non-pressure chronic ulcer of other part of right foot with necrosis of bone (2) Diabetes mellitus Current Visit: Yes Status: Chronic Strict glucose control to limit complications and promote healing Qualifiers: Diabetes mellitus type: type 1 Diabetes mellitus complication status: with skin complications Diabetes mellitus complication detail: with foot ulcer Qualified Code(s): E10.621 - Type 1 diabetes mellitus with foot ulcer; L97.509 - Non-pressure chronic ulcer of other part of unspecified foot with unspecified severity; L97.509 - Non-pressure chronic ulcer of other part of unspecified foot with unspecified severity; L97.509 - Non-pressure chronic ulcer of other part of unspecified foot with unspecified severity; L97.509 - Non-pressure chronic ulcer of other part of unspecified foot with unspecified severity Subjective Principal diagnosis: jerking movement, encephalopathy Interval history: Patient is sitting up in bed with dressing intact to the right foot. Patient is s/p right hallux open amputation for osteomyelitis by Dr. Aggarwal on 12/24/17. Patient denies any pain to the right foot. Status post operative I & D 12/28/[address] Hernandez. Patient denies any fever, chills, or calf pain. Patient is alert to her self and place. Appears more coherent today than previously noted but still confused about course of stay and plan for discharge and aftercare. Patient is slow to respond to questions in regards to what surgery she had. Patient had CT of the brain and was negative for a stroke. Neurology signed off case after EEG stating they believe her AMS is related to her comorbid conditions. Objective - Vital Signs Vital Signs: Vital Signs Temp Pulse Resp BP Pulse Ox 12/31/17 11:33 97.9 F 102 18 204/75 95 12/31/17 08:30 96 12/31/17 06:47 98.1 F 96 18 132/61 96 12/31/17 03:47 97.7 F 98 16 165/76 99 12/30/17 23:51 98.3 F 93 16 104/62 90 12/30/17 20:47 99 12/30/17 19:34 97.7 F 103 16 129/60 99 12/30/17 17:03 98.2 F 101 18 170/106 93 12/30/17 14:00 97.7 F 18 136/72 12/30/17 13:30 104/70 12/30/17 13:15 126/70 12/30/17 13:00 113/76 12/30/17 12:45 114/86 12/30/17 12:30 129/62 12/30/17 12:15 136/67 12/30/17 12:00 137/69 Intake and Output 12/30/17 12/31/17 12/31/17 23:59 07:59 15:59 Intake Total 240 / 240 Output Total 0 / 0 Balance 240 / 240 Intake: Oral 240 / 240 Output: Urine 0 / 0 Other: Meal Breakfast Percent of Meal Consumed 95% Stool Size Moderate Stool Consistency soft Stool Characteristics Normal for Patient Stool Color Brown # Voids 1 # Bowel Movements 1 Weight 102.3 kg Blood Glucose* 208 217 289 Patient Weight 12/31/17 23:59 Weight 102.3 kg - Exam Exam: General appearance: alert awake oriented, slow to respond to questions. Calm and pleasant, no acute distress.. Vascular: Right: Pedal pulses +1/4 DP/PT , No evidence of cyanosis, pallor or rubor, Edema graded at 1+/4, Skin Temperature warm, No calf pain with manual compression. capillary refill time is immediate to digits. Neurologic: Sensation intact with light touch to foot. . Postop Exam: S/P Sutures intact to incision line, Open amputation of right hallux, light perwound erythema, moderate amount of serous drainage observed dressing. No streaking, no pus, no odor, base of wound with red granulation tissue. Minimal edema. - Lab Result Diagrams: 12/31/17 04:57 12/31/17 04:57 Labs: Abnormal lab results RBC 2.98 M/mcL (3.82-4.97) L 12/31/17 04:57 Hgb 9.0 g/dL (11.5-15.4) L 12/31/17 04:57 Hct 28.9 % (35.3-44.9) L 12/31/17 04:57 MCHC 31.1 g/dL (31.6-35.5) L 12/31/17 04:57 RDW 17.2 % (11.5-14.5) H 12/31/17 04:57 Metamyelocytes % 2.0 % (0) H 12/31/17 04:57 Nucleated RBCs/100 WBC 0.2 /100 WBC (0) H 12/31/17 04:57 Anisocytosis 1+ (Not Present) A 12/31/17 04:57 ESR 112 mm/hr (0-15) H 12/22/17 13:54 PT 12.7 Seconds (9.4-12.1) H 12/24/17 06:52 ABG pCO2 57 mmHg (35-45) H 12/28/17 23:49 ABG pO2 116 mmHg (85-104) H 12/28/17 23:49 ABG HCO3 30 mEq/L (21-27) H 12/28/17 23:49 ABG Total CO2 32 mEq/L (20-26) H 12/28/17 23:49 ABG Base Excess 4 mEq/L (-2 to 3) H 12/28/17 23:49 BUN 29 mg/dL (6-20) H 12/31/17 04:57 Creatinine 4.50 mg/dL (0.60-1.20) H 12/31/17 04:57 Est GFR ( Amer) 13 (> 60) L 12/31/17 04:57 Est GFR (Non-Af Amer) 11 (> 60) L 12/31/17 04:57 Glucose 213 mg/dL (70-105) H 12/31/17 04:57 POC Glucose 187 (58-89) H 12/30/17 16:57 Hemoglobin A1c 7.4 % (-5.6) H 12/23/17 04:03 Calcium 8.0 mg/dL (8.6-10.3) L 12/31/17 04:57 Phosphorus 5.0 mg/dL (2.7-4.5) H 12/30/17 04:15 Transferrin 138 mg/dL (203-362) L 12/28/17 05:58 Alkaline Phosphatase 128 Units/L (34-104) H 12/27/17 04:25 C-Reactive Protein 208 mg/L (Less than 10) H 12/22/17 13:54 Globulin 3.8 g/dL (2.4-3.5) H 12/27/17 04:25 Albumin/Globulin Ratio 0.9 (1.1-2.2) L 12/27/17 04:25 Triglycerides 220 mg/dL (< 150) H 12/23/17 04:03 VLDL Cholesterol, Calc 44 mg/dL (< 31) H 12/23/17 04:03 HDL Cholesterol 17 mg/dL (40-59) L 12/23/17 04:03 Cholesterol/HDL Ratio 7.5 (0-4.9) H 12/23/17 04:03 25-OH Vitamin D Total 24 ng/mL (30-80) L 12/28/17 05:58 Microbiology, Last 48 Hours 12/29/17 16:12 Blood Culture - Preliminary Peripheral Venipuncture No growth. 12/24/17 09:02 Anaerobic Culture - Preliminary Right Great Toe At this time, no anaerobic growth is present. The culture will be finalized after 5 days of incubation. 12/24/17 09:01 Surgical Biopsy Culture - Final Right Great Toe Proteus mirabilis Enterococcus faecalis 12/24/17 14:50 Anaerobic Culture - Final Left Middle Finger No anaerobes were recovered. - VTE Documentation of Mechanical Device: Intermittent pneumatic compression device Consult Discharge Plan - Plan Referrals: Jacy Mcdonnell [Primary Care Provider] - ( web request sent on 12/29/17 Patient is going to [facility] )
[2017-12-31] MEDS ORDERED: *HR* Promethazine 25 MG/ML VIAL IVP PRN (13:18)
--- NOTE | 2017-12-31 13:37 | Infectious Disease Progress No ---
Date of Encounter: 12/31/17 Time of Encounter: 13:35 - Assessment and Plan (1) Fever Current Visit: Yes Status: Acute Post-op fever with Tmax 102.5. Afebrile since 12/25/17 Resolved. Qualifiers: Fever type: unspecified Qualified Code(s): R50.9 - Fever, unspecified (2) Osteomyelitis Current Visit: Yes Status: Acute Location: Right foot, great toe. Causative organism P. mirabilis, resistant to fluoroquinolones, and Enterococcus faecalis (ampicillin and Vanc sensitive). Secondary to non-healing diabetic foot ulcer. X-ray of the right foot showed osteomyelitis of the base of the right great toe. ESR 112, CRP 208. Blood cultures drawn 12/22/17 are NGTD x 2 sets. Wound culture obtained in the ED grew P. mirabilis, resistant to fluoroquinolones, Bactrim, and gentamicin. Podiatry consulted and following. Status post amputation of the right great toe. Operative note reviewed. Intra-op cultures as above. Planning for wound closure when the patient's status improves. Wound care and activity restrictions per the podiatry team. Continue Vancomycin IV. Pharmacy to dose. Goal trough ~15. Continue Rocephin 2 grams IV daily. Duration of treatment depends on the clinical picture, but likely 6 weeks from the date of surgery. Since there was no osteomyelitis in the hand, will likely be able to switch the patient to ampicillin after two weeks of treating the hand infection, but will wait until she is seen as an outpatient to make changes. Monitor for drug toxicity and dose-adjust antibiotics. Will need to have tunneled PICC line placed. Will need weekly CBC, ESR, and CRP. Will need weekly PICC care per protocol. Follow up with ID 2 weeks post-discharge. Qualifiers: Osteomyelitis type: other acute Osteomyelitis location: foot Laterality: right Qualified Code(s): M86.171 - Other acute osteomyelitis, right ankle and foot (3) Infection of left hand Current Visit: Yes Status: Acute Causative organism MRSA. Likely secondary to traumatic injury. X-ray negative for bony abnormality. Ortho consulted. Status post bedside I & D by Dr. Hernandez. Procedure note revealed. Gross purulence noted. Minimal improvement per the ortho team. Status post operative I & D 12/28/[address] Hernandez. Operative note reviewed. No evidence of additional infection intra-op. Wound care and activity restrictions per the ortho team. Continue antibiotics as above. Continue contact precautions. (4) Diabetic foot ulcer Current Visit: Yes Status: Acute Location: Plantar medial aspect of the right great toe. Etiology unclear. Podiatry consulted and following. Status post amputation of the right great toe. Planning for wound closure when the patient's mental status improves. Surgical wound care and activity restrictions per the podiatry team. Qualifiers: Diabetic foot ulcer location: toe Diabetes mellitus type: type 1 Laterality: right Non-pressure ulcer stage: with necrosis of bone Qualified Code(s): E10.621 - Type 1 diabetes mellitus with foot ulcer; L97.514 - Non- pressure chronic ulcer of other part of right foot with necrosis of bone; L97.514 - Non-pressure chronic ulcer of other part of right foot with necrosis of bone; L97.514 - Non-pressure chronic ulcer of other part of right foot with necrosis of bone; L97.514 - Non-pressure chronic ulcer of other part of right foot with necrosis of bone (5) Diabetes mellitus Current Visit: Yes Status: Chronic Uncontrolled recently per patient report. FSBS 338 on admission labs. Her blood sugars continue to run high. HgbA1C 7.2%. Recommend aggressive glucose monitoring and control to promote wound healing and prevent re-infection. Management per the primary team. Qualifiers: Diabetes mellitus type: type 1 Diabetes mellitus complication status: with skin complications Diabetes mellitus complication detail: with foot ulcer Qualified Code(s): E10.621 - Type 1 diabetes mellitus with foot ulcer; L97.509 - Non-pressure chronic ulcer of other part of unspecified foot with unspecified severity; L97.509 - Non-pressure chronic ulcer of other part of unspecified foot with unspecified severity; L97.509 - Non-pressure chronic ulcer of other part of unspecified foot with unspecified severity; L97.509 - Non-pressure chronic ulcer of other part of unspecified foot with unspecified severity (6) ESRD on dialysis Current Visit: Yes Status: Chronic Secondary to diabetic nephropathy. Follows with [facility]. HD T//Sat. Nephrology consulted and following. (7) Peripheral neuropathy Current Visit: Yes Status: Chronic Qualifiers: Peripheral neuropathy type: polyneuropathy, other Qualified Code(s): G62.89 - Other specified polyneuropathies (8) Hypertension Current Visit: No Status: Chronic Qualifiers: Hypertension type: essential hypertension Qualified Code(s): I10 - Essential (primary) hypertension (9) Morbid obesity with BMI of 40.0-44.9, adult Current Visit: Yes Status: Chronic (10) Left hand pain Current Visit: Yes Status: Acute Likely secondary to traumatic injury with superimposed infection. Xray negative for fracture. Ortho consulted and following. Pain management per the primary and ortho teams. (11) Myoclonia Current Visit: Yes Status: Resolved Etiology unclear: medications vs. other. Neurology consulted and following. Resolved. (12) Acute encephalopathy Current Visit: Yes Status: Resolved Etiology unclear: anesthesia vs. medications vs. hypercarbia vs. other. No SIRS criteria. Patient does have a new myoclonic jerking. CT head negative. EEG non-diagnostic. Neurology consulted and following. Patient's mental status improved today and appears back to baseline. Continue to monitor closely. (13) Acute respiratory failure with hypoxia Current Visit: Yes Status: Resolved Likely secondary to pulmonary edema. Required BIPAP post-op. On O2 via NC at this time. CXR showed pulmonary edema. Improved. (14) Anemia in chronic kidney disease Current Visit: Yes Status: Chronic Hemoglobin 9 this morning. Management per the primary and nephrology teams. Qualifiers: Chronic kidney disease stage: on chronic dialysis Qualified Code(s): N18.6 - End stage renal disease; D63.1 - Anemia in chronic kidney disease; D63.1 - Anemia in chronic kidney disease; Z99.2 - Dependence on renal dialysis; Z99.2 - Dependence on renal dialysis; Z99.2 - Dependence on renal dialysis; Z99.2 - Dependence on renal dialysis - Subjective Interval history: Patient seen and examined. No acute events noted overnight. Status post operative I & D of the left middle finger 12/28/17. This morning, she appears more alert and is sitting up on the side of the bed talking on the phone and appears back to baseline. She denies fevers, chills, or rigors. Denies chest pain, shortness of breath. Reports a non-productive cough. Denies nausea, vomiting, or diarrhea. Denies abdominal pain and states her appetite is good. She is anuric. Denies oral thrush or new skin lesions. Complains of pain 8/10 in her left hand. Denies pain in her right foot. Infect Dis PN-Objective Data - Labs CBC & Chem 7: 12/31/17 04:57 12/31/17 04:57 Labs: Laboratory Results - last 24 hr 12/30/17 12/31/17 12/31/17 16:57 04:57 04:57 WBC 9.8 RBC 2.98 L Hgb 9.0 L Hct 28.9 L MCV 97.0 MCH 30.2 MCHC 31.1 L RDW 17.2 H Plt Count 227 MPV 10.2 Seg Neutrophils % 70.0 Lymphocytes % 22.0 Monocytes % 2.0 Eosinophils % 4.0 Metamyelocytes % 2.0 H Neutrophils # 6.9 Lymphocytes # 2.2 Monocytes # 0.2 Eosinophils # 0.4 Nucleated RBCs/100 WBC 0.2 H Platelet Estimate Normal Anisocytosis 1+ A Sodium 138 Potassium 4.0 Chloride 101 Carbon Dioxide 26 BUN 29 H Creatinine 4.50 H Est GFR ( Amer) 13 L Est GFR (Non-Af Amer) 11 L BUN/Creatinine Ratio 6 Glucose 213 H POC Glucose 187 H Calculated Osmolality 298 Calcium 8.0 L Cultures: Cultures 12/29/17 16:12 Blood Culture - Preliminary Peripheral Venipuncture No growth. 12/24/17 09:02 Anaerobic Culture - Preliminary Right Great Toe At this time, no anaerobic growth is present. The culture will be finalized after 5 days of incubation. 12/24/17 09:01 Surgical Biopsy Culture - Final Right Great Toe Proteus mirabilis Enterococcus faecalis 12/24/17 14:50 Anaerobic Culture - Final Left Middle Finger No anaerobes were recovered. 12/24/17 14:50 Wound Culture - Final Left Middle Finger Methicillin Resistant S.aureus 12/24/17 18:07 Gram Stain - Final Left Middle Finger Serology 12/24/17 12/22/17 Range/Units 16:43 16:01 Urine Test Negative (Negative) Hep Bs Antigen Nonreactive (Nonreactive) Hep Bs Antibody 39.07 mIU/mL Exam - Constitutional Vitals: Temp Pulse Resp BP Pulse Ox 97.9 F 102 18 197/81 95 12/31/17 11:33 12/31/17 11:33 12/31/17 11:33 12/31/17 13:05 12/31/17 11:33 General appearance: cooperative, morbidly obese, no acute distress - Head Head exam: Present: atraumatic, normal inspection, normocephalic - Eye Eye exam: Present: EOMI, normal appearance, PERRL Pupils: Present: normal accommodation - ENT ENT exam: Present: mucous membranes moist - Neck Neck exam: Present: normal inspection - Respiratory Respiratory exam: Present: CTAB. Absent: rales, respiratory distress, rhonchi, wheezes - Cardiovascular Cardiovascular exam: Present: RRR, +S1, +S2 - GI/Abdominal GI/Abdominal exam: Present: distended (obese), normal bowel sounds, soft. Absent: tenderness - Extremities Exam Extremities exam: Present: normal inspection. Absent: joint swelling, pedal edema, tenderness Additional comments: Right foot dressing C/D/I. - Neurological Exam Neurological exam: Present: alert, oriented X3, no focal deficits - Psychiatric Psychiatric exam: Present: normal affect, normal mood - Skin Skin exam: Present: dry, intact, normal color, warm Additional comments: Left hand dressing C/D/I. Right foot dressing C/D/I. - VTE Documentation of Mechanical Device: Intermittent pneumatic compression device Consult Discharge Plan - Plan Referrals: Jacy Mcdonnell [Primary Care Provider] - ( web request sent on 12/29/17 Patient is [facility] to [facility] ) - Attending Attestation I examined this patient and my medical decision-making was reviewed with the Resident Physician. I agree with the documented findings, disposition and treatment plan as described except to the extent set forth below.
[2017-12-31] MEDS: *HR* HYDROcodone/Acet 5/325 mg TABLET PO PRN ×2 (16:29→22:39)
--- NOTE | 2017-12-31 17:28 | Internal Med Progress Note ---
Date of Encounter: 12/31/17 Time of Encounter: 10:30 - Assessment and plan (1) Myoclonia Current Visit: Yes Status: Resolved Assessment and plan: could be related to ESRD and use of Benadryl, narcotic pain medications, Lyrica , Cymbalta. Held all these medications until now; will restart Lyrica due to anxiety and agitation ?withdrawal; Myoclonia resolved; Neurology f/up appreciated, signed off; EEG shows diffuse slowing; Continue supportive care. (2) Acute respiratory failure with hypoxia Current Visit: Yes Status: Resolved (3) Acute encephalopathy Current Visit: Yes Status: Resolved Assessment and plan: Somewhat improved today, oriented to self and place but unable to answer questions regarding her medical diagnoses, and gets confused with short term memory loss. Restart Lyrica, as above; supportive care; Plan for ECF placement for continued IV antibiotics as patient does not have appropriate home support. check services clerk on board. (4) Osteomyelitis Current Visit: Yes Status: Acute Assessment and plan: right great toe diabetic foot ulcer and osteomyelitis; Podiatry on board, s/p amputation of great toe on 12/24/17; external wound culture grows Proteus mirabilis, intraoperative cultures grow Proteus mirabilis and ampicillin sensitive Enterococcus faecalis. ID on board- recommendations are to continue IV Rocephin and Vancomycin, for at least 6 weeks from the date of surgery. Prescriptions have been written for antibiotics up to 02/04/18; plan for ECF placement for continued IV antibiotics. local wound care per Podiatry- received wound VAC placement today; ?plan for closure of right foot wound. Physical and occupational therapy evaluation. Qualifiers: Osteomyelitis type: other acute Osteomyelitis location: foot Laterality: right Qualified Code(s): M86.171 - Other acute osteomyelitis, right ankle and foot (5) Diabetic foot ulcer Current Visit: Yes Status: Acute Qualifiers: Diabetic foot ulcer location: toe Diabetes mellitus type: type 1 Laterality: right Non-pressure ulcer stage: with necrosis of bone Qualified Code(s): E10.621 - Type 1 diabetes mellitus with foot ulcer; L97.514 - Non- pressure chronic ulcer of other part of right foot with necrosis of bone; L97.514 - Non-pressure chronic ulcer of other part of right foot with necrosis of bone; L97.514 - Non-pressure chronic ulcer of other part of right foot with necrosis of bone; L97.514 - Non-pressure chronic ulcer of other part of right foot with necrosis of bone (6) Infection of left hand Current Visit: Yes Status: Acute Assessment and plan: Orthopedic surgery on board; underwent bedside I&D, wound culture growing MRSA; continue IV Vancomycin as above; underwent repeat operative I&D on 12/28; local wound care per Orthopedics; (7) Anemia in chronic kidney disease Current Visit: Yes Status: Chronic Qualifiers: Chronic kidney disease stage: on chronic dialysis Qualified Code(s): N18.6 - End stage renal disease; D63.1 - Anemia in chronic kidney disease; D63.1 - Anemia in chronic kidney disease; Z99.2 - Dependence on renal dialysis; Z99.2 - Dependence on renal dialysis; Z99.2 - Dependence on renal dialysis; Z99.2 - Dependence on renal dialysis (8) Diabetes mellitus Current Visit: Yes Status: Chronic Assessment and plan: continue Accucheck blood glucose monitoring with basal bolus insulin regimen; blood sugars somewhat improved today, with a few readings in 200s. diabetic diet as tolerated; Qualifiers: Diabetes mellitus type: type 1 Diabetes mellitus complication status: with skin complications Diabetes mellitus complication detail: with foot ulcer Qualified Code(s): E10.621 - Type 1 diabetes mellitus with foot ulcer; L97.509 - Non-pressure chronic ulcer of other part of unspecified foot with unspecified severity; L97.509 - Non-pressure chronic ulcer of other part of unspecified foot with unspecified severity; L97.509 - Non-pressure chronic ulcer of other part of unspecified foot with unspecified severity; L97.509 - Non-pressure chronic ulcer of other part of unspecified foot with unspecified severity (9) ESRD on dialysis Current Visit: Yes Status: Chronic Assessment and plan: Nephrology on board, patient is receiving regular HD sessions; (10) Morbid obesity with BMI of 40.0-44.9, adult Current Visit: Yes Status: Chronic (11) HLD (hyperlipidemia) Current Visit: Yes Status: Chronic Qualifiers: Hyperlipidemia type: unspecified Qualified Code(s): E78.5 - Hyperlipidemia , unspecified (12) HTN (hypertension) Current Visit: Yes Status: Chronic Qualifiers: Hypertension type: essential hypertension Qualified Code(s): I10 - Essential (primary) hypertension (13) Peripheral neuropathy Current Visit: Yes Status: Chronic Qualifiers: Peripheral neuropathy type: polyneuropathy, other Qualified Code(s): G62.89 - Other specified polyneuropathies - Subjective Interval history: Resolved myoclonic jerks, patient is more alert and oriented, however with poor memory and noted to have periods of extreme agitation. Claims that she is getting confused by different medical staff members telling her different things. She keeps contradicting her history. Reports left hand pain. - Constitutional Vitals: Temp Pulse Resp BP Pulse Ox 98.4 F 105 17 123/63 95 12/31/17 14:55 12/31/17 14:55 12/31/17 14:55 12/31/17 14:55 12/31/17 14:55 General appearance: Present: A&O X 2, morbidly obese. Absent: answers questions appropriately - Respiratory Respiratory exam: Present: CTAB. Absent: accessory muscle use, rales, rhonchi, wheezes - Cardiovascular Cardiovascular exam: Present: RRR, +S1, +S2. Absent: diastolic murmur, gallop, rubs, systolic murmur - GI/Abdominal GI/Abdominal exam: Present: normal bowel sounds, soft (Obese), no peritoneal signs. Absent: distended, tenderness - Extremities Exam Extremities exam: Present: full ROM, warm, radial pulses palpable and symmetrical. Absent: calf tenderness, cyanotic, pedal edema Additional comments: Right foot with surgical dressing intact, wound VAC has been placed Left hand with surgical dressing intact - Neurological Exam Neurological exam: Present: altered (continues to have mild psychosis, paranoid delusions, agitaion), CN II-XII intact, no focal deficits. Absent: pronater drift, facial droop, speech deficit Internal Medicine: Result - Labs CBC & Chem 7: 12/31/17 04:57 12/31/17 04:57 Labs: Short CBC 12/31/17 Range/Units 04:57 WBC 9.8 (4.3-11.1) K/mcL Hgb 9.0 L (11.5-15.4) g/dL Hct 28.9 L (35.3-44.9) % Plt Count 227 (140-400) K/mcL Neutrophils # 6.9 (1.6-8.9) K/mcL BMP 12/31/17 04:57 Sodium 138 Potassium 4.0 Chloride 101 Carbon Dioxide 26 BUN 29 H Creatinine 4.50 H Glucose 213 H Calcium 8.0 L - ABG Interpretation ABG results: ABG ABG pH 7.33 pH Units (7.32-7.45) 12/28/17 23:49 ABG pCO2 57 mmHg (35-45) H 12/28/17 23:49 ABG pO2 116 mmHg (85-104) H 12/28/17 23:49 ABG O2 Saturation 98 % (95-98) 12/28/17 23:49 PT/INR, D-dimer PT 12.7 Seconds (9.4-12.1) H 12/24/17 06:52 - VTE Documentation of Mechanical Device: Intermittent pneumatic compression device Consult Discharge Plan - Plan Referrals: Jacy Mcdonnell [Primary Care Provider] - ( web request sent on 12/29/17 Patient is going to ECF )
[2017-12-31] MEDS: Pregabalin 75 MG CAPSULE PO SCH (17:43)
--- NOTE | 2017-12-31 18:01 | Orthopedics Progress Note ---
Date of Encounter: 12/31/17 Time of Encounter: 18:00 - Assessment and Plan (1) Contusion of finger of left hand Current Visit: Yes Status: Acute Qualifiers: Encounter type: initial encounter Finger: middle finger Damage to nail status: without damage Qualified Code(s): S60.032A - Contusion of left middle finger without damage to nail, initial encounter Subjective Principal diagnosis: jerking movement, encephalopathy Interval history: S: Expected postoperative pain to the left logn finger. O: Afebrile and vital signs are stable Cellulitis improved I and D sites are clean with no drainage [place] drains pulled I can gently passively range the digit through the mid range without significant pain. She could grossly flex and extend the digits through a small arc without significant pain. The fingertips are all grossly sensate and well-perfused, and the radial artery pulse is 2+. Cultures are showing MRSA A: Left long finger infection post operative I&D P: The left long finger continues to improve. Continue antibiotics per the primary team. Elevate. Motion exercises. Will continue to follow. Objective Vital signs: Vital Signs Temp Pulse Resp BP Pulse Ox 12/31/17 14:55 98.4 F 105 17 123/63 95 12/31/17 13:05 197/81 12/31/17 11:33 97.9 F 102 18 204/75 95 12/31/17 08:30 96 12/31/17 06:47 98.1 F 96 18 132/61 96 12/31/17 03:47 97.7 F 98 16 165/76 99 12/30/17 23:51 98.3 F 93 16 104/62 90 12/30/17 20:47 99 12/30/17 19:34 97.7 F 103 16 129/60 99 Intake and Output 12/31/17 12/31/17 12/31/17 07:59 15:59 23:59 Intake Total 240 / 240 Output Total 0 / 0 Balance 240 / 240 Intake: Oral 240 / 240 Output: Urine 0 / 0 Other: Meal Lunch Percent of Meal Consumed 0% Stool Size Moderate Stool Consistency soft Stool Characteristics Normal for Patient Stool Color Brown # Bowel Movements 1 Weight 102.3 kg Blood Glucose* 217 289 166 Patient Weight 12/31/17 23:59 Weight 102.3 kg - Labs CBC & BMP: 12/31/17 04:57 12/31/17 04:57 Labs: Abnormal lab results RBC 2.98 M/mcL (3.82-4.97) L 12/31/17 04:57 Hgb 9.0 g/dL (11.5-15.4) L 12/31/17 04:57 Hct 28.9 % (35.3-44.9) L 12/31/17 04:57 MCHC 31.1 g/dL (31.6-35.5) L 12/31/17 04:57 RDW 17.2 % (11.5-14.5) H 12/31/17 04:57 Metamyelocytes % 2.0 % (0) H 12/31/17 04:57 Nucleated RBCs/100 WBC 0.2 /100 WBC (0) H 12/31/17 04:57 Anisocytosis 1+ (Not Present) A 12/31/17 04:57 ESR 112 mm/hr (0-15) H 12/22/17 13:54 PT 12.7 Seconds (9.4-12.1) H 12/24/17 06:52 ABG pCO2 57 mmHg (35-45) H 12/28/17 23:49 ABG pO2 116 mmHg (85-104) H 12/28/17 23:49 ABG HCO3 30 mEq/L (21-27) H 12/28/17 23:49 ABG Total CO2 32 mEq/L (20-26) H 12/28/17 23:49 ABG Base Excess 4 mEq/L (-2 to 3) H 12/28/17 23:49 BUN 29 mg/dL (6-20) H 12/31/17 04:57 Creatinine 4.50 mg/dL (0.60-1.20) H 12/31/17 04:57 Est GFR ( Amer) 13 (> 60) L 12/31/17 04:57 Est GFR (Non-Af Amer) 11 (> 60) L 12/31/17 04:57 Glucose 213 mg/dL (70-105) H 12/31/17 04:57 POC Glucose 187 (58-89) H 12/30/17 16:57 Hemoglobin A1c 7.4 % (-5.6) H 12/23/17 04:03 Calcium 8.0 mg/dL (8.6-10.3) L 12/31/17 04:57 Phosphorus 5.0 mg/dL (2.7-4.5) H 12/30/17 04:15 Transferrin 138 mg/dL (203-362) L 12/28/17 05:58 Alkaline Phosphatase 128 Units/L (34-104) H 12/27/17 04:25 C-Reactive Protein 208 mg/L (Less than 10) H 12/22/17 13:54 Globulin 3.8 g/dL (2.4-3.5) H 12/27/17 04:25 Albumin/Globulin Ratio 0.9 (1.1-2.2) L 12/27/17 04:25 Triglycerides 220 mg/dL (< 150) H 12/23/17 04:03 VLDL Cholesterol, Calc 44 mg/dL (< 31) H 12/23/17 04:03 HDL Cholesterol 17 mg/dL (40-59) L 12/23/17 04:03 Cholesterol/HDL Ratio 7.5 (0-4.9) H 12/23/17 04:03 25-OH Vitamin D Total 24 ng/mL (30-80) L 12/28/17 05:58 - VTE Documentation of Mechanical Device: Intermittent pneumatic compression device Consult Discharge Plan - Plan Referrals: Jacy Mcdonnell [Primary Care Provider] - ( web request sent on 12/29/17 Patient is going to [facility] )
[2017-12-31] MEDS: traZODone 50 MG TABLET PO SCH (20:59)
[2018-01-01 04:28] LABS: Hematocrit 31.1 % (35.3-44.9); Hemoglobin 9.6 g/dL (11.5-15.4); Mean Corpuscular HGB Conc 30.9 g/dL (31.6-35.5); Mean Corpuscular Hemoglobin 29.6 pg (28.0-33.3); Mean Platelet Volume 10.5 fL (9.4-12.4); Platelet Count 271 K/mcL (140-400); Red Blood Count 3.24 M/mcL (3.82-4.97); Red Cell Distribution Width 17.2 % (11.5-14.5)
[2018-01-01 04:50] LABS: Calcium 8.7 mg/dL (8.6-10.3); Potassium 4.1 mEq/L (3.5-5.1)
[2018-01-01] MEDS ORDERED: 0.9 % Sodium Chloride 250 ML IVC PRN (08:13)
[2018-01-01] MEDS ORDERED: 0.9 % Sodium Chloride 1,000 ML PRIME SCH (08:15)
[2018-01-01] MEDS: Ascorbic Acid 500 MG TABLET PO SCH (08:30)
[2018-01-01] MEDS: Cholecalciferol (D-3) 1,000 UNIT TABLET PO SCH (08:30)
[2018-01-01] MEDS: Multivit/Ca/Min/Fe/FA 1 TAB TABLET PO SCH (08:30)
[2018-01-01] MEDS: Insulin LISPRO 300 UNITS/3 ML VIAL SQ SCH ×7 (08:31→22:08)
[2018-01-01] MEDS: Insulin DETEMIR 100 UNIT/ML X5UNITS SQ SCH ×2 (08:32→22:03)
--- NOTE | 2018-01-01 10:06 | Nephrology Progress Note ---
Date of Encounter: 01/01/18 Time of Encounter: 09:20 - Assessment and Plan (1) ESRD on dialysis Current Visit: Yes Status: Chronic HD today with a 3K bath and will challenge her dry weight d/t the HTN (2) Anemia in chronic kidney disease Current Visit: Yes Status: Chronic Hgb goal 10-11. Will monitor for АЛЕКСАНДР and/or IV iron Qualifiers: Chronic kidney disease stage: on chronic dialysis Qualified Code(s): N18.6 - End stage renal disease; D63.1 - Anemia in chronic kidney disease; D63.1 - Anemia in chronic kidney disease; Z99.2 - Dependence on renal dialysis; Z99.2 - Dependence on renal dialysis; Z99.2 - Dependence on renal dialysis; Z99.2 - Dependence on renal dialysis (3) HTN (hypertension) Current Visit: Yes Status: Chronic CCC Qualifiers: Hypertension type: essential hypertension Qualified Code(s): I10 - Essential (primary) hypertension (4) Vitamin D deficiency Current Visit: Yes Status: Chronic Replete Subjective Principal diagnosis: jerking movement, encephalopathy Interval history: She did not affirm N/V/D today. She was on the phone talking to someone during most of my interview and exam with her. She agreed to proceed with dialysis as scheduled today. Objective - Vital Signs Vital signs: Vital Signs Temp Pulse Resp BP Pulse Ox 01/01/18 07:34 98.3 F 106 16 199/91 96 01/01/18 03:53 98.5 F 104 17 138/77 94 01/01/18 00:18 98.2 F 104 17 153/75 92 12/31/17 19:50 98.1 F 106 17 171/95 95 12/31/17 14:55 98.4 F 105 17 123/63 95 12/31/17 13:05 197/81 12/31/17 11:33 97.9 F 102 18 204/75 95 Intake and Output 12/31/17 01/01/18 01/01/18 23:59 07:59 15:59 Intake Total 0 / 0 Output Total 0 / 0 Balance 0 / 0 Intake: Oral 0 / 0 Output: Urine 0 / 0 Other: Weight 102.3 kg Blood Glucose* 148 277 Patient Weight 01/01/18 23:59 Weight 102.3 kg - General Appearance General appearance: Present: well-developed, well-nourished, appears started age , obese, chronically ill EENT: Present: ATNC, PERRL, mucous membranes moist Neck: Present: supple Respiratory: Present: clear Cardiology: Present: edema, regular rate, regular rhythm, normal S1, normal S2 Dialysis Vascular Access: Venous Catheter (Right permacath without exite site erythema) Gastrointestinal: Present: normoactive bowel sounds, no tenderness, no guarding , obese Integumentary: Present: ecchymotic, chronic venous stasis Additional Comments: several wounds were wrapped Neurologic: Present: no asterixis Musculoskeletal: Present: no cyanosis Psychiatric: Present: mood/affect appropriate, cooperative - Lab 01/01/18 04:10 01/01/18 04:10 Most recent lab results ABG pH 7.33 pH Units (7.32-7.45) 12/28/17 23:49 ABG pCO2 57 mmHg (35-45) H 12/28/17 23:49 ABG pO2 116 mmHg (85-104) H 12/28/17 23:49 ABG HCO3 30 mEq/L (21-27) H 12/28/17 23:49 ABG O2 Saturation 98 % (95-98) 12/28/17 23:49 Calcium 8.7 mg/dL (8.6-10.3) 01/01/18 04:10 Phosphorus 5.0 mg/dL (2.7-4.5) H 12/30/17 04:15 Magnesium 2.6 mg/dL (1.6-2.6) 12/30/17 04:15 - VTE Documentation of Mechanical Device: Intermittent pneumatic compression device Consult Discharge Plan - Plan Referrals: Jacy Mcdonnell [Primary Care Provider] - ( web request sent on 12/29/17 Patient is going to [facility] )
[2018-01-01] MEDS: cefTRIAXone 2,000 MG in Water for inj. (sterile) 20 ML 20 ML IVPB SCH (14:53)
[2018-01-01] MEDS ORDERED: 0.9 % Sodium Chloride 2,000 ML ONE (15:36)
--- NOTE | 2018-01-01 16:05 | Internal Med Progress Note ---
Date of Encounter: 01/01/18 Time of Encounter: 16:05 - Assessment and plan (1) Myoclonia Current Visit: Yes Status: Resolved Assessment and plan: could be related to ESRD and use of Benadryl, narcotic pain medications, Lyrica , Cymbalta. Myoclonia resolved; Neurology f/up appreciated, signed off; EEG shows diffuse slowing; Continue supportive care. (2) Acute respiratory failure with hypoxia Current Visit: Yes Status: Resolved (3) Acute encephalopathy Current Visit: Yes Status: Acute Assessment and plan: Likely metabolic/toxic due to multiple surgeries with anesthesia, end-stage renal disease, pain medications, ongoing infection. Continued short-term amnesia associated with agitation and frustration. Patient is oriented to self and place, able to report certain medical events accurately however gets confused with others. Restarted Lyrica, continue to hold Cymbalta; neurology evaluation as mentioned above, recommended no further intervention. supportive care; will hold off on anxiolytics which may cause sedation and further confusion. Plan for ECF placement for continued IV antibiotics as patient does not have appropriate home support. visitor services representative on board. (4) Osteomyelitis Current Visit: Yes Status: Acute Assessment and plan: right great toe diabetic foot ulcer and osteomyelitis; Podiatry on board, s/p amputation of great toe on 12/24/17; external wound culture grows Proteus mirabilis, intraoperative cultures grow Proteus mirabilis and ampicillin sensitive Enterococcus faecalis. ID on board- recommendations are to continue IV Rocephin and Vancomycin, for at least 6 weeks from the date of surgery. Prescriptions have been written for antibiotics up to 02/04/18; plan for ECF placement for continued IV antibiotics. local wound care per Podiatry- received wound VAC placement; ?plan for closure of right foot wound. Physical and occupational therapy evaluation. Qualifiers: Osteomyelitis type: other acute Osteomyelitis location: foot Laterality: right Qualified Code(s): M86.171 - Other acute osteomyelitis, right ankle and foot (5) Diabetic foot ulcer Current Visit: Yes Status: Acute Qualifiers: Diabetic foot ulcer location: toe Diabetes mellitus type: type 1 Laterality: right Non-pressure ulcer stage: with necrosis of bone Qualified Code(s): E10.621 - Type 1 diabetes mellitus with foot ulcer; L97.514 - Non- pressure chronic ulcer of other part of right foot with necrosis of bone; L97.514 - Non-pressure chronic ulcer of other part of right foot with necrosis of bone; L97.514 - Non-pressure chronic ulcer of other part of right foot with necrosis of bone; L97.514 - Non-pressure chronic ulcer of other part of right foot with necrosis of bone (6) Infection of left hand Current Visit: Yes Status: Acute (7) Anemia in chronic kidney disease Current Visit: Yes Status: Chronic Qualifiers: Chronic kidney disease stage: on chronic dialysis Qualified Code(s): N18.6 - End stage renal disease; D63.1 - Anemia in chronic kidney disease; D63.1 - Anemia in chronic kidney disease; Z99.2 - Dependence on renal dialysis; Z99.2 - Dependence on renal dialysis; Z99.2 - Dependence on renal dialysis; Z99.2 - Dependence on renal dialysis (8) Diabetes mellitus Current Visit: Yes Status: Chronic Qualifiers: Diabetes mellitus type: type 1 Diabetes mellitus complication status: with skin complications Diabetes mellitus complication detail: with foot ulcer Qualified Code(s): E10.621 - Type 1 diabetes mellitus with foot ulcer; L97.509 - Non-pressure chronic ulcer of other part of unspecified foot with unspecified severity; L97.509 - Non-pressure chronic ulcer of other part of unspecified foot with unspecified severity; L97.509 - Non-pressure chronic ulcer of other part of unspecified foot with unspecified severity; L97.509 - Non-pressure chronic ulcer of other part of unspecified foot with unspecified severity (9) ESRD on dialysis Current Visit: Yes Status: Chronic (10) Morbid obesity with BMI of 40.0-44.9, adult Current Visit: Yes Status: Chronic (11) HLD (hyperlipidemia) Current Visit: Yes Status: Chronic Qualifiers: Hyperlipidemia type: unspecified Qualified Code(s): E78.5 - Hyperlipidemia , unspecified (12) HTN (hypertension) Current Visit: Yes Status: Chronic Qualifiers: Hypertension type: essential hypertension Qualified Code(s): I10 - Essential (primary) hypertension (13) Peripheral neuropathy Current Visit: Yes Status: Chronic Qualifiers: Peripheral neuropathy type: polyneuropathy, other Qualified Code(s): G62.89 - Other specified polyneuropathies - Subjective Interval history: Continues to be confused and agitated with memory loss to certain things, and ensuing frustration; reports nausea with antibiotics; no diarrhea, abdominal pain; no chest pain; plan of care d/w sister at bedside; - Constitutional Vitals: Temp Pulse Resp BP Pulse Ox 98.0 F 106 18 140/76 96 01/01/18 13:15 01/01/18 07:34 01/01/18 13:15 01/01/18 13:15 01/01/18 07:34 General appearance: Present: A&O X 2, morbidly obese. Absent: answers questions appropriately - Respiratory Respiratory exam: Present: CTAB. Absent: accessory muscle use, rales, rhonchi, wheezes - Cardiovascular Cardiovascular exam: Present: RRR, +S1, +S2. Absent: diastolic murmur, gallop, rubs, systolic murmur - GI/Abdominal GI/Abdominal exam: Present: normal bowel sounds, soft, no peritoneal signs. Absent: distended, tenderness - Extremities Exam Extremities exam: Present: full ROM, warm, radial pulses palpable and symmetrical. Absent: calf tenderness, cyanotic, pedal edema Additional comments: Right foot with intact surgical dressing, wound VAC in place with no drainage Left hand with surgical dressing intact - Neurological Exam Neurological exam: Present: altered, CN II-XII intact, no focal deficits. Absent: pronater drift, facial droop, speech deficit Internal Medicine: Result - Labs CBC & Chem 7: 01/01/18 04:10 01/01/18 04:10 Labs: Short CBC 01/01/18 Range/Units 04:10 WBC 11.1 (4.3-11.1) K/mcL Hgb 9.6 L (11.5-15.4) g/dL Hct 31.1 L (35.3-44.9) % Plt Count 271 (140-400) K/mcL [facility] 01/01/18 04:10 Sodium 136 Potassium 4.1 Chloride 97 L Carbon Dioxide 26 BUN 39 H Creatinine 6.14 H Glucose 249 H Calcium 8.7 - ABG Interpretation ABG results: ABG ABG pH 7.33 pH Units (7.32-7.45) 12/28/17 23:49 ABG pCO2 57 mmHg (35-45) H 12/28/17 23:49 ABG pO2 116 mmHg (85-104) H 12/28/17 23:49 ABG O2 Saturation 98 % (95-98) 12/28/17 23:49 PT/INR, D-dimer PT 12.7 Seconds (9.4-12.1) H 12/24/17 06:52 - VTE Documentation of Mechanical Device: Intermittent pneumatic compression device Consult Discharge Plan - Plan Referrals: Jacy Mcdonnell [Primary Care Provider] - ( web request sent on 12/29/17 Patient is going to ECF )
[2018-01-01] MEDS ORDERED: Ondansetron 4 MG/2 ML VIAL IVP PRN (16:11)
[2018-01-01] MEDS: traMADol 50 MG TABLET PO PRN (19:18)
[2018-01-01] MEDS ORDERED: Vancomycin 500 MG in D5% in Water (Mini-Bag+) 100 ML IVPB ONE (20:00)
[2018-01-01] MEDS: Pregabalin 75 MG CAPSULE PO SCH (21:46)
[2018-01-01] MEDS: traZODone 50 MG TABLET PO SCH (21:46)
[2018-01-01] MEDS: *HR* HYDROcodone/Acet 5/325 mg TABLET PO PRN (22:03)
[2018-01-01] MEDS ORDERED: Vancomycin 500 MG in 0.9 % Sodium Chloride Mini Bag 100 ML IVPB ONE (23:00)
[2018-01-02] MEDS: Insulin LISPRO 300 UNITS/3 ML VIAL SQ SCH ×7 (09:09→21:22)
[2018-01-02] MEDS: Insulin DETEMIR 100 UNIT/ML X5UNITS SQ SCH ×2 (09:12→21:18)
[2018-01-02] MEDS: Cholecalciferol (D-3) 1,000 UNIT TABLET PO SCH (09:13)
[2018-01-02] MEDS: Multivit/Ca/Min/Fe/FA 1 TAB TABLET PO SCH (09:14)
[2018-01-02] MEDS: Ascorbic Acid 500 MG TABLET PO SCH (09:14)
[2018-01-02] MEDS: cefTRIAXone 2,000 MG in Water for inj. (sterile) 20 ML 20 ML IVPB SCH (09:15)
--- NOTE | 2018-01-02 09:55 | Orthopedics Progress Note ---
Date of Encounter: 01/02/18 Time of Encounter: 09:53 - Assessment and Plan (1) Contusion of finger of left hand Current Visit: Yes Status: Acute Qualifiers: Encounter type: initial encounter Finger: middle finger Damage to nail status: without damage Qualified Code(s): S60.032A - Contusion of left middle finger without damage to nail, initial encounter Subjective Principal diagnosis: jerking movement, encephalopathy Interval history: S: Expected postoperative pain to the left long finger. O: Afebrile and vital signs are stable Cellulitis almost resolved I and D sites are clean with no drainage I can gently passively range the digit through the mid range without significant pain. Extension lag at the long finger PIP joint. She could grossly flex and extend the digits through a small arc without significant pain. The fingertips are all grossly sensate and well-perfused, and the radial artery pulse is 2+. Cultures are showing MRSA A: Left long finger infection post operative I&D P: Daily dressing changes to the left long finer with peroxide soaks Orthopedically stable for discharge related to the left long finger Follow up in the office in 1 week for a wound evaluation Will be available as needed. Objective Vital signs: Vital Signs Temp Pulse Resp BP Pulse Ox 01/02/18 09:35 94 01/02/18 07:09 97.9 F 94 15 143/78 94 01/02/18 03:42 98.1 F 90 16 136/72 98 01/02/18 01:50 97.5 F L 88 17 106/67 97 01/01/18 20:35 98.5 F 70 17 149/76 93 01/01/18 17:17 98.9 F 108 18 114/72 97 01/01/18 13:15 98.0 F 18 140/76 01/01/18 13:00 110/72 01/01/18 12:45 105/65 01/01/18 12:30 103/70 01/01/18 12:15 145/69 01/01/18 12:00 139/86 01/01/18 11:45 174/82 01/01/18 11:30 153/98 01/01/18 11:15 173/87 01/01/18 11:00 187/87 01/01/18 10:45 187/96 01/01/18 10:30 216/94 01/01/18 10:15 98.3 F 24 189/102 Intake and Output 01/01/18 01/02/18 01/02/18 23:59 07:59 15:59 Intake Total 0 / 0 Output Total 0 / 0 300 / 300 Balance 0 / 0 -300 / -300 Intake: Oral 0 / 0 Output: Urine 0 / 0 300 / 300 Other: Stool Size Moderate Stool Color Brown # Voids 0 # Bowel Movements 1 Weight 91 g Blood Glucose* 255 306 Patient Weight 01/02/18 23:59 Weight 91 g - Labs CBC & BMP: 01/01/18 04:10 01/01/18 04:10 Labs: Abnormal lab results RBC 3.24 M/mcL (3.82-4.97) L 01/01/18 04:10 Hgb 9.6 g/dL (11.5-15.4) L 01/01/18 04:10 Hct 31.1 % (35.3-44.9) L 01/01/18 04:10 MCHC 30.9 g/dL (31.6-35.5) L 01/01/18 04:10 RDW 17.2 % (11.5-14.5) H 01/01/18 04:10 Metamyelocytes % 2.0 % (0) H 12/31/17 04:57 Nucleated RBCs/100 WBC 0.2 /100 WBC (0) H 12/31/17 04:57 Anisocytosis 1+ (Not Present) A 12/31/17 04:57 ESR 112 mm/hr (0-15) H 12/22/17 13:54 PT 12.7 Seconds (9.4-12.1) H 12/24/17 06:52 ABG pCO2 57 mmHg (35-45) H 12/28/17 23:49 ABG pO2 116 mmHg (85-104) H 12/28/17 23:49 ABG HCO3 30 mEq/L (21-27) H 12/28/17 23:49 ABG Total CO2 32 mEq/L (20-26) H 12/28/17 23:49 ABG Base Excess 4 mEq/L (-2 to 3) H 12/28/17 23:49 Chloride 97 mEq/L (98-107) L 01/01/18 04:10 BUN 39 mg/dL (6-20) H 01/01/18 04:10 Creatinine 6.14 mg/dL (0.60-1.20) H 01/01/18 04:10 Est GFR ( Amer) 9 (> 60) L 01/01/18 04:10 Est GFR (Non-Af Amer) 8 (> 60) L 01/01/18 04:10 Glucose 249 mg/dL (70-105) H 01/01/18 04:10 POC Glucose 215 (58-89) H 01/01/18 00:10 Hemoglobin A1c 7.4 % (-5.6) H 12/23/17 04:03 Phosphorus 5.0 mg/dL (2.7-4.5) H 12/30/17 04:15 Transferrin 138 mg/dL (203-362) L 12/28/17 05:58 Alkaline Phosphatase 128 Units/L (34-104) H 12/27/17 04:25 C-Reactive Protein 208 mg/L (Less than 10) H 12/22/17 13:54 Globulin 3.8 g/dL (2.4-3.5) H 12/27/17 04:25 Albumin/Globulin Ratio 0.9 (1.1-2.2) L 12/27/17 04:25 Triglycerides 220 mg/dL (< 150) H 12/23/17 04:03 VLDL Cholesterol, Calc 44 mg/dL (< 31) H 12/23/17 04:03 HDL Cholesterol 17 mg/dL (40-59) L 12/23/17 04:03 Cholesterol/HDL Ratio 7.5 (0-4.9) H 12/23/17 04:03 25-OH Vitamin D Total 24 ng/mL (30-80) L 12/28/17 05:58 - VTE Documentation of Mechanical Device: Intermittent pneumatic compression device Consult Discharge Plan - Plan Referrals: Jacy Mcdonnell [Primary Care Provider] - ( web request sent on 12/29/17 Patient is going to [facility] )
[2018-01-02] MEDS: *HR* HYDROcodone/Acet 5/325 mg TABLET PO PRN ×2 (11:16→21:01)
--- NOTE | 2018-01-02 16:05 | Consult Note ---
Date of Encounter: 01/02/18 Time of Encounter: 15:55 History of Present Illness Requesting Physician: Silvia Hooks MD Reason for consult: Acute Encephalitis and delirium History of present illness: Ms. Cochran is a 37 year old female, single, lives with sister, self reported h/ o depression and anxiety, denied h/o prior psych contact, admitted to the medicine for acute osteomyelitis of Rt ankle and foot. Psychiatry consulted for non improving delirium. Patient seen at bedside laying in bed in no acute distress. She was alert and oriented x3. She was calm, cooperative and well related. There were no significant findings on MMSE. She reported a long h/o of depression and anxiety with prior treatment of Sertraline, Lexepro, Cymbalta and Celexa by her PCP with poor effect. She wish to restart medication due to recent worsening anxiety. she recent depressive or psychotic symptoms including AH/VH/SI/HI. Patient is logical and goal directed with a fair insight, impulse control and judgment. She is psychiatrically stable at present time and can be safely discharge after she is medically cleared. Recommendation: Start Effexor ER 37mf daily Start Vistaril 25mg tid prn for severe anxiety F/U with psychiatrist after d/c. CC: Silvia Hooks MD Past Med Surg Social Fam HX - Past Medical History Medical history: asthma, diabetes, hyperlipidemia, hypertension, renal disease, SVT - Past Surgical History Surgical History: appendectomy, , hysterectomy, other - Social History Smoking Status: Former smoker Smokeless Tobacco Status: No Alcohol use: none Drug use: none - Family History Mother Race: Family Member Ethnicity: Non- Living Status: Still Living Hx Family Cardiac Disorders: Yes (OK, HTN, HLD) Hx Family Genitourinary Disorders: Yes (ESRD on dialysis) Hx Family Endocrine Disorder: Yes (DM) Brother Race: Family Member Ethnicity: Non- Living Status: Still Living Hx Family Medical Disorders: No Sister Race: Family Member Ethnicity: Non- Living Status: Still Living Hx Family Cardiac Disorders: Yes Hx Family Respiratory Disorders: Yes (Respiratory infections) Hx Family Endocrine Disorder: Yes (DM) Father Race: Family Member Ethnicity: Non- Living Status: Still Living Hx Family Cardiac Disorders: Yes (CAD, OK, HTN, HLD) Hx Family Respiratory Disorders: Yes (Sleep apnea) Hx Family Endocrine Disorder: Yes (DM) Hx Family Neuromuscular Disorders: Yes (father (stroke), mother (neuropathy)) Medications & Allergies Insulin Regular U-500 [HumuLIN R U-500] 15 unit SQ TID 10/22/15 [History] Ascorbate Calcium [Vitamin C] 500 mg PO DAILY 03/30/16 [History] Multivitamin/Iron/Folic Acid [Cerovite Advanced Form Tab] 1 tab PO DAILY #0 08/07 [History] Trazodone HCl [TraZODone] 100 mg PO HS 03/30/16 [History] Pregabalin [Lyrica] 100 mg PO TID 30 Days capsule 04/08/16 [Rx] Albuterol Sulfate [Albuterol Inhaler] 2 puff IH Q4H PRN 01/15/17 [History] DiphenhydraMINE [Benadryl] 25 mg PO Q12H 01/15/17 [History] Sennosides/Docusate Sodium [Senna-S Tablet] 1 tab PO DAILY PRN 01/15/17 [History ] Ondansetron HCl [Zofran] 8 mg PO DAILY PRN 01/19/17 [History] Cinacalcet [Sensipar] 1 tab PO DAILY 12/22/17 [History] DULoxetine [Cymbalta] 30 mg PO HS 12/22/17 [History] DULoxetine [Cymbalta] 60 mg PO QAM 12/22/17 [History] Ergocalciferol (VITAMIN D2) [Vitamin D2] 50,000 unit PO QWEEK 12/22/17 [History] Insulin Glargine [Lantus] 30 units SQ BID 12/22/17 [History] Labetalol HCl [Labetalol HCl] 300 mg PO BID 12/22/17 [History] Lanthanum Carbonate [Lanthanum Carbonate] 1 tab PO 5XD 12/22/17 [History] Omeprazole [PriLOSEC] 40 mg PO DAILY 12/22/17 [History] 3 Allergy/AdvReac Type Severity Reaction Status Date / Time gabapentin [From Neurontin] AdvReac Fainting Verified 01/15/17 07:08 hydrocodone [From [place]] AdvReac Hypertensio Verified 01/19/17 08:38 n Oxycodone AdvReac Vomiting Verified 12/31/17 17:49 Review of Systems Psychiatric: Reports: depression, anxiety Mental Status Exam Patient orientation: Yes Person, Yes Time, Yes Place Level of alertness: Alert Patient appearance: Appropriate Behavior: calm, cooperative Psychomotor activity: Normal Eye contact: Maintains Eye Contact Mood description: Euthymic/stable, Depressed Affect description: labile Speech pattern: Normal rate Speech volume: Normal Thought process: Logical, Goal Oriented Thought content: Yes Intact Attention span: Capable of Focused Attention Memory description: Grossly Intact Patient reliability: Reliable Historian Intelligence estimate: Average Judgment: Fair Insight: Full Results - Vital Signs Vital signs: Temp Pulse Resp BP Pulse Ox 97.7 F 88 17 145/83 97 01/02/18 15:32 01/02/18 15:32 01/02/18 15:32 01/02/18 15:32 01/02/18 15:32 - Labs Labs: Laboratory Last Values WBC 11.1 K/mcL (4.3-11.1) 01/01/18 04:10 RBC 3.24 M/mcL (3.82-4.97) L 01/01/18 04:10 Hgb 9.6 g/dL (11.5-15.4) L 01/01/18 04:10 Hct 31.1 % (35.3-44.9) L 01/01/18 04:10 MCV 96.0 fL (83.0-100.0) 01/01/18 04:10 MCH 29.6 pg (28.0-33.3) 01/01/18 04:10 MCHC 30.9 g/dL (31.6-35.5) L 01/01/18 04:10 RDW 17.2 % (11.5-14.5) H 01/01/18 04:10 Plt Count 271 K/mcL (140-400) 01/01/18 04:10 MPV 10.5 fL (9.4-12.4) 01/01/18 04:10 Immature Gran % 2.3 % (0-4) 12/30/17 04:15 Seg Neutrophils % 70.0 % 12/31/17 04:57 Lymphocytes % 22.0 % 12/31/17 04:57 Monocytes % 2.0 % 12/31/17 04:57 Eosinophils % 4.0 % 12/31/17 04:57 Basophils % 0.6 % 12/30/17 04:15 Metamyelocytes % 2.0 % (0) H 12/31/17 04:57 Neutrophils # 6.9 K/mcL (1.6-8.9) 12/31/17 04:57 Lymphocytes # 2.2 K/mcL (0.6-4.6) 12/31/17 04:57 Monocytes # 0.2 K/mcL (0.0-1.3) 12/31/17 04:57 Eosinophils # 0.4 K/mcL (0.0-0.6) 12/31/17 04:57 Basophils # 0.1 K/mcL (0.0-0.2) 12/30/17 04:15 Nucleated RBCs/100 WBC 0.2 /100 WBC (0) H 12/31/17 04:57 Platelet Estimate Normal (Normal) 12/31/17 04:57 Anisocytosis 1+ (Not Present) A 12/31/17 04:57 ESR 112 mm/hr (0-15) H 12/22/17 13:54 PT 12.7 Seconds (9.4-12.1) H 12/24/17 06:52 INR 1.2 12/24/17 06:52 ABG pH 7.33 pH Units (7.32-7.45) 12/28/17 23:49 ABG pCO2 57 mmHg (35-45) H 12/28/17 23:49 ABG pO2 116 mmHg (85-104) H 12/28/17 23:49 ABG HCO3 30 mEq/L (21-27) H 12/28/17 23:49 ABG Total CO2 32 mEq/L (20-26) H 12/28/17 23:49 ABG O2 Saturation 98 % (95-98) 12/28/17 23:49 ABG Base Excess 4 mEq/L (-2 to 3) H 12/28/17 23:49 Blood Gas Modality BiPAP 12/28/17 23:49 Inspired O2 35.0 (1-15=lpm [id number]=%) 12/28/17 23:49 Sodium 136 mEq/L (136-145) 01/01/18 04:10 Potassium 4.1 mEq/L (3.5-5.1) 01/01/18 04:10 Chloride 97 mEq/L (98-107) L 01/01/18 04:10 Carbon Dioxide 26 mEq/L (23-29) 01/01/18 04:10 BUN 39 mg/dL (6-20) H 01/01/18 04:10 Creatinine 6.14 mg/dL (0.60-1.20) H 01/01/18 04:10 Est GFR ( Amer) 9 (> 60) L 01/01/18 04:10 Est GFR (Non-Af Amer) 8 (> 60) L 01/01/18 04:10 BUN/Creatinine Ratio 6 (6-26) 01/01/18 04:10 Glucose 249 mg/dL (70-105) H 01/01/18 04:10 POC Glucose 255 (58-89) H 01/01/18 20:47 Est Mean Plasma Glucose 166 mg/dl 12/23/17 04:03 Hemoglobin A1c 7.4 % (-5.6) H 12/23/17 04:03 Calculated Osmolality 300 (280-300) 01/01/18 04:10 Lactic Acid 2.0 mmol/L (0.5-2.2) 12/22/17 10:39 Calcium 8.7 mg/dL (8.6-10.3) 01/01/18 04:10 Phosphorus 5.0 mg/dL (2.7-4.5) H 12/30/17 04:15 Magnesium 2.6 mg/dL (1.6-2.6) 12/30/17 04:15 Iron 50 mcg/dL (50-170) 12/28/17 05:58 % Saturation 26 % (15-50) 12/28/17 05:58 Transferrin 138 mg/dL (203-362) L 12/28/17 05:58 Total Bilirubin 0.6 mg/dL (0.3-1.0) 12/27/17 04:25 AST 32 Units/L (13-39) 12/27/17 04:25 ALT 30 Units/L (7-52) 12/27/17 04:25 Alkaline Phosphatase 128 Units/L (34-104) H 12/27/17 04:25 C-Reactive Protein 208 mg/L (Less than 10) H 12/22/17 13:54 Serum Total Protein 7.3 g/dL (6.4-8.9) 12/27/17 04:25 Albumin 3.5 g/dL (3.5-5.7) 12/27/17 04:25 Globulin 3.8 g/dL (2.4-3.5) H 12/27/17 04:25 Albumin/Globulin Ratio 0.9 (1.1-2.2) L 12/27/17 04:25 Triglycerides 220 mg/dL (< 150) H 12/23/17 04:03 Cholesterol 127 mg/dL (< 200) 12/23/17 04:03 LDL Cholesterol, Calc 66 mg/dL (0-99) 12/23/17 04:03 VLDL Cholesterol, Calc 44 mg/dL (< 31) H 12/23/17 04:03 HDL Cholesterol 17 mg/dL (40-59) L 12/23/17 04:03 Cholesterol/HDL Ratio 7.5 (0-4.9) H 12/23/17 04:03 Vitamin B12 1047 pg/mL (250-1100) 12/28/17 05:58 25-OH Vitamin D Total 24 ng/mL (30-80) L 12/28/17 05:58 PTH Intact 51.2 pg/ml (10.0-65.0) 12/28/17 05:58 Urine Test Negative (Negative) 12/24/17 16:43 Vancomycin Trough 17.2 mcg/mL (10-20) 01/01/18 04:10 Random Vancomycin 20.6 mcg/mL 12/30/17 04:15 Blood Opiate Screen NEGATIVE ng/mL (Cutoff 30) 12/22/17 16:01 Codeine Confirmation <2 ng/mL 12/22/17 16:01 Buprenorphine & Metab NEGATIVE ng/mL (Cutoff 1) 12/22/17 16:01 Morphine Confirm <2 ng/mL 12/22/17 16:01 6-Acetylmorphine Conf <2 ng/mL 12/22/17 16:01 Hydrocodone Confirm <2 ng/mL 12/22/17 16:01 Blood Oxycodone Screen POSITIVE ng/mL (Cutoff 30) 12/22/17 16:01 Oxycodone Confirm 17 ng/mL 12/22/17 16:01 Oxymorphone Confirm <2 ng/mL 12/22/17 16:01 Blood Methadone Screen NEGATIVE ng/mL (Cutoff 40) 12/22/17 16:01 Hydromorphone Confirm <2 ng/mL 12/22/17 16:01 Bld Barbiturates Scrn NEGATIVE ng/mL (Cutoff 75) 12/22/17 16:01 Bld Phencyclidine Scrn NEGATIVE ng/mL (Cutoff 15) 12/22/17 16:01 Bld Amphetamines Scrn NEGATIVE ng/mL (Cutoff 30) 12/22/17 16:01 Bl Methamphetamines Sn NEGATIVE ng/mL (Cutoff 30) 12/22/17 16:01 Bl Benzodiazepine Scrn NEGATIVE ng/mL (Cutoff 75) 12/22/17 16:01 Bld Cocaine/Metab Scrn NEGATIVE ng/mL (Cutoff 30) 12/22/17 16:01 Bld Cannabinoid Screen NEGATIVE ng/mL (Cutoff 30) 12/22/17 16:01 Bld Drug Screen Commnt SEE NOTE 12/22/17 16:01 Hep Bs Antigen Nonreactive (Nonreactive) 12/22/17 16:01 Hep Bs Antibody 39.07 mIU/mL 12/22/17 16:01 Blood Type A POSITIVE 12/29/17 06:30 Antibody Screen NEGATIVE 12/29/17 06:30 Crossmatch See Detail 12/29/17 06:30 Consult Discharge Plan - Plan Referrals: Jacy Mcdonnell [Primary Care Provider] - ( web request sent on 12/29/17 Patient is going to [facility] )
[2018-01-02] MEDS ORDERED: hydrOXYzine pamoate 25 MG CAPSULE PO PRN (17:24)
--- NOTE | 2018-01-02 17:26 | Internal Med Progress Note ---
Date of Encounter: 01/02/18 Time of Encounter: 17:26 - Assessment and plan (1) Myoclonia Current Visit: Yes Status: Resolved (2) Acute respiratory failure with hypoxia Current Visit: Yes Status: Resolved (3) Acute encephalopathy Current Visit: Yes Status: Resolved Assessment and plan: Likely metabolic/toxic due to multiple surgeries with anesthesia, end-stage renal disease, pain medications, ongoing infection. Improved significantly. Continue Lyrica and narcotic pain medications; neurology evaluation as mentioned above, recommended no further intervention. supportive care; will hold off on anxiolytics which may cause sedation and further confusion. Psychiatric evaluation noted, stable for discharge, recommend Effexor and when necessary hydroxyzine for anxiety and depression. Medications have been ordered. Plan for ECF placement for continued IV antibiotics as patient does not have appropriate home support. corporate services manager on board. (4) Osteomyelitis Current Visit: Yes Status: Acute Assessment and plan: right great toe diabetic foot ulcer and osteomyelitis; Podiatry on board, s/p amputation of great toe on 12/24/17; external wound culture grows Proteus mirabilis, intraoperative cultures grow Proteus mirabilis and ampicillin sensitive Enterococcus faecalis. ID on board- recommendations are to continue IV Rocephin and Vancomycin, for at least 6 weeks from the date of surgery. Prescriptions have been written for antibiotics up to 02/04/18; plan for ECF placement for continued IV antibiotics. local wound care per Podiatry- received wound VAC placement; Physical and occupational therapy evaluation pending. Qualifiers: Osteomyelitis type: other acute Osteomyelitis location: foot Laterality: right Qualified Code(s): M86.171 - Other acute osteomyelitis, right ankle and foot (5) Diabetic foot ulcer Current Visit: Yes Status: Acute Qualifiers: Diabetic foot ulcer location: toe Diabetes mellitus type: type 1 Laterality: right Non-pressure ulcer stage: with necrosis of bone Qualified Code(s): E10.621 - Type 1 diabetes mellitus with foot ulcer; L97.514 - Non- pressure chronic ulcer of other part of right foot with necrosis of bone; L97.514 - Non-pressure chronic ulcer of other part of right foot with necrosis of bone; L97.514 - Non-pressure chronic ulcer of other part of right foot with necrosis of bone; L97.514 - Non-pressure chronic ulcer of other part of right foot with necrosis of bone (6) Infection of left hand Current Visit: Yes Status: Acute Assessment and plan: Orthopedic surgery on board; underwent bedside I&D, wound culture growing MRSA; continue IV Vancomycin as above; underwent repeat operative I&D on 12/28; local wound care per Orthopedics; (7) Anemia in chronic kidney disease Current Visit: Yes Status: Chronic Qualifiers: Chronic kidney disease stage: on chronic dialysis Qualified Code(s): N18.6 - End stage renal disease; D63.1 - Anemia in chronic kidney disease; D63.1 - Anemia in chronic kidney disease; Z99.2 - Dependence on renal dialysis; Z99.2 - Dependence on renal dialysis; Z99.2 - Dependence on renal dialysis; Z99.2 - Dependence on renal dialysis (8) Diabetes mellitus Current Visit: Yes Status: Chronic Assessment and plan: continue Accucheck blood glucose monitoring with basal bolus insulin regimen; blood sugars noted to be elevated, we will increase Levemir and sliding scale insulin. diabetic diet as tolerated; Qualifiers: Diabetes mellitus type: type 1 Diabetes mellitus complication status: with skin complications Diabetes mellitus complication detail: with foot ulcer Qualified Code(s): E10.621 - Type 1 diabetes mellitus with foot ulcer; L97.509 - Non-pressure chronic ulcer of other part of unspecified foot with unspecified severity; L97.509 - Non-pressure chronic ulcer of other part of unspecified foot with unspecified severity; L97.509 - Non-pressure chronic ulcer of other part of unspecified foot with unspecified severity; L97.509 - Non-pressure chronic ulcer of other part of unspecified foot with unspecified severity (9) ESRD on dialysis Current Visit: Yes Status: Chronic Assessment and plan: Nephrology on board, patient is receiving regular HD sessions; (10) Morbid obesity with BMI of 40.0-44.9, adult Current Visit: Yes Status: Chronic (11) HLD (hyperlipidemia) Current Visit: Yes Status: Chronic Qualifiers: Hyperlipidemia type: unspecified Qualified Code(s): E78.5 - Hyperlipidemia , unspecified (12) HTN (hypertension) Current Visit: Yes Status: Chronic Assessment and plan: BP better controlled today. Continue current regimen. Qualifiers: Hypertension type: essential hypertension Qualified Code(s): I10 - Essential (primary) hypertension (13) Peripheral neuropathy Current Visit: Yes Status: Chronic Qualifiers: Peripheral neuropathy type: polyneuropathy, other Qualified Code(s): G62.89 - Other specified polyneuropathies - Subjective Interval history: Feels better today. Noted to be alert and oriented, has a better sense of her medical condition and discharge disposition. Continues to have some left hand pain, although improving. Improved nausea. No fever, chills, chest pain, shortness of breath. - Constitutional Vitals: Temp Pulse Resp BP Pulse Ox 97.7 F 88 17 145/83 97 01/02/18 15:32 01/02/18 15:32 01/02/18 15:32 01/02/18 15:32 01/02/18 15:32 General appearance: Present: A&O X 3, morbidly obese, answers questions appropriately - Respiratory Respiratory exam: Present: CTAB. Absent: accessory muscle use, rales, rhonchi, wheezes - Cardiovascular Cardiovascular exam: Present: RRR, +S1, +S2. Absent: diastolic murmur, gallop, rubs, systolic murmur - GI/Abdominal GI/Abdominal exam: Present: normal bowel sounds, soft, no peritoneal signs. Absent: distended, tenderness - Extremities Exam Extremities exam: Present: warm, radial pulses palpable and symmetrical. Absent : calf tenderness, cyanotic, pedal edema Additional comments: Right foot in surgical dressing, wound VAC to amputated stump of right great toe , no significant drainage Left hand dressing intact Internal Medicine: Result - Labs CBC & Chem 7: 01/03/18 10:55 01/03/18 10:55 - ABG Interpretation ABG results: ABG ABG pH 7.33 pH Units (7.32-7.45) 12/28/17 23:49 ABG pCO2 57 mmHg (35-45) H 12/28/17 23:49 ABG pO2 116 mmHg (85-104) H 12/28/17 23:49 ABG O2 Saturation 98 % (95-98) 12/28/17 23:49 PT/INR, D-dimer PT 12.7 Seconds (9.4-12.1) H 12/24/17 06:52 - VTE Documentation of Mechanical Device: Intermittent pneumatic compression device Consult Discharge Plan - Plan Additional Instructions: F/up with PCP in 1-2 weeks F/up for HD 3 times/week- TTS F/up with ID in 2 weeks Referrals: Jacy Mcdonnell [Primary Care Provider] - ( web request sent on 12/29/17 Patient is going to [facility] ) Melissa Guevara, MAINTENANCE MECHANIC [Advanced Practice Nurse] - 01/17/18 9:20 am Prescriptions: HYDROcodone/Acet 5/325 mg [[place] 5-325 mg] 1 tab PO Q6HR PRN 5 Days #15 tablet PRN Reason: pain 7-10 hydrOXYzine pamoate [HydrOXYzine Pamoate] 25 mg PO TID PRN #10 capsule PRN Reason: Anxiety Pregabalin [Lyrica] 75 mg PO DAILY@1900 10 Days #10 capsule Tramadol HCl [Ultram] 50 mg PO Q6H PRN 5 Days #15 tab PRN Reason: PAIN<6
[2018-01-02] MEDS ORDERED: Aminoglycoside Consult 1 EACH MC ONE (17:48)
[2018-01-02] MEDS: Pregabalin 75 MG CAPSULE PO SCH (18:27)
[2018-01-02] MEDS: Venlafaxine XR (24 HR) 37.5 MG CAP.ER.24H PO SCH (18:27)
[2018-01-02] MEDS: traZODone 50 MG TABLET PO SCH (21:01)
[2018-01-02] MEDS: traMADol 50 MG TABLET PO PRN (21:19)
[2018-01-03] MEDS: *HR* HYDROcodone/Acet 5/325 mg TABLET PO PRN ×2 (06:24→13:36)
[2018-01-03] MEDS ORDERED: D5% in Water 1,000 ML IVC PRN (07:43)
[2018-01-03] MEDS ORDERED: Dextrose Gel 15 GM/37.5 ML TUBE PO PRN ×2 (07:43)
[2018-01-03] MEDS ORDERED: *HR* Dextrose 50 % in Water (Syg) 50 ML SYRINGE IVP PRN (07:43)
[2018-01-03] MEDS ORDERED: Insulin DETEMIR 100 UNIT/ML X5UNITS SQ SCH (07:44)
[2018-01-03] MEDS: Insulin LISPRO 300 UNITS/3 ML VIAL SQ SCH ×4 (08:37→13:37)
[2018-01-03] MEDS: Multivit/Ca/Min/Fe/FA 1 TAB TABLET PO SCH (08:41)
[2018-01-03] MEDS: Ascorbic Acid 500 MG TABLET PO SCH (08:41)
[2018-01-03] MEDS: Cholecalciferol (D-3) 1,000 UNIT TABLET PO SCH (08:41)
[2018-01-03] MEDS: Venlafaxine XR (24 HR) 37.5 MG CAP.ER.24H PO SCH (08:42)
[2018-01-03] MEDS: cefTRIAXone 2,000 MG in Water for inj. (sterile) 20 ML 20 ML IVPB SCH (08:43)
--- NOTE | 2018-01-03 11:29 | Discharge Summary ---
Date of Encounter: 01/03/18 Time of Encounter: 08:15 - Discharge Diagnosis (1) Myoclonia Priority: Primary Status: Resolved (2) Acute respiratory failure with hypoxia Priority: Primary Status: Resolved (3) Acute encephalopathy Priority: Primary Status: Resolved (4) Osteomyelitis Priority: Primary Status: Acute Qualifiers: Osteomyelitis type: other acute Osteomyelitis location: foot Laterality: right Qualified Code(s): M86.171 - Other acute osteomyelitis, right ankle and foot (5) Diabetic foot ulcer Priority: Primary Status: Acute Qualifiers: Diabetic foot ulcer location: toe Diabetes mellitus type: type 1 Laterality: right Non-pressure ulcer stage: with necrosis of bone Qualified Code(s): E10.621 - Type 1 diabetes mellitus with foot ulcer; L97.514 - Non- pressure chronic ulcer of other part of right foot with necrosis of bone; L97.514 - Non-pressure chronic ulcer of other part of right foot with necrosis of bone; L97.514 - Non-pressure chronic ulcer of other part of right foot with necrosis of bone; L97.514 - Non-pressure chronic ulcer of other part of right foot with necrosis of bone (6) Infection of left hand Priority: Primary Status: Acute (7) Anemia in chronic kidney disease Priority: Secondary Status: Chronic Qualifiers: Chronic kidney disease stage: on chronic dialysis Qualified Code(s): N18.6 - End stage renal disease; D63.1 - Anemia in chronic kidney disease; D63.1 - Anemia in chronic kidney disease; Z99.2 - Dependence on renal dialysis; Z99.2 - Dependence on renal dialysis; Z99.2 - Dependence on renal dialysis; Z99.2 - Dependence on renal dialysis (8) Diabetes mellitus Priority: Secondary Status: Chronic Qualifiers: Diabetes mellitus type: type 1 Diabetes mellitus complication status: with skin complications Diabetes mellitus complication detail: with foot ulcer Qualified Code(s): E10.621 - Type 1 diabetes mellitus with foot ulcer; L97.509 - Non-pressure chronic ulcer of other part of unspecified foot with unspecified severity; L97.509 - Non-pressure chronic ulcer of other part of unspecified foot with unspecified severity; L97.509 - Non-pressure chronic ulcer of other part of unspecified foot with unspecified severity; L97.509 - Non-pressure chronic ulcer of other part of unspecified foot with unspecified severity (9) ESRD on dialysis Priority: Secondary Status: Chronic (10) Morbid obesity with BMI of 40.0-44.9, adult Priority: Secondary Status: Chronic (11) HLD (hyperlipidemia) Priority: Secondary Status: Chronic Qualifiers: Hyperlipidemia type: unspecified Qualified Code(s): E78.5 - Hyperlipidemia , unspecified (12) HTN (hypertension) Priority: Secondary Status: Chronic Qualifiers: Hypertension type: essential hypertension Qualified Code(s): I10 - Essential (primary) hypertension (13) Peripheral neuropathy Priority: Secondary Status: Chronic Qualifiers: Peripheral neuropathy type: polyneuropathy, other Qualified Code(s): G62.89 - Other specified polyneuropathies - Discharge Medications Prescriptions: HYDROcodone/Acet 5/325 mg [[place] 5-325 mg] 1 tab PO Q6HR PRN 5 Days #15 tablet PRN Reason: pain 7-10 hydrOXYzine pamoate [HydrOXYzine Pamoate] 25 mg PO TID PRN #10 capsule PRN Reason: Anxiety Pregabalin [Lyrica] 75 mg PO DAILY@1900 10 Days #10 capsule Tramadol HCl [Ultram] 50 mg PO Q6H PRN 5 Days #15 tab PRN Reason: PAIN<6 Home Medications: Ascorbate Calcium [Vitamin C] 500 mg PO DAILY 03/30/16 [History] Multivitamin/Iron/Folic Acid [Cerovite Advanced Form Tab] 1 tab PO DAILY #0 08/07 [History] Trazodone HCl [TraZODone] 100 mg PO HS 03/30/16 [History] Albuterol Sulfate [Albuterol Inhaler] 2 puff IH Q4H PRN 01/15/17 [History] DiphenhydraMINE [Benadryl] 25 mg PO Q12H 01/15/17 [History] Sennosides/Docusate Sodium [Senna-S Tablet] 1 tab PO DAILY PRN 01/15/17 [History ] Ondansetron HCl [Zofran] 8 mg PO DAILY PRN 01/19/17 [History] Cinacalcet [Sensipar] 1 tab PO DAILY 12/22/17 [History] Ergocalciferol (VITAMIN D2) [Vitamin D2] 50,000 unit PO QWEEK 12/22/17 [History] Insulin Glargine [Lantus] 30 units SQ BID 12/22/17 [History] Labetalol HCl 300 mg PO BID 12/22/17 [History] Lanthanum Carbonate 1 tab PO 5XD 12/22/17 [History] Omeprazole [PriLOSEC] 40 mg PO DAILY 12/22/17 [History] Darbepoetin [Aranesp] 40 mcg SQ QWEEK syringe 01/03/18 [Rx] HYDROcodone/Acet 5/325 mg [[place] 5-325 mg] 1 tab PO Q6HR PRN 5 Days #15 tablet 01/03/18 [Rx] Insulin DETEMIR [Levemir] 60 unit SQ BID p4fmtys 01/03/18 [Rx] Insulin LISPRO [HumaLOG] 0 units SQ HS vial 01/03/18 [Rx] Insulin LISPRO [HumaLOG] 0 units SQ TIDAC vial 01/03/18 [Rx] Insulin LISPRO [HumaLOG] 20 units SQ TIDWM vial 01/03/18 [Rx] Pregabalin [Lyrica] 75 mg PO DAILY@1900 10 Days #10 capsule 01/03/18 [Rx] Tramadol HCl [Ultram] 50 mg PO Q6H PRN 5 Days #15 tab 01/03/18 [Rx] Vancomycin [Vancocin] 1 each IVPB AD PRN vial 01/03/18 [Rx] Venlafaxine XR (24 HR) [Effexor Xr] 37.5 mg PO DAILY cap.er.24h 01/03/18 [Rx] hydrOXYzine pamoate [HydrOXYzine Pamoate] 25 mg PO TID PRN #10 capsule 01/03/18 [Rx] Allergies/Adverse Reactions: 3 Allergy/AdvReac Type Severity Reaction Status Date / Time gabapentin [From Neurontin] AdvReac Fainting Verified 01/15/17 07:08 hydrocodone [From [place]] AdvReac Hypertensio Verified 01/19/17 08:38 n Oxycodone AdvReac Vomiting Verified 12/31/17 17:49 Date of admission: 12/22/17 13:51 Primary care physician: Jacy Mcdonnell Consults: 12/22/17 14:44 Consult to Nutrition [CONS] Routine Comment: Consulting Provider: NUTRITION Reason for Dietary Consult: MST Score 12/25/17 08:00 Consult to Dialysis [CONS] ONCE 12/28/17 07:45 Consult to Dialysis [CONS] ONCE 12/29/17 13:12 Consult to Neurology [CONS] Routine Consulting Provider: Neurology [facility] Reason for Consult: Acute encephalopathy, myoclonic jerks B/L arms and hands Call Completed: Yes 12/30/17 07:30 Consult to Dialysis [CONS] ONCE 12/30/17 12:06 Consult to Interpret Exam [CONS] Routine Consulting Provider: Rubén Mariscal Consult to Interpret Exam: Interpret EEG 01/01/18 08:15 Consult to Dialysis [CONS] ONCE 01/02/18 08:49 Consult to Occupational Therapy [CONS] Routine Comment: Evaluate, develop and implement POC Reason for Consult: Deconditioning, delirium, right foot and left and infection Consult to Physical Therapy [CONS] Routine Comment: Evaluate, develop and implement POC Reason for Consult: Deconditioning, delirium, right foot and left and infection Consult to Psychiatry [CONS] Routine Consulting Provider: Psychiatry [place] Reason for Consult: Acute encephalopathy, delirium, hallucinations/delusions - not improving Call Completed: Yes Discharging clinician: Silvia Hooks Anticipated date of discharge: 01/03/18 - Patient Status Disposition: Transfer SNF Condition: Fair Functional capacity at discharge: uses cane/walker Overall status at discharge: patient is progressing back to baseline - Discharge Instructions Follow Up With: Clinic,Wound care [Other] (Office will call ECF will an appointment date and time. If you do not hear from them please call and schedule as appointment ) Jacy Mcdonnell [Primary Care Provider] - (Patient is going to [facility] ) Melissa Guevara, LIQUOR INSPECTOR [Advanced Practice Nurse] - 01/17/18 9:20 am Additional Instructions: F/up with PCP in 1-2 weeks F/up for HD 3 times/week- TTS F/up with ID in 2 weeks - Diet and Activity Activity: as per physical therapy, wear oxygen at all times, other (right foot wound vac, left hand surgical dressing per Podiatry and Orthopedics recommendations) Diet: diabetic diet, low fat, low cholesterol, low salt diet, other (renal diet) Hospital course: Ms. Cochran is a 37 year old female with the above medical problems, who was initially referred to the emergency room from wound care clinic due to severe infection in right great toe along with infection in left third finger. X-ray of right foot showed great toe soft tissue swelling along with bony destruction suspicious for osteomyelitis. Podiatry and infectious diseases was consulted. Patient underwent amputation of right great toe on 12/24/2017. External wound culture grows Proteus mirabilis, intraoperative cultures grow Proteus mirabilis and ampicillin sensitive Enterococcus faecalis. Antibiotics were eventually changed to IV Rocephin and vancomycin. Orthopedics was consulted for left hand third finger infection. Patient underwent both bedside and operative incision and drainage of the third finger. Wound culture eventually grew MRSA and patient has been on IV vancomycin. Patient developed acute encephalopathy and delirium during this hospitalization along with myoclonic jerks. This is thought to be related to multiple medical problems including infections, along with underlying end-stage renal disease on hemodialysis, multiple medications including narcotic pain medications, Lyrica, Cymbalta, benzodiazepines. CT head showed no evidence of acute bleed/stroke. Neurology was consulted and recommended medical management and supportive care, no further intervention. Patient's mental status gradually improved and she is noted to be alert and oriented today, almost at baseline mental status. She needs long-term IV antibiotics with IV Rocephin and vancomycin for osteomyelitis in right great toe and left hand third finger infection. Due to poor home support and the need for IV antibiotics, she requires ECF placement. Physical and occupational therapy evaluation completed, recommended ECF placement. Patient is in agreement with this plan, social work specialist on board. Patient has also been evaluated by psychiatric, started on Effexor and when necessary hydroxyzine for anxiety and depression. She will follow up with psychiatry as outpatient. She is otherwise medically stable for discharge. Wound VAC has been placed on right great toe stump, local wound care and wound VAC management per podiatry recommendations. Left hand third finger wound care instructions per orthopedics recommendations. - Time Spent with Patient Total time spent providing and/or coordinating discharge services: Greater than 30 minutes (55 min) - Constitutional Vitals: Temp Pulse Resp BP Pulse Ox 98.4 F 79 14 157/69 97 01/03/18 07:25 01/03/18 07:25 01/03/18 07:25 01/03/18 07:25 01/03/18 07:25 General appearance: Present: A&O X 2, A&O X 3, morbidly obese - Respiratory Respiratory exam: Present: CTAB. Absent: accessory muscle use, rales, rhonchi, wheezes - Cardiovascular Cardiovascular exam: Present: RRR, +S1, +S2. Absent: diastolic murmur, gallop, rubs, systolic murmur - VTE Documentation of Mechanical Device: Intermittent pneumatic compression device
[2018-01-03 11:30] LABS: Hematocrit 30.9 % (35.3-44.9); Hemoglobin 9.4 g/dL (11.5-15.4); Mean Corpuscular HGB Conc 30.4 g/dL (31.6-35.5); Mean Corpuscular Hemoglobin 29.6 pg (28.0-33.3); Mean Corpuscular Volume 97.2 fL (83.0-100.0); Mean Platelet Volume 11.1 fL (9.4-12.4); Platelet Count 234 K/mcL (140-400); Red Blood Count 3.18 M/mcL (3.82-4.97)
--- NOTE | 2018-01-03 11:47 | Physician Discharge Referral ---
ExtendedCare Referral Info Transfer To: [facility] Provider in Charge: Silvia Hooks Provider in Charge after Transfer: PCP Institutional Level of Care: Skilled - Diagnosis (1) Myoclonia Priority: Primary Status: Resolved (2) Acute respiratory failure with hypoxia Priority: Primary Status: Resolved (3) Acute encephalopathy Priority: Primary Status: Acute (4) Osteomyelitis Priority: Primary Status: Acute (5) Diabetic foot ulcer Priority: Primary Status: Acute (6) Infection of left hand Priority: Primary Status: Acute (7) Anemia in chronic kidney disease Priority: Secondary Status: Chronic (8) Diabetes mellitus Priority: Secondary Status: Chronic (9) ESRD on dialysis Priority: Secondary Status: Chronic (10) Morbid obesity with BMI of 40.0-44.9, adult Priority: Secondary Status: Chronic (11) HLD (hyperlipidemia) Priority: Secondary Status: Chronic (12) HTN (hypertension) Priority: Secondary Status: Chronic (13) Peripheral neuropathy Priority: Secondary Status: Chronic Expected Duration of Placement: 3 weeks Prognosis: Good Aware of Diagnosis: Patient Aware of Prognosis: Patient - Transfer Medications Prescriptions: HYDROcodone/Acet 5/325 mg [[place] 5-325 mg] 1 tab PO Q6HR PRN 5 Days #15 tablet PRN Reason: pain 7-10 hydrOXYzine pamoate [HydrOXYzine Pamoate] 25 mg PO TID PRN #10 capsule PRN Reason: Anxiety Pregabalin [Lyrica] 75 mg PO DAILY@1900 10 Days #10 capsule Tramadol HCl [Ultram] 50 mg PO Q6H PRN 5 Days #15 tab PRN Reason: PAIN<6 Home Medications: Ascorbate Calcium [Vitamin C] 500 mg PO DAILY 03/30/16 [History] Multivitamin/Iron/Folic Acid [Cerovite Advanced Form Tab] 1 tab PO DAILY #0 08/07 [History] Trazodone HCl [TraZODone] 100 mg PO HS 03/30/16 [History] Albuterol Sulfate [Albuterol Inhaler] 2 puff IH Q4H PRN 01/15/17 [History] DiphenhydraMINE [Benadryl] 25 mg PO Q12H 01/15/17 [History] Sennosides/Docusate Sodium [Senna-S Tablet] 1 tab PO DAILY PRN 01/15/17 [History ] Ondansetron HCl [Zofran] 8 mg PO DAILY PRN 01/19/17 [History] Cinacalcet [Sensipar] 1 tab PO DAILY 12/22/17 [History] Ergocalciferol (VITAMIN D2) [Vitamin D2] 50,000 unit PO QWEEK 12/22/17 [History] Insulin Glargine [Lantus] 30 units SQ BID 12/22/17 [History] Labetalol HCl 300 mg PO BID 12/22/17 [History] Lanthanum Carbonate 1 tab PO 5XD 12/22/17 [History] Omeprazole [PriLOSEC] 40 mg PO DAILY 12/22/17 [History] Darbepoetin [Aranesp] 40 mcg SQ QWEEK syringe 01/03/18 [Rx] HYDROcodone/Acet 5/325 mg [[place] 5-325 mg] 1 tab PO Q6HR PRN 5 Days #15 tablet 01/03/18 [Rx] Insulin DETEMIR [Levemir] 60 unit SQ BID f0ffixd 01/03/18 [Rx] Insulin LISPRO [HumaLOG] 0 units SQ HS vial 01/03/18 [Rx] Insulin LISPRO [HumaLOG] 0 units SQ TIDAC vial 01/03/18 [Rx] Insulin LISPRO [HumaLOG] 20 units SQ TIDWM vial 01/03/18 [Rx] Pregabalin [Lyrica] 75 mg PO DAILY@1900 10 Days #10 capsule 01/03/18 [Rx] Tramadol HCl [Ultram] 50 mg PO Q6H PRN 5 Days #15 tab 01/03/18 [Rx] Vancomycin [Vancocin] 1 each IVPB AD PRN vial 01/03/18 [Rx] Venlafaxine XR (24 HR) [Effexor Xr] 37.5 mg PO DAILY cap.er.24h 01/03/18 [Rx] hydrOXYzine pamoate [HydrOXYzine Pamoate] 25 mg PO TID PRN #10 capsule 01/03/18 [Rx] Allergies/Adverse Reactions: 3 Allergy/AdvReac Type Severity Reaction Status Date / Time gabapentin [From Neurontin] AdvReac Fainting Verified 01/15/17 07:08 hydrocodone [From [place]] AdvReac Hypertensio Verified 01/19/17 08:38 n Oxycodone AdvReac Vomiting Verified 12/31/17 17:49 - Respiratory Orders Oxygen / L per min (2L/min via [place]) Smoking Cessation: Smoking cessation has been advised. For more information, call the [place] Tobacco Quit Line at 4-071-PQNT-NOW. - Advance Directives Code Status: Full Code - Mobility Orders Ambulate - Rehabiliation Orders Rehab Potential: Good Rehab Orders: ROM Exercises, Evaluation for Physical Therapy, Evaluation for Occupational Therapy - Diet Orders No Concentrated Sweets (diabetic), Renal, Cardiac CERTIFICATION: I certify that the transfer of the above named patient to an Extended Care Facility is necessary for the continuing treatment of the diagnosis listed. The above information is true and accurate reflection of patient's current condition. Confidential - Redisclosure prohibited without a patient's written consent.
[2018-01-03 12:43] LABS: Calcium 8.5 mg/dL (8.6-10.3); Potassium 4.9 mEq/L (3.5-5.1)
--- NOTE | 2018-01-03 13:01 | Infectious Disease Progress No ---
Date of Encounter: 01/03/18 Time of Encounter: 12:58 - Assessment and Plan (1) Fever Current Visit: Yes Status: Acute Post-op fever with Tmax 102.5. Afebrile since 12/25/17 Resolved. Qualifiers: Fever type: unspecified Qualified Code(s): R50.9 - Fever, unspecified (2) Osteomyelitis Current Visit: Yes Status: Acute Location: Right foot, great toe. Causative organism P. mirabilis, resistant to fluoroquinolones, and Enterococcus faecalis (ampicillin and Vanc sensitive). Secondary to non-healing diabetic foot ulcer. X-ray of the right foot showed osteomyelitis of the base of the right great toe. ESR 112, CRP 208. Blood cultures drawn 12/22/17 are negative x 2 sets. Wound culture obtained in the ED grew P. mirabilis. Podiatry consulted and following. Status post amputation of the right great toe. Operative note reviewed. Intra-op cultures as above. Planning for wound closure when the patient's status improves. Wound care and activity restrictions per the podiatry team. Check ESR and CRP. Add to AM labs. Continue Vancomycin IV. Pharmacy to dose. Goal trough ~15. Continue Rocephin 2 grams IV daily. Duration of treatment depends on the clinical picture, but likely 6 weeks from the date of surgery. Since there was no osteomyelitis in the hand, will likely be able to switch the patient to ampicillin after two weeks of treating the hand infection, but will wait until she is seen as an outpatient to make changes. Monitor for drug toxicity and dose-adjust antibiotics. Already has Powerglide in place. Would recommend giving Vancomycin at HD in order to minimize the risk of extravasation of the Vancomycin since we are unable to place a PICC line. Will need weekly CBC, ESR, and CRP. Will need weekly PICC care per protocol. Follow up with ID 01/17/18 at 0920. Qualifiers: Osteomyelitis type: other acute Osteomyelitis location: foot Laterality: right Qualified Code(s): M86.171 - Other acute osteomyelitis, right ankle and foot (3) Infection of left hand Current Visit: Yes Status: Acute Causative organism MRSA. Likely secondary to traumatic injury. X-ray negative for bony abnormality. Ortho consulted. Status post bedside I & D by Dr. Hernandez. Procedure note revealed. Gross purulence noted. Minimal improvement per the ortho team. Status post operative I & D 12/28/[address] Hernandez. Operative note reviewed. No evidence of additional infection intra-op. Wound care and activity restrictions per the ortho team. Continue antibiotics as above. Continue contact precautions. (4) Diabetic foot ulcer Current Visit: Yes Status: Acute Location: Plantar medial aspect of the right great toe. Etiology unclear. Podiatry consulted and following. Status post amputation of the right great toe. Planning for wound closure when the patient's mental status improves. Surgical wound care and activity restrictions per the podiatry team. Qualifiers: Diabetic foot ulcer location: toe Diabetes mellitus type: type 1 Laterality: right Non-pressure ulcer stage: with necrosis of bone Qualified Code(s): E10.621 - Type 1 diabetes mellitus with foot ulcer; L97.514 - Non- pressure chronic ulcer of other part of right foot with necrosis of bone; L97.514 - Non-pressure chronic ulcer of other part of right foot with necrosis of bone; L97.514 - Non-pressure chronic ulcer of other part of right foot with necrosis of bone; L97.514 - Non-pressure chronic ulcer of other part of right foot with necrosis of bone (5) Diabetes mellitus Current Visit: Yes Status: Chronic Uncontrolled recently per patient report. FSBS 338 on admission labs. Her blood sugars continue to run high. HgbA1C 7.2%. Recommend aggressive glucose monitoring and control to promote wound healing and prevent re-infection. Management per the primary team. Qualifiers: Diabetes mellitus type: type 1 Diabetes mellitus complication status: with skin complications Diabetes mellitus complication detail: with foot ulcer Qualified Code(s): E10.621 - Type 1 diabetes mellitus with foot ulcer; L97.509 - Non-pressure chronic ulcer of other part of unspecified foot with unspecified severity; L97.509 - Non-pressure chronic ulcer of other part of unspecified foot with unspecified severity; L97.509 - Non-pressure chronic ulcer of other part of unspecified foot with unspecified severity; L97.509 - Non-pressure chronic ulcer of other part of unspecified foot with unspecified severity (6) ESRD on dialysis Current Visit: Yes Status: Chronic Secondary to diabetic nephropathy. Follows with [facility]. HD T//Sat. Nephrology consulted and following. (7) Peripheral neuropathy Current Visit: Yes Status: Chronic Qualifiers: Peripheral neuropathy type: polyneuropathy, other Qualified Code(s): G62.89 - Other specified polyneuropathies (8) Hypertension Current Visit: No Status: Chronic Qualifiers: Hypertension type: essential hypertension Qualified Code(s): I10 - Essential (primary) hypertension (9) Morbid obesity with BMI of 40.0-44.9, adult Current Visit: Yes Status: Chronic (10) Left hand pain Current Visit: Yes Status: Acute Likely secondary to traumatic injury with superimposed infection. Xray negative for fracture. Ortho consulted and following. Pain management per the primary and ortho teams. (11) Myoclonia Current Visit: Yes Status: Resolved Etiology unclear: medications vs. other. Neurology consulted and following. Resolved. (12) Acute encephalopathy Current Visit: Yes Status: Resolved Etiology unclear: anesthesia vs. medications vs. hypercarbia vs. other. No SIRS criteria. Patient does have a new myoclonic jerking. CT head negative. EEG non-diagnostic. Neurology consulted and following. Patient's mental status improved today and appears back to baseline. Continue to monitor closely. (13) Acute respiratory failure with hypoxia Current Visit: Yes Status: Resolved Likely secondary to pulmonary edema. Required BIPAP post-op. On O2 via NC at this time. CXR showed pulmonary edema. Improved. (14) Anemia in chronic kidney disease Current Visit: Yes Status: Chronic Hemoglobin stable. Management per the primary and nephrology teams. Qualifiers: Chronic kidney disease stage: on chronic dialysis Qualified Code(s): N18.6 - End stage renal disease; D63.1 - Anemia in chronic kidney disease; D63.1 - Anemia in chronic kidney disease; Z99.2 - Dependence on renal dialysis; Z99.2 - Dependence on renal dialysis; Z99.2 - Dependence on renal dialysis; Z99.2 - Dependence on renal dialysis - Subjective Interval history: Patient seen and examined. No acute events noted overnight. Status post operative I & D of the left middle finger 12/28/17. This morning, she is sitting up in the chair. Mental status appears back to baseline. States she has continued pain in the left hand, but her hand surgeon thinks it is getting better. She reports intermittent pain in the right foot. She denies fevers, chills, or rigors. Denies chest pain, shortness of breath. Reports a non- productive cough. Denies nausea, vomiting, or diarrhea. Denies abdominal pain and states her appetite is good. She is anuric. Denies oral thrush or new skin lesions. Infect Dis PN-Objective Data - Labs CBC & Chem 7: 01/03/18 10:55 01/03/18 10:55 Labs: Laboratory Results - last 24 hr 01/02/18 01/02/18 01/03/18 09:03 19:37 10:55 WBC 11.3 H RBC 3.18 L Hgb 9.4 L Hct 30.9 L MCV 97.2 MCH 29.6 MCHC 30.4 L RDW 17.0 H Plt Count 234 MPV 11.1 Sodium Potassium Chloride Carbon Dioxide BUN Creatinine Est GFR ( Amer) Est GFR (Non-Af Amer) BUN/Creatinine Ratio Glucose POC Glucose 306 H 262 H Calculated Osmolality Calcium 01/03/18 10:55 WBC RBC Hgb Hct MCV MCH MCHC RDW Plt Count MPV Sodium 133 L Potassium 4.9 Chloride 94 L Carbon Dioxide 25 BUN 50 H Creatinine 7.87 H Est GFR ( Amer) 7 L Est GFR (Non-Af Amer) 6 L BUN/Creatinine Ratio 6 Glucose 265 H POC Glucose Calculated Osmolality 299 Calcium 8.5 L Cultures: Cultures 12/24/17 09:02 Anaerobic Culture - Final Right Great Toe 12/30/17 11:01 Blood Culture - Preliminary Central Venous Catheter No growth. 12/29/17 16:12 Blood Culture - Preliminary Peripheral Venipuncture No growth. 12/24/17 09:01 Surgical Biopsy Culture - Final Right Great Toe Proteus mirabilis Enterococcus faecalis 12/24/17 14:50 Anaerobic Culture - Final Left Middle Finger No anaerobes were recovered. 12/24/17 14:50 Wound Culture - Final Left Middle Finger Methicillin Resistant S.aureus 12/24/17 18:07 Gram Stain - Final Left Middle Finger Serology 12/24/17 12/22/17 Range/Units 16:43 16:01 Urine Test Negative (Negative) Hep Bs Antigen Nonreactive (Nonreactive) Hep Bs Antibody 39.07 mIU/mL Exam - Constitutional Vitals: Temp Pulse Resp BP Pulse Ox 97.7 F 78 14 154/87 98 01/03/18 12:00 01/03/18 12:00 01/03/18 12:00 01/03/18 12:00 01/03/18 12:00 General appearance: cooperative, morbidly obese, no acute distress - Head Head exam: Present: atraumatic, normal inspection, normocephalic - Eye Eye exam: Present: EOMI, normal appearance, PERRL Pupils: Present: normal accommodation - ENT ENT exam: Present: mucous membranes moist - Neck Neck exam: Present: normal inspection - Respiratory Respiratory exam: Present: CTAB. Absent: rales, respiratory distress, rhonchi, wheezes - Cardiovascular Cardiovascular exam: Present: RRR, +S1, +S2 - GI/Abdominal GI/Abdominal exam: Present: distended (obese), normal bowel sounds, soft. Absent: tenderness - Extremities Exam Additional comments: Left hand surgical site noted to the dorsal aspect of the left middle finger with sutures intact. Scabbing noted along the incision line. ROM severely limited due to pain and swelling. + sensation to the distal finger. Right foot wound VAC dressing C/D/I with sponge well-compresed. Scant drainage noted in the wound VAC canister. - Neurological Exam Neurological exam: Present: alert, oriented X3, no focal deficits - Psychiatric Psychiatric exam: Present: normal affect, normal mood - Skin Skin exam: Present: dry, intact, normal color, warm - VTE Documentation of Mechanical Device: Intermittent pneumatic compression device Consult Discharge Plan - Plan Additional Instructions: F/up with PCP in 1-2 weeks F/up for HD 3 times/week- TTS F/up with ID in 2 weeks Referrals: Jacy Mcdonnell [Primary Care Provider] - ( web request sent on 12/29/17 Patient is going to [facility] ) Melissa Guevara, CONSULTING PRACTICE MANAGER [Advanced Practice Nurse] - 01/17/18 9:20 am Prescriptions: HYDROcodone/Acet 5/325 mg [[place] 5-325 mg] 1 tab PO Q6HR PRN 5 Days #15 tablet PRN Reason: pain 7-10 hydrOXYzine pamoate [HydrOXYzine Pamoate] 25 mg PO TID PRN #10 capsule PRN Reason: Anxiety Pregabalin [Lyrica] 75 mg PO DAILY@1900 10 Days #10 capsule Tramadol HCl [Ultram] 50 mg PO Q6H PRN 5 Days #15 tab PRN Reason: PAIN<6 - Attending Attestation I examined this patient and my medical decision-making was reviewed with the Resident Physician. I agree with the documented findings, disposition and treatment plan as described except to the extent set forth below.
[2018-01-03 15:41] VITALS: BP 138/80
--- NOTE | 2018-01-03 17:26 | Podiatry Progress Note ---
Date of Encounter: 01/03/18 Time of Encounter: 16:00 - Assessment and Plan (1) Diabetic foot ulcer Status: Acute S/p right hallux open amputation by Dr. Aggarwal on 12/24/17. WBC: 11.1 A febrile ESR: 112, CRP: 208 Right hallux wound cultures isolated proteus mirabalis. Intra op cultures - proteus mirabalis and enterococcus faecalis. Infectious Disease following. Currently on IV Vancomycin and Rocephin, will most likely need 6 weeks of IV antibiotic therapy. Patient will be discharged with wound vac to the [facility], dressing changes every M-W - with small back simplace wound vac sponge connected to 125 mmhg continuous suction. Weight bearing status: heel touch only on right foot with post op shoe. Patient will need a 1 week f/u with Dr. Aggarwal in wound care clinic on a . Qualifiers: Diabetic foot ulcer location: toe Diabetes mellitus type: type 1 Laterality: right Non-pressure ulcer stage: with necrosis of bone Qualified Code(s): E10.621 - Type 1 diabetes mellitus with foot ulcer; L97.514 - Non- pressure chronic ulcer of other part of right foot with necrosis of bone; L97.514 - Non-pressure chronic ulcer of other part of right foot with necrosis of bone; L97.514 - Non-pressure chronic ulcer of other part of right foot with necrosis of bone; L97.514 - Non-pressure chronic ulcer of other part of right foot with necrosis of bone (2) Diabetes mellitus Status: Chronic Glucose control will aid in wound healing. Qualifiers: Diabetes mellitus type: type 1 Diabetes mellitus complication status: with skin complications Diabetes mellitus complication detail: with foot ulcer Qualified Code(s): E10.621 - Type 1 diabetes mellitus with foot ulcer; L97.509 - Non-pressure chronic ulcer of other part of unspecified foot with unspecified severity; L97.509 - Non-pressure chronic ulcer of other part of unspecified foot with unspecified severity; L97.509 - Non-pressure chronic ulcer of other part of unspecified foot with unspecified severity; L97.509 - Non-pressure chronic ulcer of other part of unspecified foot with unspecified severity (3) ESRD on dialysis Status: Chronic On Hemodialysis every [place]. Subjective Principal diagnosis: jerking movement, encephalopathy Interval history: Patient is sitting up in bed with dressing intact to the right foot. Patient is s/p right hallux open amputation for osteomyelitis by Dr. Aggarwal on 12/24/17. Patient denies any pain to the right foot, wound vac intact to the right foot, no drainage observed to canister. Status post bedside I & D by Dr. Hernandez. Status post operative I & D 12/28/[address] Hernandez. Patient denies any fever , chills, or calf pain. Patient is now back to her baseline and answering questions appropriately. Patient is being discharged to an ECF today. Objective - Vital Signs Vital Signs: Vital Signs Temp Pulse Resp BP Pulse Ox 01/03/18 15:40 97.8 F 76 14 138/80 98 01/03/18 12:00 97.7 F 78 14 154/87 98 01/03/18 07:25 98.4 F 79 14 157/69 97 01/03/18 03:53 97.3 F L 86 18 101/55 96 01/02/18 19:40 98.3 F 94 18 104/79 99 Intake and Output 01/03/18 01/03/18 01/03/18 07:59 15:59 23:59 Other: Weight 100.698 kg Blood Glucose* 258 317 Patient Weight 01/03/18 23:59 Weight 100.698 kg - Exam Exam: General appearance: alert awake oriented x3, Calm and pleasant, no acute distress.. Vascular: Right: Pedal pulses +1/4 DP/PT , No evidence of cyanosis, pallor or rubor, Edema graded at 1+/4, Skin Temperature warm, No calf pain with manual compression. capillary refill time is immediate to digits. Neurologic: Sensation intact with light touch to foot. . Postop Exam: S/P Sutures intact to incision line, Open amputation of right hallux, light perwound erythema, no drainage observed to canister. No streaking, no pus, no odor, base of wound with red granulation tissue. Minimal edema. - Lab Result Diagrams: 01/03/18 10:55 01/03/18 10:55 Labs: Abnormal lab results WBC 11.3 K/mcL (4.3-11.1) H 01/03/18 10:55 RBC 3.18 M/mcL (3.82-4.97) L 01/03/18 10:55 Hgb 9.4 g/dL (11.5-15.4) L 01/03/18 10:55 Hct 30.9 % (35.3-44.9) L 01/03/18 10:55 MCHC 30.4 g/dL (31.6-35.5) L 01/03/18 10:55 RDW 17.0 % (11.5-14.5) H 01/03/18 10:55 Metamyelocytes % 2.0 % (0) H 12/31/17 04:57 Nucleated RBCs/100 WBC 0.2 /100 WBC (0) H 12/31/17 04:57 Anisocytosis 1+ (Not Present) A 12/31/17 04:57 ESR 112 mm/hr (0-15) H 12/22/17 13:54 PT 12.7 Seconds (9.4-12.1) H 12/24/17 06:52 ABG pCO2 57 mmHg (35-45) H 12/28/17 23:49 ABG pO2 116 mmHg (85-104) H 12/28/17 23:49 ABG HCO3 30 mEq/L (21-27) H 12/28/17 23:49 ABG Total CO2 32 mEq/L (20-26) H 12/28/17 23:49 ABG Base Excess 4 mEq/L (-2 to 3) H 12/28/17 23:49 Sodium 133 mEq/L (136-145) L 01/03/18 10:55 Chloride 94 mEq/L (98-107) L 01/03/18 10:55 BUN 50 mg/dL (6-20) H 01/03/18 10:55 Creatinine 7.87 mg/dL (0.60-1.20) H 01/03/18 10:55 Est GFR ( Amer) 7 (> 60) L 01/03/18 10:55 Est GFR (Non-Af Amer) 6 (> 60) L 01/03/18 10:55 Glucose 265 mg/dL (70-105) H 01/03/18 10:55 POC Glucose 262 (58-89) H 01/02/18 19:37 Hemoglobin A1c 7.4 % (-5.6) H 12/23/17 04:03 Calcium 8.5 mg/dL (8.6-10.3) L 01/03/18 10:55 Phosphorus 5.0 mg/dL (2.7-4.5) H 12/30/17 04:15 Transferrin 138 mg/dL (203-362) L 12/28/17 05:58 Alkaline Phosphatase 128 Units/L (34-104) H 12/27/17 04:25 C-Reactive Protein 208 mg/L (Less than 10) H 12/22/17 13:54 Globulin 3.8 g/dL (2.4-3.5) H 12/27/17 04:25 Albumin/Globulin Ratio 0.9 (1.1-2.2) L 12/27/17 04:25 Triglycerides 220 mg/dL (< 150) H 12/23/17 04:03 VLDL Cholesterol, Calc 44 mg/dL (< 31) H 12/23/17 04:03 HDL Cholesterol 17 mg/dL (40-59) L 12/23/17 04:03 Cholesterol/HDL Ratio 7.5 (0-4.9) H 12/23/17 04:03 25-OH Vitamin D Total 24 ng/mL (30-80) L 12/28/17 05:58 Microbiology, Last 48 Hours 12/24/17 09:02 Anaerobic Culture - Final Right Great Toe - VTE Documentation of Mechanical Device: Intermittent pneumatic compression device Consult Discharge Plan - Plan Additional Instructions: F/up with PCP in 1-2 weeks F/up for HD 3 times/week- TTS F/up with ID in 2 weeks Referrals: Clinic,Wound care [Other] (Office will call ECF will an appointment date and time. If you do not hear from them please call and schedule as appointment ) Jacy Mcdonnell [Primary Care Provider] - (Patient is going to ECF ) Melissa Guevara, HOMEOPATHIC DOCTOR [Advanced Practice Nurse] - 01/17/18 9:20 am Prescriptions: HYDROcodone/Acet 5/325 mg [[place] 5-325 mg] 1 tab PO Q6HR PRN 5 Days #15 tablet PRN Reason: pain 7-10 hydrOXYzine pamoate [HydrOXYzine Pamoate] 25 mg PO TID PRN #10 capsule PRN Reason: Anxiety Pregabalin [Lyrica] 75 mg PO DAILY@1900 10 Days #10 capsule Tramadol HCl [Ultram] 50 mg PO Q6H PRN 5 Days #15 tab PRN Reason: PAIN<6
[2018-01-03] MEDS ORDERED: Insulin LISPRO 300 UNITS/3 ML VIAL SQ SCH (21:00)
== END 2018-01-03 17:49 | DRG 616 ==
LOC: 3NENU 09:53 → EMEROO 09:53 → SUATTDRO 13:51 → 3NENU 14:10 → 2ANU 12-28 20:23
PROVIDERS: ADMIT Nurse Practitioner Family; ATTEND Internal Medicine

== ENCOUNTER 2018-01-21 14:49 | Inpatient (IN) ==
[2018-01-21] MEDS ORDERED: Vancomycin 1,500 MG in D5% in Water 250 ML IVPB ONE ×2 (15:02→15:30)
[2018-01-21] MEDS: cefTRIAXone 2,000 MG in Water for inj. (sterile) 20 ML 20 ML IVPB ONE ×2 (15:10→15:44)
[2018-01-21] MEDS ORDERED: cefTRIAXone 1,000 MG in Water for inj. (sterile) 20 ML 10 ML IVP ONE (15:43)
[2018-01-21 15:47] LABS: Basophils % 0.6 %; Eosinophils # 0.4 K/mcL (0.0-0.6); Eosinophils % 5.6 %; Hematocrit 31.3 % (35.3-44.9); Hemoglobin 9.9 g/dL (11.5-15.4); Immature Granulocytes % 1.4 % (0-4); Lymphocytes # 1.2 K/mcL (0.6-4.6); Lymphocytes % 16.2 %; Mean Corpuscular HGB Conc 31.6 g/dL (31.6-35.5); Mean Corpuscular Hemoglobin 30.8 pg (28.0-33.3); Mean Corpuscular Volume 97.5 fL (83.0-100.0); Monocytes # 0.7 K/mcL (0.0-1.3); Monocytes % 9.7 %; Neutrophils # 4.8 K/mcL (1.6-8.9); Platelet Count 139 K/mcL (140-400); Red Blood Count 3.21 M/mcL (3.82-4.97); Red Cell Distribution Width 16.5 % (11.5-14.5); Segmented Neutrophils % 66.5 %
[2018-01-21] MEDS ORDERED: *HR* FentaNYL (PF) 100 MCG/2 ML VIAL IVP ONE (15:54)
--- NOTE | 2018-01-21 15:58 | Emergency Department Note ---
Disposition Clinical Impression: Osteomyelitis Qualifiers: Osteomyelitis type: unspecified type Osteomyelitis location: hand Laterality: left Qualified Code(s): M86.9 - Osteomyelitis, unspecified Disposition: Home, Self-Care Condition: Good Referrals: Jacy Mcdonnell [Primary Care Provider] - Time of Disposition: 16:01 Skin/Abscess/FB HPI Chief complaint: ED Skin/Abscess/Foreign Body Stated complaint: part of finger to be surgically amputated Time Seen by Provider: 01/21/18 14:58 Source: patient Limitations: no limitations Nursing Notes Reviewed: Yes Vital Signs Reviewed: Yes HPI Narrative: 37-year-old female presents emergency department for further evaluation of likely osteomyelitis of her left third finger. Patient has been taking vancomycin and ceftriaxone as outpatient and is following Dr. Callahan. Patient infection has not improved since starting the medications. She was sent to the emergency department for admission by Dr. Callahan and for likely amputation today or tomorrow. Home Medications Medication Instructions Recorded Confirmed Ascorbate Calcium [Vitamin C] 500 mg PO DAILY 03/30/16 12/22/17 Multivitamin/Iron/Folic Acid 1 tab PO DAILY #0 03/30/16 12/22/17 [Cerovite Advanced Form Tab] Trazodone HCl [TraZODone] 100 mg PO HS 03/30/16 12/22/17 Albuterol Sulfate [Albuterol 2 puff IH Q4H PRN 01/15/17 12/22/17 Inhaler] DiphenhydraMINE [Benadryl] 25 mg PO Q12H 01/15/17 12/22/17 Sennosides/Docusate Sodium 1 tab PO DAILY PRN 01/15/17 12/22/17 [Senna-S Tablet] Ondansetron HCl [Zofran] 8 mg PO DAILY PRN 01/19/17 12/22/17 Cinacalcet [Sensipar] 1 tab PO DAILY 12/22/17 12/22/17 Ergocalciferol (VITAMIN D2) 50,000 unit PO QWEEK 12/22/17 12/22/17 [Vitamin D2] Insulin Glargine [Lantus] 30 units SQ BID 12/22/17 12/22/17 Labetalol HCl 300 mg PO BID 12/22/17 12/22/17 Lanthanum Carbonate 1 tab PO 5XD 12/22/17 12/22/17 Omeprazole [PriLOSEC] 40 mg PO DAILY 12/22/17 12/22/17 Previous Rx's Medication Instructions Recorded Darbepoetin [Aranesp] 40 mcg SQ QWEEK syringe 01/03/18 HYDROcodone/Acet 5/325 mg [[place] 1 tab PO Q6HR PRN 5 Days #15 tablet 01/03/18 5-325 mg] Insulin DETEMIR [Levemir] 60 unit SQ BID [id number] 01/03/18 Insulin LISPRO [HumaLOG] 0 units SQ HS vial 01/03/18 Insulin LISPRO [HumaLOG] 0 units SQ TIDAC vial 01/03/18 Insulin LISPRO [HumaLOG] 20 units SQ TIDWM vial 01/03/18 Pregabalin [Lyrica] 75 mg PO DAILY@1900 10 Days #10 01/03/18 capsule Tramadol HCl [Ultram] 50 mg PO Q6H PRN 5 Days #15 tab 01/03/18 Vancomycin [Vancocin] 1 each IVPB AD PRN vial 01/03/18 Venlafaxine XR (24 HR) [Effexor Xr] 37.5 mg PO DAILY cap.er.24h 01/03/18 hydrOXYzine pamoate [HydrOXYzine 25 mg PO TID PRN #10 capsule 01/03/18 Pamoate] Allergies Allergy/AdvReac Type Severity Reaction Status Date / Time gabapentin [From Neurontin] AdvReac Fainting Verified 01/21/18 14:54 All systems ED: reviewed and negative except as stated. Review of Systems: As Per HPI Constitutional: Reports: fever. Denies: weakness Cardiovascular: Denies: chest pain, palpitations, dyspnea on exertion Respiratory: Denies: cough, dyspnea, wheezes Gastrointestinal: Denies: abdominal pain, nausea, vomiting Past Medical History - Past Medical History Attestation: Yes The following information was validated with the patient. Source: patient Medical history: Reports: asthma, diabetes, dialysis, hyperlipidemia, hypertension, renal disease, SVT, other Surgical history: Reports: appendectomy, , hysterectomy, other Psychiatric history: Reports: anxiety, depression, panic disorder - Social History Smoking Status: Former smoker Smokeless Tobacco Status: No Alcohol use: Reports: none Drug use: Reports: none Physical Exam General: Alert and in no acute distress Skin: Warm, dry Head: Normocephalic and atraumatic Neck: Supple, trachea midline and no tenderness Cardiovascular: RRR, no murmur, normal perfusion Respiratory: CTAB, no wheezing, cough, or respiratory distress Musculoskeletal: Normal strength, patient has open wound to the left third finger at the area of the proximal interphalangeal joint with surrounding erythema. There is no obvious purulent drainage on my exam however patient has pain with range of motion of the finger as well as the surrounding joints. GI: Soft, nontender, nondistended. Bowel sounds present Neuro: A&O to person, place, time and situation. No focal deficits noted on exam Psychiatric: cooperative and appropriate mood and affect. - General Limitations: no limitations General appearance: alert, in no apparent distress Course Vital Signs Temperature 98.3 F 01/21/18 14:51 Pulse Rate 94 01/21/18 14:51 Respiratory Rate 18 01/21/18 14:51 Blood Pressure 174/72 01/21/18 14:51 O2 Sat by Pulse Oximetry 95 01/21/18 14:51 Temperature 98.3 F 01/21/18 14:51 Pulse Rate 94 01/21/18 14:51 Respiratory Rate 18 01/21/18 14:51 Blood Pressure 174/72 01/21/18 14:51 O2 Sat by Pulse Oximetry 95 01/21/18 14:51 Oxygen Delivery Oxygen Delivery Room Air Skin/Abscess/Foreign Body - Medical Records Medical records reviewed: Yes I reviewed the patient's medical records. - Lab Data Lab results reviewed: Yes I reviewed the patient's lab results. Result diagrams: 01/21/18 15:36 Lab Results 01/21/18 Range/Units 15:36 WBC 7.2 (4.3-11.1) K/mcL RBC 3.21 L (3.82-4.97) M/mcL Hgb 9.9 L (11.5-15.4) g/dL Hct 31.3 L (35.3-44.9) % MCV 97.5 (83.0-100.0) fL MCH 30.8 (28.0-33.3) pg MCHC 31.6 (31.6-35.5) g/dL RDW 16.5 H (11.5-14.5) % Plt Count 139 L (140-400) K/mcL MPV 11.0 (9.4-12.4) fL Immature Gran % 1.4 (0-4) % Seg Neutrophils % 66.5 % Lymphocytes % 16.2 % Monocytes % 9.7 % Eosinophils % 5.6 % Basophils % 0.6 % Neutrophils # 4.8 (1.6-8.9) K/mcL Lymphocytes # 1.2 (0.6-4.6) K/mcL Monocytes # 0.7 (0.0-1.3) K/mcL Eosinophils # 0.4 (0.0-0.6) K/mcL Basophils # 0.0 (0.0-0.2) K/mcL
[2018-01-21 16:04] LABS: Calcium 8.1 mg/dL (8.6-10.3)
--- NOTE | 2018-01-21 17:00 | Internal Med History&Physical ---
Date of Encounter: 01/21/18 Time of Encounter: 16:57 Assessment and Plan (1) Osteomyelitis Current visit: Yes Status: Acute failed outpatient treatment patient be admitted for amputation of the finger scheduled for tomorrow Qualifiers: Osteomyelitis type: unspecified type Osteomyelitis location: hand Laterality: left Qualified Code(s): M86.9 - Osteomyelitis, unspecified (2) Diabetic foot ulcer Current visit: No Status: Chronic Chronic continue current therapy Qualifiers: Diabetic foot ulcer location: toe Diabetes mellitus type: type 1 Laterality: right Non-pressure ulcer stage: with necrosis of bone Qualified Code(s): E10.621 - Type 1 diabetes mellitus with foot ulcer; L97.514 - Non- pressure chronic ulcer of other part of right foot with necrosis of bone; L97.514 - Non-pressure chronic ulcer of other part of right foot with necrosis of bone; L97.514 - Non-pressure chronic ulcer of other part of right foot with necrosis of bone; L97.514 - Non-pressure chronic ulcer of other part of right foot with necrosis of bone (3) High blood pressure Current visit: No Status: Chronic Chronic resume home medication Qualifiers: Hypertension type: essential hypertension Qualified Code(s): I10 - Essential (primary) hypertension (4) Diabetes mellitus Current visit: No Status: Chronic We will resume home medication and sliding scale Qualifiers: Diabetes mellitus type: type 1 Diabetes mellitus complication status: with skin complications Diabetes mellitus complication detail: with foot ulcer Qualified Code(s): E10.621 - Type 1 diabetes mellitus with foot ulcer; L97.509 - Non-pressure chronic ulcer of other part of unspecified foot with unspecified severity; L97.509 - Non-pressure chronic ulcer of other part of unspecified foot with unspecified severity; L97.509 - Non-pressure chronic ulcer of other part of unspecified foot with unspecified severity; L97.509 - Non-pressure chronic ulcer of other part of unspecified foot with unspecified severity (5) ESRD on dialysis Current visit: No Status: Chronic On dialysis (6) HLD (hyperlipidemia) Current visit: No Status: Chronic Qualifiers: Hyperlipidemia type: unspecified Qualified Code(s): E78.5 - Hyperlipidemia , unspecified (7) Hypertension Current visit: No Status: Chronic Qualifiers: Hypertension type: essential hypertension Qualified Code(s): I10 - Essential (primary) hypertension Internal Medicine - H&P: HPI Chief complaint: osteomyelitis Admitted From: Emergency Dept Plans for Post Hospital Care: Home History of present illness: Ms. Cochran is a 37 year old female Patient with history of diabetes, osteomyelitis of finger, diabetic foot ulcer, end-stage renal disease on dialysis, peripheral neuropathy, hypertension, morbid obesity and chronic anemia patient was admitted recently with osteomyelitis of left third finger treated and discharged has been on vancomycin and Rocephin as an outpatient followed by orthopedic surgery BUt the wound is not getting better she was then sent to the emergency room to be admitted for finger amputation plan for tomorrow. Patient will started on , vancomycin and Zosyn and surgery as planned Past Med Surg Social Fam HX - Past Medical History Medical history: asthma, diabetes, dialysis, hyperlipidemia, hypertension, renal disease, SVT, other Psychiatric history: anxiety, depression, panic disorder - Past Surgical History Surgical History: appendectomy, , hysterectomy, other - Social History Smoking Status: Former smoker Smokeless Tobacco Status: No Alcohol use: none Drug use: none - Family History Mother Family Member Ethnicity: Non- Living Status: Still Living Hx Family Cardiac Disorders: Yes (MD, HTN, HLD) Hx Family Respiratory Disorders: Yes (copd) Hx Family Cancer: No Hx Family GI Disorders: No Hx Family Endocrine Disorder: Yes (DM) Hx Family Neuromuscular Disorders: No Hx Family Neurologic Disorders: No Hx Family HEENT Disorders: No Hx Family Autoimmune Disorders: No Brother Family Member Ethnicity: Non- Living Status: Still Living Hx Family Cardiac Disorders: Yes (heart murmur) Hx Family Respiratory Disorders: No Hx Family Cancer: No Hx Family GI Disorders: No Hx Family Endocrine Disorder: No Hx Family Neuromuscular Disorders: No Hx Family Neurologic Disorders: No Hx Family HEENT Disorders: No Hx Family Autoimmune Disorders: No Sister Family Member Ethnicity: Non- Living Status: Still Living Hx Family Cardiac Disorders: Yes (unknown has 70% of heart function) Hx Family Respiratory Disorders: Yes (Respiratory infections; had half of lung removed) Hx Family Cancer: No Hx Family GI Disorders: No Hx Family Endocrine Disorder: Yes (DM) Hx Family Neuromuscular Disorders: No Hx Family Neurologic Disorders: No Hx Family HEENT Disorders: No Hx Family Autoimmune Disorders: No Father Family Member Ethnicity: Non- Living Status: Still Living Hx Family Cardiac Disorders: Yes (CAD, MD, HTN, HLD) Hx Family Respiratory Disorders: Yes (Sleep apnea) Hx Family Cancer: No Hx Family GI Disorders: No Hx Family Endocrine Disorder: Yes (DM) Hx Family Neuromuscular Disorders: Yes (father (stroke), mother (neuropathy)) Hx Family Neurologic Disorders: No Hx Family HEENT Disorders: No Hx Family Autoimmune Disorders: No Internal Medicine - H&P: Meds Ascorbate Calcium [Vitamin C] 500 mg PO DAILY 03/30/16 [History] Multivitamin/Iron/Folic Acid [Cerovite Advanced Form Tab] 1 tab PO DAILY #0 08/07 [History] Trazodone HCl [TraZODone] 100 mg PO HS 03/30/16 [History] Albuterol Sulfate [Albuterol Inhaler] 2 puff IH Q4H PRN 01/15/17 [History] DiphenhydraMINE [Benadryl] 25 mg PO Q12H 01/15/17 [History] Sennosides/Docusate Sodium [Senna-S Tablet] 1 tab PO DAILY PRN 01/15/17 [History ] Ondansetron HCl [Zofran] 8 mg PO DAILY PRN 01/19/17 [History] Cinacalcet [Sensipar] 1 tab PO DAILY 12/22/17 [History] Ergocalciferol (VITAMIN D2) [Vitamin D2] 50,000 unit PO QWEEK 12/22/17 [History] Insulin Glargine [Lantus] 30 units SQ BID 12/22/17 [History] Labetalol HCl 300 mg PO BID 12/22/17 [History] Lanthanum Carbonate 1 tab PO 5XD 12/22/17 [History] Omeprazole [PriLOSEC] 40 mg PO DAILY 12/22/17 [History] Darbepoetin [Aranesp] 40 mcg SQ QWEEK syringe 01/03/18 [Rx] HYDROcodone/Acet 5/325 mg [[place] 5-325 mg] 1 tab PO Q6HR PRN 5 Days #15 tablet 01/03/18 [Rx] Insulin DETEMIR [Levemir] 60 unit SQ BID [id number] 01/03/18 [Rx] Insulin LISPRO [HumaLOG] 0 units SQ HS vial 01/03/18 [Rx] Insulin LISPRO [HumaLOG] 0 units SQ TIDAC vial 01/03/18 [Rx] Insulin LISPRO [HumaLOG] 20 units SQ TIDWM vial 01/03/18 [Rx] Pregabalin [Lyrica] 75 mg PO DAILY@1900 10 Days #10 capsule 01/03/18 [Rx] Tramadol HCl [Ultram] 50 mg PO Q6H PRN 5 Days #15 tab 01/03/18 [Rx] Vancomycin [Vancocin] 1 each IVPB AD PRN vial 01/03/18 [Rx] Venlafaxine XR (24 HR) [Effexor Xr] 37.5 mg PO DAILY cap.er.24h 01/03/18 [Rx] hydrOXYzine pamoate [HydrOXYzine Pamoate] 25 mg PO TID PRN #10 capsule 01/03/18 [Rx] 3 Allergy/AdvReac Type Severity Reaction Status Date / Time gabapentin [From Neurontin] AdvReac Fainting Verified 01/21/18 14:54 All Systems PM: A 10-system review of systems was performed and is negative for pertinent findings except as documented above in the HPI. - Constitutional Constitutional: no chills, no fever(s), no night sweats - EENT Eyes: no change in vision, no discharge, no pain, no photophobia Ears: no ear discharge, no ear pain, no tinnitus Nose, mouth and throat: no dysphagia, no nasal discharge, no neck pain, no sore throat - Cardiovascular Cardiovascular ROS IM: no chest pain, no diaphoresis, no dyspnea, no lightheadedness, no palpitations, no syncope - Respiratory Respiratory: no cough, no dyspnea, no wheezing, no excessive phlegm production - Gastrointestinal Gastrointestinal: no abdominal pain, no diarrhea, no hematemesis, no hematochezia, no melena, no nausea, no vomiting - Genitourinary Genitourinary: no change in urinary stream, no dysuria, no flank pain, no hematuria - Musculoskeletal Musculoskeletal ROS IM: other - Integumentary Integumentary IM: other - Constitutional Vitals: Temp Pulse Resp BP Pulse Ox 98.3 F 95 16 148/74 95 01/21/18 14:51 01/21/18 16:18 01/21/18 16:18 01/21/18 16:18 01/21/18 16:18 - Eye Eye exam: Present: PERRL, conjuntiva pink, sclera anicteric Pupils: Present: PERRL - Neck Neck exam general surgery: Present: supple, trachea midline. Absent: lymphadenopathy - Respiratory Respiratory exam: Present: CTAB. Absent: accessory muscle use, rales, rhonchi, wheezes - Cardiovascular Cardiovascular exam: Present: RRR, +S1, +S2. Absent: diastolic murmur, gallop, rubs, systolic murmur - Extremities Exam Extremities exam: Present: tenderness, warm Internal Med - H&P Results - Labs CBC & Chem 7: 01/21/18 15:36 01/21/18 15:36
[2018-01-21] MEDS ORDERED: traMADol 50 MG TABLET PO PRN (17:03)
[2018-01-21] MEDS ORDERED: Naloxone 0.4 MG/ML INJ IVP PRN (17:03)
[2018-01-21] MEDS ORDERED: Acetaminophen 325 MG TABLET PO PRN (17:03)
[2018-01-21] MEDS ORDERED: Sennosides/Docusate Sodium TABLET PO PRN (17:06)
[2018-01-21] MEDS ORDERED: Dextrose Gel 15 GM/37.5 ML TUBE PO PRN ×2 (17:10)
[2018-01-21] MEDS ORDERED: D5% in Water 1,000 ML IVC PRN (17:10)
[2018-01-21] MEDS ORDERED: *HR* Dextrose 50 % in Water (Syg) 50 ML SYRINGE IVP PRN (17:10)
[2018-01-21] MEDS: Pregabalin 75 MG CAPSULE PO SCH (17:45)
[2018-01-21] MEDS ORDERED: Vancomycin 1 EACH in 0.9 % Sodium Chloride 250 ML IVPB SCH (18:00)
--- NOTE | 2018-01-21 18:53 | Podiatry Consult Note ---
Date of Encounter: 01/21/18 Time of Encounter: 06:00 Assessment and Plan (1) Foot ulcer, right Current visit: No Status: Acute Jiménez grade 3 wound right hallux amputation site which has no signs of infection currently and deemed adequate for closure. Nature of procedure closure/repair of the right foot wound discussed with the patient. She understood that despite closing the wound it still has to heal and she could have wound healing problems with her comorbidities. All questions answered and the informed consent was signed. Procedure performed bedside. Procedure: Repair of right foot wound. 5cc of 1% lidocaine plain was injected into the patient's right foot after cleansing the foot with betadine. The wound base appeared healthy and had viable skin edges. The wound was flushed with normal sterile saline and wound surface was scraped with a curet. A #15 blade was used to freshen the margin of the wound through subcutaneous tissue was performed, the margins were healthy, bleeding and viable. Pressure was held and adequate hemostasis achieved. 0-prolene was then used to repapproximate the skin edges. Sterile bandage applied consisting of xeroform 4x4 gauze freddy kerlix and a loosely applied NAT wrap. She tolerated the procedure well. Adequate hemostasis was present. Leave bandage intact. 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 Ambulation in post- operative shoe which the patient has with her bedside. She will need to follow up with me in the wound care center after discharge. Wound vac left bedside, she no longer needs to use it at this time. Instructed patient to return it to her nursing facility. Qualifiers: Non-pressure ulcer stage: with necrosis of bone Qualified Code(s): L97.514 - Non-pressure chronic ulcer of other part of right foot with necrosis of bone History of Present Illness HPI: Ms. Cochran is a 37 year old diabetic female ESRD on HD TTHSwho underwent a right great toe amputation a few weeks ago due to infection. Due to the infection the wound was left open at the time and wound vac applied. She has been receiving IV antibiotics. She is currently admitted with an infection in her left finger. She was supposed to follow up with me yesterday in the wound care center for her right foot but the nursing facility could not bring her to the appointment. They did bring her to the appointment for her finger today and she was admitted. She is having surgery with Dr. Hernandez tomorrow for her left finger. Past Med Surg Social Fam HX - Past Medical History Medical history: asthma, diabetes, dialysis, hyperlipidemia, hypertension, renal disease, SVT, other Psychiatric history: anxiety, depression, panic disorder - Past Surgical History Surgical History: appendectomy, , hysterectomy, other (right hallux amputation, left hallux amputation, left finger I&D) - Social History Smoking Status: Former smoker Smokeless Tobacco Status: No Alcohol use: none Drug use: none - Family History Mother Family Member Ethnicity: Non- Living Status: Still Living Hx Family Cardiac Disorders: Yes (ID, HTN, HLD) Hx Family Respiratory Disorders: Yes (copd) Hx Family Cancer: No Hx Family GI Disorders: No Hx Family Endocrine Disorder: Yes (DM) Hx Family Neuromuscular Disorders: No Hx Family Neurologic Disorders: No Hx Family HEENT Disorders: No Hx Family Autoimmune Disorders: No Brother Family Member Ethnicity: Non- Living Status: Still Living Hx Family Cardiac Disorders: Yes (heart murmur) Hx Family Respiratory Disorders: No Hx Family Cancer: No Hx Family GI Disorders: No Hx Family Endocrine Disorder: No Hx Family Neuromuscular Disorders: No Hx Family Neurologic Disorders: No Hx Family HEENT Disorders: No Hx Family Autoimmune Disorders: No Sister Family Member Ethnicity: Non- Living Status: Still Living Hx Family Cardiac Disorders: Yes (unknown has 70% of heart function) Hx Family Respiratory Disorders: Yes (Respiratory infections; had half of lung removed) Hx Family Cancer: No Hx Family GI Disorders: No Hx Family Endocrine Disorder: Yes (DM) Hx Family Neuromuscular Disorders: No Hx Family Neurologic Disorders: No Hx Family HEENT Disorders: No Hx Family Autoimmune Disorders: No Father Family Member Ethnicity: Non- Living Status: Still Living Hx Family Cardiac Disorders: Yes (CAD, ID, HTN, HLD) Hx Family Respiratory Disorders: Yes (Sleep apnea) Hx Family Cancer: No Hx Family GI Disorders: No Hx Family Endocrine Disorder: Yes (DM) Hx Family Neuromuscular Disorders: Yes (father (stroke), mother (neuropathy)) Hx Family Neurologic Disorders: No Hx Family HEENT Disorders: No Hx Family Autoimmune Disorders: No Medications and Allergies Multivitamin/Iron/Folic Acid [Cerovite Advanced Form Tab] 1 tab PO DAILY #0 08/07 [History] Trazodone HCl [TraZODone] 100 mg PO HS 03/30/16 [History] Albuterol Sulfate [Albuterol Inhaler] 2 puff IH Q4H PRN 01/15/17 [History] DiphenhydraMINE [Benadryl] 25 mg PO Q12H 01/15/17 [History] Sennosides/Docusate Sodium [Senna-S Tablet] 1 tab PO DAILY PRN 01/15/17 [History ] Ondansetron HCl [Zofran] 8 mg PO DAILY PRN 01/19/17 [History] Ergocalciferol (VITAMIN D2) [Vitamin D2] 50,000 unit PO MO 12/22/17 [History] Insulin Glargine [Lantus] 55 units SQ BID 12/22/17 [History] Labetalol HCl 300 mg PO BID 12/22/17 [History] Lanthanum Carbonate 1,500 mg PO 5XD 12/22/17 [History] Omeprazole [PriLOSEC] 40 mg PO DAILY 12/22/17 [History] HYDROcodone/Acet 5/325 mg [[place] 5-325 mg] 1 tab PO Q6HR PRN 5 Days #15 tablet 01/03/18 [Rx] Pregabalin [Lyrica] 75 mg PO DAILY@1900 10 Days #10 capsule 01/03/18 [Rx] Tramadol HCl [Ultram] 50 mg PO Q6H PRN 5 Days #15 tab 01/03/18 [Rx] Venlafaxine XR (24 HR) [Effexor Xr] 37.5 mg PO DAILY cap.er.24h 01/03/18 [Rx] hydrOXYzine pamoate [HydrOXYzine Pamoate] 25 mg PO TID PRN #10 capsule 01/03/18 [Rx] Calcium Carbonate [Tums] 500 mg PO Q4HR 01/21/18 [History] Darbepoetin [Aranesp] 40 mcg SQ TU 01/21/18 [History] Folic Acid 0.8 mg PO DAILY 01/21/18 [History] Insulin Regular U-500 [HumuLIN R U-500] 85 unit SQ TIDWM 01/21/18 [History] Oxygen 2 l NS AD 01/21/18 [History] cefTRIAXone [Rocephin] 2,000 mg IV DAILY 01/21/18 [History] 3 Allergy/AdvReac Type Severity Reaction Status Date / Time gabapentin [From Neurontin] AdvReac Fainting Verified 01/21/18 14:54 All Systems Reviewed: The remainder of the systems were reviewed and are negative - Constitutional Constitutional: no fever(s) - Cardiovascular Cardiovascular: no chest pain, no dyspnea - Respiratory Respiratory: no cough, no dyspnea Physical Exam - Constitutional Vitals: Temp Pulse Resp BP Pulse Ox 97.9 F 91 17 170/88 94 01/21/18 17:31 01/21/18 17:31 01/21/18 17:31 01/21/18 17:31 01/21/18 18:09 - Ankle & Foot Exam: well developed and nourished female alert and oriented x 3 in no acute distress vascular: Capillary refill time le remaining digits right f. Right foot warm to touch. Minimal edema. Dermatology: Right hallux ulceration with 100% granular wound base measuring 2.2cmx1.7cmx0.4cm with no surrounding erythema. No drainage. Wound bed is moist no fluctuance. No necrosis. Musculoskeletal: Bilateral hallux amputation. Contracture of right foot lesser digits. Neurology: Absent sensation to touch. Results - Labs Result Diagrams: 01/21/18 15:36 01/21/18 15:36 Labs: Abnormal lab results RBC 3.21 M/mcL (3.82-4.97) L 01/21/18 15:36 Hgb 9.9 g/dL (11.5-15.4) L 01/21/18 15:36 Hct 31.3 % (35.3-44.9) L 01/21/18 15:36 RDW 16.5 % (11.5-14.5) H 01/21/18 15:36 Plt Count 139 K/mcL (140-400) L 01/21/18 15:36 ESR 62 mm/hr (0-15) H 01/21/18 15:36 Sodium 132 mEq/L (136-145) L 01/21/18 15:36 Chloride 94 mEq/L (98-107) L 01/21/18 15:36 BUN 61 mg/dL (6-20) H 01/21/18 15:36 Creatinine 6.39 mg/dL (0.60-1.20) H 01/21/18 15:36 Est GFR ( Amer) 9 (> 60) L 01/21/18 15:36 Est GFR (Non-Af Amer) 7 (> 60) L 01/21/18 15:36 Glucose 303 mg/dL (70-105) H 01/21/18 15:36 Calculated Osmolality 303 (280-300) H 01/21/18 15:36 Calcium 8.1 mg/dL (8.6-10.3) L 01/21/18 15:36 C-Reactive Protein 33 mg/L (Less than 10) H 01/21/18 15:36 All other labs normal. Consult Discharge Plan - Plan Referrals: Jacy Mcdonnell [Primary Care Provider] -
[2018-01-21] MEDS: *HR* HYDROcodone/Acet 5/325 mg TABLET PO PRN (20:59)
[2018-01-21] MEDS: traZODone 50 MG TABLET PO SCH (20:59)
[2018-01-21] MEDS: Insulin DETEMIR 100 UNIT/ML X5UNITS SQ SCH ×2 (21:00→21:30)
[2018-01-21] MEDS: Insulin LISPRO 300 UNITS/3 ML VIAL SQ SCH (21:07)
--- NOTE | 2018-01-21 21:25 | Orthopedic Consult Note ---
Date of Encounter: 01/21/18 Time of Encounter: 21:21 Assessment and Plan (1) Osteomyelitis of finger Current Visit: Yes Status: Acute I did discuss the diagnosis in detail with the patient. She was initially scheduled for amputation on Wednesday however given her worsening of her symptoms my recommendation would be to proceed tomorrow after direct admission to the hospital tonight to the hospitalist. I again discussed MCP disarticulation versus ray resection and she does have concerns with MCP disarticulation given the cosmesis as well as objects falling between the index and ring fingers. She therefore wishes to proceed with ray resection and understands the risks. The risks discussed included but were not limited to stiffness, bleeding, infection, blood clots, damage to neurovascular structures , tendons, ligaments, and bone. Also discussed was the risk of continued symptoms and possible need for further procedures. I did discuss the anesthesia risks including stroke, heart attack, and . I did discuss the reasonable, foreseeable postoperative course with the patient. She does wish to proceed and consent was obtained. History of Present Illness HPI: Ms. Cochran is a 37 year old female admitted from the office due to worsening left long finger pain. She has osteomyelitis of the proximal phalanx with pain now spreading into the hand. No new injuries or complaints. No feelings of illness. Pain is described as sharp and achy on the left long finger going into the metacarpophalangeal joint region. The worst of pain is over the PIP joint. Pain is worse with movement and better with rest. No other associated signs or symptoms or modifying factors. Past Med Surg Social Fam HX - Past Medical History Medical history: asthma, diabetes, dialysis, hyperlipidemia, hypertension, renal disease, SVT, other Psychiatric history: anxiety, depression, panic disorder - Past Surgical History Surgical History: appendectomy, , hysterectomy, other (right hallux amputation, left hallux amputation, left finger I&D) - Social History Smoking Status: Former smoker Smokeless Tobacco Status: No Alcohol use: none Drug use: none - Family History Mother Family Member Ethnicity: Non- Living Status: Still Living Hx Family Cardiac Disorders: Yes (VT, HTN, HLD) Hx Family Respiratory Disorders: Yes (copd) Hx Family Cancer: No Hx Family GI Disorders: No Hx Family Endocrine Disorder: Yes (DM) Hx Family Neuromuscular Disorders: No Hx Family Neurologic Disorders: No Hx Family HEENT Disorders: No Hx Family Autoimmune Disorders: No Brother Family Member Ethnicity: Non- Living Status: Still Living Hx Family Cardiac Disorders: Yes (heart murmur) Hx Family Respiratory Disorders: No Hx Family Cancer: No Hx Family GI Disorders: No Hx Family Endocrine Disorder: No Hx Family Neuromuscular Disorders: No Hx Family Neurologic Disorders: No Hx Family HEENT Disorders: No Hx Family Autoimmune Disorders: No Sister Family Member Ethnicity: Non- Living Status: Still Living Hx Family Cardiac Disorders: Yes (unknown has 70% of heart function) Hx Family Respiratory Disorders: Yes (Respiratory infections; had half of lung removed) Hx Family Cancer: No Hx Family GI Disorders: No Hx Family Endocrine Disorder: Yes (DM) Hx Family Neuromuscular Disorders: No Hx Family Neurologic Disorders: No Hx Family HEENT Disorders: No Hx Family Autoimmune Disorders: No Father Family Member Ethnicity: Non- Living Status: Still Living Hx Family Cardiac Disorders: Yes (CAD, VT, HTN, HLD) Hx Family Respiratory Disorders: Yes (Sleep apnea) Hx Family Cancer: No Hx Family GI Disorders: No Hx Family Endocrine Disorder: Yes (DM) Hx Family Neuromuscular Disorders: Yes (father (stroke), mother (neuropathy)) Hx Family Neurologic Disorders: No Hx Family HEENT Disorders: No Hx Family Autoimmune Disorders: No Medications and Allergies Multivitamin/Iron/Folic Acid [Cerovite Advanced Form Tab] 1 tab PO DAILY #0 08/07 [History] Trazodone HCl [TraZODone] 100 mg PO HS 03/30/16 [History] Albuterol Sulfate [Albuterol Inhaler] 2 puff IH Q4H PRN 01/15/17 [History] DiphenhydraMINE [Benadryl] 25 mg PO Q12H 01/15/17 [History] Sennosides/Docusate Sodium [Senna-S Tablet] 1 tab PO DAILY PRN 01/15/17 [History ] Ondansetron HCl [Zofran] 8 mg PO DAILY PRN 01/19/17 [History] Ergocalciferol (VITAMIN D2) [Vitamin D2] 50,000 unit PO MO 12/22/17 [History] Insulin Glargine [Lantus] 55 units SQ BID 12/22/17 [History] Labetalol HCl 300 mg PO BID 12/22/17 [History] Lanthanum Carbonate 1,500 mg PO 5XD 12/22/17 [History] Omeprazole [PriLOSEC] 40 mg PO DAILY 12/22/17 [History] HYDROcodone/Acet 5/325 mg [[place] 5-325 mg] 1 tab PO Q6HR PRN 5 Days #15 tablet 01/03/18 [Rx] Pregabalin [Lyrica] 75 mg PO DAILY@1900 10 Days #10 capsule 01/03/18 [Rx] Tramadol HCl [Ultram] 50 mg PO Q6H PRN 5 Days #15 tab 01/03/18 [Rx] Venlafaxine XR (24 HR) [Effexor Xr] 37.5 mg PO DAILY cap.er.24h 01/03/18 [Rx] hydrOXYzine pamoate [HydrOXYzine Pamoate] 25 mg PO TID PRN #10 capsule 01/03/18 [Rx] Calcium Carbonate [Tums] 500 mg PO Q4HR 01/21/18 [History] Darbepoetin [Aranesp] 40 mcg SQ TU 01/21/18 [History] Folic Acid 0.8 mg PO DAILY 01/21/18 [History] Insulin Regular U-500 [HumuLIN R U-500] 85 unit SQ TIDWM 01/21/18 [History] Oxygen 2 l NS AD 01/21/18 [History] cefTRIAXone [Rocephin] 2,000 mg IV DAILY 01/21/18 [History] 3 Allergy/AdvReac Type Severity Reaction Status Date / Time gabapentin [From Neurontin] AdvReac Fainting Verified 01/21/18 14:54 All Systems Reviewed: The remainder of the systems were reviewed and are negative Physical Exam - Constitutional Vitals: Temp Pulse Resp BP Pulse Ox 97.9 F 94 17 172/82 94 01/21/18 19:33 01/21/18 19:33 01/21/18 19:33 01/21/18 19:33 01/21/18 19:33 CONSTITUTIONAL -Vitals reviewed -The patient is well developed, well nourished, well groomed PSYCHIATRIC -Fully alert and oriented -Pleasant mood LEFT UPPER EXTREMITY Inspection shows that there is moderate swelling to the long finger with gapping of the old I&D side about a centimeter throughout the entire length of the dorsal long finger. Necrosis of the base of the wound. No purulence and minimal redness. Pain with passive motion of the digit. The fingertip is well perfused at the tip and sensate. The other digits are freely mobile, sensory, and well-perfused. Results - Labs Result Diagrams: 01/21/18 15:36 01/21/18 15:36 Labs: Abnormal lab results RBC 3.21 M/mcL (3.82-4.97) L 01/21/18 15:36 Hgb 9.9 g/dL (11.5-15.4) L 01/21/18 15:36 Hct 31.3 % (35.3-44.9) L 01/21/18 15:36 RDW 16.5 % (11.5-14.5) H 01/21/18 15:36 Plt Count 139 K/mcL (140-400) L 01/21/18 15:36 ESR 62 mm/hr (0-15) H 01/21/18 15:36 Sodium 132 mEq/L (136-145) L 01/21/18 15:36 Chloride 94 mEq/L (98-107) L 01/21/18 15:36 BUN 61 mg/dL (6-20) H 01/21/18 15:36 Creatinine 6.39 mg/dL (0.60-1.20) H 01/21/18 15:36 Est GFR ( Amer) 9 (> 60) L 01/21/18 15:36 Est GFR (Non-Af Amer) 7 (> 60) L 01/21/18 15:36 Glucose 303 mg/dL (70-105) H 01/21/18 15:36 POC Glucose 206 (58-89) H 01/21/18 17:10 Calculated Osmolality 303 (280-300) H 01/21/18 15:36 Calcium 8.1 mg/dL (8.6-10.3) L 01/21/18 15:36 C-Reactive Protein 33 mg/L (Less than 10) H 01/21/18 15:36 All other labs normal. Consult Discharge Plan - Plan Referrals: Jacy Mcdonnell [Primary Care Provider] -
[2018-01-21] MEDS: *HR* OxyCODONE/APAP 10/325 TABLET PO PRN (23:17)
[2018-01-21] MEDS: Piperacillin/Tazobactam 3.375 GM in 0.9 % Sodium Chloride Mini Bag 100 ML IVPB SCH (23:18)
[2018-01-21] MEDS: hydrOXYzine pamoate 25 MG CAPSULE PO PRN (23:23)
[2018-01-22] MEDS: *HR* Enoxaparin 30 MG/0.3 ML SYRINGE SQ SCH (04:57)
[2018-01-22] MEDS: Insulin LISPRO 300 UNITS/3 ML VIAL SQ SCH ×4 (07:01→21:08)
--- NOTE | 2018-01-22 07:01 | Anesthesia Evaluation PreOp ---
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 STRIPPER HAND History: Seizures (> 5 years ago) Other Medical History: Renal (ESRD), Diabetes Type II Anesthesia History: No Prior Anesthetic Complications, Past Anesthesia (AV fistula x 2, appy , Left foot toe amp, Left arm ORIF, partial Hyst.) : No (HYST) Alcohol Use: none Drug use: none Medications and Allergies Multivitamin/Iron/Folic Acid [Cerovite Advanced Form Tab] 1 tab PO DAILY #0 08/07 [History] Trazodone HCl [TraZODone] 100 mg PO HS 03/30/16 [History] Albuterol Sulfate [Albuterol Inhaler] 2 puff IH Q4H PRN 01/15/17 [History] DiphenhydraMINE [Benadryl] 25 mg PO Q12H 01/15/17 [History] Sennosides/Docusate Sodium [Senna-S Tablet] 1 tab PO DAILY PRN 01/15/17 [History ] Ondansetron HCl [Zofran] 8 mg PO DAILY PRN 01/19/17 [History] Ergocalciferol (VITAMIN D2) [Vitamin D2] 50,000 unit PO MO 12/22/17 [History] Insulin Glargine [Lantus] 55 units SQ BID 12/22/17 [History] Labetalol HCl 300 mg PO BID 12/22/17 [History] Lanthanum Carbonate 1,500 mg PO 5XD 12/22/17 [History] Omeprazole [PriLOSEC] 40 mg PO DAILY 12/22/17 [History] HYDROcodone/Acet 5/325 mg [[place] 5-325 mg] 1 tab PO Q6HR PRN 5 Days #15 tablet 01/03/18 [Rx] Pregabalin [Lyrica] 75 mg PO DAILY@1900 10 Days #10 capsule 01/03/18 [Rx] Tramadol HCl [Ultram] 50 mg PO Q6H PRN 5 Days #15 tab 01/03/18 [Rx] Venlafaxine XR (24 HR) [Effexor Xr] 37.5 mg PO DAILY cap.er.24h 01/03/18 [Rx] hydrOXYzine pamoate [HydrOXYzine Pamoate] 25 mg PO TID PRN #10 capsule 01/03/18 [Rx] Calcium Carbonate [Tums] 500 mg PO Q4HR 01/21/18 [History] Darbepoetin [Aranesp] 40 mcg SQ TU 01/21/18 [History] Folic Acid 0.8 mg PO DAILY 01/21/18 [History] Insulin Regular U-500 [HumuLIN R U-500] 85 unit SQ TIDWM 01/21/18 [History] Oxygen 2 l NS AD 01/21/18 [History] cefTRIAXone [Rocephin] 2,000 mg IV DAILY 01/21/18 [History] 3 Allergy/AdvReac Type Severity Reaction Status Date / Time gabapentin [From Neurontin] AdvReac Fainting Verified 01/21/18 14:54 - Meds/Allergy Pre-op Review Medications Reviewed: Yes Allergies Reviewed: Yes Beta Blockers on Current Med List: Yes If Beta Blockers taken, Date/Time (Last Dose taken): 07:07 01/22/2018 Anesthesia Results - Labs 01/21/18 15:36 01/21/18 15:36 Date of Study: 12/30/2017 History Hypertension Diabetes History of Smoking Years 15 Packs 1 Family History of CAD 02/27/2015 a Previous Echo was performed. EV/EV echocardiogram Impressions: Technically sub-optimal due to poor echocardiographic windows. LVEF 60-65%. Normal LV chamber size, wall thickness and function. Indeterminate diastolic function. Grossly, the right ventricle appears mildly dilated with normal function. Aortic valve not well visualized. Mild aortic stenosis suggested by Doppler. ments showed normal motion. - Imaging EKG: report reviewed (SR) Anesthesia Exam O2 Sat Height 1.52 m Weight 102.994 kg Weight 104.326 kg O2 Sat by Pulse Oximetry 98 O2 Sat by Pulse Oximetry 95 O2 Sat by Pulse Oximetry 94 O2 Sat by Pulse Oximetry 94 O2 Sat by Pulse Oximetry 94 O2 Sat by Pulse Oximetry 95 O2 Sat by Pulse Oximetry 95 Vital Signs Temp Pulse Resp BP Pulse Ox 98.3 F 94 18 174/72 95 01/21/18 14:51 01/21/18 14:51 01/21/18 14:51 01/21/18 14:51 01/21/18 14:51 NPO (# of Hours): > 8 hrs Pain Scale: 0 Pain Scale Used: Numeric (1 - 10) - HEENT Pupil (Motor): Pupils equal, EOMI Mallampati: III Teeth: Normal Oral Opening: Less than or equal to 3 - TOBACCO STRIPPER HAND LOC: Oriented TOBACCO STRIPPER HAND Motor: Normal RUE, Normal LUE, Normal RLE, Normal LLE, Normal Face TOBACCO STRIPPER HAND Sensory: Normal: RUE, LUE, RLE, LLE, Face - Cardiac Rhythm: Regular Murmur: None JVD: No Carotid Bruit: No - Pulmonary Breath Sounds: bilateral Clear Respiratory Effort: Symmetrical Anesthesia Assess/Plan ASA Score: 4 Modified Edvin Scale for Level of Consciousness: Cooperative, oriented, and tranquil Anesthetic Plan: General Autologous Blood: Yes Monitoring Plan: Standard Monitors Recovery Plan: PACU
[2018-01-22] MEDS ORDERED: Ondansetron 4 MG/2 ML VIAL IVP ONE (07:18)
[2018-01-22] MEDS ORDERED: *HR* OxyCODONE Immed Rel 5 MG TABLET PO PRN (07:18)
[2018-01-22] MEDS ORDERED: *HR* Labetalol 20 MG/4 ML SYRINGE IVP PRN (07:18)
[2018-01-22] MEDS ORDERED: *HR* FentaNYL (PF) 100 MCG/2 ML VIAL IVP PRN (07:18)
[2018-01-22] MEDS ORDERED: Acetaminophen IV 1,000 MG/100 ML INFUS..BTL IVPB ONE (07:18)
[2018-01-22] MEDS ORDERED: MORPHINE SUL Oral CONC 10 MG/0.5 ML ORAL.SYG SL PRN (07:18)
[2018-01-22] MEDS ORDERED: *HR* Promethazine 25 MG/ML VIAL IVP PRN (07:18)
[2018-01-22] MEDS ORDERED: Lidocaine/EPI 1:100k 1% 20 ML VIAL ONE ×2 (07:33→09:27)
[2018-01-22] MEDS ORDERED: *HR* Midazolam HCl 2 MG/2 ML VIAL ONE (07:36)
[2018-01-22] MEDS ORDERED: Ondansetron 4 MG/2 ML VIAL ONE (07:36)
[2018-01-22] MEDS ORDERED: *HR* Rocuronium Bromide 50 MG/5 ML VIAL ONE (07:36)
[2018-01-22] MEDS ORDERED: Lidocaine -MPF 2% 2 ML VIAL ONE (07:36)
[2018-01-22] MEDS ORDERED: Dexamethasone 4 MG/ML VIAL ONE (07:36)
[2018-01-22] MEDS ORDERED: *HR* FentaNYL (PF) 100 MCG/2 ML VIAL ONE (07:36)
[2018-01-22] MEDS ORDERED: *HR* Succinylcholine 200 MG/10 ML VIAL IVP ONE (07:36)
[2018-01-22] MEDS ORDERED: *HR* Propofol 200 MG/20 ML VIAL IVP ONE (07:36)
[2018-01-22] MEDS ORDERED: Albuterol 2.5 MG/3 ML NEBULIZER IH ONE (07:42)
[2018-01-22] MEDS ORDERED: Albuterol 2.5 MG/3 ML NEBULIZER ONE (07:44)
[2018-01-22] MEDS ORDERED: 0.9 % Sodium Chloride 500 ML ONE (07:44)
[2018-01-22] MEDS ORDERED: EPHEDrine 50 MG/ML VIAL ONE (09:04)
[2018-01-22] MEDS ORDERED: *HR* PHENYLEPHRINE 1,000 MCG/10 ML SYRINGE IVP ONE (09:24)
--- NOTE | 2018-01-22 10:08 | Orthopedic Operative Note ---
Date of procedure: 01/22/18 Procedure: OPERATIVE REPORT DATE OF PROCEDURE: 01/22/2018 SURGEON: Saleem Hernandez MD INTERPRETIVE PROGRAM COORDINATOR(S): There are no assistants PREOPERATIVE DIAGNOSIS: Left long finger proximal phalanx osteomyelitis POSTOPERATIVE DIAGNOSIS: Left long finger proximal phalanx osteomyelitis PROCEDURE: Left long finger ray resection ANESTHESIA: General anesthesia PREOPERATIVE ANTIBIOTICS: Receiving standing antibiotics on the floor; vancomycin and Zosyn ESTIMATED BLOOD LOSS: 30 milliliters TOURNIQUET TIME: 8 minutes of a wrist Esmarch SPECIMENS: Left long finger ray IMPLANTS: No implants LOCAL INJECTION: 20 mL of 1% lidocaine with epinephrine at the beginning of the case followed by 5 mL of an equal mixture of 1% lidocaine with epinephrine and half percent bupivacaine injected at the end PREOPERATIVE NOTE AND INDICATIONS: This patient is a 37-year-old female with end-stage renal disease and diabetes. She does have peripheral vascular disease and has lost both of her great toes. She sustained a left long finger infection which was initially treated by bedside I&D and operative I&D and she had gone on to develop osteomyelitis and PIP joint chronic septic arthritis. She also has a central slip insufficiency. Given the significant dysfunction of the digit, advanced infection, and her underlying medical issues, salvages felt to be impossible. Recommendation was for amputation. Ray resection will provide a more cosmetically pleasing and functional result than simple disarticulation at the metacarpophalangeal joint. The surgical plan was discussed with the patient. The risks, benefits, alternatives, and potential complications of this procedure were discussed with the patient including injury to veins, arteries, nerves, tendons, ligaments, and bone. Also discussed were the risks of infection, bleeding, pain, blood clots, the possible need for a blood transfusion, the possible need for further procedures, heart attack, stroke, and . Additional risks include persistent infection and the need for further debridements or further amputation. All of this was explained in simple terms, and the patient verbalized understanding and wished to proceed. Consent was given to proceed with surgery. PROCEDURE: The patient was seen in the preoperative holding area where the identify and the consent were confirmed. The left upper extremity was marked. Final questions were answered. The patient was brought back to the operating room and placed supine on the operating room table. A huddle was performed with the patient and all vital surgical team members confirming patient identity, the correct procedure, and the correct operative site. Gen. anesthesia was administered. The left upper extremity was prepped and draped in the usual sterile fashion. A surgical time out was performed immediately preceding the incision with all personnel in the operating room to confirm patient identity, the correct operative site and extremity, correct radiographic studies, availability of appropriate surgical equipment, and agreement on the planned procedure. And attempt was made to perform the procedure without a tourniquet given her fistula in the left upper extremity. Therefore before incision was made 20 mL of the 1% lidocaine with epinephrine were injected along the areas of the incision. A V-shaped dorsal incision was made and dissection proceeded creating full-thickness flaps down to the extensor mechanism which was transected proximally. The metacarpal was identified and the interossei were elevated on either side. One of the perforators was injured causing bleeding which was unable to be controlled with electrocautery. The decision was made to place the Esmarch at the wrist distal to the fistula which control bleeding. The metacarpal was osteotomized at the base and pulled distally and sharply dissected off the deep musculature. The incision was extended into the web spaces and volarly where the neurovascular bundles were identified and ligated at the base of the long finger. The ligamentous attachments were taken down and the specimen handed off after incising the flexor mechanism. The wound bed was evaluated and there is no necrotic material or concern for infection within the hand. The decision was made for primary closure. The wound was copiously irrigated and Esmarch taken down. The deep transverse metacarpal ligaments were imbricated with 3-0 FiberWire stitches to close down the gap. After final irrigation the skin was closed with interrupted nylon stitches. X-rays were obtained which show the ray resection. A sterile dressing and a forearm-based volar MP splint was applied. The fingertips all had good capillary refill after the procedure. The instrument, sponge, and needle counts were correct after wound closure. POST OPERATIVE PLAN: Weight Bearing: Nonweightbearing to the left upper extremity. DVT Prophylaxis: Per the hospitalist Activity: Avoid aggressive activities with the left upper extremity. Wound Care: Keep the dressing and splint clean, dry, and intact. Pain Control: [place] Perioperative antibiotic prophylaxis: Continue IV antibiotics for now per the hospitalist. Was there an registered nurse first assistant present: No Estimated blood loss (cc): 30
--- NOTE | 2018-01-22 10:37 | Anesthesia Evaluation Post Op ---
Date of Encounter: 01/22/18 Time of Encounter: 10:37 - Vital Signs Vital Signs: Vital Signs/O2 Sat, Most Current Temp Pulse Resp BP Pulse Ox 98.5 F 88 20 136/79 93 01/22/18 10:34 01/22/18 10:34 01/22/18 10:34 01/22/18 10:34 01/22/18 10:34 - Lungs Lungs: Clear Ascult./Percussion - Airway Airway: Non-obstructed - Cardiovascular Regular Rate - Mental Status Mental Status: Alert & Oriented, Answers Appropriately - Pain Pain Scale: 0 Pain Scale used: Numeric (1 - 10) - Nausea Vomiting Nausea Vomiting: Not Present - Hydration Hydration: NPO, Has not voided - Discharge PostOp Status: Transfer Patient to floor
[2018-01-22] MEDS: Ascorbic Acid 500 MG TABLET PO SCH (10:55)
[2018-01-22] MEDS: Multivit/Ca/Min/Fe/FA 1 TAB TABLET PO SCH (10:55)
[2018-01-22] MEDS: Insulin DETEMIR 100 UNIT/ML X5UNITS SQ SCH ×2 (10:55→21:07)
[2018-01-22] MEDS: Venlafaxine XR (24 HR) 37.5 MG CAP.ER.24H PO SCH (10:55)
--- NOTE | 2018-01-22 12:06 | Nephrology Consult Note ---
Date of Encounter: 01/22/18 Time of Encounter: 11:30 Assessment and Plan (1) ESRD on dialysis Current Visit: No Status: Chronic ESRD on HD TTS from [place], [place], [facility]. Dr. Ventura my colleague is her primary catalyst concentration operator. She dialyzes via a Rt tunneled HD catheter (Permacath). I'll arrange for HD today. Counseled her on fluid and renal diet restrictions. (2) Hyponatremia Current Visit: No Status: Acute Likely pseudohyponatremia from severe hyperglycemia. (3) Anemia in chronic kidney disease Current Visit: No Status: Chronic Goal Hgb 10-11 and will assess for IV iron and / or АЛЕКСАНДР as needed. Qualifiers: Chronic kidney disease stage: on chronic dialysis Qualified Code(s): N18.6 - End stage renal disease; D63.1 - Anemia in chronic kidney disease; D63.1 - Anemia in chronic kidney disease; Z99.2 - Dependence on renal dialysis; Z99.2 - Dependence on renal dialysis; Z99.2 - Dependence on renal dialysis; Z99.2 - Dependence on renal dialysis (4) Diabetes mellitus Current Visit: No Status: Chronic As per primary Qualifiers: Diabetes mellitus type: type 1 Diabetes mellitus complication status: with skin complications Diabetes mellitus complication detail: with foot ulcer Qualified Code(s): E10.621 - Type 1 diabetes mellitus with foot ulcer; L97.509 - Non-pressure chronic ulcer of other part of unspecified foot with unspecified severity; L97.509 - Non-pressure chronic ulcer of other part of unspecified foot with unspecified severity; L97.509 - Non-pressure chronic ulcer of other part of unspecified foot with unspecified severity; L97.509 - Non-pressure chronic ulcer of other part of unspecified foot with unspecified severity (5) Osteomyelitis of finger Current Visit: Yes Status: Acute As per primary History of Present Illness - Reason for Consult Consult date: 01/22/18 end stage renal disease Requesting physician: Khoi Blakely - Chief Complaint ESRD - History of Present Illness Maria De Jesus Cochran is a very pleasant 37 y/o morbidly obese WF with a pmh of longstanding IDDM, blindness and ESRD on HD TTS; nephrology was consulted for continuation of HD. She did not affirm active CP, cramping, N/V/D or dysuria. She said that her HD catheter has been working without problems or F/C or exudates. Past Med Surg Social Fam HX - Past Medical History Medical history: asthma, diabetes, dialysis, hyperlipidemia, hypertension, renal disease, SVT, other Psychiatric history: anxiety, depression, panic disorder - Past Surgical History Surgical History: appendectomy, , hysterectomy, other (right hallux amputation, left hallux amputation, left finger I&D) - Social History Smoking Status: Former smoker Smokeless Tobacco Status: No Alcohol use: none Drug use: none - Family History Mother Family Member Ethnicity: Non- Living Status: Still Living Hx Family Cardiac Disorders: Yes (CA, HTN, HLD) Hx Family Respiratory Disorders: Yes (copd) Hx Family Cancer: No Hx Family GI Disorders: No Hx Family Endocrine Disorder: Yes (DM) Hx Family Neuromuscular Disorders: No Hx Family Neurologic Disorders: No Hx Family HEENT Disorders: No Hx Family Autoimmune Disorders: No Brother Family Member Ethnicity: Non- Living Status: Still Living Hx Family Cardiac Disorders: Yes (heart murmur) Hx Family Respiratory Disorders: No Hx Family Cancer: No Hx Family GI Disorders: No Hx Family Endocrine Disorder: No Hx Family Neuromuscular Disorders: No Hx Family Neurologic Disorders: No Hx Family HEENT Disorders: No Hx Family Autoimmune Disorders: No Sister Family Member Ethnicity: Non- Living Status: Still Living Hx Family Cardiac Disorders: Yes (unknown has 70% of heart function) Hx Family Respiratory Disorders: Yes (Respiratory infections; had half of lung removed) Hx Family Cancer: No Hx Family GI Disorders: No Hx Family Endocrine Disorder: Yes (DM) Hx Family Neuromuscular Disorders: No Hx Family Neurologic Disorders: No Hx Family HEENT Disorders: No Hx Family Autoimmune Disorders: No Father Family Member Ethnicity: Non- Living Status: Still Living Hx Family Cardiac Disorders: Yes (CAD, CA, HTN, HLD) Hx Family Respiratory Disorders: Yes (Sleep apnea) Hx Family Cancer: No Hx Family GI Disorders: No Hx Family Endocrine Disorder: Yes (DM) Hx Family Neuromuscular Disorders: Yes (father (stroke), mother (neuropathy)) Hx Family Neurologic Disorders: No Hx Family HEENT Disorders: No Hx Family Autoimmune Disorders: No Medications and Allergies Multivitamin/Iron/Folic Acid [Cerovite Advanced Form Tab] 1 tab PO DAILY #0 08/07 [History] Trazodone HCl [TraZODone] 100 mg PO HS 03/30/16 [History] Albuterol Sulfate [Albuterol Inhaler] 2 puff IH Q4H PRN 01/15/17 [History] DiphenhydraMINE [Benadryl] 25 mg PO Q12H 01/15/17 [History] Sennosides/Docusate Sodium [Senna-S Tablet] 1 tab PO DAILY PRN 01/15/17 [History ] Ondansetron HCl [Zofran] 8 mg PO DAILY PRN 01/19/17 [History] Ergocalciferol (VITAMIN D2) [Vitamin D2] 50,000 unit PO MO 12/22/17 [History] Insulin Glargine [Lantus] 55 units SQ BID 12/22/17 [History] Labetalol HCl 300 mg PO BID 12/22/17 [History] Lanthanum Carbonate 1,500 mg PO 5XD 12/22/17 [History] Omeprazole [PriLOSEC] 40 mg PO DAILY 12/22/17 [History] HYDROcodone/Acet 5/325 mg [[place] 5-325 mg] 1 tab PO Q6HR PRN 5 Days #15 tablet 01/03/18 [Rx] Pregabalin [Lyrica] 75 mg PO DAILY@1900 10 Days #10 capsule 01/03/18 [Rx] Tramadol HCl [Ultram] 50 mg PO Q6H PRN 5 Days #15 tab 01/03/18 [Rx] Venlafaxine XR (24 HR) [Effexor Xr] 37.5 mg PO DAILY cap.er.24h 01/03/18 [Rx] hydrOXYzine pamoate [HydrOXYzine Pamoate] 25 mg PO TID PRN #10 capsule 01/03/18 [Rx] Calcium Carbonate [Tums] 500 mg PO Q4HR 01/21/18 [History] Darbepoetin [Aranesp] 40 mcg SQ TU 01/21/18 [History] Folic Acid 0.8 mg PO DAILY 01/21/18 [History] Insulin Regular U-500 [HumuLIN R U-500] 85 unit SQ TIDWM 01/21/18 [History] Oxygen 2 l NS AD 01/21/18 [History] cefTRIAXone [Rocephin] 2,000 mg IV DAILY 01/21/18 [History] 3 Allergy/AdvReac Type Severity Reaction Status Date / Time gabapentin [From Neurontin] AdvReac Fainting Verified 01/21/18 14:54 Review of Systems All Systems: reviewed and no additional remarkable complaints except as stated Exam - Vital Signs Vital signs: Initial Vital Signs Temp Pulse Resp BP Pulse Ox 98.3 F 94 18 174/72 95 01/21/18 14:51 01/21/18 14:51 01/21/18 14:51 01/21/18 14:51 01/21/18 14:51 Vital Signs - Last 8 Hours Temp Pulse Resp BP Pulse Ox 01/22/18 11:15 98.2 F 86 18 144/84 94 01/22/18 11:10 98 01/22/18 10:34 98.5 F 88 20 136/79 93 01/22/18 10:24 87 20 129/79 93 01/22/18 10:14 86 20 122/69 94 01/22/18 10:04 97.6 F 86 20 138/77 92 01/22/18 04:45 98.1 F 91 18 110/70 98 Intake and Output 01/21/18 01/22/18 01/22/18 23:59 07:59 15:59 Intake Total 0 / 10 100 / 100 120 / 120 Output Total 0 / 0 30 / 30 Balance 0 / 10 100 / 100 90 / 90 Intake: IV Fluids 100 / 100 Zosyn 3.375 GM In 0.9 % Sodium 100 / 100 Chloride (Mini-Bag +) 100 ML @ 25 mls/hr IVPB Q12H [facility] Rx#: [id number] Oral 0 / 0 120 / 120 Output: Urine 0 / 0 0 / 0 Estimated Blood Loss 30 / 30 Other: Meal NPO Percent of Meal Consumed 0% Weight 102.994 kg Blood Glucose* 219 228 211 Patient Weight 01/22/18 23:59 Weight 102.994 kg - General Appearance General appearance: well-developed, well-nourished, appears started age, obese EENT: ATNC, PERRL, mucous membranes moist Neck: supple Respiratory: clear Cardiology: edema, regular rate, regular rhythm, normal S1, normal S2 Gastrointestinal: normoactive bowel sounds, no tenderness, no guarding Integumentary: warm and dry Additional Comments: hand wound, and hx of toe amputations Neurologic: no asterixis Musculoskeletal: no erythema, no cyanosis, no clubbing Psychiatric: mood/affect appropriate, cooperative Results - Lab Results 01/23/18 04:18 01/23/18 04:18 Most recent lab results Calcium 8.1 mg/dL (8.6-10.3) L 01/21/18 15:36 I reviewed the progress notes, labs, med lists, vitals and imaging. Consult Discharge Plan - Plan Referrals: Jacy Mcdonnell [Primary Care Provider] -
[2018-01-22] MEDS ORDERED: 0.9 % Sodium Chloride 250 ML IVC PRN (12:07)
[2018-01-22] MEDS: *HR* OxyCODONE/APAP 10/325 TABLET PO PRN ×2 (14:51→21:03)
[2018-01-22] MEDS: Piperacillin/Tazobactam 3.375 GM in 0.9 % Sodium Chloride Mini Bag 100 ML IVPB SCH (15:40)
[2018-01-22 16:40] LABS: Basophils % 0.2 %; Eosinophils % 0.2 %; Hematocrit 30.2 % (35.3-44.9); Hemoglobin 9.6 g/dL (11.5-15.4); Immature Granulocytes % 0.8 % (0-4); Lymphocytes # 0.7 K/mcL (0.6-4.6); Mean Corpuscular HGB Conc 31.8 g/dL (31.6-35.5); Mean Corpuscular Volume 97.4 fL (83.0-100.0); Mean Platelet Volume 10.7 fL (9.4-12.4); Monocytes # 0.1 K/mcL (0.0-1.3); Monocytes % 1.2 %; Neutrophils # 7.4 K/mcL (1.6-8.9); Platelet Count 116 K/mcL (140-400); Red Cell Distribution Width 16.4 % (11.5-14.5); Segmented Neutrophils % 89.6 %
[2018-01-22 17:00] LABS: Calcium 8.1 mg/dL (8.6-10.3); Potassium 6.8 mEq/L (3.5-5.1)
--- NOTE | 2018-01-22 18:45 | Internal Med Progress Note ---
Date of Encounter: 01/22/18 Time of Encounter: 13:00 - Assessment and plan (1) Osteomyelitis of finger Current Visit: Yes Status: Acute Assessment and plan: Patient left finger amputation secondary to proximal phalanx osteomyelitis on 01/22/18 Continue IV vancomycin and Zosyn Orthopedics following and appreciate recommendations (2) Foot ulcer, right Current Visit: No Status: Acute Assessment and plan: Podiatry following and appreciate recommendations Qualifiers: Non-pressure ulcer stage: with necrosis of bone Qualified Code(s): L97.514 - Non-pressure chronic ulcer of other part of right foot with necrosis of bone (3) ESRD on dialysis Current Visit: No Status: Chronic Assessment and plan: Patient with hyperkalemia secondary to end-stage renal disease and was taken for hemodialysis today Nephrology following and appreciate recommendations (4) Anemia in chronic kidney disease Current Visit: No Status: Chronic Assessment and plan: Hemoglobin at baseline and stable; continue to monitor Qualifiers: Chronic kidney disease stage: on chronic dialysis Qualified Code(s): N18.6 - End stage renal disease; D63.1 - Anemia in chronic kidney disease; D63.1 - Anemia in chronic kidney disease; Z99.2 - Dependence on renal dialysis; Z99.2 - Dependence on renal dialysis; Z99.2 - Dependence on renal dialysis; Z99.2 - Dependence on renal dialysis (5) DM (diabetes mellitus) type II controlled with renal manifestation Current Visit: No Status: Chronic Assessment and plan: Continue home medications Qualifiers: Diabetes mellitus complication detail: with chronic kidney disease Diabetes mellitus alf insulin use: with intermediate school teacher use Chronic kidney disease stage: stage 4 (severe) Qualified Code(s): E11.22 - Type 2 diabetes mellitus with diabetic chronic kidney disease; N18.4 - Chronic kidney disease, stage 4 (severe); N18.4 - Chronic kidney disease, stage 4 (severe); N18.4 - Chronic kidney disease, stage 4 (severe); N18.4 - Chronic kidney disease, stage 4 (severe); Z79.4 - ferry terminal agent (current) use of insulin; Z79.4 - ferry terminal agent ( current) use of insulin; Z79.4 - USP (current) use of insulin; Z79.4 - ferry terminal agent (current) use of insulin (6) Morbid obesity with BMI of 40.0-44.9, adult Current Visit: No Status: Chronic Assessment and plan: BMI 44.3 (7) DVT prophylaxis Current Visit: No Status: Acute Assessment and plan: Subcutaneous Lovenox - Subjective Interval history: Patient left finger amputation secondary to proximal phalanx osteomyelitis on 01/22/18 Patient also with hyperkalemia and was taken for hemodialysis - Constitutional Vitals: Temp Pulse Resp BP Pulse Ox 97.6 F 86 18 202/86 94 01/22/18 16:56 01/22/18 11:15 01/22/18 16:56 01/22/18 18:15 01/22/18 11:15 General appearance: Present: no acute distress - Respiratory Respiratory exam: Present: CTAB. Absent: accessory muscle use, rales, rhonchi, wheezes - Cardiovascular Cardiovascular exam: Present: RRR, +S1, +S2. Absent: diastolic murmur, gallop, rubs, systolic murmur - Expanded Upper Extremities Exam Hand wrist exam: Present: amputation (Patient's left hand wraped status post left finger amputation) Internal Medicine: Result - Labs CBC & Chem 7: 01/22/18 08:50 01/22/18 08:50 Labs: Short CBC 01/22/18 Range/Units 08:50 WBC 8.3 (4.3-11.1) K/mcL Hgb 9.6 L (11.5-15.4) g/dL Hct 30.2 L (35.3-44.9) % Plt Count 116 L (140-400) K/mcL Neutrophils # 7.4 (1.6-8.9) K/mcL BMP 01/22/18 08:50 Sodium 131 L Potassium 6.8 H* D Chloride 94 L Carbon Dioxide 23 BUN 68 H Creatinine 7.13 H Glucose 344 H Calcium 8.1 L - Impressions Impressions Fluoroscopy 01/22/18 00:00 IMPRESSION: Intraprocedural fluoroscopic spot images as above. See separate procedure report for more information. D/ / 01/22/2018 10:15:13 Roni Jeffries MD / patrice Interpreting Provider: Roni Jeffries MD Hand X-Ray 01/22/18 00:00 IMPRESSION: Intraprocedural fluoroscopic spot images as above. See separate procedure report for more information. D/ / 01/22/2018 10:15:13 Roni Jeffries MD / patrice Interpreting Provider: Roni Jeffries MD - VTE Documentation of Mechanical Device: Intermittent pneumatic compression device Consult Discharge Plan - Plan Referrals: Jacy Mcdonnell [Primary Care Provider] -
[2018-01-22] MEDS: Pregabalin 75 MG CAPSULE PO SCH (21:04)
[2018-01-22] MEDS: traZODone 50 MG TABLET PO SCH (21:04)
[2018-01-22 21:28] LABS: Albumin 4.7 g/dL (3.5-5.7); Albumin/Globulin Ratio 1.1 (1.1-2.2); Bilirubin,Total 0.6 mg/dL (0.3-1.0); Calcium 9.4 mg/dL (8.6-10.3); Globulin 4.1 g/dL (2.4-3.5); Potassium 3.9 mEq/L (3.5-5.1); Total Protein 8.8 g/dL (6.4-8.9)
[2018-01-23] MEDS: Piperacillin/Tazobactam 3.375 GM in 0.9 % Sodium Chloride Mini Bag 100 ML IVPB SCH ×3 (00:19→23:58)
[2018-01-23] MEDS: *HR* OxyCODONE/APAP 10/325 TABLET PO PRN ×3 (05:23→21:22)
[2018-01-23] MEDS: *HR* Enoxaparin 30 MG/0.3 ML SYRINGE SQ SCH (05:24)
[2018-01-23 05:58] LABS: Vancomycin,Trough 27.4 mcg/mL (10-20)
[2018-01-23] MEDS ORDERED: *HR* PHENYLEPHRINE 1,000 MCG/10 ML SYRINGE IVP ONE (07:39)
[2018-01-23] MEDS: Insulin DETEMIR 100 UNIT/ML X5UNITS SQ SCH ×2 (08:31→21:13)
[2018-01-23] MEDS: Insulin LISPRO 300 UNITS/3 ML VIAL SQ SCH ×5 (08:32→17:32)
[2018-01-23] MEDS: Ascorbic Acid 500 MG TABLET PO SCH (08:33)
[2018-01-23] MEDS: Venlafaxine XR (24 HR) 37.5 MG CAP.ER.24H PO SCH (08:33)
[2018-01-23] MEDS: Multivit/Ca/Min/Fe/FA 1 TAB TABLET PO SCH (08:33)
--- NOTE | 2018-01-23 08:36 | Orthopedics Progress Note ---
Date of Encounter: 01/23/18 Time of Encounter: 08:34 - Assessment and Plan (1) Osteomyelitis of finger Current Visit: Yes Status: Acute Subjective Interval history: S: The patient is resting in bed comfortably. No new injuries or complaints. Expected postoperative pain to the left hand. O: Afebrile on the vital signs are stable Left hand and postoperative dressing and splint Fingertips are all grossly sensate and well-perfused with good capillary refill A: Post left long finger ray resection due to proximal phalangeal osteomyelitis P: Continue IV antibiotics for the next 24 hours. I will take down the splint and dressing tomorrow to evaluate the wound. Everything looks okay upon the dressing change then she can be discharged tomorrow. No pushing, pulling, or lifting with the left upper extremity. Objective Vital signs: Vital Signs Temp Pulse Resp BP Pulse Ox 01/23/18 08:28 98.1 F 89 18 143/68 95 01/23/18 04:50 98.1 F 98 16 131/80 97 01/22/18 23:55 98.3 F 97 16 146/83 92 01/22/18 20:49 98.1 F 98 16 160/78 98 01/22/18 19:58 98.2 F 18 157/79 01/22/18 19:30 152/72 01/22/18 19:15 162/78 01/22/18 19:00 175/81 01/22/18 18:45 180/86 01/22/18 18:30 178/89 01/22/18 18:15 182/86 01/22/18 18:00 196/90 01/22/18 17:45 200/92 01/22/18 17:30 200/92 01/22/18 17:15 200/86 01/22/18 17:00 213/91 01/22/18 16:56 97.6 F 18 198/80 01/22/18 16:45 223/90 01/22/18 16:30 210/90 01/22/18 16:15 207/90 01/22/18 16:00 200/96 01/22/18 11:15 98.2 F 86 18 144/84 94 01/22/18 11:10 98 01/22/18 10:34 98.5 F 88 20 136/79 93 01/22/18 10:24 87 20 129/79 93 01/22/18 10:14 86 20 122/69 94 01/22/18 10:04 97.6 F 86 20 138/77 92 Intake and Output 01/22/18 01/23/18 01/23/18 23:59 07:59 15:59 Intake Total 700 / 700 Output Total 3600 / 3600 0 / 0 Balance -2900 / -2900 0 / 0 Intake: IV Fluids 100 / 100 Zosyn 3.375 GM In 0.9 % Sodium 100 / 100 Chloride (Mini-Bag +) 100 ML @ 25 mls/hr IVPB Q12H [facility] Rx#: [id number] Oral 0 / 0 Intake, Rinseback and Flushes 600 / 600 Output: Urine 0 / 0 0 / 0 Total Dialysis (HD) Output 3600 / 3600 Other: Weight 103.4 kg Blood Glucose* 303 545 Hemodialysis Net Fluid Removed 3000 (mL) Patient Weight 01/23/18 23:59 Weight 103.4 kg - Labs CBC & BMP: 01/22/18 08:50 01/22/18 20:42 Labs: Abnormal lab results RBC 3.10 M/mcL (3.82-4.97) L 01/22/18 08:50 Hgb 9.6 g/dL (11.5-15.4) L 01/22/18 08:50 Hct 30.2 % (35.3-44.9) L 01/22/18 08:50 RDW 16.4 % (11.5-14.5) H 01/22/18 08:50 Plt Count 116 K/mcL (140-400) L 01/22/18 08:50 ESR 62 mm/hr (0-15) H 01/21/18 15:36 Sodium 134 mEq/L (136-145) L 01/22/18 20:42 Chloride 93 mEq/L (98-107) L 01/22/18 20:42 BUN 24 mg/dL (6-20) H 01/22/18 20:42 Creatinine 2.88 mg/dL (0.60-1.20) H 01/22/18 20:42 Est GFR ( Amer) 22 (> 60) L 01/22/18 20:42 Est GFR (Non-Af Amer) 18 (> 60) L 01/22/18 20:42 Glucose 211 mg/dL (70-105) H 01/22/18 20:42 POC Glucose 149 (58-89) H 01/22/18 17:04 C-Reactive Protein 33 mg/L (Less than 10) H 01/21/18 15:36 Globulin 4.1 g/dL (2.4-3.5) H 01/22/18 20:42 Vancomycin Trough 27.4 mcg/mL (10-20) H* 01/23/18 04:18 - VTE Documentation of Mechanical Device: Intermittent pneumatic compression device Consult Discharge Plan - Plan Referrals: Jacy Mcdonnell [Primary Care Provider] -
[2018-01-23 09:27] LABS: Calcium 8.3 mg/dL (8.6-10.3); Potassium 4.9 mEq/L (3.5-5.1)
[2018-01-23 09:31] LABS: Basophils % 0.3 %; Hematocrit 29.6 % (35.3-44.9); Hemoglobin 9.1 g/dL (11.5-15.4); Immature Granulocytes % 0.8 % (0-4); Lymphocytes # 0.7 K/mcL (0.6-4.6); Lymphocytes % 7.7 %; Mean Corpuscular HGB Conc 30.7 g/dL (31.6-35.5); Mean Corpuscular Hemoglobin 31.2 pg (28.0-33.3); Mean Corpuscular Volume 101.4 fL (83.0-100.0); Mean Platelet Volume 11.7 fL (9.4-12.4); Monocytes # 0.8 K/mcL (0.0-1.3); Monocytes % 8.8 %; Neutrophils # 7.5 K/mcL (1.6-8.9); Platelet Count 134 K/mcL (140-400); Red Blood Count 2.92 M/mcL (3.82-4.97); Red Cell Distribution Width 16.5 % (11.5-14.5); Segmented Neutrophils % 82.4 %
[2018-01-23] MEDS ORDERED: Insulin LISPRO 300 UNITS/3 ML VIAL SQ ONE (09:46)
--- NOTE | 2018-01-23 10:17 | Event Note ---
Date of Encounter: 01/23/18 Time of Encounter: 10:16 Nephrology Chart Review Biochemically stable (other than mild pseudohyponatremia from very elevated BG - - will defer DM mgt to primary), so no need for extra HD today (Wednesday). Thank you.
[2018-01-23] MEDS ORDERED: traMADol 50 MG TABLET PO PRN (10:36)
--- NOTE | 2018-01-23 19:13 | Internal Med Progress Note ---
Date of Encounter: 01/23/18 Time of Encounter: 11:00 - Assessment and plan (1) Osteomyelitis of finger Current Visit: Yes Status: Acute Assessment and plan: Patient left finger amputation secondary to proximal phalanx osteomyelitis on 01/22/18 Medications for continuation of IV vancomycin and Zosyn for additional 24 hours per orthopedics Orthopedics following and appreciate recommendations (2) Foot ulcer, right Current Visit: No Status: Acute Assessment and plan: Podiatry following and appreciate recommendations Qualifiers: Non-pressure ulcer stage: with necrosis of bone Qualified Code(s): L97.514 - Non-pressure chronic ulcer of other part of right foot with necrosis of bone (3) ESRD on dialysis Current Visit: No Status: Chronic Assessment and plan: Hemo-dialysis per nephrology (4) Anemia in chronic kidney disease Current Visit: No Status: Chronic Assessment and plan: Hemoglobin at baseline and stable; continue to monitor Qualifiers: Chronic kidney disease stage: on chronic dialysis Qualified Code(s): N18.6 - End stage renal disease; D63.1 - Anemia in chronic kidney disease; D63.1 - Anemia in chronic kidney disease; Z99.2 - Dependence on renal dialysis; Z99.2 - Dependence on renal dialysis; Z99.2 - Dependence on renal dialysis; Z99.2 - Dependence on renal dialysis (5) DM (diabetes mellitus) type II controlled with renal manifestation Current Visit: No Status: Chronic Assessment and plan: Patient with hyperglycemia due to pharmacy not able to give patient's acting insulin Relations given for coverage Continue long-acting insulin Qualifiers: Diabetes mellitus complication detail: with chronic kidney disease Diabetes mellitus fdc insulin use: with fdc use Chronic kidney disease stage: stage 4 (severe) Qualified Code(s): E11.22 - Type 2 diabetes mellitus with diabetic chronic kidney disease; N18.4 - Chronic kidney disease, stage 4 (severe); N18.4 - Chronic kidney disease, stage 4 (severe); N18.4 - Chronic kidney disease, stage 4 (severe); N18.4 - Chronic kidney disease, stage 4 (severe); 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; Z79.4 - care home ( current) use of insulin; 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; Z79.4 - care home (current) use of insulin (6) Morbid obesity with BMI of 40.0-44.9, adult Current Visit: No Status: Chronic Assessment and plan: BMI 44.3 (7) DVT prophylaxis Current Visit: No Status: Acute Assessment and plan: Subcutaneous Lovenox - Subjective Interval history: Patient left finger amputation secondary to proximal phalanx osteomyelitis on 01/22/18 Patient with hyperglycemia this morning - Constitutional Vitals: Temp Pulse Resp BP Pulse Ox 98.0 F 96 18 138/79 98 01/23/18 17:23 01/23/18 17:23 01/23/18 17:23 01/23/18 17:23 01/23/18 17:23 General appearance: Present: no acute distress - Respiratory Respiratory exam: Present: CTAB. Absent: accessory muscle use, rales, rhonchi, wheezes - Cardiovascular Cardiovascular exam: Present: RRR, +S1, +S2. Absent: diastolic murmur, gallop, rubs, systolic murmur - Expanded Upper Extremities Exam Hand wrist exam: Present: tenderness (Left hand pain secondary to amputation) Internal Medicine: Result - Labs CBC & Chem 7: 01/23/18 04:18 01/23/18 04:18 Labs: Short CBC 01/23/18 Range/Units 04:18 WBC 9.1 (4.3-11.1) K/mcL Hgb 9.1 L (11.5-15.4) g/dL Hct 29.6 L (35.3-44.9) % Plt Count 134 L (140-400) K/mcL Neutrophils # 7.5 (1.6-8.9) K/mcL BMP 01/22/18 01/23/18 20:42 04:18 Sodium 134 L 132 L Potassium 3.9 D 4.9 D Chloride 93 L 94 L Carbon Dioxide 26 20 L BUN 24 H 42 H Creatinine 2.88 H 5.07 H Glucose 211 H 561 H* Calcium 9.4 8.3 L Liver Function 01/22/18 Range/Units 20:42 Total Bilirubin 0.6 (0.3-1.0) mg/dL AST 32 (13-39) Units/L ALT 41 (7-52) Units/L Alkaline Phosphatase 104 (34-104) Units/L Albumin 4.7 (3.5-5.7) g/dL - VTE Documentation of Mechanical Device: Venous foot pump, device Consult Discharge Plan - Plan Referrals: Jacy Mcdonnell [Primary Care Provider] -
[2018-01-23] MEDS ORDERED: Insulin LISPRO 300 UNITS/3 ML VIAL SQ SCH (21:00)
[2018-01-23] MEDS: traZODone 50 MG TABLET PO SCH (21:13)
[2018-01-23] MEDS: Pregabalin 75 MG CAPSULE PO SCH (21:13)
[2018-01-23] MEDS: hydrOXYzine pamoate 25 MG CAPSULE PO PRN (21:22)
[2018-01-24] MEDS: *HR* Enoxaparin 30 MG/0.3 ML SYRINGE SQ SCH (05:21)
[2018-01-24 05:49] LABS: Calcium 8.1 mg/dL (8.6-10.3); Potassium 4.8 mEq/L (3.5-5.1)
--- NOTE | 2018-01-24 08:03 | Orthopedics Progress Note ---
Date of Encounter: 01/24/18 Time of Encounter: 08:01 - Assessment and Plan (1) Osteomyelitis of finger Current Visit: Yes Status: Acute Subjective Interval history: S: The patient is doing much better this morning She got a good night sleep Pain is well-controlled left hand O: Afebrile on the vital signs are stable The dressing is taken down and the wound evaluated It is clean, dry, and intact She could grossly flex and extend the residual digits No concern for persistent infection Fingertips are all grossly sensate and well-perfused with good capillary refill A: Post left long finger ray resection due to proximal phalangeal osteomyelitis P: Orthopedically stable for discharge My recommendation is to continue an oral antibiotic for 2 weeks Keep the splint clean, dry, and intact Follow-up in the office on 02/03/18 for stitch removal Objective Vital signs: Vital Signs Temp Pulse Resp BP Pulse Ox 01/24/18 07:33 98.9 F 98 18 96 01/24/18 07:18 98 01/24/18 05:34 97.5 F L 83 16 157/88 98 01/23/18 23:36 97.9 F 89 18 153/83 99 01/23/18 19:53 97.7 F 91 18 168/99 94 01/23/18 17:23 98.0 F 96 18 138/79 98 01/23/18 11:11 97.6 F 91 16 115/74 95 01/23/18 08:28 98.1 F 89 18 143/68 95 Intake and Output 01/23/18 01/24/18 01/24/18 23:59 07:59 15:59 Intake Total 460 / 460 0 / 0 Output Total 0 / 0 0 / 0 Balance 460 / 460 0 / 0 Intake: IV Fluids 100 / 100 Zosyn 3.375 GM In 0.9 % Sodium 100 / 100 Chloride (Mini-Bag +) 100 ML @ 25 mls/hr IVPB Q12H [facility] Rx#: [id number] Oral 360 / 360 0 / 0 Output: Urine 0 / 0 0 / 0 Other: Meal Dinner Percent of Meal Consumed 100% Weight 104.7 kg Blood Glucose* 276 316 Patient Weight 01/24/18 23:59 Weight 104.7 kg - Labs CBC & BMP: 01/23/18 04:18 01/24/18 05:04 Labs: Abnormal lab results RBC 2.92 M/mcL (3.82-4.97) L 01/23/18 04:18 Hgb 9.1 g/dL (11.5-15.4) L 01/23/18 04:18 Hct 29.6 % (35.3-44.9) L 01/23/18 04:18 MCV 101.4 fL (83.0-100.0) H 01/23/18 04:18 MCHC 30.7 g/dL (31.6-35.5) L 01/23/18 04:18 RDW 16.5 % (11.5-14.5) H 01/23/18 04:18 Plt Count 134 K/mcL (140-400) L 01/23/18 04:18 ESR 62 mm/hr (0-15) H 01/21/18 15:36 Chloride 97 mEq/L (98-107) L 01/24/18 05:04 BUN 58 mg/dL (6-20) H 01/24/18 05:04 Creatinine 7.44 mg/dL (0.60-1.20) H 01/24/18 05:04 Est GFR ( Amer) 7 (> 60) L 01/24/18 05:04 Est GFR (Non-Af Amer) 6 (> 60) L 01/24/18 05:04 Glucose 273 mg/dL (70-105) H 01/24/18 05:04 POC Glucose 276 (58-89) H 01/23/18 19:51 Calculated Osmolality 310 (280-300) H 01/24/18 05:04 Calcium 8.1 mg/dL (8.6-10.3) L 01/24/18 05:04 C-Reactive Protein 33 mg/L (Less than 10) H 01/21/18 15:36 Globulin 4.1 g/dL (2.4-3.5) H 01/22/18 20:42 Vancomycin Trough 24.7 mcg/mL (10-20) H* 01/24/18 05:04 - VTE Documentation of Mechanical Device: Venous foot pump, device Consult Discharge Plan - Plan Additional Instructions: DISCHARGE INSTRUCTIONS Dr. Hernandez DISCHARGE DIAGNOSIS/PROCEDURE Post left long finger ray resection PAIN AND SWELLING: The goal of pain medication is to reduce your pain and make you more comfortable. Pain medication may not completely relieve all discomfort. Control of swelling is an important part of pain control. To control swelling and pain: 1. Use a pillow to elevate the hand 10 to 14 inches above the heart level. 2. If your splint is positioned so that one or more of your fingers is free, then we encourage gentle movement of those fingers. If the splint blocks your motion, then we ask that you avoid motion of these fingers or hand. If the splint does not include the elbow, then we encourage you to bend and straighten your elbow 4 to 5 times per day to prevent stiffness. 3. Use ice packs over the affected area (on the soft side of the dressings is preferred - if there is one) for 10 minute intervals every hour while the hand is elevated. Be careful, however, to keep the dressing dry! 4. If you were given a sling, then wear the sling on when walking around for long periods of time. Otherwise, elevated as directed above. Continued use of the sling does not provide proper elevation of the extremity to prevent swelling. 5. The anesthesiologist may have given you a nerve block (an injection near your neck or shoulder) to numb your hand and arm. This is to help control your pain. Therefore, it is normal to experience some numbness and tingling in your arm and fingers up to approximately 18 hours after surgery. Your surgeon may have given a nerve block directly at the site of surgery which may also cause some numbness and tingling to the affected area. ACTIVITY: Avoid aggressive activities with the left upper extremity. WOUND CARE: Keep the wound clean, dry, and covered. The purpose of the dressing is to keep the surgical site protected and to promote healing. If you have a splint or a cast, it is designed to also help protect the surgical site. You may take a shower or bath with your dressing, splint, or cast in place, but you must keep it dry. One common way to do this is to place a bag over the area and seal with tape. If your dressing, splint, or cast becomes soaked, then phone our office as soon as possible. Unless otherwise instructed, do not remove your dressing or splint. There may be some bloody spotting on the dressing initially , and this is normal. Excessive bleeding that soaks the dressing must be reported to us. DRIVING: Do not drive while taking narcotic pain medications. DIET: Begin with clear liquids, and then increase your diet as you feel comfortable. MEDICATIONS: Pain: Per the hospitalist Your prescribed pain medication contains Tylenol. You must be careful not to exceed 4,000 mg (4 g) of Tylenol (or generic equivalent), from all sources, within a single 24-hour period. Gradually wean to Tylenol (or generic equivalent) for pain. Over the counter ibuprofen can be taken as directed in addition to your prescribed pain medication unless otherwise stated by your doctor. DO NOT TAKE IBUPROFEN IF YOU HAVE A HISTORY OF STOMACH ULCERS OR ARE TAKING BLOOD THINNERS LIKE COUMADIN OR PLAVIX. FOLLOW-UP Follow-up with Dr. Hernandez at the office on 02/03/2018 for a post operative evaluation. Call the office at [phone] to schedule or confirm your appointment. WHEN TO CALL THE DOCTOR OR WHEN TO SEEK CARE BEFORE YOUR APPOINTMENT 1. Excess swelling or increased numbness not made better by elevating the hand and moving the fingers. 2. Uncontrolled pain. 3. A color change in your hand or fingers. 4. Worsening redness or drainage. 5. Fevers over 100.5 degrees F or 38.1 degrees C. 6. Any symptoms that bring concern to you. Referrals: Jacy Mcdonnell [Primary Care Provider] -
[2018-01-24] MEDS: Insulin LISPRO 300 UNITS/3 ML VIAL SQ SCH ×4 (08:57→11:38)
[2018-01-24] MEDS: Venlafaxine XR (24 HR) 37.5 MG CAP.ER.24H PO SCH (08:58)
[2018-01-24] MEDS: Insulin DETEMIR 100 UNIT/ML X5UNITS SQ SCH (08:59)
[2018-01-24] MEDS: *HR* OxyCODONE/APAP 10/325 TABLET PO PRN (08:59)
[2018-01-24] MEDS: Ascorbic Acid 500 MG TABLET PO SCH (08:59)
[2018-01-24] MEDS: Multivit/Ca/Min/Fe/FA 1 TAB TABLET PO SCH (08:59)
--- NOTE | 2018-01-24 10:29 | Infectious Disease Consult ---
Date of Encounter: 01/25/18 Time of Encounter: 10:17 Assessment and Plan (1) Osteomyelitis of finger Status: Acute Assessment and plan: Location: Left long finger. Causative organism: MRSA. Failed IV antibiotic therapy. X-ray of the left hand showed septic arthritis and OM of the proximal left 3rd IP joint. Status post left 3rd ray resection 01/22/[address] Hernandez. Baseline ESR 62, CRP 33. Based on the aggressiveness of the surgical approach, it appears that all infected tissue was resection back to the metacarpal. At this point, I think the patient does not need further antibiotics for her hand infection. Discontinue Vancomycin. Wound care and activity restrictions per the ortho team. (2) Osteomyelitis of right foot Status: Acute Assessment and plan: Diagnosed during previous hospitalization. Still requiring IV antibiotics. Location: Right foot, great toe. Causative organism P. mirabilis, resistant to fluoroquinolones, and Enterococcus faecalis (ampicillin and Vanc sensitive). Secondary to non-healing diabetic foot ulcer. X-ray of the right foot showed osteomyelitis of the base of the right great toe. Wound culture obtained in the ED grew P. mirabilis. Podiatry consulted and following. Status post amputation of the right great toe 12/24/17. Clinically, the foot appears to be doing great. Wound care and activity restrictions per the podiatry team. Discontinue Vancomycin as above. Discontinue Zosyn. Start Ampicillin 2 grams IV Q12H. Dose adjusted for ESRD/HD. Dosing discussed with pharmacy. Duration of treatment depends on the clinical picture, but likely 6 weeks from the date of surgery. Treat through 02/04/18. Monitor for drug toxicity and dose-adjust antibiotics. Already has Powerglide in place. Continue weekly CBC, ESR, and CRP. Continue weekly IV care per protocol. Follow up with ID 02/02/18 at 0920. Qualifiers: Osteomyelitis type: other acute Qualified Code(s): M86.171 - Other acute osteomyelitis, right ankle and foot (3) ESRD on dialysis Status: Chronic Assessment and plan: Follows with [facility]. HD T/Th/Sat. (4) DM (diabetes mellitus) type II controlled with renal manifestation Status: Chronic Assessment and plan: Uncontrolled recently per patient report. FSBS 338 on admission labs. Her blood sugars continue to run high. HgbA1C 7.2%. Recommend aggressive glucose monitoring and control to promote wound healing and prevent re-infection. Management per the primary team. Qualifiers: Diabetes mellitus complication detail: with chronic kidney disease Diabetes mellitus shelter insulin use: with termite inspector use Chronic kidney disease stage: stage 4 (severe) Qualified Code(s): E11.22 - Type 2 diabetes mellitus with diabetic chronic kidney disease; N18.4 - Chronic kidney disease, stage 4 (severe); N18.4 - Chronic kidney disease, stage 4 (severe); N18.4 - Chronic kidney disease, stage 4 (severe); N18.4 - Chronic kidney disease, stage 4 (severe); Z79.4 - nursing home (current) use of insulin; Z79.4 - nursing home ( current) use of insulin; Z79.4 - nursing home (current) use of insulin; Z79.4 - termite inspector (current) use of insulin (5) Peripheral neuropathy Status: Chronic Qualifiers: Peripheral neuropathy type: polyneuropathy, other Qualified Code(s): G62.89 - Other specified polyneuropathies Infectious Disease HPI - Data of Consult Patient: known to practice within the last 3 years Consult date: 01/24/18 Requesting Physician: Khoi Blakely Primary Care Provider: Jacy Mcdonnell - Consult Narrative Reason for consult: Left hand infection, right foot infection History of present illness: Ms. Cochran is a 37 year old female with a past medical history of asthma, diabetes type 1 diagnosed when the patient was 11 years old currently on sliding scale and long-acting insulin, HLD, HTN, ESRD on HD via a right upper chest perma-cath, depression, right great toe OM s/p amputation currently on IV antibiotics and left long finger infection. The patient was admitted to the hospital 01/21/18 for left long finger osteomyelitis. We are consulted 01/24/18 for antibiotic recommendations. Briefly, the patient is a 37-year-old female with a past medical history as stated above. The patient is well-known to infectious disease services were consulted on her case during her previous hospitalization and were following her IV antibiotics and outpatient setting. The patient was originally admitted to the hospital back on December 22 for osteomyelitis of the right great toe with Enterococcus and Proteus mirabilis and while hospitalized was noted to have a deep infection of the left long finger that was positive for MRSA. She went amputation of the right great toe. She also had a bedside I&D of the left long finger but due to the extent of the infection was taken to the operating room a couple of days later underwent a formal operative I&D. She was discharged to a local extended care facility to complete 2 weeks of IV vancomycin for the left long finger infection and a total of 6 weeks of treatment for the right foot osteomyelitis. The patient was seen in the ID clinic last week and was noted to have persistent redness, swelling, and nonhealing of the left long finger surgical site. She had not seen orthopedics and was sent to see ortho the following day. An x-ray complted in the office showed worsening of septic arthritis and OM of the 3rd proximal interphalangeal joint. She was scheduled for an amputation later this week. She developed worsening pain and was evaluated again on Wednesday by Dr. Hernandez and was scheduled to undergo surgery on Wednesday. She presented to the ER on 01/21/18. Upon arrival the patient was afebrile and hemodynamically stable. WBC was normal and renal function was at baseline. She was started on IV antibiotics pre -op despite the absence of SIRS criteria and was admitted to the hospital for further evaluation. Since admission, the patient has remained afebrile and hemodynamically stable. On January 22, she underwent left long finger ray resection. Operative note was reviewed. Pathology is pending. No cultures were obtained. She has been evaluated by podiatry and had her wound VAC removed from her right foot and she tells me the wound was closed at the bedside by Dr. Aggarwal. Clinically, the patient appears to be doing well. We've been asked to evaluate and make further recommendations. During my exam today, the patient states that overall she feels very well. She denies any fevers or chills or rigors. She denies any headache or neck pain. She denies any congestion, earache, or sore throat. She does report a dry cough since her surgery, but denies any shortness of breath or chest pain. She denies any nausea, vomiting, diarrhea, or constipation. She has an uric secondary to her end-stage renal disease. She denies abdominal pain and states her appetite is good. She does report some pain in the left hand, but states the pain is different than the pain she was having prior to surgery. She denies pain in her right foot and states Dr. Emanuel was indicated to the wound VAC off and sutured the wound closed. She denies any oral thrush or new skin lesions. She denies pain except as previously mentioned. She states she is hoping to go back to the residential later today. CC: Khoi Blakely Past Med Surg Social Fam HX - Past Medical History Attestation: Yes The following information was validated with the patient. Source: patient, old records reviewed, nursing notes reviewed Medical history: asthma, diabetes, dialysis, hyperlipidemia, hypertension, renal disease, SVT, other (Right great toe OM, left long finger OM) Psychiatric history: anxiety, depression, panic disorder - Past Surgical History Surgical History: appendectomy, , hysterectomy, other (right hallux amputation, left hallux amputation, left finger I&D) - Social History Smoking Status: Former smoker Smokeless Tobacco Status: No Alcohol use: none Drug use: none Occupational status: disabled Current living situation: [facility] Activity Level: Uses cane/walker Recent Out of Country Travel Within the Last 8 Weeks: No Exposure or Possible Exposure to Illness During Travel: No - Family History Mother Family Member Ethnicity: Non- Living Status: Still Living Hx Family Cardiac Disorders: Yes (AR, HTN, HLD) Hx Family Respiratory Disorders: Yes (copd) Hx Family Cancer: No Hx Family GI Disorders: No Hx Family Endocrine Disorder: Yes (DM) Hx Family Neuromuscular Disorders: No Hx Family Neurologic Disorders: No Hx Family HEENT Disorders: No Hx Family Autoimmune Disorders: No Brother Family Member Ethnicity: Non- Living Status: Still Living Hx Family Cardiac Disorders: Yes (heart murmur) Hx Family Respiratory Disorders: No Hx Family Cancer: No Hx Family GI Disorders: No Hx Family Endocrine Disorder: No Hx Family Neuromuscular Disorders: No Hx Family Neurologic Disorders: No Hx Family HEENT Disorders: No Hx Family Autoimmune Disorders: No Sister Family Member Ethnicity: Non- Living Status: Still Living Hx Family Cardiac Disorders: Yes (unknown has 70% of heart function) Hx Family Respiratory Disorders: Yes (Respiratory infections; had half of lung removed) Hx Family Cancer: No Hx Family GI Disorders: No Hx Family Endocrine Disorder: Yes (DM) Hx Family Neuromuscular Disorders: No Hx Family Neurologic Disorders: No Hx Family HEENT Disorders: No Hx Family Autoimmune Disorders: No Father Family Member Ethnicity: Non- Living Status: Still Living Hx Family Cardiac Disorders: Yes (CAD, AR, HTN, HLD) Hx Family Respiratory Disorders: Yes (Sleep apnea) Hx Family Cancer: No Hx Family GI Disorders: No Hx Family Endocrine Disorder: Yes (DM) Hx Family Neuromuscular Disorders: Yes (father (stroke), mother (neuropathy)) Hx Family Neurologic Disorders: No Hx Family HEENT Disorders: No Hx Family Autoimmune Disorders: No Infectious Disease-CN:Meds Multivitamin/Iron/Folic Acid [Cerovite Advanced Form Tab] 1 tab PO DAILY #0 08/07 [History] Trazodone HCl [TraZODone] 100 mg PO HS 03/30/16 [History] Albuterol Sulfate [Albuterol Inhaler] 2 puff IH Q4H PRN 01/15/17 [History] DiphenhydraMINE [Benadryl] 25 mg PO Q12H 01/15/17 [History] Sennosides/Docusate Sodium [Senna-S Tablet] 1 tab PO DAILY PRN 01/15/17 [History ] Ondansetron HCl [Zofran] 8 mg PO DAILY PRN 01/19/17 [History] Ergocalciferol (VITAMIN D2) [Vitamin D2] 50,000 unit PO MO 12/22/17 [History] Insulin Glargine [Lantus] 55 units SQ BID 12/22/17 [History] Labetalol HCl 300 mg PO BID 12/22/17 [History] Lanthanum Carbonate 1,500 mg PO 5XD 12/22/17 [History] Omeprazole [PriLOSEC] 40 mg PO DAILY 12/22/17 [History] Venlafaxine XR (24 HR) [Effexor Xr] 37.5 mg PO DAILY cap.er.24h 01/03/18 [Rx] hydrOXYzine pamoate [HydrOXYzine Pamoate] 25 mg PO TID PRN #10 capsule 01/03/18 [Rx] Calcium Carbonate [Tums] 500 mg PO Q4HR 01/21/18 [History] Darbepoetin [Aranesp] 40 mcg SQ TU 01/21/18 [History] Folic Acid 0.8 mg PO DAILY 01/21/18 [History] Insulin Regular U-500 [HumuLIN R U-500] 85 unit SQ TIDWM 01/21/18 [History] Oxygen 2 l NS AD 01/21/18 [History] Ampicillin 2 gm IV Q12HR #30 vial 01/24/18 [Rx] HYDROcodone/Acet 5/325 mg [Drayton 5-325 mg] 1 tab PO Q6HR PRN 5 Days #15 tablet 01/24/18 [Rx] Pregabalin [Lyrica] 75 mg PO DAILY@1900 10 Days #10 capsule 01/24/18 [Rx] Tramadol HCl [Ultram] 50 mg PO Q6H PRN 5 Days #15 tab 01/24/18 [Rx] 3 Allergy/AdvReac Type Severity Reaction Status Date / Time gabapentin [From Neurontin] AdvReac Fainting Verified 01/21/18 14:54 Exam - Constitutional Vitals: Temp Pulse Resp BP Pulse Ox 98.9 F 98 18 192/124 96 01/24/18 07:33 01/24/18 07:33 01/24/18 07:33 01/24/18 07:33 01/24/18 07:33 General appearance: cooperative, morbidly obese, no acute distress - Head Head exam: Present: atraumatic, normal inspection, normocephalic - Eye Eye exam: Present: EOMI, normal appearance, PERRL Pupils: Present: normal accommodation - ENT ENT exam: Present: mucous membranes moist - Neck Neck exam: Present: normal inspection - Respiratory Respiratory exam: Present: CTAB. Absent: rales, rhonchi, stridor, wheezes, tachypnea - Cardiovascular Cardiovascular exam: Present: RRR, +S1, +S2 - GI/Abdominal GI/Abdominal exam: Present: distended (obese), normal bowel sounds, soft. Absent: tenderness - Extremities Exam Extremities exam: Present: normal capillary refill, tenderness (left hand) Additional comments: Left hand dressing C/D/I. Right foot dressing C/D/I. - Neurological Exam Neurological exam: Present: alert, oriented X3, no focal deficits - Psychiatric Psychiatric exam: Present: normal affect, normal mood - Skin Skin exam: Present: dry, intact, normal color, warm - Additional findings Additional findings: Perma-cath noted to the right upper chest with transparent dressing C/D/I without redness, warmth, or tenderness. Infectious Disease CN: Results - Labs CBC & Chem 7: 01/23/18 04:18 01/24/18 05:04 - VTE Documentation of Mechanical Device: Venous foot pump, device Consult Discharge Plan - Plan Instructions: Osteomyelitis (DC) Additional Instructions: DISCHARGE INSTRUCTIONS Dr. Hernandez DISCHARGE DIAGNOSIS/PROCEDURE Post left long finger ray resection PAIN AND SWELLING: The goal of pain medication is to reduce your pain and make you more comfortable. Pain medication may not completely relieve all discomfort. Control of swelling is an important part of pain control. To control swelling and pain: 1. Use a pillow to elevate the hand 10 to 14 inches above the heart level. 2. If your splint is positioned so that one or more of your fingers is free, then we encourage gentle movement of those fingers. If the splint blocks your motion, then we ask that you avoid motion of these fingers or hand. If the splint does not include the elbow, then we encourage you to bend and straighten your elbow 4 to 5 times per day to prevent stiffness. 3. Use ice packs over the affected area (on the soft side of the dressings is preferred - if there is one) for 10 minute intervals every hour while the hand is elevated. Be careful, however, to keep the dressing dry! 4. If you were given a sling, then wear the sling on when walking around for long periods of time. Otherwise, elevated as directed above. Continued use of the sling does not provide proper elevation of the extremity to prevent swelling. 5. The anesthesiologist may have given you a nerve block (an injection near your neck or shoulder) to numb your hand and arm. This is to help control your pain. Therefore, it is normal to experience some numbness and tingling in your arm and fingers up to approximately 18 hours after surgery. Your surgeon may have given a nerve block directly at the site of surgery which may also cause some numbness and tingling to the affected area. ACTIVITY: Avoid aggressive activities with the left upper extremity. WOUND CARE: Keep the wound clean, dry, and covered. The purpose of the dressing is to keep the surgical site protected and to promote healing. If you have a splint or a cast, it is designed to also help protect the surgical site. You may take a shower or bath with your dressing, splint, or cast in place, but you must keep it dry. One common way to do this is to place a bag over the area and seal with tape. If your dressing, splint, or cast becomes soaked, then phone our office as soon as possible. Unless otherwise instructed, do not remove your dressing or splint. There may be some bloody spotting on the dressing initially , and this is normal. Excessive bleeding that soaks the dressing must be reported to us. DRIVING: Do not drive while taking narcotic pain medications. DIET: Begin with clear liquids, and then increase your diet as you feel comfortable. MEDICATIONS: Pain: Per the hospitalist Your prescribed pain medication contains Tylenol. You must be careful not to exceed 4,000 mg (4 g) of Tylenol (or generic equivalent), from all sources, within a single 24-hour period. Gradually wean to Tylenol (or generic equivalent) for pain. Over the counter ibuprofen can be taken as directed in addition to your prescribed pain medication unless otherwise stated by your doctor. DO NOT TAKE IBUPROFEN IF YOU HAVE A HISTORY OF STOMACH ULCERS OR ARE TAKING BLOOD THINNERS LIKE COUMADIN OR PLAVIX. FOLLOW-UP Follow-up with Dr. Hernandez at the office on 02/03/2018 for a post operative evaluation. Call the office at [phone] to schedule or confirm your appointment. WHEN TO CALL THE DOCTOR OR WHEN TO SEEK CARE BEFORE YOUR APPOINTMENT 1. Excess swelling or increased numbness not made better by elevating the hand and moving the fingers. 2. Uncontrolled pain. 3. A color change in your hand or fingers. 4. Worsening redness or drainage. 5. Fevers over 100.5 degrees F or 38.1 degrees C. 6. Any symptoms that bring concern to you. Referrals: Jacy Mcdonnell [Primary Care Provider] - Prescriptions: HYDROcodone/Acet 5/325 mg [Drayton 5-325 mg] 1 tab PO Q6HR PRN 5 Days #15 tablet PRN Reason: pain 7-10 Ampicillin 2 gm IV Q12HR #30 vial Pregabalin [Lyrica] 75 mg PO DAILY@1900 10 Days #10 capsule Tramadol HCl [Ultram] 50 mg PO Q6H PRN 5 Days #15 tab PRN Reason: PAIN<6 - Attending Attestation I examined this patient and my medical decision-making was reviewed with the Resident Physician. I agree with the documented findings, disposition and treatment plan as described except to the extent set forth below. This is an addendum to original report dictated by Melissa Guevara CNP. Please refer to [facility] for full detail. Patient is a 37-year-old woman well-known to our service has seen by us on previous admission in November of this year for osteolysis of the right great toe and enterococcus and Proteus mirabilis and deep infection of the left long finger that was positive for MRSA. Patient at that time was evaluated by orthopedics and had an I&D at bedside and no signs of deep infection. Patient was supposed to follow-up with orthopedics as an outpatient. She had not seen orthopedics and was sent to see ortho the following day. An x-ray complted in the office showed worsening of septic arthritis and OM of the 3rd proximal interphalangeal joint. She was scheduled for an amputation later this week. She developed worsening pain and was evaluated again on Wednesday by Dr. Hernandez and was scheduled to undergo surgery on Wednesday. She presented to the ER on 01/21. Upon arrival the patient was afebrile and hemodynamically stable. WBC was normal and renal function was at baseline. She was started on IV antibiotics pre -op despite the absence of SIRS criteria and was admitted to the hospital for further evaluation. Since admission, the patient has remained afebrile and hemodynamically stable. On January 22, she underwent left long finger ray resection. Operative note was reviewed. Pathology is pending. No cultures were obtained. She has been evaluated by podiatry and had her wound VAC removed from her right foot and she tells me the wound was closed at the bedside by Dr. Aggarwal. Clinically, the patient appears to be doing well. We've been asked to evaluate and make further recommendations. At this point we will can discontinue vancomycin since the patient has an amputation of the third IV joint. Start ampicillin 2 g IV every 12 hours dose adjusted for hemodialysis. Duration of treatment 6 weeks total from first positive culture. Start treatment on 1617. Patient follow-up with us in clinic on 1417.
[2018-01-24 10:43] VITALS: BP 153/91
[2018-01-24] MEDS ORDERED: Ampicillin 2 GM in 0.9 % Sodium Chloride Mini Bag 100 ML IVPB SCH (11:00)
--- NOTE | 2018-01-24 11:38 | Discharge Summary ---
- NOTES TO OUTPATIENT PROVIDER Notes to Outpatient Provider: Patient to continue IV ampicillin for 6 weeks for osteomyelitis of right foot and to follow-up with infectious disease. Patient to have weekly CBC, ESR, and CRP for monitoring Orders not resulted at time of discharge: Pending orders 01/22/18 09:37 Surgical Pathology [PTH] Routine 01/26/18 04:00 Vancomycin,Trough AM 0400 Date of Encounter: 01/24/18 Time of Encounter: 11:00 - Discharge Diagnosis (1) Osteomyelitis of finger Priority: Primary Status: Acute (2) Foot ulcer, right Priority: Primary Status: Acute Qualifiers: Non-pressure ulcer stage: with necrosis of bone Qualified Code(s): L97.514 - Non-pressure chronic ulcer of other part of right foot with necrosis of bone (3) ESRD on dialysis Priority: Primary Status: Chronic (4) Anemia in chronic kidney disease Priority: Secondary Status: Chronic Qualifiers: Chronic kidney disease stage: on chronic dialysis Qualified Code(s): N18.6 - End stage renal disease; D63.1 - Anemia in chronic kidney disease; D63.1 - Anemia in chronic kidney disease; Z99.2 - Dependence on renal dialysis; Z99.2 - Dependence on renal dialysis; Z99.2 - Dependence on renal dialysis; Z99.2 - Dependence on renal dialysis (5) DM (diabetes mellitus) type II controlled with renal manifestation Priority: Secondary Status: Chronic Qualifiers: Diabetes mellitus complication detail: with chronic kidney disease Diabetes mellitus usp insulin use: with long term care pharmacist use Chronic kidney disease stage: stage 4 (severe) Qualified Code(s): E11.22 - Type 2 diabetes mellitus with diabetic chronic kidney disease; N18.4 - Chronic kidney disease, stage 4 (severe); N18.4 - Chronic kidney disease, stage 4 (severe); N18.4 - Chronic kidney disease, stage 4 (severe); N18.4 - Chronic kidney disease, stage 4 (severe); Z79.4 - intermediate manager (current) use of insulin; Z79.4 - halfway ( current) use of insulin; Z79.4 - intermediate manager (current) use of insulin; Z79.4 - intermediate manager (current) use of insulin (6) Morbid obesity with BMI of 40.0-44.9, adult Priority: Secondary Status: Chronic Hospital course: Patient is a 37-year-old female with past medical history significant for diabetes, osteomyelitis of finger, diabetic foot ulcer, end-stage renal disease on dialysis, peripheral neuropathy, hypertension, morbid obesity and chronic anemia who presented due to continued left finger pain. Patient was admitted recently with osteomyelitis of left third finger treated and discharged has been on vancomycin and Rocephin as an outpatient followed by orthopedic surgery. The wound is not getting better she was then sent to the emergency room to be admitted for finger. During patients hospital stay orthopedics was consulted and patient had left finger amputation secondary to proximal phalanx osteomyelitis on 01/22/18. Patient had been on IV vancomycin/Zosyn will be switched to IV ampicillin for 6 weeks coverage of osteomyelitis of right foot per ID recommendations. She will also continue to follow up with podiatry for management of right foot ulcer and continued hemodialysis for end-stage renal disease. Patient will also follow with infectious disease. - Time Spent with Patient Total time spent providing and/or coordinating discharge services: - Discharge Medications Prescriptions: HYDROcodone/Acet 5/325 mg [[place] 5-325 mg] 1 tab PO Q6HR PRN 5 Days #15 tablet PRN Reason: pain 7-10 Ampicillin 2 gm IV Q12HR #30 vial Pregabalin [Lyrica] 75 mg PO DAILY@1900 10 Days #10 capsule Tramadol HCl [Ultram] 50 mg PO Q6H PRN 5 Days #15 tab PRN Reason: PAIN<6 Home Medications: Multivitamin/Iron/Folic Acid [Cerovite Advanced Form Tab] 1 tab PO DAILY #0 08/07 [History] Trazodone HCl [TraZODone] 100 mg PO HS 03/30/16 [History] Albuterol Sulfate [Albuterol Inhaler] 2 puff IH Q4H PRN 01/15/17 [History] DiphenhydraMINE [Benadryl] 25 mg PO Q12H 01/15/17 [History] Sennosides/Docusate Sodium [Senna-S Tablet] 1 tab PO DAILY PRN 01/15/17 [History ] Ondansetron HCl [Zofran] 8 mg PO DAILY PRN 01/19/17 [History] Ergocalciferol (VITAMIN D2) [Vitamin D2] 50,000 unit PO MO 12/22/17 [History] Insulin Glargine [Lantus] 55 units SQ BID 12/22/17 [History] Labetalol HCl 300 mg PO BID 12/22/17 [History] Lanthanum Carbonate 1,500 mg PO 5XD 12/22/17 [History] Omeprazole [PriLOSEC] 40 mg PO DAILY 12/22/17 [History] Venlafaxine XR (24 HR) [Effexor Xr] 37.5 mg PO DAILY cap.er.24h 01/03/18 [Rx] hydrOXYzine pamoate [HydrOXYzine Pamoate] 25 mg PO TID PRN #10 capsule 01/03/18 [Rx] Calcium Carbonate [Tums] 500 mg PO Q4HR 01/21/18 [History] Darbepoetin [Aranesp] 40 mcg SQ TU 01/21/18 [History] Folic Acid 0.8 mg PO DAILY 01/21/18 [History] Insulin Regular U-500 [HumuLIN R U-500] 85 unit SQ TIDWM 01/21/18 [History] Oxygen 2 l NS AD 01/21/18 [History] Ampicillin 2 gm IV Q12HR #30 vial 01/24/18 [Rx] HYDROcodone/Acet 5/325 mg [[place] 5-325 mg] 1 tab PO Q6HR PRN 5 Days #15 tablet 01/24/18 [Rx] Pregabalin [Lyrica] 75 mg PO DAILY@1900 10 Days #10 capsule 01/24/18 [Rx] Tramadol HCl [Ultram] 50 mg PO Q6H PRN 5 Days #15 tab 01/24/18 [Rx] Allergies/Adverse Reactions: 3 Allergy/AdvReac Type Severity Reaction Status Date / Time gabapentin [From Neurontin] AdvReac Fainting Verified 01/21/18 14:54 Date of admission: 01/21/18 17:03 Primary care physician: Jacy Mcdonnell Consults: 01/21/18 17:59 Consult to Pastoral Services [CONS] Routine Comment: would like prayer before surgery on 01/22/18 if poss 01/22/18 11:12 Consult to Nephrology [CONS] Stat Consulting Provider: Khoi Blakely Reason for Consult: Patient is HD T,Th, Sat Time Notified: 11:14 Call Completed: Yes 03/03/18 12:15 Consult to Dialysis [CONS] ONCE 01/24/18 09:56 Consult to [facility] [CONS] Routine Reason for SW Consult: [facility] - Constitutional Vitals: Temp Pulse Resp BP Pulse Ox 98.9 F 91 18 153/91 99 01/24/18 10:37 01/24/18 10:37 01/24/18 10:37 01/24/18 10:37 01/24/18 10:37 General appearance: Present: no acute distress - Respiratory Respiratory exam: Present: CTAB. Absent: accessory muscle use, rales, rhonchi, wheezes - Cardiovascular Cardiovascular exam: Present: RRR, +S1, +S2. Absent: diastolic murmur, gallop, rubs, systolic murmur - Patient Status Disposition: Transfer Intermediate Care Fac Condition: Good - Discharge Instructions Follow Up With: Jacy Mcdonnell [Primary Care Provider] - Additional Instructions: DISCHARGE INSTRUCTIONS Dr. Hernandez DISCHARGE DIAGNOSIS/PROCEDURE Post left long finger ray resection PAIN AND SWELLING: The goal of pain medication is to reduce your pain and make you more comfortable. Pain medication may not completely relieve all discomfort. Control of swelling is an important part of pain control. To control swelling and pain: 1. Use a pillow to elevate the hand 10 to 14 inches above the heart level. 2. If your splint is positioned so that one or more of your fingers is free, then we encourage gentle movement of those fingers. If the splint blocks your motion, then we ask that you avoid motion of these fingers or hand. If the splint does not include the elbow, then we encourage you to bend and straighten your elbow 4 to 5 times per day to prevent stiffness. 3. Use ice packs over the affected area (on the soft side of the dressings is preferred - if there is one) for 10 minute intervals every hour while the hand is elevated. Be careful, however, to keep the dressing dry! 4. If you were given a sling, then wear the sling on when walking around for long periods of time. Otherwise, elevated as directed above. Continued use of the sling does not provide proper elevation of the extremity to prevent swelling. 5. The anesthesiologist may have given you a nerve block (an injection near your neck or shoulder) to numb your hand and arm. This is to help control your pain. Therefore, it is normal to experience some numbness and tingling in your arm and fingers up to approximately 18 hours after surgery. Your surgeon may have given a nerve block directly at the site of surgery which may also cause some numbness and tingling to the affected area. ACTIVITY: Avoid aggressive activities with the left upper extremity. WOUND CARE: Keep the wound clean, dry, and covered. The purpose of the dressing is to keep the surgical site protected and to promote healing. If you have a splint or a cast, it is designed to also help protect the surgical site. You may take a shower or bath with your dressing, splint, or cast in place, but you must keep it dry. One common way to do this is to place a bag over the area and seal with tape. If your dressing, splint, or cast becomes soaked, then phone our office as soon as possible. Unless otherwise instructed, do not remove your dressing or splint. There may be some bloody spotting on the dressing initially , and this is normal. Excessive bleeding that soaks the dressing must be reported to us. DRIVING: Do not drive while taking narcotic pain medications. DIET: Begin with clear liquids, and then increase your diet as you feel comfortable. MEDICATIONS: Pain: Per the hospitalist Your prescribed pain medication contains Tylenol. You must be careful not to exceed 4,000 mg (4 g) of Tylenol (or generic equivalent), from all sources, within a single 24-hour period. Gradually wean to Tylenol (or generic equivalent) for pain. Over the counter ibuprofen can be taken as directed in addition to your prescribed pain medication unless otherwise stated by your doctor. DO NOT TAKE IBUPROFEN IF YOU HAVE A HISTORY OF STOMACH ULCERS OR ARE TAKING BLOOD THINNERS LIKE COUMADIN OR PLAVIX. FOLLOW-UP Follow-up with Dr. Hernandez at the office on 02/03/2018 for a post operative evaluation. Call the office at [phone] to schedule or confirm your appointment. WHEN TO CALL THE DOCTOR OR WHEN TO SEEK CARE BEFORE YOUR APPOINTMENT 1. Excess swelling or increased numbness not made better by elevating the hand and moving the fingers. 2. Uncontrolled pain. 3. A color change in your hand or fingers. 4. Worsening redness or drainage. 5. Fevers over 100.5 degrees F or 38.1 degrees C. 6. Any symptoms that bring concern to you. - VTE Documentation of Mechanical Device: Venous foot pump, device
--- NOTE | 2018-01-24 11:42 | Physician Discharge Referral ---
ExtendedCare Referral Info Institutional Level of Care: Intermediate - Diagnosis (1) Osteomyelitis of finger Priority: Primary Status: Acute (2) Foot ulcer, right Priority: Primary Status: Acute (3) ESRD on dialysis Priority: Secondary Status: Chronic (4) Anemia in chronic kidney disease Priority: Secondary Status: Chronic (5) DM (diabetes mellitus) type II controlled with renal manifestation Priority: Secondary Status: Chronic (6) Morbid obesity with BMI of 40.0-44.9, adult Priority: Secondary Status: Chronic - Transfer Medications Prescriptions: HYDROcodone/Acet 5/325 mg [[place] 5-325 mg] 1 tab PO Q6HR PRN 5 Days #15 tablet PRN Reason: pain 7-10 Ampicillin 2 gm IV Q12HR #30 vial Pregabalin [Lyrica] 75 mg PO DAILY@1900 10 Days #10 capsule Tramadol HCl [Ultram] 50 mg PO Q6H PRN 5 Days #15 tab PRN Reason: PAIN<6 Home Medications: Multivitamin/Iron/Folic Acid [Cerovite Advanced Form Tab] 1 tab PO DAILY #0 08/07 [History] Trazodone HCl [TraZODone] 100 mg PO HS 03/30/16 [History] Albuterol Sulfate [Albuterol Inhaler] 2 puff IH Q4H PRN 01/15/17 [History] DiphenhydraMINE [Benadryl] 25 mg PO Q12H 01/15/17 [History] Sennosides/Docusate Sodium [Senna-S Tablet] 1 tab PO DAILY PRN 01/15/17 [History ] Ondansetron HCl [Zofran] 8 mg PO DAILY PRN 01/19/17 [History] Ergocalciferol (VITAMIN D2) [Vitamin D2] 50,000 unit PO MO 12/22/17 [History] Insulin Glargine [Lantus] 55 units SQ BID 12/22/17 [History] Labetalol HCl 300 mg PO BID 12/22/17 [History] Lanthanum Carbonate 1,500 mg PO 5XD 12/22/17 [History] Omeprazole [PriLOSEC] 40 mg PO DAILY 12/22/17 [History] Venlafaxine XR (24 HR) [Effexor Xr] 37.5 mg PO DAILY cap.er.24h 02/12/18 [Rx] hydrOXYzine pamoate [HydrOXYzine Pamoate] 25 mg PO TID PRN #10 capsule 01/03/18 [Rx] Calcium Carbonate [Tums] 500 mg PO Q4HR 01/21/18 [History] Darbepoetin [Aranesp] 40 mcg SQ TU 01/21/18 [History] Folic Acid 0.8 mg PO DAILY 01/21/18 [History] Insulin Regular U-500 [HumuLIN R U-500] 85 unit SQ TIDWM 01/21/18 [History] Oxygen 2 l NS AD 01/21/18 [History] Ampicillin 2 gm IV Q12HR #30 vial 01/24/18 [Rx] HYDROcodone/Acet 5/325 mg [[place] 5-325 mg] 1 tab PO Q6HR PRN 5 Days #15 tablet 01/24/18 [Rx] Pregabalin [Lyrica] 75 mg PO DAILY@1900 10 Days #10 capsule 01/24/18 [Rx] Tramadol HCl [Ultram] 50 mg PO Q6H PRN 5 Days #15 tab 01/24/18 [Rx] Allergies/Adverse Reactions: 3 Allergy/AdvReac Type Severity Reaction Status Date / Time gabapentin [From Neurontin] AdvReac Fainting Verified 01/21/18 14:54 - Respiratory Orders Smoking Cessation: Smoking cessation has been advised. For more information, call the [place] Tobacco Quit Line at 5-246-NFFF-NOW. CERTIFICATION: I certify that the transfer of the above named patient to an Extended Care Facility is necessary for the continuing treatment of the diagnosis listed. The above information is true and accurate reflection of patient's current condition. Confidential - Redisclosure prohibited without a patient's written consent.
[2018-01-24] MEDS ORDERED: Aminoglycoside Consult 1 EACH MC ONE (12:13)
[2018-01-24] MEDS: *HR* HYDROcodone/Acet 5/325 mg TABLET PO PRN (12:32)
--- NOTE | 2018-01-24 16:55 | Podiatry Progress Note ---
Date of Encounter: 01/24/18 Time of Encounter: 12:30 - Assessment and Plan (1) Osteomyelitis of right foot Status: Acute s/p repair right foot wound by Dr. Aggarwal on 01/21/18. Dressing changed at bedside, incision line healing uneventfully. Leave bandage intact until follow up appointment with Dr. Aggarwal in wound care center a week after discharge. Ambulation in post-operative shoe which the patient has with her bedside. Qualifiers: Osteomyelitis type: other acute Qualified Code(s): M86.171 - Other acute osteomyelitis, right ankle and foot Subjective Interval history: Patient is sitting up in bed with dressing dry and intact to the right foot and left hand. Patient is s/p repair of right foot wound by Dr. Aggarwal on 01/21/18. Patient is s/p Left long finger ray resection by Dr. Callahan on 01/22/18 for osteomyelitis. No c/o pain to the right foot. Patient states she thinks she is going home today. Objective - Vital Signs Vital Signs: Vital Signs Temp Pulse Resp BP Pulse Ox 01/24/18 10:37 98.9 F 91 18 153/91 99 01/24/18 07:33 98.9 F 98 18 192/124 96 01/24/18 07:18 98 01/24/18 05:34 97.5 F L 83 16 157/88 98 01/23/18 23:36 97.9 F 89 18 153/83 99 01/23/18 19:53 97.7 F 91 18 168/99 94 01/23/18 17:23 98.0 F 96 18 138/79 98 Intake and Output 01/24/18 01/24/18 01/24/18 07:59 15:59 23:59 Intake Total 0 / 0 1040 / 1040 Output Total 0 / 0 Balance 0 / 0 1040 / 1040 Intake: IV Fluids 200 / 200 Ampicillin 2 GM In 0.9 % Sodium 100 / 100 Chloride (Mini-Bag +) 100 ML @ 200 mls/hr IVPB Q12HR VAL Rx#: [id number] Zosyn 3.375 GM In 0.9 % Sodium 100 / 100 Chloride (Mini-Bag +) 100 ML @ 25 mls/hr IVPB Q12H VAL Rx#: [id number] Oral 0 / 0 840 / 840 Output: Urine 0 / 0 Other: Meal Breakfast Percent of Meal Consumed 100% Weight 104.7 kg Blood Glucose* 316 331 Patient Weight 01/24/18 23:59 Weight 104.7 kg - Exam Exam: General appearance: alert awake oriented X 3. Calm and pleasant, no acute distress.. Vascular: Pedal pulses +2/4 DP/PT , No evidence of cyanosis, pallor or rubor, Edema graded at 1+/4, Skin Temperature warm, No calf pain with manual compression. capillary refill time is immediate to digits. Neurologic: Sensation intact with light touch to foot. . Postop Exam: S/P Sutures intact to incision line, no signs of dehiscence. No open area, no active drainage, no odor, no erythema, no streaking. Minimal edema. Scant amount of bloody drainage observed to dressing. - Lab Result Diagrams: 01/23/18 04:18 01/24/18 05:04 Labs: Abnormal lab results RBC 2.92 M/mcL (3.82-4.97) L 01/23/18 04:18 Hgb 9.1 g/dL (11.5-15.4) L 01/23/18 04:18 Hct 29.6 % (35.3-44.9) L 01/23/18 04:18 MCV 101.4 fL (83.0-100.0) H 01/23/18 04:18 MCHC 30.7 g/dL (31.6-35.5) L 01/23/18 04:18 RDW 16.5 % (11.5-14.5) H 01/23/18 04:18 Plt Count 134 K/mcL (140-400) L 01/23/18 04:18 ESR 62 mm/hr (0-15) H 01/21/18 15:36 Chloride 97 mEq/L (98-107) L 01/24/18 05:04 BUN 58 mg/dL (6-20) H 01/24/18 05:04 Creatinine 7.44 mg/dL (0.60-1.20) H 01/24/18 05:04 Est GFR ( Amer) 7 (> 60) L 01/24/18 05:04 Est GFR (Non-Af Amer) 6 (> 60) L 01/24/18 05:04 Glucose 273 mg/dL (70-105) H 01/24/18 05:04 POC Glucose 331 (58-89) H 01/24/18 10:42 Calculated Osmolality 310 (280-300) H 01/24/18 05:04 Calcium 8.1 mg/dL (8.6-10.3) L 01/24/18 05:04 C-Reactive Protein 33 mg/L (Less than 10) H 01/21/18 15:36 Globulin 4.1 g/dL (2.4-3.5) H 01/22/18 20:42 Vancomycin Trough 24.7 mcg/mL (10-20) H* 01/24/18 05:04 - VTE Documentation of Mechanical Device: Venous foot pump, device Consult Discharge Plan - Plan Instructions: Osteomyelitis (DC) Additional Instructions: DISCHARGE INSTRUCTIONS Dr. Hernandez DISCHARGE DIAGNOSIS/PROCEDURE Post left long finger ray resection PAIN AND SWELLING: The goal of pain medication is to reduce your pain and make you more comfortable. Pain medication may not completely relieve all discomfort. Control of swelling is an important part of pain control. To control swelling and pain: 1. Use a pillow to elevate the hand 10 to 14 inches above the heart level. 2. If your splint is positioned so that one or more of your fingers is free, then we encourage gentle movement of those fingers. If the splint blocks your motion, then we ask that you avoid motion of these fingers or hand. If the splint does not include the elbow, then we encourage you to bend and straighten your elbow 4 to 5 times per day to prevent stiffness. 3. Use ice packs over the affected area (on the soft side of the dressings is preferred - if there is one) for 10 minute intervals every hour while the hand is elevated. Be careful, however, to keep the dressing dry! 4. If you were given a sling, then wear the sling on when walking around for long periods of time. Otherwise, elevated as directed above. Continued use of the sling does not provide proper elevation of the extremity to prevent swelling. 5. The anesthesiologist may have given you a nerve block (an injection near your neck or shoulder) to numb your hand and arm. This is to help control your pain. Therefore, it is normal to experience some numbness and tingling in your arm and fingers up to approximately 18 hours after surgery. Your surgeon may have given a nerve block directly at the site of surgery which may also cause some numbness and tingling to the affected area. ACTIVITY: Avoid aggressive activities with the left upper extremity. WOUND CARE: Keep the wound clean, dry, and covered. The purpose of the dressing is to keep the surgical site protected and to promote healing. If you have a splint or a cast, it is designed to also help protect the surgical site. You may take a shower or bath with your dressing, splint, or cast in place, but you must keep it dry. One common way to do this is to place a bag over the area and seal with tape. If your dressing, splint, or cast becomes soaked, then phone our office as soon as possible. Unless otherwise instructed, do not remove your dressing or splint. There may be some bloody spotting on the dressing initially , and this is normal. Excessive bleeding that soaks the dressing must be reported to us. DRIVING: Do not drive while taking narcotic pain medications. DIET: Begin with clear liquids, and then increase your diet as you feel comfortable. MEDICATIONS: Pain: Per the hospitalist Your prescribed pain medication contains Tylenol. You must be careful not to exceed 4,000 mg (4 g) of Tylenol (or generic equivalent), from all sources, within a single 24-hour period. Gradually wean to Tylenol (or generic equivalent) for pain. Over the counter ibuprofen can be taken as directed in addition to your prescribed pain medication unless otherwise stated by your doctor. DO NOT TAKE IBUPROFEN IF YOU HAVE A HISTORY OF STOMACH ULCERS OR ARE TAKING BLOOD THINNERS LIKE COUMADIN OR PLAVIX. FOLLOW-UP Follow-up with Dr. Hernandez at the office on 02/03/2018 for a post operative evaluation. Call the office at [phone] to schedule or confirm your appointment. WHEN TO CALL THE DOCTOR OR WHEN TO SEEK CARE BEFORE YOUR APPOINTMENT 1. Excess swelling or increased numbness not made better by elevating the hand and moving the fingers. 2. Uncontrolled pain. 3. A color change in your hand or fingers. 4. Worsening redness or drainage. 5. Fevers over 100.5 degrees F or 38.1 degrees C. 6. Any symptoms that bring concern to you. Referrals: Jacy Mcdonnell [Primary Care Provider] - Prescriptions: HYDROcodone/Acet 5/325 mg [[place] 5-325 mg] 1 tab PO Q6HR PRN 5 Days #15 tablet PRN Reason: pain 7-10 Ampicillin 2 gm IV Q12HR #30 vial Pregabalin [Lyrica] 75 mg PO DAILY@1900 10 Days #10 capsule Tramadol HCl [Ultram] 50 mg PO Q6H PRN 5 Days #15 tab PRN Reason: PAIN<6
[2018-01-25] MEDS ORDERED: *HR* Heparin 5,000 UNIT/ML VIAL SQ SCH (06:00)
== END 2018-01-24 14:14 | DRG 463 ==
LOC: EMEROO 14:49 → 2ANU 14:49
PROVIDERS: ADMIT Pediatrics; ATTEND Hospitalist

== ENCOUNTER 2018-05-28 01:22 | Inpatient (IN) ==
--- NOTE | 2018-05-28 05:41 | Internal Med History&Physical ---
<Russel Reed - Last Filed: 05/28/18 06:34> Date of Encounter: 05/28/18 Time of Encounter: 05:39 Internal Medicine - H&P: HPI Chief complaint: Hyperkalemia Admitted From: Long-term Nursing Facility Plans for Post Hospital Care: Transfer Custodial Facility History of present illness: Ms. Cochran is a 37 year old female with a past medical history of end-stage renal disease on hemodialysis every Wednesday presents from a nursing facility complaining of hyperkalemia. Of note patient reports getting right sided temporary hemodialysis catheter inserted in her right upper chest this morning. She reports associated chest wall tenderness secondary to hemodialysis catheter. She reports associated nausea and chills. Patient was recently treated for UTI. She denies associated fever, shortness of breath, abdominal pain, vomiting, diarrhea, leg edema, or bleeding. Last hemodialysis session was yesterday. Her implementation specialist payroll is Dr. Ventura. Past Med Surg Social Fam HX - Past Medical History Medical history: asthma, diabetes, dialysis, hyperlipidemia, hypertension, renal disease, SVT, other Additional medical history: neuropathy, Psychiatric history: anxiety, depression, panic disorder - Past Surgical History Surgical History: appendectomy, , hysterectomy, other Additional surgical history: ortho surgery - multiple - Social History Smoking Status: Former smoker Smokeless Tobacco Status: No Alcohol use: none Drug use: none - Family History Mother Family Member Ethnicity: Non- Living Status: Still Living Hx Family Cardiac Disorders: Yes (LA, HTN, HLD) Hx Family Respiratory Disorders: Yes (copd) Hx Family Cancer: No Hx Family GI Disorders: No Hx Family Endocrine Disorder: Yes (DM) Hx Family Neuromuscular Disorders: No Hx Family Neurologic Disorders: No Hx Family HEENT Disorders: No Hx Family Autoimmune Disorders: No Brother Family Member Ethnicity: Non- Living Status: Still Living Hx Family Cardiac Disorders: Yes (heart murmur) Hx Family Respiratory Disorders: No Hx Family Cancer: No Hx Family GI Disorders: No Hx Family Endocrine Disorder: No Hx Family Neuromuscular Disorders: No Hx Family Neurologic Disorders: No Hx Family HEENT Disorders: No Hx Family Autoimmune Disorders: No Sister Family Member Ethnicity: Non- Living Status: Still Living Hx Family Cardiac Disorders: Yes (unknown has 70% of heart function) Hx Family Respiratory Disorders: Yes (Respiratory infections; had half of lung removed) Hx Family Cancer: No Hx Family GI Disorders: No Hx Family Endocrine Disorder: Yes (DM) Hx Family Neuromuscular Disorders: No Hx Family Neurologic Disorders: No Hx Family HEENT Disorders: No Hx Family Autoimmune Disorders: No Father Family Member Ethnicity: Non- Living Status: Still Living Hx Family Cardiac Disorders: Yes (CAD, LA, HTN, HLD) Hx Family Respiratory Disorders: Yes (Sleep apnea) Hx Family Cancer: No Hx Family GI Disorders: No Hx Family Endocrine Disorder: Yes (DM) Hx Family Neuromuscular Disorders: Yes (father (stroke), mother (neuropathy)) Hx Family Neurologic Disorders: No Hx Family HEENT Disorders: No Hx Family Autoimmune Disorders: No Internal Medicine - H&P: Meds Multivitamin/Iron/Folic Acid [Cerovite Advanced Form Tab] 1 tab PO DAILY #0 08/07 [History] Trazodone HCl [TraZODone] 150 mg PO HS 03/30/16 [History] Albuterol Sulfate [Albuterol Inhaler] 2 puff IH Q4H PRN 01/15/17 [History] DiphenhydraMINE [Benadryl] 25 mg PO Q12H 01/15/17 [History] Ondansetron HCl [Zofran] 8 mg PO Q8HR PRN 01/19/17 [History] Ergocalciferol (VITAMIN D2) [Vitamin D2] 50,000 unit PO MO 12/22/17 [History] Labetalol HCl 300 mg PO BID 12/22/17 [History] Lanthanum Carbonate 1,500 mg PO TID 12/22/17 [History] Omeprazole [PriLOSEC] 40 mg PO DAILY 12/22/17 [History] Venlafaxine XR (24 HR) [Effexor Xr] 37.5 mg PO DAILY cap.er.24h 01/03/18 [Rx] Calcium Carbonate [Tums] 500 mg PO Q4HR 01/21/18 [History] Darbepoetin [Aranesp] 40 mcg SQ TU 01/21/18 [History] Folic Acid 0.8 mg PO DAILY 01/21/18 [History] Oxygen 2 l NS AD 01/21/18 [History] Pregabalin [Lyrica] 75 mg PO DAILY@1900 10 Days #10 capsule 01/24/18 [Rx] Tramadol HCl [Ultram] 50 mg PO Q6H PRN 5 Days #15 tab 01/24/18 [Rx] Chlorhexidine Gluconate [Peridex] 15 ml PO BID 05/28/18 [History] Ferrous Sulfate [Iron] 325 mg PO 05/28/18 [History] HYDROcodone/Acet 5/325 mg [[place] 5-325 mg] 2 tab PO Q6HR PRN 05/28/18 [History] Insulin Regular U-500 [HumuLIN R U-500] 30 unit SQ DAILY 05/28/18 [History] Insulin Regular U-500 [HumuLIN R U-500] 125 unit SQ DAILY 05/28/18 [History] Insulin Regular U-500 [HumuLIN R U-500] 130 unit SQ DAILY 05/28/18 [History] LORazepam [Ativan] 1 mg PO BID 05/28/18 [History] Loperamide HCl [Imodium A-D] 2 mg PO PRN 05/28/18 [History] Metoprolol [Lopressor] 100 mg PO DAILY 05/28/18 [History] Percocet 10/325 MG 05/28/18 [History] Polyethylene Glycol 3350 [MiraLAX] 17 g PO DAILY 05/28/18 [History] 3 Allergy/AdvReac Type Severity Reaction Status Date / Time gabapentin [From Neurontin] AdvReac Fainting Verified 01/21/18 14:54 All Systems PM: A 10-system review of systems was performed and is negative for pertinent findings except as documented above in the HPI. - Constitutional Constitutional: chills, fatigue, no anorexia, no fever(s), no lethargy, no weakness, no weight gain, no weight loss - EENT Eyes: blurry vision (Chronic), no diplopia Nose, mouth and throat: no nasal congestion, no sore throat - Cardiovascular Cardiovascular ROS IM: chest pain, palpitations, no dyspnea - Respiratory Respiratory: no cough, no dyspnea - Gastrointestinal Gastrointestinal: nausea, no abdominal pain, no diarrhea, no vomiting - Genitourinary Genitourinary: no dysuria, no urinary frequency, no urinary urgency - Musculoskeletal Musculoskeletal ROS IM: myalgias, no back pain, no numbness, no tingling - Integumentary Integumentary IM: no erythema, no rash - Neurological Neurological ROS: no dizziness, no numbness, no tingling, no weakness - Psychiatric Psychiatric: no anxiety, no depression - Endocrine Endocrine IM: no polydipsia, no polyphagia, no polyuria - Hematologic/Lymphatic Hematologic/Lymphatic: easy bleeding, no easy bruising - Allergic/Immunologic Allergic/Immunologic: no seasonal rhinorrhea, no wheezing - Constitutional General appearance: Present: cooperative, A&O X 3, pleasant, no acute distress, answers questions appropriately - Head Head exam: Present: atraumatic, normocephalic - Eye Eye exam: Present: EOMI, PERRL, conjuntiva pink, sclera anicteric Pupils: Present: PERRL - ENT ENT exam: Present: mucous membranes moist, normal oropharynx - Neck Neck exam general surgery: Present: supple, trachea midline. Absent: lymphadenopathy - Respiratory Respiratory exam: Present: CTAB. Absent: accessory muscle use, rales, rhonchi, wheezes - Cardiovascular Cardiovascular exam: Present: RRR, +S1, +S2. Absent: diastolic murmur, gallop, rubs, systolic murmur Additional comments: Right upper chest temporary hemodialysis catheter in place, no surrounding erythema or bleeding, mild chest pain reproducible with chest wall palpation control - GI/Abdominal GI/Abdominal exam: Present: normal bowel sounds, soft, no peritoneal signs. Absent: distended, guarding, tenderness - Extremities Exam Extremities exam: Present: warm, radial pulses palpable and symmetrical. Absent : calf tenderness, cyanotic, pedal edema - Back Exam Back exam: Present: normal inspection. Absent: paraspinal tenderness, tenderness - Neurological Exam Neurological exam: Present: CN II-XII intact, oriented X3, no focal deficits. Absent: pronater drift, facial droop, speech deficit - Psychiatric Psychiatric exam: Present: normal affect, normal mood - Skin Skin exam: Present: dry (Right upper chest temporary hemodialysis catheter in place, no surrounding erythema or bleeding), intact, warm Internal Med - H&P Results - Labs CBC & Chem 7: 18 06:06 - Pulse Oximetry Interpretation Digit-Finger O2 Sat by Pulse Oximetry: 95 (On RA) - Assessment and plan (1) Hyperkalemia Current Visit: Yes Status: Acute Assessment and plan: ESRD patient with elevated potassium, patient usually gets HD every , , Patient given Insulin, glucose, Kayexalate Continue telemetry monitoring Anticipate HD today Nephrology consulted (2) ESRD on dialysis Current Visit: Yes Status: Chronic Assessment and plan: patient usually gets HD every , , Anticipate HD today Renal diet Nephrology consulted (3) DM (diabetes mellitus) type II controlled with renal manifestation Current Visit: Yes Status: Chronic Assessment and plan: Continue long-acting and high-dose SSI Diabetic diet Continue Accu-Cheks ACHS Qualifiers: Diabetes mellitus intermediate manager insulin use: with intermediate manager use Diabetes mellitus complication detail: with chronic kidney disease Chronic kidney disease stage: stage 4 (severe) Qualified Code(s): E11.22 - Type 2 diabetes mellitus with diabetic chronic kidney disease; N18.4 - Chronic kidney disease, stage 4 (severe); Z79.4 - senior care (current) use of insulin (4) Anemia in chronic kidney disease Current Visit: Yes Status: Chronic Assessment and plan: Continue monitoring Qualifiers: Chronic kidney disease stage: on chronic dialysis Qualified Code(s): N18.6 - End stage renal disease; D63.1 - Anemia in chronic kidney disease; D63.1 - Anemia in chronic kidney disease; Z99.2 - Dependence on renal dialysis; Z99.2 - Dependence on renal dialysis; Z99.2 - Dependence on renal dialysis; Z99.2 - Dependence on renal dialysis (5) HTN (hypertension) Current Visit: No Status: Chronic Assessment and plan: Continue home meds Qualifiers: Hypertension type: essential hypertension Qualified Code(s): I10 - Essential (primary) hypertension (6) HLD (hyperlipidemia) Current Visit: No Status: Chronic Assessment and plan: Continue home meds Qualifiers: Hyperlipidemia type: unspecified Qualified Code(s): E78.5 - Hyperlipidemia , unspecified (7) Morbid obesity with BMI of 40.0-44.9, adult Current Visit: No Status: Chronic Assessment and plan: Lifestyle modification (8) DVT prophylaxis Current Visit: Yes Status: Acute Assessment and plan: Heparin subcutaneous TID - Time Spent With Patient Total time spent is greater than 50% in coordination of care (as documented) at patient's floor/unit and/or counseling patient: <Jake Billy - Last Filed: 05/28/18 07:01> Date of Encounter: 05/28/18 Internal Medicine - H&P: HPI History of present illness: Ms. Mourer is a 37 year old female All Systems PM: A 10-system review of systems was performed and is negative for pertinent findings except as documented above in the HPI. - Constitutional Vitals: Temp Pulse Resp BP Pulse Ox 98.0 F 94 16 135/50 95 05/28/18 05:38 05/28/18 05:38 05/28/18 05:38 05/28/18 05:38 05/28/18 05:38 Internal Med - H&P Results - Labs CBC & Chem 7: 05/28/18 06:06 05/28/18 06:06 Labs: Short CBC 05/28/18 Range/Units 06:06 WBC 6.3 (4.3-11.1) K/mcL Hgb 9.5 L (11.5-15.4) g/dL Hct 29.6 L (35.3-44.9) % Plt Count 112 L (140-400) K/mcL Neutrophils # 4.3 (1.6-8.9) K/mcL BMP 05/28/18 06:06 Sodium 130 L Potassium 6.5 H* Chloride 90 L Carbon Dioxide 25 BUN 55 H Creatinine 10.39 H Glucose 277 H Calcium 8.1 L Cardiac Enzymes 05/28/18 Range/Units 06:06 Troponin I < 0.03 (< 0.04) ng/mL - Attending Attestation I have seen and examined this patient independently. I have discussed with resident physician Dr. Reed regarding the management plan. Agree with the documentation. - Assessment and plan (1) ESRD on dialysis Current Visit: Yes Status: Chronic (2) DM (diabetes mellitus) type II controlled with renal manifestation Current Visit: Yes Status: Chronic Qualifiers: Diabetes mellitus intermediate insulin use: with intermediate use Diabetes mellitus complication detail: with chronic kidney disease Chronic kidney disease stage: stage 4 (severe) Qualified Code(s): E11.22 - Type 2 diabetes mellitus with diabetic chronic kidney disease; N18.4 - Chronic kidney disease, stage 4 (severe); Z79.4 - roasterman (current) use of insulin (3) Anemia in chronic kidney disease Current Visit: Yes Status: Chronic Qualifiers: Chronic kidney disease stage: on chronic dialysis Qualified Code(s): N18.6 - End stage renal disease; D63.1 - Anemia in chronic kidney disease; D63.1 - Anemia in chronic kidney disease; Z99.2 - Dependence on renal dialysis; Z99.2 - Dependence on renal dialysis; Z99.2 - Dependence on renal dialysis; Z99.2 - Dependence on renal dialysis (4) Morbid obesity with BMI of 40.0-44.9, adult Current Visit: No Status: Chronic (5) Hyperkalemia Current Visit: Yes Status: Acute (6) HLD (hyperlipidemia) Current Visit: No Status: Chronic Qualifiers: Hyperlipidemia type: unspecified Qualified Code(s): E78.5 - Hyperlipidemia , unspecified (7) HTN (hypertension) Current Visit: No Status: Chronic Qualifiers: Hypertension type: essential hypertension Qualified Code(s): I10 - Essential (primary) hypertension (8) DVT prophylaxis Current Visit: Yes Status: Acute - Time Spent With Patient Total time spent is greater than 50% in coordination of care (as documented) at patient's floor/unit and/or counseling patient:
[2018-05-28] MEDS ORDERED: Naloxone 0.4 MG/ML INJ IVP PRN (06:10)
[2018-05-28] MEDS ORDERED: Ondansetron ODT 4 MG TAB.RAPDIS SL PRN (06:10)
[2018-05-28] MEDS ORDERED: Acetaminophen 325 MG TABLET PO PRN (06:10)
[2018-05-28] MEDS ORDERED: Insulin Regular, Human 100 UNIT/ML SQ ONE (06:10)
[2018-05-28] MEDS ORDERED: *HR* Dextrose 50 % in Water (Syg) 50 ML SYRINGE IVP ONE ×2 (06:10→07:03)
[2018-05-28] MEDS ORDERED: Dextrose Gel 15 GM/37.5 ML TUBE PO PRN ×2 (06:16)
[2018-05-28] MEDS ORDERED: *HR* Dextrose 50 % in Water (Syg) 50 ML SYRINGE IVP PRN (06:16)
[2018-05-28] MEDS ORDERED: D5% in Water 1,000 ML IVC PRN (06:16)
[2018-05-28 06:26] LABS: Basophils % 0.5 %; Eosinophils # 0.2 K/mcL (0.0-0.6); Eosinophils % 2.8 %; Hematocrit 29.6 % (35.3-44.9); Hemoglobin 9.5 g/dL (11.5-15.4); Immature Granulocytes % 0.6 % (0-4); Lymphocytes # 0.8 K/mcL (0.6-4.6); Lymphocytes % 11.8 %; Mean Corpuscular HGB Conc 32.1 g/dL (31.6-35.5); Mean Corpuscular Hemoglobin 31.7 pg (28.0-33.3); Mean Corpuscular Volume 98.7 fL (83.0-100.0); Mean Platelet Volume 11.2 fL (9.4-12.4); Monocytes % 15.8 %; Neutrophils # 4.3 K/mcL (1.6-8.9); Platelet Count 112 K/mcL (140-400); Red Cell Distribution Width 18.1 % (11.5-14.5); Segmented Neutrophils % 68.5 %
[2018-05-28 06:41] LABS: INR 1.1; Prothrombin Time 12.6 Seconds (9.4-12.1)
[2018-05-28 06:55] LABS: BUN/Creatinine Ratio 5 (6-26); Blood Urea Nitrogen 55 mg/dL (6-20); Calcium 8.1 mg/dL (8.6-10.3); Carbon Dioxide 25 mEq/L (23-29); Chloride 90 mEq/L (98-107); Glucose 277 mg/dL (70-105); Magnesium 2.4 mg/dL (1.6-2.6); Osmolality,Calculated 295 (280-300); Phosphorous 6.7 mg/dL (2.7-4.5); Potassium 6.5 mEq/L (3.5-5.1); Sodium 130 mEq/L (136-145); Troponin I < 0.03 ng/mL (< 0.04); eGFR For African Americans 5 (> 60); eGFR For Non-African Americans 4 (> 60)
[2018-05-28] MEDS ORDERED: Insulin Human Regular 12 UNIT in 0.9 % Sodium Chloride 10 ML IV ONE (07:05)
[2018-05-28] MEDS ORDERED: Insulin Human Regular 10 UNIT in 0.9 % Sodium Chloride 10 ML IV ONE (07:07)
[2018-05-28] MEDS ORDERED: traMADol 50 MG TABLET PO PRN (07:20)
[2018-05-28] MEDS ORDERED: Insulin LISPRO 300 UNITS/3 ML VIAL SQ SCH ×2 (07:30→21:00)
[2018-05-28] MEDS ORDERED: 0.9 % Sodium Chloride 2,000 ML ONE (08:06)
[2018-05-28] MEDS: *HR* LORazepam 1 MG TABLET PO SCH ×2 (08:09→20:59)
[2018-05-28] MEDS: Chlorhexidine Rinse 15 ML MOUTHWASH PO SCH ×2 (08:10→20:59)
[2018-05-28] MEDS: Multivit/Ca/Min/Fe/FA 1 TAB TABLET PO SCH (08:10)
[2018-05-28] MEDS: Venlafaxine XR (24 HR) 37.5 MG CAP.ER.24H PO SCH (08:10)
[2018-05-28] MEDS: Folic Acid 1 MG TABLET PO SCH (08:10)
[2018-05-28] MEDS: Insulin DETEMIR 100 UNIT/ML X5UNITS SQ SCH ×2 (08:11→22:05)
[2018-05-28] MEDS: Insulin LISPRO 300 UNITS/3 ML VIAL SQ SCH ×4 (08:26→22:05)
[2018-05-28] MEDS ORDERED: 0.9 % Sodium Chloride 250 ML IVC PRN (08:33)
[2018-05-28] MEDS ORDERED: 0.9 % Sodium Chloride 1,000 ML PRIME SCH (08:45)
--- NOTE | 2018-05-28 09:29 | Event Note ---
Date of Encounter: 05/28/18 Time of Encounter: 11:00 Patient seen and evaluated by nocturnalist earlier this morning and also by myself Patient is a 37-year-old female with past medical history significant for end- stage renal disease who presents due to hyperkalemia Nephrology consulted with recommendations for hemodialysis
[2018-05-28] MEDS: *HR* OxyCODONE/APAP 10/325 TABLET PO PRN ×2 (12:56→21:05)
[2018-05-28] MEDS: *HR* Heparin 5,000 UNIT/ML VIAL SQ SCH ×2 (13:01→20:59)
[2018-05-28] MEDS: Pregabalin 75 MG CAPSULE PO SCH (13:01)
[2018-05-28] MEDS ORDERED: *HR* Heparin 5,000 UNIT/ML VIAL ONE (13:38)
--- NOTE | 2018-05-28 13:50 | IR Procedure Note ---
Date of procedure: 05/28/18 Consent Obtained: Written consent Timeout: Correct patient and procedure verified, Time out performed, Skin prep completed Local anesthetic: Lidocaine 1% Indications: ARF Procedure Performed: Temp dialysis catheter placement Was there an pharmacy technician assistant present: No Results/Findings: [facility]J 15F temp dialysis catheter placement Estimated blood loss (cc): 0 Complications: None; Tolerated procedure well Post Procedure Treatment Plan: may use catheter Specimen: none
--- NOTE | 2018-05-28 15:54 | Nephrology Consult Note ---
Date of Encounter: 05/28/18 Time of Encounter: 10:00 Assessment and Plan (1) ESRD on dialysis Status: Chronic Will await IR for access placement for urgent HD today Will plan to dialyze as soon as is possible today (2) Dialysis catheter clot or failure Status: Acute IR consulted, temp line planned today but will still need permcath addressed hopefully by wednesday (3) Hyperkalemia Status: Acute Will dialyze with reduced potassium bath and STAT potassium check mid HD planned Renal diet advised History of Present Illness - Reason for Consult Consult date: 05/28/18 end stage renal disease, hyperkalemia Requesting physician: Jake Billy - History of Present Illness 37 y o female with PMH of DM and ESRD on HD admitted as a transfer from [facility] where she presented with chest pain and bleeding around newly placed permcath earlier that day. Her potassium was noted elevated up to 6.6 here in [place]. Pt seen and examined for urgent HD but unable to run initially as permcath would not work. Call placed to IR, Dr Gurrola for help. Kayexalate 60grams in the meantime. Past Med Surg Social Fam HX - Past Medical History Medical history: asthma, diabetes, dialysis, hyperlipidemia, hypertension, renal disease, SVT, other Additional medical history: neuropathy, Psychiatric history: anxiety, depression, panic disorder - Past Surgical History Surgical History: appendectomy, , hysterectomy, other Additional surgical history: ortho surgery - multiple - Social History Smoking Status: Former smoker Smokeless Tobacco Status: No Alcohol use: none Drug use: none - Family History Mother Family Member Ethnicity: Non- Living Status: Still Living Hx Family Cardiac Disorders: Yes (AR, HTN, HLD) Hx Family Respiratory Disorders: Yes (copd) Hx Family Cancer: No Hx Family GI Disorders: No Hx Family Endocrine Disorder: Yes (DM) Hx Family Neuromuscular Disorders: No Hx Family Neurologic Disorders: No Hx Family HEENT Disorders: No Hx Family Autoimmune Disorders: No Brother Family Member Ethnicity: Non- Living Status: Still Living Hx Family Cardiac Disorders: Yes (heart murmur) Hx Family Respiratory Disorders: No Hx Family Cancer: No Hx Family GI Disorders: No Hx Family Endocrine Disorder: No Hx Family Neuromuscular Disorders: No Hx Family Neurologic Disorders: No Hx Family HEENT Disorders: No Hx Family Autoimmune Disorders: No Sister Family Member Ethnicity: Non- Living Status: Still Living Hx Family Cardiac Disorders: Yes (unknown has 70% of heart function) Hx Family Respiratory Disorders: Yes (Respiratory infections; had half of lung removed) Hx Family Cancer: No Hx Family GI Disorders: No Hx Family Endocrine Disorder: Yes (DM) Hx Family Neuromuscular Disorders: No Hx Family Neurologic Disorders: No Hx Family HEENT Disorders: No Hx Family Autoimmune Disorders: No Father Family Member Ethnicity: Non- Living Status: Still Living Age at : 72 Cause of : AR Hx Family Cardiac Disorders: Yes (CAD, [place], HTN, HLD) Hx Family Respiratory Disorders: Yes (Sleep apnea) Hx Family Cancer: No Hx Family GI Disorders: No Hx Family Endocrine Disorder: Yes (DM) Hx Family Neuromuscular Disorders: Yes (father (stroke), mother (neuropathy)) Hx Family Neurologic Disorders: No Hx Family HEENT Disorders: No Hx Family Autoimmune Disorders: No Medications and Allergies Multivitamin/Iron/Folic Acid [Cerovite Advanced Form Tab] 1 tab PO DAILY #0 08/07 [History] Albuterol Sulfate [Albuterol Inhaler] 2 puff IH Q4H PRN 01/15/17 [History] DiphenhydraMINE [Benadryl] 25 mg PO Q12H 01/15/17 [History] Ondansetron HCl [Zofran] 8 mg PO Q8HR PRN 01/19/17 [History] Ergocalciferol (VITAMIN D2) [Vitamin D2] 50,000 unit PO MO 12/22/17 [History] Labetalol HCl 300 mg PO BID 12/22/17 [History] Lanthanum Carbonate 1,500 mg PO TID 12/22/17 [History] Omeprazole [PriLOSEC] 40 mg PO DAILY 12/22/17 [History] Venlafaxine XR (24 HR) [Effexor Xr] 37.5 mg PO DAILY cap.er.24h 01/03/18 [Rx] Calcium Carbonate [Tums] 500 mg PO Q4HR 01/21/18 [History] Darbepoetin [Aranesp] 40 mcg SQ TH 01/21/18 [History] Folic Acid 0.8 mg PO DAILY 01/21/18 [History] Chlorhexidine Gluconate [Peridex] 15 ml PO BID 05/28/18 [History] Ferrous Sulfate [Iron] 325 mg PO DAILY 05/28/18 [History] Insulin Regular U-500 [HumuLIN R U-500] 30 unit SQ DAILY 05/28/18 [History] Insulin Regular U-500 [HumuLIN R U-500] 125 unit SQ QAM 05/28/18 [History] Insulin Regular U-500 [HumuLIN R U-500] 130 unit SQ QPM 05/28/18 [History] Loperamide HCl [Imodium A-D] 2 mg PO TID PRN 05/28/18 [History] Polyethylene Glycol 3350 [MiraLAX] 17 g PO DAILY 05/28/18 [History] Trazodone HCl 150 mg PO HS 05/30/18 [History] HYDROcodone/Acet 5/325 mg [[place] 5-325 mg] 2 tab PO Q6HR PRN 5 Days #20 tablet 06/01/18 [Rx] LORazepam [Ativan] 1 mg PO BID 5 Days #10 tablet 06/01/18 [Rx] Pregabalin [Lyrica] 75 mg PO DAILY@1900 10 Days #10 capsule 06/01/18 [Rx] 3 Allergy/AdvReac Type Severity Reaction Status Date / Time gabapentin [From Neurontin] AdvReac Fainting Verified 01/21/18 14:54 Review of Systems All Systems: reviewed and no additional remarkable complaints except as stated ( 10 systems reviewe and noted in HPI) Exam - Vital Signs Vital signs: Initial Vital Signs Temp Pulse Resp BP Pulse Ox 98.0 F 94 16 135/50 95 05/28/18 05:38 05/28/18 05:38 05/28/18 05:38 05/28/18 05:38 05/28/18 05:38 Vital Signs - Last 8 Hours Temp Resp BP 05/28/18 14:30 98.9 F 18 156/77 05/28/18 10:45 98.7 F 20 130/71 05/28/18 09:40 129/68 05/28/18 09:25 121/55 05/28/18 09:10 98.9 F 18 133/66 Intake and Output 05/27/18 05/28/18 05/28/18 23:59 07:59 15:59 Intake Total 1920 / 1920 Output Total 458 / 458 Balance 1462 / 1462 Intake: Oral 720 / 720 Intake, Rinseback and Flushes 1200 / 1200 Output: Urine 0 / 0 Total Dialysis (HD) Output 458 / 458 Other: Meal Lunch Percent of Meal Consumed 100% Weight 110.1 kg 110.1 kg Blood Glucose* 280 367 Hemodialysis Net Fluid Removed 0 (mL) Patient Weight 05/28/18 23:59 Weight 110.1 kg - General Appearance General appearance: chronically ill EENT: ATNC, mucous membranes dry Neck: no JVD, supple Respiratory: clear Cardiology: edema, normal S1, normal S2 - Dialysis Access Dialysis Vascular Access: Venous Catheter Additional Comments: nonworking AVF with palpable thrill Gastrointestinal: no tenderness, no guarding, obese Integumentary: warm and dry Neurologic: no focal deficit Musculoskeletal: no deformities Psychiatric: mood/affect appropriate, cooperative Results - Lab Results 06/01/18 03:40 06/01/18 03:40 Most recent lab results Calcium 8.1 mg/dL (8.6-10.3) L 05/28/18 06:06 Phosphorus 6.7 mg/dL (2.7-4.5) H 05/28/18 06:06 Magnesium 2.4 mg/dL (1.6-2.6) 05/28/18 06:06 Consult Discharge Plan - Plan Additional Instructions: Follow up with Nephrology in 1-2 weeks Referrals: NONE,PCP [Non-Partnered Physician] - (Follow up with PCP in 1 week.) Prescriptions: HYDROcodone/Acet 5/325 mg [[place] 5-325 mg] 2 tab PO Q6HR PRN 5 Days #20 tablet PRN Reason: pain 7-10 LORazepam [Ativan] 1 mg PO BID 5 Days #10 tablet Pregabalin [Lyrica] 75 mg PO DAILY@1900 10 Days #10 capsule
[2018-05-28] MEDS: *HR* HYDROcodone/Acet 5/325 mg TABLET PO PRN (19:30)
[2018-05-28] MEDS: traZODone 50 MG TABLET PO SCH (20:59)
[2018-05-29] MEDS: *HR* Heparin 5,000 UNIT/ML VIAL SQ SCH ×3 (05:35→21:30)
[2018-05-29] MEDS: *HR* OxyCODONE/APAP 10/325 TABLET PO PRN ×2 (05:40→15:13)
[2018-05-29] MEDS: Chlorhexidine Rinse 15 ML MOUTHWASH PO SCH ×2 (08:30→21:26)
[2018-05-29] MEDS: Folic Acid 1 MG TABLET PO SCH (08:30)
[2018-05-29] MEDS: Venlafaxine XR (24 HR) 37.5 MG CAP.ER.24H PO SCH (08:30)
[2018-05-29] MEDS: Multivit/Ca/Min/Fe/FA 1 TAB TABLET PO SCH (08:30)
[2018-05-29] MEDS: Pregabalin 75 MG CAPSULE PO SCH (08:30)
[2018-05-29] MEDS: *HR* LORazepam 1 MG TABLET PO SCH ×2 (08:30→21:23)
[2018-05-29] MEDS: Insulin LISPRO 300 UNITS/3 ML VIAL SQ SCH ×4 (08:31→21:27)
[2018-05-29] MEDS: Insulin DETEMIR 100 UNIT/ML X5UNITS SQ SCH ×2 (08:35→21:30)
--- NOTE | 2018-05-29 09:19 | Internal Med Progress Note ---
Date of Encounter: 05/29/18 Time of Encounter: 11:00 - Assessment and plan (1) ESRD on dialysis Current Visit: Yes Status: Chronic Assessment and plan: Patient with HD every , , Renal function improved after hemodialysis on 05/28/18 Nephrology following and appreciate recommendations (2) Hyperkalemia Current Visit: Yes Status: Acute Assessment and plan: Patient's hyperkalemia resolved after given Insulin, glucose, Kayexalate Continue telemetry monitoring Nephrology following and appreciate any additional recommendations (3) Anemia in chronic kidney disease Current Visit: Yes Status: Chronic Assessment and plan: Stable; continue monitoring Qualifiers: Chronic kidney disease stage: on chronic dialysis Qualified Code(s): N18.6 - End stage renal disease; D63.1 - Anemia in chronic kidney disease; D63.1 - Anemia in chronic kidney disease; Z99.2 - Dependence on renal dialysis; Z99.2 - Dependence on renal dialysis; Z99.2 - Dependence on renal dialysis; Z99.2 - Dependence on renal dialysis (4) HTN (hypertension) Current Visit: No Status: Chronic Assessment and plan: Continue home meds Qualifiers: Hypertension type: essential hypertension Qualified Code(s): I10 - Essential (primary) hypertension (5) DM (diabetes mellitus) type II controlled with renal manifestation Current Visit: Yes Status: Chronic Assessment and plan: Continue long-acting and high-dose SSI Diabetic diet Continue Accu-Cheks ACHS Qualifiers: Diabetes mellitus residential insulin use: with residential use Diabetes mellitus complication detail: with chronic kidney disease Chronic kidney disease stage: stage 4 (severe) Qualified Code(s): E11.22 - Type 2 diabetes mellitus with diabetic chronic kidney disease; N18.4 - Chronic kidney disease, stage 4 (severe); Z79.4 - senior living (current) use of insulin (6) HLD (hyperlipidemia) Current Visit: No Status: Chronic Assessment and plan: Continue home meds Qualifiers: Hyperlipidemia type: unspecified Qualified Code(s): E78.5 - Hyperlipidemia , unspecified (7) Morbid obesity with BMI of 40.0-44.9, adult Current Visit: No Status: Chronic Assessment and plan: Lifestyle modification (8) DVT prophylaxis Current Visit: Yes Status: Acute Assessment and plan: Heparin subcutaneous TID - Time Spent With Patient Total time spent is greater than 50% in coordination of care (as documented) at patient's floor/unit and/or counseling patient: - Subjective Interval history: Patient's hyperkalemia has resolved after Receiving Kayexalate and renal function has improved after hemodialysis - Constitutional Vitals: Temp Pulse Resp BP Pulse Ox 98.0 F 91 18 138/72 98 05/29/18 07:36 05/29/18 07:36 05/29/18 07:36 05/29/18 07:36 05/29/18 07:36 General appearance: Present: cooperative, A&O X 3, pleasant, no acute distress, answers questions appropriately - Respiratory Respiratory exam: Present: CTAB. Absent: accessory muscle use, rales, rhonchi, wheezes - Cardiovascular Cardiovascular exam: Present: RRR, +S1, +S2. Absent: diastolic murmur, gallop, rubs, systolic murmur Internal Medicine: Result - Labs CBC & Chem 7: 05/29/18 10:35 05/29/18 10:35 Labs: BMP 05/28/18 05/28/18 11:19 15:30 Potassium 6.6 H* 3.6 D Cardiac Enzymes 05/28/18 Range/Units 17:50 Troponin I 0.07 H* (< 0.04) ng/mL - ABG Interpretation ABG results: PT/INR, D-dimer PT 12.6 Seconds (9.4-12.1) H 05/28/18 06:06 Consult Discharge Plan - Plan Referrals: NONE,PCP [Primary Care Provider] -
[2018-05-29 10:49] LABS: Basophils % 0.4 %; Eosinophils # 0.2 K/mcL (0.0-0.6); Eosinophils % 3.1 %; Hematocrit 27.3 % (35.3-44.9); Hemoglobin 8.5 g/dL (11.5-15.4); Immature Granulocytes % 0.8 % (0-4); Lymphocytes # 0.8 K/mcL (0.6-4.6); Lymphocytes % 15.4 %; Mean Corpuscular HGB Conc 31.1 g/dL (31.6-35.5); Mean Corpuscular Hemoglobin 31.4 pg (28.0-33.3); Mean Corpuscular Volume 100.7 fL (83.0-100.0); Mean Platelet Volume 11.7 fL (9.4-12.4); Monocytes # 0.9 K/mcL (0.0-1.3); Monocytes % 17.1 %; Neutrophils # 3.3 K/mcL (1.6-8.9); Platelet Count 117 K/mcL (140-400); Red Blood Count 2.71 M/mcL (3.82-4.97); Red Cell Distribution Width 17.7 % (11.5-14.5); Segmented Neutrophils % 63.2 %
[2018-05-29 11:12] LABS: Calcium 8.1 mg/dL (8.6-10.3); Potassium 4.5 mEq/L (3.5-5.1)
--- NOTE | 2018-05-29 11:18 | Nephrology Progress Note ---
Date of Encounter: 05/29/18 Time of Encounter: 11:00 - Assessment and Plan (1) ESRD on dialysis Current Visit: Yes Status: Chronic (2) Dialysis catheter clot or failure Current Visit: Yes Status: Acute (3) Hyperkalemia Current Visit: Yes Status: Acute Objective - Vital Signs Vital signs: Vital Signs Temp Pulse Resp BP Pulse Ox 05/29/18 07:36 98.0 F 91 18 138/72 98 05/29/18 03:50 97.8 F 84 18 131/62 99 05/28/18 23:08 97.8 F 90 20 107/56 97 05/28/18 18:30 98.2 F 18 125/55 05/28/18 18:00 119/54 05/28/18 17:45 149/63 05/28/18 17:30 128/69 05/28/18 17:15 124/56 05/28/18 17:00 134/48 05/28/18 16:45 130/64 05/28/18 16:30 129/57 05/28/18 16:15 129/54 05/28/18 16:00 129/54 05/28/18 15:45 117/57 05/28/18 15:30 119/66 05/28/18 15:15 133/75 05/28/18 15:00 143/75 05/28/18 14:45 167/67 05/28/18 14:30 98.9 F 18 156/77 Intake and Output 05/28/18 05/29/18 05/29/18 23:59 07:59 15:59 Intake Total 480 / 480 Output Total 4600 / 4600 Balance -4600 / -4600 480 / 480 Intake: Oral 480 / 480 Output: Urine 0 / 0 Total Dialysis (HD) Output 4600 / 4600 Other: Meal Breakfast Percent of Meal Consumed 50% Stool Size Large Stool Consistency loose Stool Color Brown # Bowel Movements 1 Weight 107.9 kg Blood Glucose* 289 344 Hemodialysis Net Fluid Removed 4000 (mL) Patient Weight 05/29/18 23:59 Weight 107.9 kg - Lab 05/29/18 10:35 05/29/18 10:35 Most recent lab results Calcium 8.1 mg/dL (8.6-10.3) L 05/29/18 10:35 Phosphorus 6.7 mg/dL (2.7-4.5) H 05/28/18 06:06 Magnesium 2.4 mg/dL (1.6-2.6) 05/28/18 06:06 Consult Discharge Plan - Plan Referrals: NONE,PCP [Primary Care Provider] -
[2018-05-29] MEDS: traZODone 50 MG TABLET PO SCH (21:23)
[2018-05-29] MEDS: *HR* HYDROcodone/Acet 5/325 mg TABLET PO PRN (21:24)
[2018-05-30] MEDS: *HR* HYDROcodone/Acet 5/325 mg TABLET PO PRN ×2 (05:21→16:30)
[2018-05-30] MEDS: *HR* Heparin 5,000 UNIT/ML VIAL SQ SCH ×3 (05:21→20:11)
[2018-05-30 07:37] LABS: Hematocrit 26.1 % (35.3-44.9); Hemoglobin 8.1 g/dL (11.5-15.4); Mean Platelet Volume 11.3 fL (9.4-12.4); Platelet Count 150 K/mcL (140-400); Red Blood Count 2.61 M/mcL (3.82-4.97); Red Cell Distribution Width 17.5 % (11.5-14.5)
[2018-05-30 07:42] LABS: Calcium 8.1 mg/dL (8.6-10.3); Potassium 4.2 mEq/L (3.5-5.1)
[2018-05-30] MEDS: Venlafaxine XR (24 HR) 37.5 MG CAP.ER.24H PO SCH (08:08)
[2018-05-30] MEDS: Pregabalin 75 MG CAPSULE PO SCH (08:09)
[2018-05-30] MEDS: *HR* LORazepam 1 MG TABLET PO SCH ×2 (08:09→20:11)
[2018-05-30] MEDS: Multivit/Ca/Min/Fe/FA 1 TAB TABLET PO SCH (08:09)
[2018-05-30] MEDS: Chlorhexidine Rinse 15 ML MOUTHWASH PO SCH ×2 (08:09→20:11)
[2018-05-30] MEDS: Insulin LISPRO 300 UNITS/3 ML VIAL SQ SCH ×4 (08:09→20:11)
[2018-05-30] MEDS: Folic Acid 1 MG TABLET PO SCH (08:09)
[2018-05-30] MEDS: *HR* OxyCODONE/APAP 10/325 TABLET PO PRN ×2 (09:30→20:11)
[2018-05-30] MEDS: Insulin DETEMIR 100 UNIT/ML X5UNITS SQ SCH ×2 (09:32→20:11)
--- NOTE | 2018-05-30 10:39 | Nephrology Progress Note ---
Date of Encounter: 05/30/18 Time of Encounter: 10:39 - Assessment and Plan (1) ESRD on dialysis Current Visit: Yes Status: Chronic Current regimen TTS at [facility]. Last HD tx was 05/28/18, had difficulty with tunneled line that was placed on Wednesday. Temp line in left neck placed and HD completed on Wednesday without difficulty. Will make patient NPO tonight at midnight for IR procedure tomorrow. Will plan for HD tomorrow. (2) Hyperkalemia Current Visit: Yes Status: Acute K is 4.2 today. (3) Anemia in chronic kidney disease Current Visit: Yes Status: Chronic Hgb 8.1, already on home dose of Aranesp. Qualifiers: Chronic kidney disease stage: on chronic dialysis Qualified Code(s): N18.6 - End stage renal disease; D63.1 - Anemia in chronic kidney disease; D63.1 - Anemia in chronic kidney disease; Z99.2 - Dependence on renal dialysis; Z99.2 - Dependence on renal dialysis; Z99.2 - Dependence on renal dialysis; Z99.2 - Dependence on renal dialysis Subjective Principal diagnosis: hypotension,hypokalemia Interval history: Pt seen and examined, doing well. NAD. Objective - Vital Signs Vital signs: Vital Signs Temp Pulse Resp BP Pulse Ox 05/30/18 07:23 97.8 F 78 16 110/55 100 05/30/18 05:06 97.9 F 81 16 113/62 100 05/30/18 00:00 98 F 90 14 139/74 99 05/29/18 21:40 97 05/29/18 19:26 99.1 F 100 17 160/74 95 05/29/18 16:31 98.5 F 91 18 132/65 92 05/29/18 11:38 98.6 F 89 18 125/64 91 Intake and Output 05/29/18 05/30/18 05/30/18 23:59 07:59 15:59 Intake Total 740 / 740 480 / 480 Balance 740 / 740 480 / 480 Intake: Oral 740 / 740 480 / 480 Other: Meal Dinner Breakfast Percent of Meal Consumed 100% 100% Weight 110.1 kg Blood Glucose* 282 304 Patient Weight 05/30/18 23:59 Weight 110.1 kg - General Appearance General appearance: Present: obese, chronically ill EENT: Present: ATNC, hearing intact, vision intact Neck: Present: supple Respiratory: Present: clear Cardiology: Present: edema (Trace bilateral lower extremity edema. ), normal S1 , normal S2 Dialysis Vascular Access: Venous Catheter (Temp line left neck DRSG C/D/I. Tunneled Line Right Chest, DRSG C/D/I.) Gastrointestinal: Present: normoactive bowel sounds, no tenderness, no guarding Integumentary: Present: no rash, warm and dry Neurologic: Present: alert and oriented x3 Psychiatric: Present: mood/affect appropriate, cooperative - Lab 05/30/18 07:10 05/30/18 07:10 Most recent lab results Calcium 8.1 mg/dL (8.6-10.3) L 05/30/18 07:10 Phosphorus 6.7 mg/dL (2.7-4.5) H 05/28/18 06:06 Magnesium 2.4 mg/dL (1.6-2.6) 05/28/18 06:06 Consult Discharge Plan - Plan Referrals: NONE,PCP [Primary Care Provider] -
--- NOTE | 2018-05-30 17:06 | Electrocardiograph Report ---
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
--- NOTE | 2018-05-30 19:42 | Internal Med Progress Note ---
Date of Encounter: 05/30/18 Time of Encounter: 11:00 - Assessment and plan (1) ESRD on dialysis Current Visit: Yes Status: Chronic Assessment and plan: Patient with HD every , , Renal function improved after hemodialysis on 05/28/18 Patient scheduled for hemodialysis on 05/31/18 Nephrology following and appreciate recommendations (2) Hyperkalemia Current Visit: Yes Status: Acute Assessment and plan: Patient's hyperkalemia resolved after given Insulin, glucose, Kayexalate Continue telemetry monitoring Nephrology following and appreciate any additional recommendations (3) Anemia in chronic kidney disease Current Visit: Yes Status: Chronic Assessment and plan: Stable; continue monitoring Qualifiers: Chronic kidney disease stage: on chronic dialysis Qualified Code(s): N18.6 - End stage renal disease; D63.1 - Anemia in chronic kidney disease; D63.1 - Anemia in chronic kidney disease; Z99.2 - Dependence on renal dialysis; Z99.2 - Dependence on renal dialysis; Z99.2 - Dependence on renal dialysis; Z99.2 - Dependence on renal dialysis (4) HTN (hypertension) Current Visit: No Status: Chronic Assessment and plan: Continue home meds Qualifiers: Hypertension type: essential hypertension Qualified Code(s): I10 - Essential (primary) hypertension (5) DM (diabetes mellitus) type II controlled with renal manifestation Current Visit: Yes Status: Chronic Assessment and plan: Continue long-acting and high-dose SSI Diabetic diet Continue Accu-Cheks ACHS Qualifiers: 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 Diabetes mellitus complication detail: with chronic kidney disease Chronic kidney disease stage: stage 4 (severe) Qualified Code(s): E11.22 - Type 2 diabetes mellitus with diabetic chronic kidney disease; N18.4 - Chronic kidney disease, stage 4 (severe); Z79.4 - senior living (current) use of insulin (6) HLD (hyperlipidemia) Current Visit: No Status: Chronic Assessment and plan: Continue home meds Qualifiers: Hyperlipidemia type: unspecified Qualified Code(s): E78.5 - Hyperlipidemia , unspecified (7) Morbid obesity with BMI of 40.0-44.9, adult Current Visit: No Status: Chronic Assessment and plan: Lifestyle modification (8) DVT prophylaxis Current Visit: Yes Status: Acute Assessment and plan: Heparin subcutaneous TID - Time Spent With Patient Total time spent is greater than 50% in coordination of care (as documented) at patient's floor/unit and/or counseling patient: - Subjective Interval history: Patient's hyperkalemia has resolved after Receiving Kayexalate and renal function has improved after hemodialysis Patient scheduled for hemodialysis on 05/31/18 - Constitutional Vitals: Temp Pulse Resp BP Pulse Ox 98.2 F 94 18 161/65 94 05/30/18 17:20 05/30/18 17:20 05/30/18 17:20 05/30/18 17:20 05/30/18 17:20 General appearance: Present: cooperative, A&O X 3, pleasant, no acute distress, answers questions appropriately - Respiratory Respiratory exam: Present: CTAB. Absent: accessory muscle use, rales, rhonchi, wheezes - Cardiovascular Cardiovascular exam: Present: RRR, +S1, +S2. Absent: diastolic murmur, gallop, rubs, systolic murmur Internal Medicine: Result - Labs CBC & Chem 7: 05/30/18 07:10 05/30/18 07:10 Labs: Short CBC 05/30/18 Range/Units 07:10 WBC 6.8 (4.3-11.1) K/mcL Hgb 8.1 L (11.5-15.4) g/dL Hct 26.1 L (35.3-44.9) % Plt Count 150 (140-400) K/mcL BMP 05/30/18 07:10 Sodium 133 L Potassium 4.2 Chloride 96 L Carbon Dioxide 25 BUN 42 H Creatinine 7.99 H Glucose 299 H Calcium 8.1 L - ABG Interpretation ABG results: PT/INR, D-dimer PT 12.6 Seconds (9.4-12.1) H 05/28/18 06:06 Consult Discharge Plan - Plan Referrals: NONE,PCP [Non-Partnered Physician] -
[2018-05-30] MEDS: traZODone 50 MG TABLET PO SCH (20:10)
[2018-05-31 04:53] LABS: Hematocrit 25.1 % (35.3-44.9); Hemoglobin 8.1 g/dL (11.5-15.4); Mean Corpuscular HGB Conc 32.3 g/dL (31.6-35.5); Mean Corpuscular Hemoglobin 31.9 pg (28.0-33.3); Mean Corpuscular Volume 98.8 fL (83.0-100.0); Platelet Count 180 K/mcL (140-400); Red Blood Count 2.54 M/mcL (3.82-4.97); Red Cell Distribution Width 17.2 % (11.5-14.5)
[2018-05-31 05:11] LABS: Calcium 8.3 mg/dL (8.6-10.3); Potassium 4.4 mEq/L (3.5-5.1)
[2018-05-31] MEDS: *HR* Heparin 5,000 UNIT/ML VIAL SQ SCH ×3 (06:03→20:31)
[2018-05-31] MEDS ORDERED: 0.9 % Sodium Chloride 250 ML IVC PRN (07:48)
[2018-05-31] MEDS ORDERED: 0.9 % Sodium Chloride 1,000 ML PRIME SCH (08:00)
[2018-05-31] MEDS: Insulin LISPRO 300 UNITS/3 ML VIAL SQ SCH ×6 (08:58→20:30)
[2018-05-31] MEDS: Pregabalin 75 MG CAPSULE PO SCH (08:59)
[2018-05-31] MEDS: Venlafaxine XR (24 HR) 37.5 MG CAP.ER.24H PO SCH (08:59)
[2018-05-31] MEDS: *HR* LORazepam 1 MG TABLET PO SCH ×2 (08:59→20:31)
[2018-05-31] MEDS: Insulin DETEMIR 100 UNIT/ML X5UNITS SQ SCH ×2 (08:59→20:30)
[2018-05-31] MEDS: Folic Acid 1 MG TABLET PO SCH (08:59)
[2018-05-31] MEDS: Chlorhexidine Rinse 15 ML MOUTHWASH PO SCH ×2 (08:59→20:28)
[2018-05-31] MEDS: Multivit/Ca/Min/Fe/FA 1 TAB TABLET PO SCH (08:59)
--- NOTE | 2018-05-31 09:03 | Nephrology Progress Note ---
Date of Encounter: 05/31/18 Time of Encounter: 09:01 - Assessment and Plan (1) ESRD on dialysis Current Visit: Yes Status: Chronic Current regimen TTS at [facility]. HD today. Has been NPO for IR procedure to Tunneled Line. Continue to renal dose and avoid nephrotoxins. Will need to stay another night and will run a short UF on Wednesday and if the Tunneled line works, she will be able to be discharged from a renal standpoint. (2) Hyperkalemia Current Visit: Yes Status: Acute K is 4.4 today. (3) Anemia in chronic kidney disease Current Visit: Yes Status: Chronic Hgb 8.1, stable on home dose of Aranesp. Qualifiers: Chronic kidney disease stage: on chronic dialysis Qualified Code(s): N18.6 - End stage renal disease; D63.1 - Anemia in chronic kidney disease; D63.1 - Anemia in chronic kidney disease; Z99.2 - Dependence on renal dialysis; Z99.2 - Dependence on renal dialysis; Z99.2 - Dependence on renal dialysis; Z99.2 - Dependence on renal dialysis Subjective Principal diagnosis: hypotension,hypokalemia Interval history: Pt seen and examined during hemodiallysis. No nausea/vomiting. Objective - Vital Signs Vital signs: Vital Signs Temp Pulse Resp BP Pulse Ox 05/31/18 08:22 98.0 F 85 15 118/54 93 05/31/18 03:48 97.7 F 86 18 102/68 92 05/30/18 22:45 98.4 F 101 18 148/77 91 05/30/18 19:26 98.8 F 98 18 147/83 92 05/30/18 17:20 98.2 F 94 18 161/65 94 05/30/18 16:57 97.8 F 94 18 188/89 92 05/30/18 12:00 97.9 F 88 17 144/69 96 Intake and Output 05/30/18 05/31/18 05/31/18 23:59 07:59 15:59 Other: # Voids 1 Blood Glucose* 369 206 - General Appearance General appearance: Present: obese, chronically ill EENT: Present: ATNC, hearing intact, vision intact Neck: Present: supple Respiratory: Present: clear Cardiology: Present: edema, normal S1, normal S2 Dialysis Vascular Access: Venous Catheter (Temp line DRSG C/D/I, Tunneled line DRSG C/D/I.) Gastrointestinal: Present: normoactive bowel sounds, no tenderness, no guarding Integumentary: Present: no rash, warm and dry Neurologic: Present: alert and oriented x3 Psychiatric: Present: mood/affect appropriate, cooperative - Lab 05/31/18 04:35 05/31/18 04:35 Most recent lab results Calcium 8.3 mg/dL (8.6-10.3) L 05/31/18 04:35 Phosphorus 6.7 mg/dL (2.7-4.5) H 05/28/18 06:06 Magnesium 2.4 mg/dL (1.6-2.6) 05/28/18 06:06 Consult Discharge Plan - Plan Referrals: NONE,PCP [Non-Partnered Physician] -
--- NOTE | 2018-05-31 10:58 | Internal Med Progress Note ---
Date of Encounter: 05/31/18 Time of Encounter: 10:00 - Assessment and plan (1) ESRD on dialysis Current Visit: Yes Status: Chronic Assessment and plan: Receiving dialysis today. Nephrology following. Plan for permanent dialysis catheter placement today followed by dialysis tomorrow. If tunneled dialysis catheter functioning fine, patient will be discharged tomorrow. (2) DM (diabetes mellitus) type II controlled with renal manifestation Current Visit: Yes Status: Chronic Assessment and plan: Blood sugars remain elevated. 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 Qualifiers: Chronic kidney disease stage: on chronic dialysis Qualified Code(s): N18.6 - End stage renal disease; D63.1 - Anemia in chronic kidney disease; D63.1 - Anemia in chronic kidney disease; Z99.2 - Dependence on renal dialysis; Z99.2 - Dependence on renal dialysis; Z99.2 - Dependence on renal dialysis; Z99.2 - Dependence on renal dialysis (4) Morbid obesity with BMI of 40.0-44.9, adult Current Visit: Yes Status: Chronic (5) Hyperkalemia Current Visit: Yes Status: Acute Assessment and plan: Improved with dialysis (6) HLD (hyperlipidemia) Current Visit: No Status: Chronic Qualifiers: Hyperlipidemia type: unspecified Qualified Code(s): E78.5 - Hyperlipidemia , unspecified (7) HTN (hypertension) Current Visit: Yes Status: Chronic Assessment and plan: Controlled. No changes to treatment regimen Qualifiers: Hypertension type: essential hypertension Qualified Code(s): I10 - Essential (primary) hypertension (8) DVT prophylaxis Current Visit: Yes Status: Acute Assessment and plan: On SCDs and subcutaneous heparin - Time Spent With Patient Total time spent is greater than 50% in coordination of care (as documented) at patient's floor/unit and/or counseling patient: - Subjective Interval history: Patient seen during dialysis. Doing well overall. Denies any chest pain or palpitations. No new complaints at this time. No nausea or vomiting. Awaiting placement of permanent dialysis catheter scheduled for later today. - Constitutional Vitals: Temp Pulse Resp BP Pulse Ox 97.8 F 85 16 132/63 93 05/31/18 08:30 05/31/18 08:22 05/31/18 08:30 05/31/18 10:30 05/31/18 08:22 General appearance: Present: cooperative, A&O X 3, pleasant, no acute distress, answers questions appropriately - Respiratory Respiratory exam: Present: CTAB. Absent: accessory muscle use, rales, rhonchi, wheezes - Cardiovascular Cardiovascular exam: Present: RRR, +S1, +S2. Absent: diastolic murmur, gallop, rubs, systolic murmur - GI/Abdominal GI/Abdominal exam: Present: normal bowel sounds, soft, no peritoneal signs. Absent: distended, tenderness - Extremities Exam Extremities exam: Present: warm, radial pulses palpable and symmetrical. Absent : calf tenderness, cyanotic, pedal edema - Neurological Exam Neurological exam: Present: CN II-XII intact, oriented X3, no focal deficits. Absent: facial droop, speech deficit - Skin Skin exam: Present: dry, intact Internal Medicine: Result - Labs CBC & Chem 7: 05/31/18 04:35 05/31/18 04:35 Labs: Short CBC 05/31/18 Range/Units 04:35 WBC 8.2 (4.3-11.1) K/mcL Hgb 8.1 L (11.5-15.4) g/dL Hct 25.1 L (35.3-44.9) % Plt Count 180 (140-400) K/mcL [facility] 05/31/18 04:35 Sodium 135 L Potassium 4.4 Chloride 96 L Carbon Dioxide 24 BUN 51 H Creatinine 9.03 H Glucose 222 H Calcium 8.3 L - ABG Interpretation ABG results: PT/INR, D-dimer PT 12.6 Seconds (9.4-12.1) H 05/28/18 06:06 Consult Discharge Plan - Plan Referrals: NONE,PCP [Non-Partnered Physician] -
[2018-05-31] MEDS ORDERED: Clindamycin 600 MG/50 ML 600 MG/50 ML IV.SOLN IVPB ONE ×2 (14:13→14:17)
[2018-05-31] MEDS ORDERED: *HR* Midazolam HCl 2 MG/2 ML VIAL IVP ONE ×2 (14:13→14:17)
[2018-05-31] MEDS ORDERED: *HR* FentaNYL (PF) 100 MCG/2 ML VIAL IVP ONE ×2 (14:13→14:17)
[2018-05-31] MEDS ORDERED: 0.9 % Sodium Chloride 500 ML ONE (14:24)
[2018-05-31] MEDS ORDERED: *HR* Heparin 5,000 UNIT/ML VIAL ONE (14:44)
[2018-05-31] MEDS: *HR* OxyCODONE/APAP 10/325 TABLET PO PRN (16:53)
[2018-05-31] MEDS: traZODone 50 MG TABLET PO SCH (20:31)
[2018-05-31] MEDS: *HR* HYDROcodone/Acet 5/325 mg TABLET PO PRN (22:06)
[2018-06-01 04:07] LABS: Mean Corpuscular Hemoglobin 31.5 pg (28.0-33.3); Mean Corpuscular Volume 98.4 fL (83.0-100.0); Mean Platelet Volume 10.9 fL (9.4-12.4); Platelet Count 186 K/mcL (140-400); Red Blood Count 2.54 M/mcL (3.82-4.97); Red Cell Distribution Width 17.2 % (11.5-14.5)
[2018-06-01 04:23] LABS: Calcium 8.5 mg/dL (8.6-10.3); Potassium 3.8 mEq/L (3.5-5.1)
[2018-06-01] MEDS: *HR* Heparin 5,000 UNIT/ML VIAL SQ SCH (05:26)
[2018-06-01] MEDS: Folic Acid 1 MG TABLET PO SCH (08:08)
[2018-06-01] MEDS: Pregabalin 75 MG CAPSULE PO SCH (08:09)
[2018-06-01] MEDS: Chlorhexidine Rinse 15 ML MOUTHWASH PO SCH (08:09)
[2018-06-01] MEDS: Venlafaxine XR (24 HR) 37.5 MG CAP.ER.24H PO SCH (08:09)
[2018-06-01] MEDS: Multivit/Ca/Min/Fe/FA 1 TAB TABLET PO SCH (08:09)
[2018-06-01] MEDS: *HR* LORazepam 1 MG TABLET PO SCH (08:09)
[2018-06-01] MEDS: *HR* OxyCODONE/APAP 10/325 TABLET PO PRN (08:13)
[2018-06-01] MEDS: Insulin LISPRO 300 UNITS/3 ML VIAL SQ SCH ×4 (08:14→11:55)
[2018-06-01] MEDS ORDERED: *HR* Heparin 10,000 UNIT/10 ML VIAL IV PRN (08:18)
[2018-06-01] MEDS ORDERED: 0.9 % Sodium Chloride 250 ML IVC PRN (08:18)
--- NOTE | 2018-06-01 09:21 | Nephrology Progress Note ---
Date of Encounter: 06/01/18 Time of Encounter: 09:18 - Assessment and Plan (1) ESRD on dialysis Current Visit: Yes Status: Chronic Current regimen TTS at [facility]. HD today to ensure Tunneled Line works efficiently. If it works, she may go from a renal standpoint. Continue to renal dose and avoid nephrotoxins. Tunneled Line working efficiently in HD, please remove temp. line and may d/c from renal standpoint. (2) Hyperkalemia Current Visit: Yes Status: Acute K is 3.8 today. (3) Anemia in chronic kidney disease Current Visit: Yes Status: Chronic Hgb 8, stable on home dose of Aranesp. Qualifiers: Chronic kidney disease stage: on chronic dialysis Qualified Code(s): N18.6 - End stage renal disease; D63.1 - Anemia in chronic kidney disease; D63.1 - Anemia in chronic kidney disease; Z99.2 - Dependence on renal dialysis; Z99.2 - Dependence on renal dialysis; Z99.2 - Dependence on renal dialysis; Z99.2 - Dependence on renal dialysis Subjective Principal diagnosis: hypotension,hypokalemia Interval history: Pt seen and examined during HD. Denies nausea/vomiting. Objective - Vital Signs Vital signs: Vital Signs Temp Pulse Resp BP Pulse Ox 06/01/18 07:12 97.7 F 85 18 136/80 98 06/01/18 03:19 97.3 F L 81 16 125/77 94 05/31/18 23:39 97.6 F 94 18 149/77 92 05/31/18 22:06 94 121/76 05/31/18 20:27 92 112/68 05/31/18 19:58 98.5 F 95 18 102/64 90 05/31/18 16:54 130/70 05/31/18 16:19 98.2 F 93 18 130/70 97 05/31/18 14:44 95 20 180/88 100 05/31/18 14:41 95 20 184/100 05/31/18 12:15 97.7 F 18 132/44 05/31/18 12:00 116/56 05/31/18 11:45 113/57 05/31/18 11:30 124/53 05/31/18 11:15 117/58 05/31/18 11:00 119/64 05/31/18 10:45 125/52 05/31/18 10:30 132/63 05/31/18 10:15 135/68 05/31/18 10:00 138/69 05/31/18 09:45 143/79 05/31/18 09:30 135/68 Intake and Output 05/31/18 06/01/18 06/01/18 23:59 07:59 15:59 Intake Total 240 / 240 0 / 0 Output Total 0 / 0 0 / 0 Balance 240 / 240 0 / 0 Intake: Oral 240 / 240 0 / 0 Output: Urine 0 / 0 0 / 0 Other: Weight 107.411 kg Blood Glucose* 287 356 Patient Weight 06/01/18 23:59 Weight 107.411 kg - General Appearance General appearance: Present: obese EENT: Present: ATNC, hearing intact, vision intact Neck: Present: supple Respiratory: Present: clear Cardiology: Present: edema (Trace bilat lower extremity edema.), normal S1, normal S2 Dialysis Vascular Access: Venous Catheter (Tunneled Line, DRSG C/D/I.) Gastrointestinal: Present: normoactive bowel sounds, no tenderness, no guarding Integumentary: Present: no rash, warm and dry Neurologic: Present: alert and oriented x3 Psychiatric: Present: mood/affect appropriate, cooperative - Lab 06/01/18 03:40 06/01/18 03:40 Most recent lab results Calcium 8.5 mg/dL (8.6-10.3) L 06/01/18 03:40 Phosphorus 6.7 mg/dL (2.7-4.5) H 05/28/18 06:06 Magnesium 2.4 mg/dL (1.6-2.6) 05/28/18 06:06 Consult Discharge Plan - Plan Additional Instructions: Follow up with Nephrology in 1-2 weeks Referrals: NONE,PCP [Non-Partnered Physician] - (Follow up with PCP in 1 week.) Prescriptions: HYDROcodone/Acet 5/325 mg [[facility] 5-325 mg] 2 tab PO Q6HR PRN 5 Days #20 tablet PRN Reason: pain 7-10 LORazepam [Ativan] 1 mg PO BID 5 Days #10 tablet Pregabalin [Lyrica] 75 mg PO DAILY@1900 10 Days #10 capsule
[2018-06-01] MEDS ORDERED: Insulin DETEMIR 100 UNIT/ML X5UNITS SQ SCH (11:25)
--- NOTE | 2018-06-01 11:32 | Anesthesia Evaluation PreOp ---
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 Other Medical History: Renal (ESRD dialysis T//) Anesthesia History: No Prior Anesthetic Complications, Past Anesthesia ( appendectomy, , hysterectomy, multiple ortho.) : No ([facility]) Alcohol Use: none Drug use: none Medications and Allergies Multivitamin/Iron/Folic Acid [Cerovite Advanced Form Tab] 1 tab PO DAILY #0 08/07 [History] Albuterol Sulfate [Albuterol Inhaler] 2 puff IH Q4H PRN 01/15/17 [History] DiphenhydraMINE [Benadryl] 25 mg PO Q12H 01/15/17 [History] Ondansetron HCl [Zofran] 8 mg PO Q8HR PRN 01/19/17 [History] Ergocalciferol (VITAMIN D2) [Vitamin D2] 50,000 unit PO MO 12/22/17 [History] Labetalol HCl 300 mg PO BID 12/22/17 [History] Lanthanum Carbonate 1,500 mg PO TID 12/22/17 [History] Omeprazole [PriLOSEC] 40 mg PO DAILY 12/22/17 [History] Venlafaxine XR (24 HR) [Effexor Xr] 37.5 mg PO DAILY cap.er.24h 01/03/18 [Rx] Calcium Carbonate [Tums] 500 mg PO Q4HR 01/21/18 [History] Darbepoetin [Aranesp] 40 mcg SQ TH 01/21/18 [History] Folic Acid 0.8 mg PO DAILY 01/21/18 [History] Pregabalin [Lyrica] 75 mg PO DAILY@1900 10 Days #10 capsule 01/24/18 [Rx] Tramadol HCl [Ultram] 50 mg PO Q6H PRN 5 Days #15 tab 01/24/18 [Rx] Chlorhexidine Gluconate [Peridex] 15 ml PO BID 05/28/18 [History] Ferrous Sulfate [Iron] 325 mg PO DAILY 05/28/18 [History] HYDROcodone/Acet 5/325 mg [[place] 5-325 mg] 2 tab PO Q6HR PRN 05/28/18 [History] Insulin Regular U-500 [HumuLIN R U-500] 30 unit SQ DAILY 05/28/18 [History] Insulin Regular U-500 [HumuLIN R U-500] 125 unit SQ QAM 05/28/18 [History] Insulin Regular U-500 [HumuLIN R U-500] 130 unit SQ QPM 05/28/18 [History] LORazepam [Ativan] 1 mg PO BID 05/28/18 [History] Loperamide HCl [Imodium A-D] 2 mg PO TID PRN 05/28/18 [History] OxyCODONE/APAP 10/325 [Percocet 10/325 MG] 1 tab PO Q6HR PRN 05/28/18 [History] Polyethylene Glycol 3350 [MiraLAX] 17 g PO DAILY 05/28/18 [History] Amoxicillin [Amoxil] 500 mg PO QID 05/30/18 [History] Trazodone HCl 150 mg PO HS 05/30/18 [History] 3 Allergy/AdvReac Type Severity Reaction Status Date / Time gabapentin [From Neurontin] AdvReac Fainting Verified 01/21/18 14:54 - Meds/Allergy Pre-op Review Medications Reviewed: Yes Allergies Reviewed: Yes Beta Blockers on Current Med List: Yes If Beta Blockers taken, Date/Time (Last Dose taken): 08:09 06/01/2018 Anesthesia Results - Labs 06/01/18 03:40 06/01/18 03:40 Echocardiogram Name: Maria De Jesus Cochran Date of Study: 12/30/2017 Impressions: Technically sub-optimal due to poor echocardiographic windows. LVEF 60-65%. Normal LV chamber size, wall thickness and function. Indeterminate diastolic function. Grossly, the right ventricle appears mildly dilated with normal function. Aortic valve not well visualized. Mild aortic stenosis suggested by Doppler. Mean gradient 16 mmHg. Mild tricuspid regurgitation. Moderate-severe pulmonary hypertension. 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
[2018-06-01 11:49] VITALS: BP 130/68
--- NOTE | 2018-06-01 12:12 | Discharge Summary ---
- NOTES TO OUTPATIENT PROVIDER Notes to Outpatient Provider: Patient hospitalized here with hyperkalemia. She has end-stage renal disease. She had a temporary hemodialysis catheter inserted prior to hospitalization through which she received hemodialysis. Since then she has been following with nephrology in the hospital and she underwent placement of permanent dialysis catheter yesterday. She is now stable to be discharged back to [facility]. Orders not resulted at time of discharge: Pending orders 06/02/18 04:00 Basic Metabolic Panel AM 0400 CBC no Diff [Complete Blood Count w/o Diff] [HEME] AM 04006/03/18 04:00 Basic Metabolic Panel AM 0400 CBC no Diff [Complete Blood Count w/o Diff] [HEME] AM 04006/04/18 04:00 Basic Metabolic Panel AM 0400 CBC no Diff [Complete Blood Count w/o Diff] [HEME] AM 04006/05/18 04:00 Basic Metabolic Panel AM 0400 CBC no Diff [Complete Blood Count w/o Diff] [HEME] AM 0400 Date of Encounter: 06/01/18 Time of Encounter: 09:30 - Discharge Diagnosis (1) ESRD on dialysis Priority: Primary Status: Chronic (2) DM (diabetes mellitus) type II controlled with renal manifestation Priority: Secondary Status: Chronic Qualifiers: Diabetes mellitus long term acute care registered nurse insulin use: with prison use Diabetes mellitus complication detail: with chronic kidney disease Chronic kidney disease stage: stage 4 (severe) Qualified Code(s): E11.22 - Type 2 diabetes mellitus with diabetic chronic kidney disease; N18.4 - Chronic kidney disease, stage 4 (severe); Z79.4 - jail (current) use of insulin (3) Anemia in chronic kidney disease Priority: Secondary Status: Chronic Qualifiers: Chronic kidney disease stage: on chronic dialysis Qualified Code(s): N18.6 - End stage renal disease; D63.1 - Anemia in chronic kidney disease; D63.1 - Anemia in chronic kidney disease; Z99.2 - Dependence on renal dialysis; Z99.2 - Dependence on renal dialysis; Z99.2 - Dependence on renal dialysis; Z99.2 - Dependence on renal dialysis (4) Morbid obesity with BMI of 40.0-44.9, adult Priority: Secondary Status: Chronic (5) Hyperkalemia Priority: Secondary Status: Acute (6) HLD (hyperlipidemia) Priority: Secondary Status: Chronic Qualifiers: Hyperlipidemia type: unspecified Qualified Code(s): E78.5 - Hyperlipidemia , unspecified (7) HTN (hypertension) Priority: Secondary Status: Chronic Qualifiers: Hypertension type: essential hypertension Qualified Code(s): I10 - Essential (primary) hypertension (8) DVT prophylaxis Priority: Secondary Status: Acute Hospital course: Ms. Cochran is a 37 year old female Patient that history of end-stage renal disease, hypertension, hyperlipidemia, diabetes who was hospitalized here with hyperkalemia. She had a temporary hemodialysis catheter inserted prior to hospitalization through which she received hemodialysis. Since then she has been following with nephrology in the hospital and she underwent placement of permanent dialysis catheter yesterday. She is now stable to be discharged back to [facility]. Discharge discussed with: patient, nurse, case management - Time Spent with Patient Total time spent providing and/or coordinating discharge services: Greater than 30 minutes (40 min) - Discharge Medications Prescriptions: HYDROcodone/Acet 5/325 mg [[place] 5-325 mg] 2 tab PO Q6HR PRN 5 Days #20 tablet PRN Reason: pain 7-10 LORazepam [Ativan] 1 mg PO BID 5 Days #10 tablet Pregabalin [Lyrica] 75 mg PO DAILY@1900 10 Days #10 capsule Home Medications: Multivitamin/Iron/Folic Acid [Cerovite Advanced Form Tab] 1 tab PO DAILY #0 08/07 [History] Albuterol Sulfate [Albuterol Inhaler] 2 puff IH Q4H PRN 01/15/17 [History] DiphenhydraMINE [Benadryl] 25 mg PO Q12H 01/15/17 [History] Ondansetron HCl [Zofran] 8 mg PO Q8HR PRN 01/19/17 [History] Ergocalciferol (VITAMIN D2) [Vitamin D2] 50,000 unit PO MO 12/22/17 [History] Labetalol HCl 300 mg PO BID 12/22/17 [History] Lanthanum Carbonate 1,500 mg PO TID 12/22/17 [History] Omeprazole [PriLOSEC] 40 mg PO DAILY 12/22/17 [History] Venlafaxine XR (24 HR) [Effexor Xr] 37.5 mg PO DAILY cap.er.24h 01/03/18 [Rx] Calcium Carbonate [Tums] 500 mg PO Q4HR 01/21/18 [History] Darbepoetin [Aranesp] 40 mcg SQ TH 01/21/18 [History] Folic Acid 0.8 mg PO DAILY 01/21/18 [History] Chlorhexidine Gluconate [Peridex] 15 ml PO BID 05/28/18 [History] Ferrous Sulfate [Iron] 325 mg PO DAILY 05/28/18 [History] Insulin Regular U-500 [HumuLIN R U-500] 30 unit SQ DAILY 05/28/18 [History] Insulin Regular U-500 [HumuLIN R U-500] 125 unit SQ QAM 05/28/18 [History] Insulin Regular U-500 [HumuLIN R U-500] 130 unit SQ QPM 05/28/18 [History] Loperamide HCl [Imodium A-D] 2 mg PO TID PRN 05/28/18 [History] Polyethylene Glycol 3350 [MiraLAX] 17 g PO DAILY 05/28/18 [History] Trazodone HCl 150 mg PO HS 05/30/18 [History] HYDROcodone/Acet 5/325 mg [[place] 5-325 mg] 2 tab PO Q6HR PRN 5 Days #20 tablet 06/01/18 [Rx] LORazepam [Ativan] 1 mg PO BID 5 Days #10 tablet 06/01/18 [Rx] Pregabalin [Lyrica] 75 mg PO DAILY@1900 10 Days #10 capsule 06/01/18 [Rx] Allergies/Adverse Reactions: 3 Allergy/AdvReac Type Severity Reaction Status Date / Time gabapentin [From Neurontin] AdvReac Fainting Verified 01/21/18 14:54 Date of admission: 05/28/18 19:59 Primary care physician: Jacy Mcdonnell Consults: 05/28/18 05:45 Consult to Nephrology [CONS] Routine Consulting Provider: Kidney Carla/ROSA ISELA/LINDSEY/SAVANNA Reason for Consult: Fluid overload due to missing HD, hyperkalemia. Call Completed: Yes 05/28/18 05:46 Consult to Quality And Reliability Engineer [CONS] Routine Reason for SW Consult: ECF follow up. Patient from [facility]. 05/28/18 08:45 Consult to Dialysis [CONS] ONCE 05/30/18 11:21 Consult to Orthopedic Surgery [CONS] Routine Consulting Provider: [facility] Reason for Consult: appointment with danis tomorrow Dr. Blakely to call Call Completed: Yes 05/31/18 08:00 Consult to Dialysis [CONS] ONCE 05/31/18 08:18 Consult to Interventional Radiology [CONS] Routine Consulting Provider: Radiology Interventional Cols Reason for Consult: HD line placement / remove temp dialysis cath and place perm dialysis cath Call Completed: No 06/01/18 08:30 Consult to Dialysis [CONS] ONCE Discharging clinician: Nahomy Mcnulty Anticipated date of discharge: 06/01/18 - Constitutional Vitals: Temp Pulse Resp BP Pulse Ox 97.9 F 85 18 130/68 96 06/01/18 11:30 06/01/18 11:25 06/01/18 11:30 06/01/18 11:30 06/01/18 11:25 General appearance: Present: cooperative, A&O X 3, morbidly obese, pleasant, no acute distress, answers questions appropriately - Respiratory Respiratory exam: Present: CTAB. Absent: accessory muscle use, rales, rhonchi, wheezes - Cardiovascular Cardiovascular exam: Present: RRR, +S1, +S2. Absent: diastolic murmur, gallop, rubs, systolic murmur - GI/Abdominal GI/Abdominal exam: Present: normal bowel sounds, soft, no peritoneal signs. Absent: distended, tenderness - Extremities Exam Extremities exam: Present: warm, radial pulses palpable and symmetrical. Absent : calf tenderness, cyanotic, pedal edema - Neurological Exam Neurological exam: Present: alert, oriented X3, no focal deficits. Absent: facial droop, speech deficit - Patient Status Disposition: Transfer SNF Condition: Good Functional capacity at discharge: bed bound Overall status at discharge: patient is progressing back to baseline - Discharge Instructions Follow Up With: NONE,PCP [Non-Partnered Physician] - (Follow up with PCP in 1 week.) Additional Instructions: Follow up with Nephrology in 1-2 weeks - Diet and Activity Activity: increase activity as tolerated Diet: diabetic diet, low fat, low cholesterol, low salt diet
--- NOTE | 2018-06-01 12:38 | Physician Discharge Referral ---
ExtendedCare Referral Info Provider in Charge after Transfer: PCP Institutional Level of Care: Skilled - Diagnosis (1) ESRD on dialysis Priority: Primary Status: Chronic (2) DM (diabetes mellitus) type II controlled with renal manifestation Priority: Secondary Status: Chronic (3) Anemia in chronic kidney disease Priority: Secondary Status: Chronic (4) Morbid obesity with BMI of 40.0-44.9, adult Priority: Secondary Status: Chronic (5) Hyperkalemia Priority: Secondary Status: Acute (6) HLD (hyperlipidemia) Priority: Secondary Status: Chronic (7) HTN (hypertension) Priority: Secondary Status: Chronic (8) DVT prophylaxis Priority: Secondary Status: Acute Prognosis: Fair Aware of Diagnosis: Patient Aware of Prognosis: Patient - Transfer Medications Prescriptions: HYDROcodone/Acet 5/325 mg [[place] 5-325 mg] 2 tab PO Q6HR PRN 5 Days #20 tablet PRN Reason: pain 7-10 LORazepam [Ativan] 1 mg PO BID 5 Days #10 tablet Pregabalin [Lyrica] 75 mg PO DAILY@1900 10 Days #10 capsule Home Medications: Multivitamin/Iron/Folic Acid [Cerovite Advanced Form Tab] 1 tab PO DAILY #0 08/07 [History] Albuterol Sulfate [Albuterol Inhaler] 2 puff IH Q4H PRN 01/15/17 [History] DiphenhydraMINE [Benadryl] 25 mg PO Q12H 01/15/17 [History] Ondansetron HCl [Zofran] 8 mg PO Q8HR PRN 01/19/17 [History] Ergocalciferol (VITAMIN D2) [Vitamin D2] 50,000 unit PO MO 12/22/17 [History] Labetalol HCl 300 mg PO BID 12/22/17 [History] Lanthanum Carbonate 1,500 mg PO TID 12/22/17 [History] Omeprazole [PriLOSEC] 40 mg PO DAILY 12/22/17 [History] Venlafaxine XR (24 HR) [Effexor Xr] 37.5 mg PO DAILY cap.er.24h 01/03/18 [Rx] Calcium Carbonate [Tums] 500 mg PO Q4HR 01/21/18 [History] Darbepoetin [Aranesp] 40 mcg SQ TH 01/21/18 [History] Folic Acid 0.8 mg PO DAILY 01/21/18 [History] Chlorhexidine Gluconate [Peridex] 15 ml PO BID 05/28/18 [History] Ferrous Sulfate [Iron] 325 mg PO DAILY 05/28/18 [History] Insulin Regular U-500 [HumuLIN R U-500] 30 unit SQ DAILY 05/28/18 [History] Insulin Regular U-500 [HumuLIN R U-500] 125 unit SQ QAM 05/28/18 [History] Insulin Regular U-500 [HumuLIN R U-500] 130 unit SQ QPM 05/28/18 [History] Loperamide HCl [Imodium A-D] 2 mg PO TID PRN 05/28/18 [History] Polyethylene Glycol 3350 [MiraLAX] 17 g PO DAILY 05/28/18 [History] Trazodone HCl 150 mg PO HS 05/30/18 [History] HYDROcodone/Acet 5/325 mg [[place] 5-325 mg] 2 tab PO Q6HR PRN 5 Days #20 tablet 06/01/18 [Rx] LORazepam [Ativan] 1 mg PO BID 5 Days #10 tablet 06/01/18 [Rx] Pregabalin [Lyrica] 75 mg PO DAILY@1900 10 Days #10 capsule 06/01/18 [Rx] Allergies/Adverse Reactions: 3 Allergy/AdvReac Type Severity Reaction Status Date / Time gabapentin [From Neurontin] AdvReac Fainting Verified 01/21/18 14:54 - Respiratory Orders Smoking Cessation: Smoking cessation has been advised. For more information, call the [place] Tobacco Quit Line at 7-508-WECO-NOW. - Ancillary Orders May consult with Dentist, Server Engineer, Insurance Underwriter Sales PRN - Advance Directives Code Status: Full Code - Mobility Orders Other (per PT) - Rehabiliation Orders Rehab Potential: Fair Rehab Orders: Evaluation for Physical Therapy, Evaluation for Occupational Therapy - Diet Orders No Concentrated Sweets (diabetic), Cardiac CERTIFICATION: I certify that the transfer of the above named patient to an Extended Care Facility is necessary for the continuing treatment of the diagnosis listed. The above information is true and accurate reflection of patient's current condition. Confidential - Redisclosure prohibited without a patient's written consent.
== END 2018-06-01 17:19 | DRG 682 ==
LOC: 2NNU → SUATTDRO 05:18 → 2ANU 05-30 17:12
PROVIDERS: ADMIT General Practice; ATTEND Internal Medicine

== ENCOUNTER 2020-04-13 12:55 | Inpatient (IN) ==
[2020-04-13] MEDS ORDERED: *HR* Dextrose 50 % in Water (Syg) 50 ML SYRINGE IVP PRN (18:39)
[2020-04-13] MEDS ORDERED: Dextrose Gel 15 GM/37.5 ML TUBE PO PRN ×2 (18:39)
[2020-04-13] MEDS ORDERED: Naloxone 0.4 MG/ML INJ IVP PRN (18:39)
[2020-04-13] MEDS ORDERED: Ondansetron ODT 4 MG TAB.RAPDIS SL PRN (18:39)
[2020-04-13] MEDS ORDERED: D5% in Water 1,000 ML IVC PRN (18:39)
[2020-04-13] MEDS ORDERED: Acetaminophen 325 MG TABLET PO PRN (18:39)
[2020-04-13] MEDS: *HR* OxyCODONE/APAP 10/325 TABLET PO SCH (19:34)
[2020-04-13] MEDS: traZODone 50 MG TABLET PO SCH (20:35)
[2020-04-13] MEDS: Pregabalin 75 MG CAPSULE PO SCH (20:35)
[2020-04-13] MEDS: Folic Acid 1 MG TABLET PO SCH (20:35)
[2020-04-13] MEDS: Sennosides/Docusate Sodium TABLET PO SCH (20:35)
[2020-04-13] MEDS: polyethylene glycoL 3350 17 GM POWD.PACK PO SCH (20:35)
[2020-04-13] MEDS: *HR* LORazepam 1 MG TABLET PO SCH (20:35)
[2020-04-13] MEDS ORDERED: Insulin LISPRO 300 UNITS/3 ML VIAL SQ SCH (21:00)
[2020-04-13] MEDS: Insulin LISPRO 300 UNITS/3 ML VIAL SQ SCH (21:35)
[2020-04-13 22:24] LABS: Basophils % 0.5 %; Eosinophils # 0.2 K/mcL (0.0-0.6); Eosinophils % 3.1 %; Hematocrit 32.3 % (35.3-44.9); Hemoglobin 10.3 g/dL (11.5-15.4); Immature Granulocytes % 0.8 % (0-4); Lymphocytes # 1.3 K/mcL (0.6-4.6); Lymphocytes % 20.1 %; Mean Corpuscular HGB Conc 31.9 g/dL (31.6-35.5); Mean Corpuscular Hemoglobin 30.8 pg (28.0-33.3); Mean Corpuscular Volume 96.7 fL (83.0-100.0); Mean Platelet Volume 10.7 fL (9.4-12.4); Monocytes # 0.7 K/mcL (0.0-1.3); Monocytes % 10.2 %; Neutrophils # 4.2 K/mcL (1.6-8.9); Platelet Count 175 K/mcL (140-400); Red Blood Count 3.34 M/mcL (3.82-4.97); Segmented Neutrophils % 65.3 %; White Blood Count 6.4 K/mcL (4.3-11.1)
[2020-04-13 22:42] LABS: Albumin 3.7 g/dL (3.5-5.7); Albumin 3.8 g/dL (3.5-5.7); Albumin/Globulin Ratio 1.1 (1.1-2.2); Albumin/Globulin Ratio 1.2 (1.1-2.2); Bilirubin,Direct 0.1 mg/dL (0.0-0.2); Bilirubin,Indirect 0.3 mg/dL (0.0-1.0); Bilirubin,Total 0.4 mg/dL (0.3-1.0); Calcium 8.2 mg/dL (8.6-10.3); Globulin 3.2 g/dL (2.4-3.5); Globulin 3.4 g/dL (2.4-3.5); Potassium 6.3 mEq/L (3.5-5.1); Total Protein 7.1 g/dL (6.4-8.9)
[2020-04-13 23:48] LABS: Estimated Average Glucose 131 mg/dl
[2020-04-14 01:37] LABS: Hematocrit 30.7 % (35.3-44.9); Hemoglobin 9.9 g/dL (11.5-15.4); Mean Corpuscular HGB Conc 32.2 g/dL (31.6-35.5); Mean Corpuscular Hemoglobin 31.4 pg (28.0-33.3); Mean Corpuscular Volume 97.5 fL (83.0-100.0); Mean Platelet Volume 10.9 fL (9.4-12.4); Platelet Count 154 K/mcL (140-400); Red Blood Count 3.15 M/mcL (3.82-4.97); Red Cell Distribution Width 15.1 % (11.5-14.5); White Blood Count 5.3 K/mcL (4.3-11.1)
[2020-04-14 01:58] LABS: Calcium 7.9 mg/dL (8.6-10.3); Phosphorous 4.2 mg/dL (2.7-4.5); Potassium 5.5 mEq/L (3.5-5.1)
[2020-04-14] MEDS: *HR* OxyCODONE/APAP 10/325 TABLET PO SCH ×2 (06:22→19:05)
[2020-04-14] MEDS: Insulin LISPRO 300 UNITS/3 ML VIAL SQ SCH ×4 (08:10→20:59)
[2020-04-14] MEDS: amLODIPine 5 MG TABLET PO SCH (08:11)
[2020-04-14] MEDS: Loratadine 10 MG TABLET PO SCH (08:11)
[2020-04-14] MEDS: Pregabalin 75 MG CAPSULE PO SCH ×2 (08:11→21:05)
[2020-04-14] MEDS: Multivit/Ca/Min/Fe/FA 1 TAB TABLET PO SCH (08:11)
[2020-04-14] MEDS: *HR* LORazepam 1 MG TABLET PO SCH (08:11)
[2020-04-14] MEDS: Sennosides/Docusate Sodium TABLET PO SCH ×2 (08:11→20:58)
[2020-04-14] MEDS ORDERED: Simethicone 80 MG TAB.CHEW PO SCH (09:00)
[2020-04-14] MEDS ORDERED: Benzocaine 20% 12 APPL GEL..GRAM. TP PRN (10:44)
[2020-04-14] MEDS ORDERED: Pregabalin 75 MG CAPSULE PO SCH (12:00)
[2020-04-14] MEDS ORDERED: *HR* LORazepam 1 MG TABLET PO PRN (13:33)
[2020-04-14] MEDS: traZODone 50 MG TABLET PO SCH (20:57)
[2020-04-14] MEDS: Folic Acid 1 MG TABLET PO SCH (20:57)
[2020-04-14] MEDS ORDERED: Fluconazole 100 MG TABLET PO ONE (21:43)
[2020-04-15] MEDS: Lactobacillus 1 EACH CAP.SPRINK PO SCH ×2 (00:57→13:51)
[2020-04-15 02:28] LABS: Basophils # 0.1 K/mcL (0.0-0.2); Basophils % 0.7 %; Eosinophils # 0.3 K/mcL (0.0-0.6); Eosinophils % 3.7 %; Hematocrit 29.8 % (35.3-44.9); Hemoglobin 9.6 g/dL (11.5-15.4); Immature Granulocytes % 0.9 % (0-4); Lymphocytes # 1.8 K/mcL (0.6-4.6); Lymphocytes % 24.4 %; Mean Corpuscular HGB Conc 32.2 g/dL (31.6-35.5); Mean Corpuscular Hemoglobin 31.2 pg (28.0-33.3); Mean Corpuscular Volume 96.8 fL (83.0-100.0); Monocytes # 0.8 K/mcL (0.0-1.3); Monocytes % 10.7 %; Neutrophils # 4.5 K/mcL (1.6-8.9); Platelet Count 165 K/mcL (140-400); Red Blood Count 3.08 M/mcL (3.82-4.97); Red Cell Distribution Width 14.7 % (11.5-14.5); Segmented Neutrophils % 59.6 %; White Blood Count 7.5 K/mcL (4.3-11.1)
[2020-04-15 02:53] LABS: Calcium 7.8 mg/dL (8.6-10.3); Potassium 6.7 mEq/L (3.5-5.1)
[2020-04-15] MEDS ORDERED: Ergocalciferol (VIT D2) 50,000 UNIT (1.25MG) CAP PO SCH (03:15)
[2020-04-15] MEDS: *HR* OxyCODONE/APAP 10/325 TABLET PO SCH ×2 (07:09→18:41)
[2020-04-15] MEDS ORDERED: 0.9 % Sodium Chloride 250 ML IVC PRN (07:14)
[2020-04-15] MEDS ORDERED: 0.9 % Sodium Chloride 1,000 ML PRIME SCH (07:15)
[2020-04-15] MEDS: Insulin LISPRO 300 UNITS/3 ML VIAL SQ SCH ×4 (08:00→20:04)
[2020-04-15 08:24] LABS: Hepatitis B Surface Antibody 16.44 mIU/mL
[2020-04-15 08:35] LABS: Hepatitis B Surface Antigen Nonreactive (Nonreactive)
[2020-04-15] MEDS ORDERED: *HR* Heparin 10,000 UNIT/10 ML VIAL IV PRN (09:50)
[2020-04-15] MEDS: Pregabalin 75 MG CAPSULE PO SCH (13:49)
[2020-04-15] MEDS: amLODIPine 5 MG TABLET PO SCH (13:50)
[2020-04-15] MEDS: Loratadine 10 MG TABLET PO SCH (13:50)
[2020-04-15] MEDS: Multivit/Ca/Min/Fe/FA 1 TAB TABLET PO SCH (13:50)
[2020-04-15] MEDS: Sennosides/Docusate Sodium TABLET PO SCH ×2 (13:51→20:03)
[2020-04-15 17:26] LABS: Calcium 8.1 mg/dL (8.6-10.3); Potassium 5.2 mEq/L (3.5-5.1)
[2020-04-15] MEDS: traZODone 50 MG TABLET PO SCH (20:02)
[2020-04-15] MEDS: polyethylene glycoL 3350 17 GM POWD.PACK PO SCH (20:02)
[2020-04-15] MEDS: Folic Acid 1 MG TABLET PO SCH (20:03)
[2020-04-15] MEDS ORDERED: Insulin DETEMIR 100 UNIT/ML X5UNITS SQ SCH (21:00)
[2020-04-16 01:16] LABS: Basophils # 0.1 K/mcL (0.0-0.2); Basophils % 0.7 %; Eosinophils # 0.2 K/mcL (0.0-0.6); Eosinophils % 3.5 %; Hematocrit 33.8 % (35.3-44.9); Hemoglobin 10.8 g/dL (11.5-15.4); Lymphocytes # 1.3 K/mcL (0.6-4.6); Lymphocytes % 19.2 %; Mean Corpuscular Hemoglobin 30.2 pg (28.0-33.3); Mean Corpuscular Volume 94.4 fL (83.0-100.0); Mean Platelet Volume 11.4 fL (9.4-12.4); Monocytes # 0.7 K/mcL (0.0-1.3); Monocytes % 10.2 %; Neutrophils # 4.5 K/mcL (1.6-8.9); Platelet Count 133 K/mcL (140-400); Red Blood Count 3.58 M/mcL (3.82-4.97); Red Cell Distribution Width 14.7 % (11.5-14.5); Segmented Neutrophils % 65.4 %; White Blood Count 6.9 K/mcL (4.3-11.1)
[2020-04-16 01:23] LABS: Potassium 5.5 mEq/L (3.5-5.1)
[2020-04-16 01:44] LABS: Platelet Estimate Slight Decrease (Normal)
[2020-04-16] MEDS ORDERED: 0.9 % Sodium Chloride 250 ML IVC PRN (07:09)
[2020-04-16] MEDS ORDERED: Insulin DETEMIR 100 UNIT/ML X5UNITS SQ ONE (07:25)
[2020-04-16 07:46] LABS: Prothrombin Time 11.5 Seconds (9.4-12.1)
[2020-04-16] MEDS: *HR* OxyCODONE/APAP 10/325 TABLET PO SCH ×2 (07:50→21:14)
[2020-04-16] MEDS ORDERED: Ondansetron ODT 4 MG TAB.RAPDIS SL PRN (09:50)
[2020-04-16] MEDS ORDERED: Albumin 25% 25gram/100mL 25 GM/100 ML IV.SOLN ONE (09:58)
[2020-04-16] MEDS ORDERED: Albumin 25% 25gram/100mL 25 GM/100 ML IV.SOLN IVPB PRN (10:13)
[2020-04-16] MEDS: Insulin LISPRO 300 UNITS/3 ML VIAL SQ SCH ×4 (10:17→21:16)
[2020-04-16] MEDS: Loratadine 10 MG TABLET PO SCH (11:04)
[2020-04-16] MEDS: amLODIPine 5 MG TABLET PO SCH (11:04)
[2020-04-16] MEDS: Lactobacillus 1 EACH CAP.SPRINK PO SCH (11:04)
[2020-04-16] MEDS: Sennosides/Docusate Sodium TABLET PO SCH ×2 (11:04→21:15)
[2020-04-16] MEDS: Multivit/Ca/Min/Fe/FA 1 TAB TABLET PO SCH (11:05)
[2020-04-16] MEDS ORDERED: Heparin 1,000 UNITS/500 mL 500 ML ONE (13:24)
[2020-04-16] MEDS: Pregabalin 75 MG CAPSULE PO SCH ×2 (13:49→17:11)
[2020-04-16] MEDS ORDERED: *HR* Heparin 5,000 UNIT/ML VIAL ONE (13:57)
[2020-04-16] MEDS: Piperacillin/Tazobactam 3.375 GM in 0.9 % Sodium Chloride Mini Bag 100 ML IVPB SCH (16:55)
[2020-04-16] MEDS ORDERED: Vancomycin 1,500 MG/265 ML IV.SOLN IVPB ONE (17:00)
[2020-04-16] MEDS ORDERED: Insulin DETEMIR 100 UNIT/ML X5UNITS SQ SCH (21:00)
[2020-04-16] MEDS: Folic Acid 1 MG TABLET PO SCH (21:15)
[2020-04-16] MEDS: traZODone 50 MG TABLET PO SCH (21:15)
[2020-04-17 01:43] LABS: Basophils # 0.1 K/mcL (0.0-0.2); Basophils % 0.9 %; Eosinophils # 0.2 K/mcL (0.0-0.6); Eosinophils % 3.4 %; Hematocrit 32.5 % (35.3-44.9); Hemoglobin 10.5 g/dL (11.5-15.4); Immature Granulocytes % 0.8 % (0-4); Lymphocytes # 1.6 K/mcL (0.6-4.6); Lymphocytes % 24.4 %; Mean Corpuscular HGB Conc 32.3 g/dL (31.6-35.5); Mean Corpuscular Volume 95.9 fL (83.0-100.0); Mean Platelet Volume 10.7 fL (9.4-12.4); Monocytes # 0.7 K/mcL (0.0-1.3); Monocytes % 11.3 %; Neutrophils # 3.8 K/mcL (1.6-8.9); Platelet Count 153 K/mcL (140-400); Red Blood Count 3.39 M/mcL (3.82-4.97); Red Cell Distribution Width 14.7 % (11.5-14.5); Segmented Neutrophils % 59.2 %; White Blood Count 6.5 K/mcL (4.3-11.1)
[2020-04-17 02:01] LABS: Calcium 8.2 mg/dL (8.6-10.3); Potassium 4.5 mEq/L (3.5-5.1)
[2020-04-17] MEDS: Piperacillin/Tazobactam 3.375 GM in 0.9 % Sodium Chloride Mini Bag 100 ML IVPB SCH ×2 (06:43→17:57)
[2020-04-17] MEDS: Multivit/Ca/Min/Fe/FA 1 TAB TABLET PO SCH (07:46)
[2020-04-17] MEDS: Lactobacillus 1 EACH CAP.SPRINK PO SCH (07:46)
[2020-04-17] MEDS: Loratadine 10 MG TABLET PO SCH (07:46)
[2020-04-17] MEDS: *HR* OxyCODONE/APAP 10/325 TABLET PO SCH ×2 (07:46→17:56)
[2020-04-17] MEDS: Sennosides/Docusate Sodium TABLET PO SCH ×2 (07:46→21:54)
[2020-04-17] MEDS: Pregabalin 75 MG CAPSULE PO SCH (07:47)
[2020-04-17] MEDS: amLODIPine 5 MG TABLET PO SCH (07:49)
[2020-04-17] MEDS: Simethicone 80 MG TAB.CHEW PO SCH ×2 (07:53→22:56)
[2020-04-17] MEDS: Insulin LISPRO 300 UNITS/3 ML VIAL SQ SCH ×4 (08:32→21:57)
[2020-04-17] MEDS ORDERED: *HR* Heparin 10,000 UNIT/10 ML VIAL ONE (13:30)
[2020-04-17] MEDS ORDERED: 0.9 % Sodium Chloride 1,000 ML ONE ×2 (13:31→15:35)
[2020-04-17] MEDS ORDERED: ISOVUE-370 200 ML INFUS..BTL ONE (13:31)
[2020-04-17] MEDS ORDERED: Nitroglycerin 1,000 MCG/10 ML VIAL IV ONE (13:31)
[2020-04-17] MEDS ORDERED: Heparin 1,000 UNITS/500 mL 500 ML ONE (13:31)
[2020-04-17] MEDS ORDERED: *HR* Midazolam HCl 2 MG/2 ML VIAL ONE (15:52)
[2020-04-17] MEDS ORDERED: *HR* OxyCODONE Immed Rel 5 MG TABLET PO PRN (17:18)
[2020-04-17] MEDS ORDERED: *HR* HYDROcodone/Acet 5/325 mg TABLET PO PRN (17:18)
[2020-04-17] MEDS ORDERED: Bupivacaine/Clonidine Syringe 20 ML, Syringe LUER-LOK 1 EACH TP ONE (17:30)
[2020-04-17] MEDS ORDERED: Insulin DETEMIR 100 UNIT/ML X5UNITS SQ SCH (21:00)
[2020-04-17] MEDS: Folic Acid 1 MG TABLET PO SCH (21:53)
[2020-04-17] MEDS: polyethylene glycoL 3350 17 GM POWD.PACK PO SCH (21:54)
[2020-04-17] MEDS: traZODone 50 MG TABLET PO SCH (21:54)
[2020-04-18 01:23] LABS: Hemoglobin 10.3 g/dL (11.5-15.4); Mean Corpuscular HGB Conc 32.2 g/dL (31.6-35.5); Mean Corpuscular Hemoglobin 30.8 pg (28.0-33.3); Mean Corpuscular Volume 95.8 fL (83.0-100.0); Mean Platelet Volume 11.3 fL (9.4-12.4); Platelet Count 139 K/mcL (140-400); Red Blood Count 3.34 M/mcL (3.82-4.97); Red Cell Distribution Width 14.5 % (11.5-14.5); White Blood Count 6.4 K/mcL (4.3-11.1)
[2020-04-18 01:43] LABS: Calcium 7.7 mg/dL (8.6-10.3); Potassium 4.6 mEq/L (3.5-5.1)
[2020-04-18] MEDS: Piperacillin/Tazobactam 3.375 GM in 0.9 % Sodium Chloride Mini Bag 100 ML IVPB SCH ×2 (06:23→18:53)
[2020-04-18] MEDS ORDERED: 0.9 % Sodium Chloride 250 ML IVC PRN ×2 (07:33→17:44)
[2020-04-18] MEDS: Insulin LISPRO 300 UNITS/3 ML VIAL SQ SCH ×7 (08:08→21:17)
[2020-04-18] MEDS: *HR* OxyCODONE/APAP 10/325 TABLET PO SCH ×2 (08:09→18:53)
[2020-04-18] MEDS: Sennosides/Docusate Sodium TABLET PO SCH ×2 (08:10→21:17)
[2020-04-18] MEDS: Pregabalin 75 MG CAPSULE PO SCH (08:10)
[2020-04-18] MEDS: Lactobacillus 1 EACH CAP.SPRINK PO SCH (08:10)
[2020-04-18] MEDS: Loratadine 10 MG TABLET PO SCH (08:10)
[2020-04-18] MEDS: Multivit/Ca/Min/Fe/FA 1 TAB TABLET PO SCH (08:11)
[2020-04-18] MEDS: Simethicone 80 MG TAB.CHEW PO SCH (08:18)
[2020-04-18] MEDS ORDERED: 0.9 % Sodium Chloride 1,000 ML ONE (10:36)
[2020-04-18] MEDS ORDERED: *HR* Heparin 10,000 UNIT/10 ML VIAL IV PRN ×2 (12:33→17:44)
[2020-04-18] MEDS ORDERED: *HR* Alteplase (Cathflo) 2 MG VIAL IVP ONE ×2 (12:42→12:44)
[2020-04-18] MEDS: amLODIPine 5 MG TABLET PO SCH (14:22)
[2020-04-18] MEDS ORDERED: Lidocaine 1% 20 ML MDV ONE (16:12)
[2020-04-18] MEDS ORDERED: *HR* OxyCODONE Immed Rel 5 MG TABLET PO PRN ×3 (16:30→17:44)
[2020-04-18] MEDS ORDERED: *HR* Promethazine 25 MG/ML VIAL IVP PRN ×2 (16:30→17:44)
[2020-04-18] MEDS ORDERED: *HR* HYDROmorphone PF 0.5 MG/0.5 ML SYRINGE IVP PRN ×2 (16:30→17:44)
[2020-04-18] MEDS ORDERED: Ondansetron 4 MG/2 ML VIAL IVP ONE ×2 (16:30→17:44)
[2020-04-18] MEDS ORDERED: *HR* FentaNYL (PF) 100 MCG/2 ML VIAL ONE (16:42)
[2020-04-18] MEDS ORDERED: *HR* Midazolam HCl 2 MG/2 ML VIAL ONE (16:42)
[2020-04-18] MEDS ORDERED: *HR* Propofol 200 MG/20 ML VIAL IVP ONE (16:42)
[2020-04-18] MEDS ORDERED: Lidocaine -MPF 2% 2 ML VIAL ONE (16:44)
[2020-04-18] MEDS ORDERED: Dexamethasone 4 MG/ML VIAL ONE (16:47)
[2020-04-18] MEDS ORDERED: Ondansetron 4 MG/2 ML VIAL ONE (16:47)
[2020-04-18] MEDS ORDERED: Ergocalciferol (VIT D2) 50,000 UNIT (1.25MG) CAP PO SCH (17:44)
[2020-04-18] MEDS ORDERED: Acetaminophen 325 MG TABLET PO PRN (17:44)
[2020-04-18] MEDS ORDERED: Benzocaine 20% 12 APPL GEL..GRAM. TP PRN (17:44)
[2020-04-18] MEDS ORDERED: *HR* Dextrose 50 % in Water (Syg) 50 ML SYRINGE IVP PRN (17:44)
[2020-04-18] MEDS ORDERED: Ondansetron ODT 4 MG TAB.RAPDIS SL PRN (17:44)
[2020-04-18] MEDS ORDERED: Naloxone 0.4 MG/ML INJ IVP PRN (17:44)
[2020-04-18] MEDS ORDERED: D5% in Water 1,000 ML IVC PRN (17:44)
[2020-04-18] MEDS ORDERED: *HR* HYDROcodone/Acet 5/325 mg TABLET PO PRN (17:44)
[2020-04-18] MEDS ORDERED: *HR* LORazepam 1 MG TABLET PO PRN (17:44)
[2020-04-18] MEDS ORDERED: Albumin 25% 25gram/100mL 25 GM/100 ML IV.SOLN IVPB PRN (17:44)
[2020-04-18] MEDS ORDERED: Dextrose Gel 15 GM/37.5 ML TUBE PO PRN ×2 (17:44)
[2020-04-18] MEDS ORDERED: Simethicone 40 MG/0.6 ML MLS PO SCH ×2 (21:00)
[2020-04-18] MEDS ORDERED: Simethicone 80 MG TAB.CHEW PO SCH (21:15)
[2020-04-18] MEDS: traZODone 50 MG TABLET PO SCH (21:16)
[2020-04-18] MEDS: Folic Acid 1 MG TABLET PO SCH (21:16)
[2020-04-18] MEDS: Insulin DETEMIR 100 UNIT/ML X5UNITS SQ SCH (21:17)
[2020-04-18] MEDS: Simethicone 40 MG/0.6 ML MLS PO SCH (21:59)
[2020-04-19] MEDS: Piperacillin/Tazobactam 3.375 GM in 0.9 % Sodium Chloride Mini Bag 100 ML IVPB SCH ×2 (05:48→17:39)
[2020-04-19] MEDS ORDERED: 0.9 % Sodium Chloride 250 ML IVC PRN (07:12)
[2020-04-19] MEDS ORDERED: Insulin LISPRO 300 UNITS/3 ML VIAL SQ SCH (07:30)
[2020-04-19] MEDS ORDERED: 0.9 % Sodium Chloride 2,000 ML ONE (07:44)
[2020-04-19 08:25] LABS: Basophils % 0.3 %; Immature Granulocytes % 1.3 % (0-4); Lymphocytes # 0.9 K/mcL (0.6-4.6); Lymphocytes % 12.6 %; Mean Corpuscular HGB Conc 33.3 g/dL (31.6-35.5); Mean Corpuscular Hemoglobin 30.5 pg (28.0-33.3); Mean Corpuscular Volume 91.4 fL (83.0-100.0); Mean Platelet Volume 11.5 fL (9.4-12.4); Monocytes # 0.4 K/mcL (0.0-1.3); Monocytes % 5.6 %; Neutrophils # 5.7 K/mcL (1.6-8.9); Platelet Count 126 K/mcL (140-400); Red Blood Count 3.61 M/mcL (3.82-4.97); Red Cell Distribution Width 14.1 % (11.5-14.5); Segmented Neutrophils % 80.2 %; White Blood Count 7.1 K/mcL (4.3-11.1)
[2020-04-19] MEDS: Insulin LISPRO 300 UNITS/3 ML VIAL SQ SCH ×6 (08:33→21:00)
[2020-04-19] MEDS: Sennosides/Docusate Sodium TABLET PO SCH ×2 (08:35→20:57)
[2020-04-19] MEDS: *HR* OxyCODONE/APAP 10/325 TABLET PO SCH ×2 (08:35→20:59)
[2020-04-19] MEDS: Pregabalin 75 MG CAPSULE PO SCH (08:35)
[2020-04-19] MEDS: Multivit/Ca/Min/Fe/FA 1 TAB TABLET PO SCH (08:35)
[2020-04-19] MEDS: Loratadine 10 MG TABLET PO SCH (08:36)
[2020-04-19] MEDS: Simethicone 40 MG/0.6 ML MLS PO SCH ×2 (08:38→23:13)
[2020-04-19] MEDS: Lactobacillus 1 EACH CAP.SPRINK PO SCH ×2 (08:38→20:58)
[2020-04-19] MEDS ORDERED: amLODIPine 5 MG TABLET PO SCH (09:00)
[2020-04-19] MEDS ORDERED: Insulin DETEMIR 100 UNIT/ML X5UNITS SQ ONE (10:45)
[2020-04-19] MEDS ORDERED: *HR* Heparin 10,000 UNIT/10 ML VIAL IV PRN (10:55)
[2020-04-19] MEDS: Folic Acid 1 MG TABLET PO SCH (20:57)
[2020-04-19] MEDS: traZODone 50 MG TABLET PO SCH (20:58)
[2020-04-19] MEDS: Insulin DETEMIR 100 UNIT/ML X5UNITS SQ SCH (20:59)
[2020-04-19] MEDS ORDERED: polyethylene glycoL 3350 17 GM POWD.PACK PO SCH (21:00)
[2020-04-20 03:21] LABS: Hematocrit 29.7 % (35.3-44.9); Hemoglobin 9.9 g/dL (11.5-15.4); Mean Corpuscular HGB Conc 33.3 g/dL (31.6-35.5); Mean Corpuscular Hemoglobin 31.2 pg (28.0-33.3); Mean Corpuscular Volume 93.7 fL (83.0-100.0); Mean Platelet Volume 11.6 fL (9.4-12.4); Platelet Count 148 K/mcL (140-400); Red Blood Count 3.17 M/mcL (3.82-4.97); Red Cell Distribution Width 14.3 % (11.5-14.5); White Blood Count 7.9 K/mcL (4.3-11.1)
[2020-04-20 03:40] LABS: Calcium 7.6 mg/dL (8.6-10.3); Potassium 4.3 mEq/L (3.5-5.1)
[2020-04-20] MEDS: Piperacillin/Tazobactam 3.375 GM in 0.9 % Sodium Chloride Mini Bag 100 ML IVPB SCH (05:27)
[2020-04-20] MEDS: Lactobacillus 1 EACH CAP.SPRINK PO SCH (07:38)
[2020-04-20] MEDS: Multivit/Ca/Min/Fe/FA 1 TAB TABLET PO SCH (08:15)
[2020-04-20] MEDS: Pregabalin 75 MG CAPSULE PO SCH (08:15)
[2020-04-20] MEDS: *HR* OxyCODONE/APAP 10/325 TABLET PO SCH (08:16)
[2020-04-20] MEDS: Sennosides/Docusate Sodium TABLET PO SCH (08:16)
[2020-04-20] MEDS: Loratadine 10 MG TABLET PO SCH (08:16)
[2020-04-20] MEDS ORDERED: *HR* Heparin 10,000 UNIT/10 ML VIAL IV PRN (08:17)
[2020-04-20] MEDS: Insulin LISPRO 300 UNITS/3 ML VIAL SQ SCH ×2 (08:17→08:18)
[2020-04-20] MEDS ORDERED: 0.9 % Sodium Chloride 250 ML IVC PRN (08:17)
[2020-04-20] MEDS: Simethicone 40 MG/0.6 ML MLS PO SCH (08:19)
[2020-04-20] MEDS ORDERED: 0.9 % Sodium Chloride 1,000 ML ONE (08:27)
[2020-04-20] MEDS ORDERED: 0.9 % Sodium Chloride 1,000 ML PRIME SCH (08:30)
[2020-04-20 13:08] VITALS: BP 107/66
[2020-04-20] MEDS ORDERED: Aminoglycoside Consult 1 EACH MC ONE (14:31)
[2020-04-21] MEDS ORDERED: Cholecalciferol (D-3) 1,000 UNIT (25MCG) TABLET PO SCH (09:00)
[2020-04-23] MEDS ORDERED: Ergocalciferol (VIT D2) 50,000 UNIT (1.25MG) CAP PO SCH (09:00)
== END 2020-04-20 14:32 | disposition home health service (06) | DRG 255 ==
LOC: 2ANU → EDSTATUS 18:17 → SUATTDRO 18:48
PROVIDERS: ADMIT Internal Medicine; ATTEND Internal Medicine

== ENCOUNTER 2021-02-24 16:44 | Inpatient (IN) ==
[2021-02-24] MEDS ORDERED: Acetaminophen 325 MG TABLET PO PRN (21:28)
[2021-02-24] MEDS ORDERED: Ondansetron 4 MG/2 ML VIAL IVP PRN (21:28)
[2021-02-24] MEDS ORDERED: Naloxone 0.4 MG/ML INJ IVP PRN (21:28)
[2021-02-24] MEDS ORDERED: Dextrose Gel 15 GM/37.5 ML TUBE PO PRN ×2 (21:31)
[2021-02-24] MEDS ORDERED: *HR* Dextrose 50 % in Water (Vial) 50 ML VIAL IVP PRN (21:31)
[2021-02-24] MEDS ORDERED: D5% in Water 1,000 ML IVC PRN (21:31)
[2021-02-24] MEDS ORDERED: Perflutren Lipid Microsphere 1.3 ML in 0.9 % Sodium Chloride 8.7 ML IVP PRN (21:43)
[2021-02-24 22:27] LABS: Basophils % 0.2 %; Hematocrit 35.9 % (35.3-44.9); Hemoglobin 10.9 g/dL (11.5-15.4); Immature Granulocytes % 0.7 % (0-4); Lymphocytes # 0.5 K/mcL (0.6-4.6); Lymphocytes % 9.5 %; Mean Corpuscular HGB Conc 30.4 g/dL (31.6-35.5); Mean Corpuscular Hemoglobin 28.7 pg (28.0-33.3); Mean Corpuscular Volume 94.5 fL (83.0-100.0); Monocytes # 0.1 K/mcL (0.0-1.3); Monocytes % 1.4 %; Platelet Count 163 K/mcL (140-400); Red Cell Distribution Width 15.4 % (11.5-14.5); Segmented Neutrophils % 88.2 %; White Blood Count 5.7 K/mcL (4.3-11.1)
[2021-02-24 22:51] LABS: Lipase 19 Units/L (11-82)
[2021-02-24 22:52] LABS: Troponin I < 0.03 ng/mL (< 0.04)
[2021-02-24 22:56] LABS: Albumin/Globulin Ratio 1.3 (1.1-2.2); Bilirubin,Total 0.5 mg/dL (0.3-1.0); Calcium 8.7 mg/dL (8.6-10.3); Globulin 3.2 g/dL (2.4-3.5); Potassium 6.6 mEq/L (3.5-5.1); Total Protein 7.2 g/dL (6.4-8.9)
[2021-02-24] MEDS: Ipratropium/Albuterol Neb 3 ML IH SCH (23:59)
[2021-02-25] MEDS ORDERED: Insulin DETEMIR 100 UNIT/ML X5UNITS SUBQ SCH ×2 (00:45→09:00)
[2021-02-25] MEDS ORDERED: Insulin Human Regular 10 UNIT in 0.9 % Sodium Chloride 10 ML IV ONE ×2 (00:49→03:06)
[2021-02-25] MEDS ORDERED: Calcium Gluconate 1gm/50mL 1 GM/50 ML BAG IVPB ONE (00:56)
[2021-02-25 01:47] LABS: VBG HCO3 25 mEq/L (21-27); VBG PCO2 48 mmHg (41-51); VBG PH 7.32 pH Units (7.32-7.42); VBG PO2 163 mmHg (25-50)
[2021-02-25] MEDS ORDERED: Azithromycin 500 MG in 0.9 % Sodium Chloride 250 ML IVPB SCH (02:00)
[2021-02-25 02:34] LABS: Calcium 8.8 mg/dL (8.6-10.3); Potassium 6.4 mEq/L (3.5-5.1)
[2021-02-25] MEDS: Insulin LISPRO 300 UNITS/3 ML VIAL SUBQ SCH ×6 (03:21→20:38)
[2021-02-25] MEDS ORDERED: *HR* Dextrose 50 % in Water (Vial) 50 ML VIAL IVP PRN ×3 (03:46→09:42)
[2021-02-25] MEDS ORDERED: Insulin Regular, Human 100 UNIT/ML IV PRN ×2 (03:46→06:47)
[2021-02-25] MEDS ORDERED: Insulin Regular, Human 100 UNIT/ML IV ONE (03:46)
[2021-02-25] MEDS ORDERED: Insulin Human Regular 100 UNIT in 0.9 % Sodium Chloride 100 ML IVC SCH ×2 (04:00→06:47)
[2021-02-25] MEDS ORDERED: *HR* Heparin 5,000 UNIT/ML VIAL SQ SCH (06:00)
[2021-02-25] MEDS ORDERED: Cefepime HCl 2,000 MG in Water for inj. (sterile) 20 ML IVP SCH (06:00)
[2021-02-25] MEDS: Ipratropium/Albuterol Neb 3 ML IH SCH ×6 (06:04→23:27)
[2021-02-25] MEDS ORDERED: Perflutren Lipid Microsphere 1.3 ML in 0.9 % Sodium Chloride 8.7 ML IVP PRN (06:47)
[2021-02-25] MEDS ORDERED: D5% in Water 1,000 ML IVC PRN ×2 (06:47→09:42)
[2021-02-25] MEDS ORDERED: Naloxone 0.4 MG/ML INJ IVP PRN (06:47)
[2021-02-25] MEDS ORDERED: Ondansetron 4 MG/2 ML VIAL IVP PRN (06:47)
[2021-02-25] MEDS ORDERED: Dextrose Gel 15 GM/37.5 ML TUBE PO PRN ×4 (06:47→09:42)
[2021-02-25] MEDS ORDERED: Acetaminophen 325 MG TABLET PO PRN (06:47)
[2021-02-25] MEDS ORDERED: 0.9 % Sodium Chloride 1,000 ML ONE (07:17)
[2021-02-25] MEDS ORDERED: Insulin LISPRO 300 UNITS/3 ML VIAL SUBQ SCH ×2 (07:30→21:00)
[2021-02-25] MEDS ORDERED: 0.9 % Sodium Chloride 250 ML IVC PRN (07:47)
[2021-02-25] MEDS ORDERED: *HR* Heparin 10,000 UNIT/10 ML VIAL IV PRN (07:47)
[2021-02-25] MEDS: *HR* Heparin 5,000 UNIT/ML VIAL SQ SCH ×3 (07:49→20:38)
[2021-02-25] MEDS ORDERED: Cefepime HCl 1,000 MG in Water for inj. (sterile) 10 ML IVP ONE (08:00)
[2021-02-25] MEDS ORDERED: 0.9 % Sodium Chloride 1,000 ML PRIME SCH (08:00)
[2021-02-25 08:22] LABS: Hematocrit 33.6 % (35.3-44.9); Hemoglobin 10.7 g/dL (11.5-15.4); Mean Corpuscular HGB Conc 31.8 g/dL (31.6-35.5); Mean Corpuscular Volume 91.1 fL (83.0-100.0); Mean Platelet Volume 11.9 fL (9.4-12.4); Platelet Count 164 K/mcL (140-400); Red Blood Count 3.69 M/mcL (3.82-4.97)
[2021-02-25 08:57] LABS: Calcium 9.1 mg/dL (8.6-10.3); Potassium 4.8 mEq/L (3.5-5.1)
[2021-02-25 09:37] LABS: Adenovirus DETECTED (Not Detect); Bordetella Pertussis Not Detected (Not Detect); Chlamydophila pneumoniae Not Detected (Not Detect); Coronavirus 229E Not Detected (Not Detect); Coronavirus HKU1 Not Detected (Not Detect); Coronavirus NL63 Not Detected (Not Detect); Coronavirus OC43 Not Detected (Not Detect); Human Metapneumovirus Not Detected (Not Detect); Human Rhinovirus/Enterovirus Not Detected (Not Detect); Influenza A Subtype 2009 H1 Not Detected (Not Detect); Influenza B Not Detected (Not Detect); Mycoplasma pneumoniae Not Detected (Not Detect); Parainfluenza Virus 1 Not Detected (Not Detect); Parainfluenza Virus 2 Not Detected (Not Detect); Parainfluenza Virus 3 Not Detected (Not Detect); Parainfluenza Virus 4 Not Detected (Not Detect); Respiratory Syncytial Virus Not Detected (Not Detect); SARS-CoV-2 Not Detected (Not Detect)
[2021-02-25] MEDS ORDERED: Benzonatate 100 MG CAPSULE PO PRN (10:43)
[2021-02-25] MEDS ORDERED: Loratadine 10 MG TABLET PO PRN (10:43)
[2021-02-25] MEDS: Insulin DETEMIR 100 UNIT/ML X5UNITS SUBQ SCH ×2 (12:11→20:38)
[2021-02-25] MEDS: *HR* OxyCODONE/APAP 5/325 TABLET PO PRN (14:42)
[2021-02-25] MEDS: amLODIPine 5 MG TABLET PO SCH (14:42)
[2021-02-25] MEDS ORDERED: cloNIDine HCL 0.1 MG TABLET PO ONE (15:46)
[2021-02-25] MEDS: MethylPREDNISolone 40 MG/ML VIAL IVP SCH (16:28)
[2021-02-25] MEDS: Cefepime HCl 2,000 MG in Water for inj. (sterile) 20 ML IVP SCH (16:29)
[2021-02-25 17:15] LABS: Hepatitis B Surface Antibody 12.83 mIU/mL
[2021-02-25 17:17] LABS: Calcium 9.1 mg/dL (8.6-10.3); Potassium 3.5 mEq/L (3.5-5.1)
[2021-02-25 17:25] LABS: Hepatitis B Surface Antigen Nonreactive (Nonreactive)
[2021-02-25] MEDS: Folic Acid 1 MG TABLET PO SCH (20:37)
[2021-02-25] MEDS: Pregabalin 75 MG CAPSULE PO SCH (20:37)
[2021-02-25] MEDS: traZODone 50 MG TABLET PO SCH (20:38)
[2021-02-26] MEDS: Azithromycin 500 MG in 0.9 % Sodium Chloride 250 ML IVPB SCH (02:09)
[2021-02-26 03:42] LABS: Hemoglobin 10.7 g/dL (11.5-15.4); Mean Corpuscular HGB Conc 31.5 g/dL (31.6-35.5); Mean Corpuscular Hemoglobin 28.6 pg (28.0-33.3); Mean Corpuscular Volume 90.9 fL (83.0-100.0); Mean Platelet Volume 12.1 fL (9.4-12.4); Platelet Count 161 K/mcL (140-400); Red Blood Count 3.74 M/mcL (3.82-4.97); Red Cell Distribution Width 15.1 % (11.5-14.5); White Blood Count 4.8 K/mcL (4.3-11.1)
[2021-02-26] MEDS: Ipratropium/Albuterol Neb 3 ML IH SCH ×5 (04:05→19:43)
[2021-02-26 04:12] LABS: Calcium 8.9 mg/dL (8.6-10.3); Potassium 4.7 mEq/L (3.5-5.1)
[2021-02-26] MEDS: *HR* Heparin 5,000 UNIT/ML VIAL SQ SCH ×3 (05:26→20:49)
[2021-02-26] MEDS: MethylPREDNISolone 40 MG/ML VIAL IVP SCH (05:26)
[2021-02-26] MEDS: Pregabalin 75 MG CAPSULE PO SCH ×2 (07:59→20:48)
[2021-02-26] MEDS: amLODIPine 5 MG TABLET PO SCH (07:59)
[2021-02-26] MEDS: Insulin DETEMIR 100 UNIT/ML X5UNITS SUBQ SCH ×2 (07:59→20:49)
[2021-02-26] MEDS: Insulin LISPRO 300 UNITS/3 ML VIAL SUBQ SCH ×4 (07:59→20:49)
[2021-02-26] MEDS: *HR* OxyCODONE/APAP 5/325 TABLET PO PRN (08:06)
[2021-02-26] MEDS ORDERED: Insulin Human Regular 10 UNIT in 0.9 % Sodium Chloride 10 ML IV ONE (15:20)
[2021-02-26] MEDS: traZODone 50 MG TABLET PO SCH (20:48)
[2021-02-26] MEDS: Folic Acid 1 MG TABLET PO SCH (20:48)
[2021-02-27] MEDS: Ipratropium/Albuterol Neb 3 ML IH SCH ×7 (00:22→23:23)
[2021-02-27] MEDS: Azithromycin 500 MG in 0.9 % Sodium Chloride 250 ML IVPB SCH (01:58)
[2021-02-27] MEDS: *HR* OxyCODONE/APAP 5/325 TABLET PO PRN ×2 (02:04→12:01)
[2021-02-27 03:33] LABS: Hematocrit 33.2 % (35.3-44.9); Hemoglobin 10.5 g/dL (11.5-15.4); Mean Corpuscular HGB Conc 31.6 g/dL (31.6-35.5); Mean Corpuscular Hemoglobin 29.1 pg (28.0-33.3); Mean Platelet Volume 11.7 fL (9.4-12.4); Platelet Count 172 K/mcL (140-400); Red Blood Count 3.61 M/mcL (3.82-4.97); Red Cell Distribution Width 14.8 % (11.5-14.5)
[2021-02-27 03:52] LABS: Calcium 8.3 mg/dL (8.6-10.3); Potassium 4.2 mEq/L (3.5-5.1)
[2021-02-27] MEDS: *HR* Heparin 5,000 UNIT/ML VIAL SQ SCH ×3 (05:20→20:34)
[2021-02-27] MEDS ORDERED: 0.9 % Sodium Chloride 250 ML IVC PRN (07:26)
[2021-02-27] MEDS ORDERED: *HR* Heparin 10,000 UNIT/10 ML VIAL IV PRN ×2 (07:26)
[2021-02-27] MEDS ORDERED: 0.9 % Sodium Chloride 1,000 ML PRIME SCH (07:30)
[2021-02-27] MEDS: predniSONE 20 MG TABLET PO SCH (07:49)
[2021-02-27] MEDS: Pregabalin 75 MG CAPSULE PO SCH ×2 (07:49→20:11)
[2021-02-27] MEDS: Insulin DETEMIR 100 UNIT/ML X5UNITS SUBQ SCH ×2 (07:50→20:12)
[2021-02-27] MEDS: Insulin LISPRO 300 UNITS/3 ML VIAL SUBQ SCH ×5 (07:51→20:17)
[2021-02-27] MEDS: amLODIPine 5 MG TABLET PO SCH (11:59)
[2021-02-27] MEDS ORDERED: Insulin Human Regular 10 UNIT in 0.9 % Sodium Chloride 10 ML IV ONE ×2 (17:33→19:04)
[2021-02-27] MEDS: Cefepime HCl 2,000 MG in Water for inj. (sterile) 20 ML IVP SCH (17:50)
[2021-02-27] MEDS ORDERED: 0.9 % Sodium Chloride 250 ML IVC ONE (19:03)
[2021-02-27] MEDS: Folic Acid 1 MG TABLET PO SCH (20:11)
[2021-02-27] MEDS: traZODone 50 MG TABLET PO SCH (20:11)
[2021-02-27] MEDS: Sennosides/Docusate Sodium TABLET PO SCH (23:00)
[2021-02-28] MEDS: Azithromycin 500 MG in 0.9 % Sodium Chloride 250 ML IVPB SCH (02:41)
[2021-02-28] MEDS: Ipratropium/Albuterol Neb 3 ML IH SCH ×2 (03:49→07:43)
[2021-02-28] MEDS: *HR* Heparin 5,000 UNIT/ML VIAL SQ SCH (06:01)
[2021-02-28 07:07] LABS: Hematocrit 32.5 % (35.3-44.9); Hemoglobin 10.5 g/dL (11.5-15.4); Mean Corpuscular HGB Conc 32.3 g/dL (31.6-35.5); Mean Corpuscular Hemoglobin 28.9 pg (28.0-33.3); Mean Corpuscular Volume 89.5 fL (83.0-100.0); Mean Platelet Volume 11.6 fL (9.4-12.4); Platelet Count 158 K/mcL (140-400); Red Blood Count 3.63 M/mcL (3.82-4.97); Red Cell Distribution Width 15.2 % (11.5-14.5); White Blood Count 6.3 K/mcL (4.3-11.1)
[2021-02-28 07:15] VITALS: BP 186/92
[2021-02-28 07:20] LABS: Calcium 8.2 mg/dL (8.6-10.3)
[2021-02-28] MEDS: Insulin DETEMIR 100 UNIT/ML X5UNITS SUBQ SCH (07:34)
[2021-02-28] MEDS: *HR* OxyCODONE/APAP 5/325 TABLET PO PRN (07:34)
[2021-02-28] MEDS: Pregabalin 75 MG CAPSULE PO SCH (07:34)
[2021-02-28] MEDS: Insulin LISPRO 300 UNITS/3 ML VIAL SUBQ SCH ×2 (07:34)
[2021-02-28] MEDS: amLODIPine 5 MG TABLET PO SCH (07:34)
[2021-02-28] MEDS: Sennosides/Docusate Sodium TABLET PO SCH (07:35)
[2021-02-28] MEDS: predniSONE 20 MG TABLET PO SCH (07:35)
== END 2021-02-28 11:25 | disposition home or self-care (01) | DRG 193 ==
LOC: 2ANU → 2NNU 02-25 04:35 → SUATTDRO 02-25 15:43 → 2ANU 02-25 17:38
PROVIDERS: ADMIT Internal Medicine; ATTEND Family Medicine

== ENCOUNTER 2022-02-11 09:02 | Inpatient (IN) ==
[2022-02-11] MEDS ORDERED: Naloxone 0.4 MG/ML INJ IVP PRN (11:50)
[2022-02-11] MEDS ORDERED: Melatonin 3 MG TABLET PO PRN (11:50)
[2022-02-11] MEDS ORDERED: Ondansetron 4 MG/2 ML VIAL IVP PRN (11:50)
[2022-02-11] MEDS ORDERED: *HR* Dextrose 50 % in Water (Syg) 50 ML SYRINGE IVP PRN (11:54)
[2022-02-11] MEDS ORDERED: D5% in Water 1,000 ML IVC PRN (11:54)
[2022-02-11] MEDS ORDERED: Dextrose 4 GM Chewable Tablets PO PRN ×2 (11:54)
[2022-02-11] MEDS ORDERED: Vancomycin 1 EACH in 0.9 % Sodium Chloride 250 ML IVPB PRN (12:00)
[2022-02-11 13:45] LABS: Hemoglobin 10.5 g/dL (11.5-15.4); Immature Granulocytes % 0.6 % (0-4); Mean Platelet Volume 11.7 fL (9.4-12.4); Red Cell Distribution Width 15.9 % (11.5-14.5)
[2022-02-11 13:47] LABS: Basophils % 0.5 %; Eosinophils # 0.1 K/mcL (0.0-0.6); Eosinophils % 2.1 %; Hematocrit 33.3 % (35.3-44.9); Immature Platelets 6.5 % (1.1-6.1); Lymphocytes # 0.6 K/mcL (0.6-4.6); Lymphocytes % 8.9 %; Mean Corpuscular HGB Conc 31.5 g/dL (31.6-35.5); Mean Corpuscular Hemoglobin 31.9 pg (28.0-33.3); Mean Corpuscular Volume 101.2 fL (83.0-100.0); Monocytes # 0.6 K/mcL (0.0-1.3); Monocytes % 10.1 %; Neutrophils # 4.9 K/mcL (1.6-8.9); Platelet Count 125 K/mcL (140-400); Red Blood Count 3.29 M/mcL (3.82-4.97); Segmented Neutrophils % 77.8 %; White Blood Count 6.3 K/mcL (4.3-11.1)
[2022-02-11] MEDS ORDERED: Vancomycin 500 MG in 0.9 % Sodium Chloride Mini Bag 100 ML IVPB ONE (14:01)
[2022-02-11 14:10] LABS: Calcium 8.2 mg/dL (8.6-10.3); Potassium 4.6 mEq/L (3.5-5.1)
[2022-02-11 14:15] LABS: Magnesium 1.9 mg/dL (1.6-2.6); Phosphorous 5.2 mg/dL (2.7-4.5); Troponin I < 0.03 ng/mL (< 0.04)
[2022-02-11] MEDS: Acetaminophen 325 MG TABLET PO PRN (15:37)
[2022-02-11] MEDS: Insulin LISPRO 300 UNITS/3 ML VIAL SUBQ SCH ×2 (15:45→22:28)
[2022-02-11] MEDS ORDERED: Piperacillin/Tazobactam 3.375 GM in 0.9 % Sodium Chloride Mini Bag 100 ML IVPB SCH (16:00)
[2022-02-11] MEDS: *HR* Heparin 5,000 UNIT/ML VIAL SQ SCH (22:25)
[2022-02-11] MEDS: Piperacillin/Tazobactam 3.375 GM in 0.9 % Sodium Chloride Mini Bag 100 ML IVPB SCH (22:26)
[2022-02-12] MEDS: Acetaminophen 325 MG TABLET PO PRN (02:40)
[2022-02-12] MEDS: *HR* Heparin 5,000 UNIT/ML VIAL SQ SCH ×3 (05:21→20:43)
[2022-02-12 06:56] LABS: Basophils % 0.7 %; Eosinophils # 0.1 K/mcL (0.0-0.6); Eosinophils % 2.2 %; Hematocrit 29.4 % (35.3-44.9); Hemoglobin 9.1 g/dL (11.5-15.4); Immature Granulocytes % 0.7 % (0-4); Lymphocytes # 0.7 K/mcL (0.6-4.6); Lymphocytes % 11.9 %; Mean Corpuscular Hemoglobin 31.3 pg (28.0-33.3); Mean Platelet Volume 11.9 fL (9.4-12.4); Monocytes # 0.8 K/mcL (0.0-1.3); Monocytes % 14.3 %; Neutrophils # 4.1 K/mcL (1.6-8.9); Platelet Count 123 K/mcL (140-400); Red Blood Count 2.91 M/mcL (3.82-4.97); Red Cell Distribution Width 15.8 % (11.5-14.5); Segmented Neutrophils % 70.2 %; White Blood Count 5.8 K/mcL (4.3-11.1)
[2022-02-12] MEDS: Insulin LISPRO 300 UNITS/3 ML VIAL SUBQ SCH ×4 (08:08→20:44)
[2022-02-12] MEDS: Piperacillin/Tazobactam 3.375 GM in 0.9 % Sodium Chloride Mini Bag 100 ML IVPB SCH (08:10)
[2022-02-12] MEDS ORDERED: 0.9 % Sodium Chloride 250 ML IVC PRN (08:11)
[2022-02-12] MEDS ORDERED: 0.9 % Sodium Chloride 1,000 ML PRIME SCH (08:15)
[2022-02-12 10:03] LABS: Calcium 8.3 mg/dL (8.6-10.3); Potassium 5.7 mEq/L (3.5-5.1)
[2022-02-12] MEDS: Insulin DETEMIR 100 UNIT/ML X5UNITS SUBQ SCH ×2 (10:18→20:45)
[2022-02-12] MEDS ORDERED: *HR* Heparin 10,000 UNIT/10 ML VIAL IV PRN (10:34)
[2022-02-12] MEDS ORDERED: Cefepime HCl 2,000 MG in 0.9 % Sodium Chloride 10 ML IVP SCH (14:00)
[2022-02-12] MEDS: amLODIPine 5 MG TABLET PO SCH (14:25)
[2022-02-12] MEDS ORDERED: Vancomycin 500 MG in 0.9 % Sodium Chloride Mini Bag 100 ML IVPB ONE (16:00)
[2022-02-12] MEDS ORDERED: *HR* HYDROcodone/Acet 5/325 mg TABLET PO PRN (18:37)
[2022-02-12] MEDS ORDERED: *HR* Metoprolol 5 MG/5 ML VIAL IVP ONE (20:06)
[2022-02-12] MEDS: Pregabalin 75 MG CAPSULE PO SCH (20:42)
[2022-02-12] MEDS ORDERED: Budesonide/Formoterol 160/4.5 1 PUFF INH IH SCH (21:00)
[2022-02-12] MEDS ORDERED: Folic Acid 1 MG TABLET PO SCH (21:00)
[2022-02-12] MEDS ORDERED: traZODone 50 MG TABLET PO SCH (21:00)
[2022-02-13 01:10] LABS: Basophils % 0.5 %; Eosinophils # 0.3 K/mcL (0.0-0.6); Eosinophils % 4.8 %; Hematocrit 29.4 % (35.3-44.9); Hemoglobin 9.7 g/dL (11.5-15.4); Immature Granulocytes % 0.7 % (0-4); Lymphocytes # 0.8 K/mcL (0.6-4.6); Mean Corpuscular Hemoglobin 32.2 pg (28.0-33.3); Mean Corpuscular Volume 97.7 fL (83.0-100.0); Mean Platelet Volume 11.5 fL (9.4-12.4); Monocytes % 16.6 %; Neutrophils # 3.8 K/mcL (1.6-8.9); Platelet Count 146 K/mcL (140-400); Red Blood Count 3.01 M/mcL (3.82-4.97); Red Cell Distribution Width 15.3 % (11.5-14.5); Segmented Neutrophils % 64.4 %; White Blood Count 5.9 K/mcL (4.3-11.1)
[2022-02-13 01:30] LABS: Calcium 8.7 mg/dL (8.6-10.3); Magnesium 1.9 mg/dL (1.6-2.6); Phosphorous 4.6 mg/dL (2.7-4.5); Potassium 4.4 mEq/L (3.5-5.1)
[2022-02-13] MEDS: *HR* Heparin 5,000 UNIT/ML VIAL SQ SCH ×3 (05:31→21:40)
[2022-02-13] MEDS: Insulin DETEMIR 100 UNIT/ML X5UNITS SUBQ SCH ×2 (08:06→21:54)
[2022-02-13] MEDS: amLODIPine 5 MG TABLET PO SCH (08:06)
[2022-02-13] MEDS: Pregabalin 75 MG CAPSULE PO SCH (08:06)
[2022-02-13] MEDS: Insulin LISPRO 300 UNITS/3 ML VIAL SUBQ SCH ×3 (08:09→17:29)
[2022-02-13] MEDS ORDERED: Loratadine 10 MG TABLET PO SCH (09:00)
[2022-02-13] MEDS ORDERED: *HR* FentaNYL (PF) 100 MCG/2 ML VIAL ONE (09:30)
[2022-02-13] MEDS ORDERED: Lidocaine -MPF 2% 5 ML VIAL ONE (09:30)
[2022-02-13] MEDS ORDERED: *HR* Midazolam HCl 2 MG/2 ML VIAL ONE (09:30)
[2022-02-13] MEDS ORDERED: *HR* Propofol 200 MG/20 ML VIAL IVP ONE (09:31)
[2022-02-13] MEDS ORDERED: *HR* HYDROmorphone PF 0.5 MG/0.5 ML SYRINGE IVP PRN ×2 (10:12→15:32)
[2022-02-13] MEDS ORDERED: *HR* FentaNYL (PF) 100 MCG/2 ML VIAL IVP PRN ×2 (10:12→15:32)
[2022-02-13] MEDS ORDERED: CeFAZolin Syr 2,000MG/20 ML 2,000 MG/20 ML SYRINGE IVPB ONE (10:26)
[2022-02-13] MEDS ORDERED: Ringers Solution, Lactated 1,000 ML IVC SCH ×2 (10:30→15:32)
[2022-02-13] MEDS ORDERED: Vancomycin 1 EACH in 0.9 % Sodium Chloride 250 ML IVPB PRN (15:32)
[2022-02-13] MEDS ORDERED: Naloxone 0.4 MG/ML INJ IVP PRN (15:32)
[2022-02-13] MEDS ORDERED: 0.9 % Sodium Chloride 250 ML IVC PRN (15:32)
[2022-02-13] MEDS ORDERED: Dextrose 4 GM Chewable Tablets PO PRN ×2 (15:32)
[2022-02-13] MEDS ORDERED: Acetaminophen 325 MG TABLET PO PRN (15:32)
[2022-02-13] MEDS ORDERED: 0.9 % Sodium Chloride 1,000 ML PRIME SCH (15:32)
[2022-02-13] MEDS ORDERED: D5% in Water 1,000 ML IVC PRN (15:32)
[2022-02-13] MEDS ORDERED: Melatonin 3 MG TABLET PO PRN (15:32)
[2022-02-13] MEDS ORDERED: *HR* Dextrose 50 % in Water (Syg) 50 ML SYRINGE IVP PRN (15:32)
[2022-02-13] MEDS ORDERED: Pregabalin 75 MG CAPSULE PO SCH (21:00)
[2022-02-13] MEDS ORDERED: Insulin LISPRO 300 UNITS/3 ML VIAL SUBQ SCH (21:00)
[2022-02-13] MEDS: *HR* HYDROcodone/Acet 5/325 mg TABLET PO PRN (21:38)
[2022-02-13] MEDS: traZODone 50 MG TABLET PO SCH (21:39)
[2022-02-13] MEDS: Folic Acid 1 MG TABLET PO SCH (21:40)
[2022-02-13] MEDS ORDERED: Budesonide/Formoterol 160/4.5 1 PUFF INH IH SCH (22:00)
[2022-02-14 02:27] LABS: Basophils % 0.6 %; Eosinophils # 0.2 K/mcL (0.0-0.6); Eosinophils % 4.5 %; Hematocrit 29.6 % (35.3-44.9); Hemoglobin 9.7 g/dL (11.5-15.4); Immature Granulocytes % 1.2 % (0-4); Lymphocytes # 1.1 K/mcL (0.6-4.6); Lymphocytes % 21.7 %; Mean Corpuscular HGB Conc 32.8 g/dL (31.6-35.5); Mean Corpuscular Hemoglobin 31.3 pg (28.0-33.3); Mean Corpuscular Volume 95.5 fL (83.0-100.0); Mean Platelet Volume 11.1 fL (9.4-12.4); Monocytes # 0.8 K/mcL (0.0-1.3); Neutrophils # 2.9 K/mcL (1.6-8.9); Platelet Count 143 K/mcL (140-400); Red Cell Distribution Width 15.2 % (11.5-14.5); White Blood Count 5.1 K/mcL (4.3-11.1)
[2022-02-14 02:43] LABS: Calcium 8.7 mg/dL (8.6-10.3); Potassium 4.7 mEq/L (3.5-5.1)
[2022-02-14] MEDS: *HR* HYDROcodone/Acet 5/325 mg TABLET PO PRN ×2 (05:59→11:56)
[2022-02-14] MEDS: *HR* Heparin 5,000 UNIT/ML VIAL SQ SCH ×3 (06:00→21:00)
[2022-02-14] MEDS ORDERED: 0.9 % Sodium Chloride 250 ML IVC PRN (07:33)
[2022-02-14] MEDS ORDERED: *HR* Heparin 10,000 UNIT/10 ML VIAL IV PRN (07:42)
[2022-02-14] MEDS: Insulin LISPRO 300 UNITS/3 ML VIAL SUBQ SCH ×3 (07:43→16:40)
[2022-02-14] MEDS: Loratadine 10 MG TABLET PO SCH (08:17)
[2022-02-14] MEDS: Insulin DETEMIR 100 UNIT/ML X5UNITS SUBQ SCH ×2 (08:18→21:00)
[2022-02-14] MEDS: amLODIPine 5 MG TABLET PO SCH (08:18)
[2022-02-14] MEDS ORDERED: Pantoprazole 40 MG VIAL IVP ONE (08:41)
[2022-02-14] MEDS: Pregabalin 75 MG CAPSULE PO SCH (09:05)
[2022-02-14] MEDS ORDERED: Cefepime HCl 2,000 MG in 0.9 % Sodium Chloride 10 ML IVP SCH (14:00)
[2022-02-14] MEDS: *HR* OxyCODONE/APAP 5/325 TABLET PO PRN ×2 (15:45→21:14)
[2022-02-14] MEDS: Folic Acid 1 MG TABLET PO SCH (21:00)
[2022-02-14] MEDS: traZODone 50 MG TABLET PO SCH (21:00)
[2022-02-15] MEDS: *HR* OxyCODONE/APAP 5/325 TABLET PO PRN ×5 (01:35→21:46)
[2022-02-15] MEDS: *HR* Heparin 5,000 UNIT/ML VIAL SQ SCH ×3 (05:27→21:44)
[2022-02-15 05:57] LABS: Basophils # 0.1 K/mcL (0.0-0.2); Basophils % 0.9 %; Eosinophils # 0.3 K/mcL (0.0-0.6); Eosinophils % 5.3 %; Hematocrit 28.8 % (35.3-44.9); Hemoglobin 9.6 g/dL (11.5-15.4); Immature Granulocytes % 2.3 % (0-4); Lymphocytes # 1.3 K/mcL (0.6-4.6); Lymphocytes % 22.5 %; Mean Corpuscular HGB Conc 33.3 g/dL (31.6-35.5); Mean Corpuscular Hemoglobin 32.1 pg (28.0-33.3); Mean Corpuscular Volume 96.3 fL (83.0-100.0); Mean Platelet Volume 11.4 fL (9.4-12.4); Monocytes # 0.7 K/mcL (0.0-1.3); Neutrophils # 3.1 K/mcL (1.6-8.9); Platelet Count 155 K/mcL (140-400); Red Blood Count 2.99 M/mcL (3.82-4.97); Red Cell Distribution Width 15.1 % (11.5-14.5); White Blood Count 5.6 K/mcL (4.3-11.1)
[2022-02-15 06:08] LABS: Alanine Aminotransferase 42 Units/L (7-52); Albumin 3.4 g/dL (3.5-5.7); Albumin/Globulin Ratio 1.1 (1.1-2.2); Alkaline Phosphatase 122 Units/L (34-104); Aspartate Amino Transferase 25 Units/L (13-39); BUN/Creatinine Ratio 6 (6-26); Bilirubin,Direct 0.2 mg/dL (0.0-0.2); Bilirubin,Indirect 0.5 mg/dL (0.0-1.0); Bilirubin,Total 0.7 mg/dL (0.3-1.0); Blood Urea Nitrogen 31 mg/dL (6-20); Calcium 8.7 mg/dL (8.6-10.3); Carbon Dioxide 26 mEq/L (23-29); Chloride 95 mEq/L (98-107); Globulin 3.1 g/dL (2.4-3.5); Glucose 168 mg/dL (70-105); Iron 68 mcg/dL (50-170); Osmolality,Calculated 284 (280-300); Potassium 4.3 mEq/L (3.5-5.1); Sodium 132 mEq/L (136-145); Total Protein 6.5 g/dL (6.4-8.9); eGFR For African Americans 12 (> 60); eGFR For Non-African Americans 10 (> 60)
[2022-02-15 06:10] LABS: % Iron Saturation 30 % (15-50); Transferrin 164 mg/dL (203-362)
[2022-02-15 06:31] LABS: Folate 21.7 ng/mL (3.0-16.0)
[2022-02-15 06:33] LABS: Ferritin > 1500 ng/mL (10-120)
[2022-02-15] MEDS: Insulin LISPRO 300 UNITS/3 ML VIAL SUBQ SCH ×3 (07:35→16:44)
[2022-02-15] MEDS: Loratadine 10 MG TABLET PO SCH (08:44)
[2022-02-15] MEDS: Lactobacillus 1 EACH CAP.SPRINK PO SCH ×2 (08:44→21:43)
[2022-02-15] MEDS: amLODIPine 5 MG TABLET PO SCH (08:44)
[2022-02-15] MEDS: Pregabalin 75 MG CAPSULE PO SCH (08:44)
[2022-02-15] MEDS: Insulin DETEMIR 100 UNIT/ML X5UNITS SUBQ SCH ×2 (08:45→21:44)
[2022-02-15] MEDS: Ondansetron 4 MG/2 ML VIAL IVP PRN ×2 (09:31→17:31)
[2022-02-15] MEDS: Folic Acid 1 MG TABLET PO SCH (21:43)
[2022-02-15] MEDS: traZODone 50 MG TABLET PO SCH (21:44)
[2022-02-16] MEDS: *HR* OxyCODONE/APAP 5/325 TABLET PO PRN ×5 (02:50→22:20)
[2022-02-16 06:34] LABS: White Blood Count 6.2 K/mcL (4.3-11.1)
[2022-02-16 06:35] LABS: Basophils # 0.1 K/mcL (0.0-0.2); Eosinophils # 0.3 K/mcL (0.0-0.6); Eosinophils % 5.1 %; Hematocrit 28.8 % (35.3-44.9); Hemoglobin 9.4 g/dL (11.5-15.4); Immature Granulocytes % 3.4 % (0-4); Lymphocytes # 1.3 K/mcL (0.6-4.6); Lymphocytes % 21.5 %; Mean Corpuscular HGB Conc 32.6 g/dL (31.6-35.5); Mean Platelet Volume 11.3 fL (9.4-12.4); Monocytes # 0.8 K/mcL (0.0-1.3); Monocytes % 12.2 %; Neutrophils # 3.6 K/mcL (1.6-8.9); Platelet Count 154 K/mcL (140-400); Red Blood Count 2.94 M/mcL (3.82-4.97); Red Cell Distribution Width 15.1 % (11.5-14.5); Segmented Neutrophils % 56.8 %
[2022-02-16 06:51] LABS: Magnesium 2.2 mg/dL (1.6-2.6); Potassium 5.1 mEq/L (3.5-5.1)
[2022-02-16] MEDS: *HR* Heparin 5,000 UNIT/ML VIAL SQ SCH ×3 (06:58→22:20)
[2022-02-16] MEDS: Loratadine 10 MG TABLET PO SCH (08:10)
[2022-02-16] MEDS: amLODIPine 5 MG TABLET PO SCH (08:10)
[2022-02-16] MEDS: Pregabalin 75 MG CAPSULE PO SCH (08:10)
[2022-02-16] MEDS: Lactobacillus 1 EACH CAP.SPRINK PO SCH ×2 (08:11→20:22)
[2022-02-16] MEDS: Insulin LISPRO 300 UNITS/3 ML VIAL SUBQ SCH ×3 (08:12→16:28)
[2022-02-16 09:15] LABS: Estimated Average Glucose 151 mg/dl; Hemoglobin A1C 6.9 %
[2022-02-16] MEDS: Insulin DETEMIR 100 UNIT/ML X5UNITS SUBQ SCH (09:40)
[2022-02-16] MEDS: Ondansetron 4 MG/2 ML VIAL IVP PRN (09:40)
[2022-02-16] MEDS ORDERED: 0.9 % Sodium Chloride 250 ML IVC PRN (12:52)
[2022-02-16] MEDS ORDERED: *HR* Heparin 10,000 UNIT/10 ML VIAL IV PRN (12:52)
[2022-02-16] MEDS ORDERED: Acetaminophen 325 MG TABLET PO PRN (12:52)
[2022-02-16] MEDS ORDERED: 0.9 % Sodium Chloride 1,000 ML PRIME SCH (13:00)
[2022-02-16] MEDS: traZODone 50 MG TABLET PO SCH (20:22)
[2022-02-16] MEDS: Folic Acid 1 MG TABLET PO SCH (20:22)
[2022-02-16] MEDS ORDERED: Insulin DETEMIR 100 UNIT/ML X5UNITS SUBQ SCH (21:00)
[2022-02-17 01:47] LABS: Basophils # 0.1 K/mcL (0.0-0.2); Basophils % 0.9 %; Eosinophils # 0.3 K/mcL (0.0-0.6); Eosinophils % 4.4 %; Hematocrit 30.3 % (35.3-44.9); Immature Granulocytes % 3.4 % (0-4); Lymphocytes # 1.4 K/mcL (0.6-4.6); Lymphocytes % 20.3 %; Mean Corpuscular Hemoglobin 31.6 pg (28.0-33.3); Mean Corpuscular Volume 95.9 fL (83.0-100.0); Mean Platelet Volume 11.6 fL (9.4-12.4); Monocytes # 0.6 K/mcL (0.0-1.3); Neutrophils # 4.4 K/mcL (1.6-8.9); Platelet Count 164 K/mcL (140-400); Red Blood Count 3.16 M/mcL (3.82-4.97)
[2022-02-17 01:57] LABS: Potassium 4.9 mEq/L (3.5-5.1)
[2022-02-17 01:58] LABS: Calcium 8.7 mg/dL (8.6-10.3)
[2022-02-17] MEDS: *HR* OxyCODONE/APAP 5/325 TABLET PO PRN ×2 (04:02→16:21)
[2022-02-17] MEDS: *HR* Heparin 5,000 UNIT/ML VIAL SQ SCH ×3 (05:22→20:21)
[2022-02-17] MEDS: Insulin LISPRO 300 UNITS/3 ML VIAL SUBQ SCH ×3 (07:33→16:14)
[2022-02-17] MEDS: Lactobacillus 1 EACH CAP.SPRINK PO SCH ×2 (07:43→20:20)
[2022-02-17] MEDS: amLODIPine 5 MG TABLET PO SCH (07:43)
[2022-02-17] MEDS: Loratadine 10 MG TABLET PO SCH (07:43)
[2022-02-17] MEDS ORDERED: *HR* FentaNYL (PF) 100 MCG/2 ML VIAL ONE (08:34)
[2022-02-17] MEDS ORDERED: *HR* Midazolam HCl 2 MG/2 ML VIAL ONE (08:34)
[2022-02-17] MEDS ORDERED: Ondansetron 4 MG/2 ML VIAL ONE (08:34)
[2022-02-17] MEDS ORDERED: Lidocaine -MPF 2% 5 ML VIAL ONE (08:34)
[2022-02-17] MEDS ORDERED: Insulin DETEMIR 100 UNIT/ML X5UNITS SUBQ SCH (09:00)
[2022-02-17] MEDS ORDERED: 0.9 % Sodium Chloride 1,000 ML IVC SCH ×2 (09:30→14:12)
[2022-02-17] MEDS ORDERED: *HR* Propofol 200 MG/20 ML VIAL IVP ONE (13:00)
[2022-02-17] MEDS ORDERED: Naloxone 0.4 MG/ML INJ IVP PRN (14:12)
[2022-02-17] MEDS ORDERED: 0.9 % Sodium Chloride 250 ML IVC PRN (14:12)
[2022-02-17] MEDS ORDERED: D5% in Water 1,000 ML IVC PRN (14:12)
[2022-02-17] MEDS ORDERED: Ondansetron 4 MG/2 ML VIAL IVP PRN (14:12)
[2022-02-17] MEDS ORDERED: Acetaminophen 325 MG TABLET PO PRN (14:12)
[2022-02-17] MEDS ORDERED: 0.9 % Sodium Chloride 1,000 ML PRIME SCH (14:12)
[2022-02-17] MEDS ORDERED: Vancomycin 1 EACH in 0.9 % Sodium Chloride 250 ML IVPB PRN (14:12)
[2022-02-17] MEDS ORDERED: *HR* Dextrose 50 % in Water (Syg) 50 ML SYRINGE IVP PRN (14:12)
[2022-02-17] MEDS ORDERED: Melatonin 3 MG TABLET PO PRN (14:12)
[2022-02-17] MEDS ORDERED: Dextrose 4 GM Chewable Tablets PO PRN ×2 (14:12)
[2022-02-17] MEDS ORDERED: *HR* HYDROmorphone (PF) 1 MG/ML SYRINGE IVP ONE (19:52)
[2022-02-17] MEDS: traZODone 50 MG TABLET PO SCH (20:19)
[2022-02-17] MEDS: Pregabalin 75 MG CAPSULE PO SCH (20:20)
[2022-02-17] MEDS: Folic Acid 1 MG TABLET PO SCH (20:20)
[2022-02-17] MEDS: Insulin DETEMIR 100 UNIT/ML X5UNITS SUBQ SCH (20:21)
[2022-02-17] MEDS ORDERED: Pregabalin 75 MG CAPSULE PO SCH (21:00)
[2022-02-18 05:36] LABS: Basophils # 0.1 K/mcL (0.0-0.2); Basophils % 0.5 %; Eosinophils % 0.1 %; Hemoglobin 9.8 g/dL (11.5-15.4); Immature Granulocytes % 4.9 % (0-4); Lymphocytes # 0.8 K/mcL (0.6-4.6); Lymphocytes % 8.6 %; Mean Corpuscular HGB Conc 32.7 g/dL (31.6-35.5); Mean Corpuscular Hemoglobin 31.7 pg (28.0-33.3); Mean Corpuscular Volume 97.1 fL (83.0-100.0); Mean Platelet Volume 11.2 fL (9.4-12.4); Monocytes # 0.5 K/mcL (0.0-1.3); Monocytes % 5.1 %; Neutrophils # 7.9 K/mcL (1.6-8.9); Platelet Count 176 K/mcL (140-400); Red Blood Count 3.09 M/mcL (3.82-4.97); Red Cell Distribution Width 14.8 % (11.5-14.5); Segmented Neutrophils % 80.8 %; White Blood Count 9.8 K/mcL (4.3-11.1)
[2022-02-18 06:04] LABS: Calcium 9.1 mg/dL (8.6-10.3); Magnesium 2.4 mg/dL (1.6-2.6); Potassium 6.6 mEq/L (3.5-5.1)
[2022-02-18] MEDS: *HR* Heparin 5,000 UNIT/ML VIAL SQ SCH ×3 (06:15→20:27)
[2022-02-18] MEDS ORDERED: 0.9 % Sodium Chloride 250 ML IVC PRN ×2 (07:33→07:41)
[2022-02-18] MEDS ORDERED: *HR* Heparin 10,000 UNIT/10 ML VIAL IV PRN (07:41)
[2022-02-18] MEDS ORDERED: 0.9 % Sodium Chloride 1,000 ML PRIME SCH (07:45)
[2022-02-18 08:07] LABS: Calcium 9.2 mg/dL (8.6-10.3); Potassium 6.5 mEq/L (3.5-5.1)
[2022-02-18] MEDS: Insulin LISPRO 300 UNITS/3 ML VIAL SUBQ SCH ×3 (08:13→17:10)
[2022-02-18] MEDS: Insulin DETEMIR 100 UNIT/ML X5UNITS SUBQ SCH ×2 (08:13→20:26)
[2022-02-18] MEDS: *HR* OxyCODONE/APAP 5/325 TABLET PO PRN ×3 (08:53→20:26)
[2022-02-18] MEDS: Loratadine 10 MG TABLET PO SCH (13:55)
[2022-02-18] MEDS: amLODIPine 5 MG TABLET PO SCH (13:55)
[2022-02-18] MEDS: Lactobacillus 1 EACH CAP.SPRINK PO SCH ×2 (14:01→20:25)
[2022-02-18] MEDS: traZODone 50 MG TABLET PO SCH (20:25)
[2022-02-18] MEDS: Folic Acid 1 MG TABLET PO SCH (20:26)
[2022-02-18] MEDS: Pregabalin 75 MG CAPSULE PO SCH (20:26)
[2022-02-19] MEDS: *HR* OxyCODONE/APAP 5/325 TABLET PO PRN ×3 (00:20→13:21)
[2022-02-19 04:00] LABS: Calcium 8.9 mg/dL (8.6-10.3); Potassium 4.4 mEq/L (3.5-5.1)
[2022-02-19] MEDS: *HR* Heparin 5,000 UNIT/ML VIAL SQ SCH ×2 (05:32→13:21)
[2022-02-19] MEDS ORDERED: Ethyl Chloride Spray Bottle (104 SPRAY/BOTTLE) TP PRN (07:26)
[2022-02-19] MEDS ORDERED: 0.9 % Sodium Chloride 1,000 ML PRIME SCH (07:30)
[2022-02-19] MEDS ORDERED: *HR* Heparin 10,000 UNIT/10 ML VIAL IV PRN (07:33)
[2022-02-19] MEDS: Loratadine 10 MG TABLET PO SCH (08:19)
[2022-02-19] MEDS: Lactobacillus 1 EACH CAP.SPRINK PO SCH (08:19)
[2022-02-19] MEDS: Insulin LISPRO 300 UNITS/3 ML VIAL SUBQ SCH ×2 (08:20→12:50)
[2022-02-19] MEDS: Insulin DETEMIR 100 UNIT/ML X5UNITS SUBQ SCH (08:26)
[2022-02-19] MEDS ORDERED: Fluconazole 150 MG TABLET PO ONE (10:59)
[2022-02-19] MEDS: amLODIPine 5 MG TABLET PO SCH (12:51)
[2022-02-19 13:12] VITALS: PULSE 90; O2SAT 96
[2022-02-19 16:36] VITALS: BP 147/75; TEMP 97.9
== END 2022-02-19 15:15 | disposition home health service (06) | DRG 853 ==
LOC: 2ANU → SUATTDRO 11:21
PROVIDERS: ADMIT Student in an Organized Health Care Education/Training Program; ATTEND Internal Medicine